=== PATIENT | female | born 1955 | race Caucasian/White ===

== ENCOUNTER 2016-09-07 21:35 | Inpatient (IN) | payer OTHER ==
[~2016-09-07] VITALS: Ht 147.3 cm; Wt 54.5 kg
[~2016-09-07 21:35] MED LIST: ASPI81CH CHEW; LANTUS2P SQ; LIPI10TA PO; METO25TA6 PO; NOVORP2 SQ; OXYGENTANK NAS.CANULA; PLAV75TA29 PO; PRED5PAK PO; ROFL1TAB2 PO; SYNT112T PO
[2016-09-07 21:49] VITALS: BP 96/63; PULSE 125; RESP 24; TEMP 98.8
[2016-09-07] MEDS ORDERED: METO25TA3 PO (22:12)
[2016-09-07] MEDS ORDERED: UMEC1INH INH (22:12)
[2016-09-07] MEDS ORDERED: ALBUAER3 INH (22:12)
[2016-09-07] MEDS ORDERED: methylPREDNISolone SOD SUCC 125 MG/2 ML VIAL IVP ONE (22:15)
--- NOTE | 2016-09-07 22:17 | PD ---
HPI Chief Complaint: Respiratory Symptoms Time Seen by Provider: 22:02 Travel History International Travel<30 days: No Contact w/Intl Traveler<30days: No Traveled to known affect area: No History of Present Illness HPI 61-year-old female complains of coughing congestion wheezing and shortness of breath. Patient states that symptoms started 2 days ago. Patient has history of COPD. Patient has been using nebulizer about 4 times a day at home. Patient states that she have persistent cough mostly dry cough. Patient states that she had chest wall pain with coughing. Patient has history diabetes, status post IA. Patient quit smoking 2 years ago. Patient has been taking prednisone at home. Patient took 20 mg prednisone by mouth and 10 mg prednisone this evening prior coming to the emergency room. Patient's on home O2 2 L nasal cannula. PFSH Past Medical History Hx Anticoagulant Therapy: Yes Anxiety: Yes Depression: Yes Cardiovascular Problems: Yes High Cholesterol: Yes Chest Pain: Yes Congestive Heart Failure: No COPD: Yes Coronary Artery Disease: Yes Diabetes: Yes Patient Takes Glucophage: No Endocrine: Yes Implanted Vascular Access Dvce: Yes Psychiatric: Yes Respiratory: Yes (copd) Myocardial Infarction: Yes (10/2015) Thyroid Disease: Yes Tetanus Vaccination: < 5 Years Influenza Vaccination: No Past Surgical History Abdominal Surgery: Yes (GALLBLADDER) Body Medical Devices: STENT Cardiac Surgery: Yes (STENT) Cholecystectomy: Yes Coronary Stent: Yes Gynecologic Surgery: Yes (HYSTERECTOMY) Hysterectomy: Yes Other Surgery: Yes Social History Alcohol Use: No Tobacco Use: Yes (occas) Substance Use: No Allergies-Medications (Allergen,Severity, Reaction): Coded Allergies: Morphine (Verified Allergy, Intermediate, Nausea/Vomiting, 09/07/16) Penicillin (Verified Allergy, Unknown, sob, 09/07/16) Tetracycline (Verified Allergy, Unknown, hives, 09/07/16) Reported Meds & Prescriptions Reported Meds & Active Scripts Active Prednisone (21) 5 mg tab Dose Pack (Prednisone) 5 Mg Dspk 5 Mg PO DIRECTED Oxygen tank (Oxygen) 1 Ea Tank 2 Liter JON.CANULA CONTINUOUS Oxygen Concentrator Portable Gaseous 2 L/min via Nasal Cannula Continuous For 99 months Reported Incruse Ellipta Inh (Umeclidinium [place] Inh) 0.0625 Mg/Act Inh 62.5 Mcg INH DAILY Proair Hfa 8.5 GM Inh (Albuterol Sulfate) 90 Mcg/Act Aer 2 Puff INH Q4-6H PRN 108 mcg/actuation Metoprolol Tartrate 25 Mg Tab 25 Mg PO BID Daliresp (Roflumilast) 500 Mcg Tab 500 Mcg PO DAILY Plavix (Clopidogrel Bisulfate) 75 Mg Tab 75 Mg PO DAILY Lipitor (Atorvastatin Calcium) 10 Mg Tab Unknown Dose PO HS Synthroid (Levothyroxine Sodium) 112 Mcg Tab 112 Mcg PO DAILY Novolin R Inj (Insulin Human Regular) 1,000 Unit/10 Ml Vial 12 Units SQ ACHS Max dose at bedtime:( )units; sugars less than 70,(0) units; sugars 150-199,(2)unit; sugars 200-249,(4)units; sugars 250-299,(7) units; sugars 300-349,(10)units; sugars greater than 349,(12)units Lantus Inj (Insulin Glargine) 1,000 Unit/10 Ml Vial 55 Units SQ HS Aspirin 81 Mg Chew 81 Mg CHEW DAILY Review of Systems General / Constitutional: No: Fever Eyes: No: Visual changes HENT: No: Headaches Cardiovascular: No: Chest Pain or Discomfort Respiratory: Positive: Cough, Shortness of Breath, Wheezing Gastrointestinal: No: Abdominal Pain Genitourinary: No: Dysuria Musculoskeletal: No: Pain Skin: No Rash Neurologic: No: Weakness Psychiatric: No: Depression Endocrine: No: Polydipsia Hematologic/Lymphatic: No: Easy Bruising Physical Exam Narrative GENERAL: Well-nourished, well-developed patient. SKIN: Warm and dry. HEAD: Normocephalic. EYES: No scleral icterus. No injection or drainage. NECK: Supple, trachea midline. No JVD or lymphadenopathy. CARDIOVASCULAR: Regular rate and rhythm without murmurs, gallops, or rubs. RESPIRATORY: Patient has moderate expiratory wheezes bilaterally with rhonchi at the bases. GASTROINTESTINAL: Abdomen soft, non-tender, nondistended. MUSCULOSKELETAL: No cyanosis, or edema. BACK: Nontender without obvious deformity. No CVA tenderness. Neurologic exam normal. Data Data Last Documented VS Vital Signs Date Time Temp Pulse Resp B/P Pulse Ox O2 Delivery O2 Flow Rate FiO2 09/07/16 22:50 115 20 124/82 97 Nasal Cannula 2 09/07/16 21:49 98.8 Orders Complete Blood Count With Diff (09/07/16 22:10) Comprehensive Metabolic Panel (09/07/16 22:10) B-Type Natriuretic Peptide (09/07/16 22:10) Act Partial Throm Time (Ptt) (09/07/16 22:10) Prothrombin Time / Inr (Pt) (09/07/16 22:10) Influenzae A/B Antigen (09/07/16 22:10) Blood Culture (09/07/16 22:10) Iv Access Insert/Monitor (09/07/16 22:10) Electrocardiogram (09/07/16 22:10) Ecg Monitoring (09/07/16 22:10) Oximetry (09/07/16 22:10) Oxygen Administration (09/07/16 22:10) Chest, Single Ap (09/07/16 22:10) Methylprednisolone So Succ Inj (Solumedr (09/07/16 22:15) Albuterol-Ipratropium Neb (Duoneb Neb) (09/07/16 22:15) Levofloxacin 750 Mg Premix Inj (Levaquin (09/07/16 23:15) Admit Order (Ed Use Only) (09/07/16 23:47) Labs Laboratory Tests Test 09/07/16 22:15 White Blood Count 10.4 TH/MM3 Red Blood Count 4.43 MIL/MM3 Hemoglobin 13.8 GM/DL Hematocrit 40.8 % Mean Corpuscular Volume 92.0 FL Mean Corpuscular Hemoglobin 31.1 PG Mean Corpuscular Hemoglobin 33.8 % Concent Red Cell Distribution Width 13.7 % Platelet Count 350 TH/MM3 Mean Platelet Volume 7.6 FL Neutrophils (%) (Auto) 70.0 % Lymphocytes (%) (Auto) 17.0 % Monocytes (%) (Auto) 12.0 % Eosinophils (%) (Auto) 0.4 % Basophils (%) (Auto) 0.6 % Neutrophils # (Auto) 7.2 TH/MM3 Lymphocytes # (Auto) 1.8 TH/MM3 Monocytes # (Auto) 1.3 TH/MM3 Eosinophils # (Auto) 0.0 TH/MM3 Basophils # (Auto) 0.1 TH/MM3 CBC Comment DIFF FINAL Differential Comment Prothrombin Time 9.9 SEC Prothromb Time International 0.9 RATIO Ratio Activated Partial 23.7 SEC Thromboplast Time Sodium Level 143 MEQ/L Potassium Level 3.3 MEQ/L Chloride Level 105 MEQ/L Carbon Dioxide Level 31.0 MEQ/L Anion Gap 7 MEQ/L Blood Urea Nitrogen 14 MG/DL Creatinine 0.75 MG/DL Estimat Glomerular Filtration 79 ML/MIN Rate Random Glucose 141 MG/DL Calcium Level 9.0 MG/DL Total Bilirubin 0.2 MG/DL Aspartate Amino Transf 18 U/L (AST/SGOT) Alanine Aminotransferase 26 U/L (ALT/SGPT) Alkaline Phosphatase 99 U/L B-Type Natriuretic Peptide 69 PG/ML Total Protein 6.6 GM/DL Albumin 3.2 GM/DL MDM Medical Decision Making Medical Screen Exam Complete: Yes Emergency Medical Condition: Yes Interpretation(s) Last Impressions Chest X-Ray 09/07/160 Signed Impressions: Service Date/Time: Wednesday, September 07, 2016 22:24 - CONCLUSION: No acute disease. Tulio Jones MD 23:45 PM. CBC within normal limit. Potassium 3.3. BNP 69. Influenza AB antigen negative. Differential Diagnosis Differential diagnosis including acute exacerbation COPD, bronchitis, pneumonia , PE, pneumothorax. Narrative Course 61-year-old female with coughing wheezing shortness of breath. History of COPD. Albuterol with Atrovent unit dose treatment 3. Solu-Medrol 60 mg IV. 23:46 PM. Reexamination, patient has moderate amount of wheezes bilaterally and has shortness of breath. Levaquin 750 g IV given. KCl 40 mEq by mouth given. Diagnosis Primary Impression: COPD with acute exacerbation Additional Impression: Hypokalemia Admitting Information Admitting Physician Requests: Admit Wil España MD Sep 07, 2016 22:17
[2016-09-07 22:20] VITALS: BP 118/64; PULSE 122; RESP 24; O2SAT 97
[2016-09-07] MEDS: RESP: ALBUTEROL 2.5 MG/IPRATROPIUM 0.5 MG NEB (SCH) INH ×2 (22:23→22:24)
--- NOTE | 2016-09-07 22:41 | RADHPO ---
EXAM DATE/TIME: 09/07/2016 22:24 [facility] COMPARISON: CHEST SINGLE AP, July 27, 2016, 18:41. INDICATIONS : Shortness of breath. MEDICAL HISTORY : Myocardial infarction. Diabetes mellitus type II. Chronic obstructive pulmonary disease. Cardiov ascular disease. SURGICAL HISTORY : None. ENCOUNTER: Initial ACUITY: 1 day PAIN SCORE: 0/10 LOCATION: Bilateral chest FINDINGS: A single view of the chest demonstrates the lungs to be symmetrically aerated without evidence of mas s, infiltrate or effusion. The cardiomediastinal contours are unremarkable. Osseous structures are intact. CONCLUSION: No acute disease. Tulio Jones MD on September 07, 2016 at 22:40 Board Certified Radiologist. This report was verified electronically.
[2016-09-07 22:50] VITALS: BP 124/82; PULSE 115; RESP 20; O2SAT 97
[2016-09-07] MEDS ORDERED: LEVOFLOXACIN 750 MG PREMIX INJ 150 ML IV ONE (23:15)
[2016-09-07 23:19] LABS: AUTOMATED NEUTROPHIL # 7.2 TH/MM3 (1.8-7.7); BASOPHIL # 0.1 TH/MM3 (0-0.2); BASOPHIL % 0.6 % (0.0-2.0); EOSINOPHIL % 0.4 % (0.0-4.0); HEMATOCRIT 40.8 % (35.0-46.0); HEMO FLAGS DIFF FINAL; LYMPHOCYTE # 1.8 TH/MM3 (1.0-4.8); MEAN CORPUSCULAR HEMOGLOBIN 31.1 PG (27.0-34.0); MEAN CORPUSCULAR HGB CONC 33.8 % (32.0-36.0); PLATELET COUNT 350 TH/MM3 (150-450); RED BLOOD COUNT 4.43 MIL/MM3 (4.00-5.30); RED CELL DISTRIBUTION WIDTH 13.7 % (11.6-17.2); WHITE BLOOD COUNT 10.4 TH/MM3 (4.0-11.0)
[2016-09-07 23:28] LABS: CHLORIDE 105 MEQ/L (98-107); POTASSIUM 3.3 MEQ/L (3.5-5.1); SODIUM (NA) 143 MEQ/L (136-145)
[2016-09-07 23:32] LABS: ANION GAP 7 MEQ/L (5-15); BLOOD UREA NITROGEN 14 MG/DL (7-18)
[2016-09-07 23:34] LABS: APTT (PATIENT) 23.7 SEC (24.3-30.1); INTERNATIONAL NORMALIZED RATIO 0.9 RATIO; PROTHROMBIN TIME - PATIENT 9.9 SEC (9.8-11.6)
[2016-09-07 23:35] LABS: ALT (GPT) 26 U/L (10-53); AST (GOT) 18 U/L (15-37); GLOMERULAR FILTRATION RATE 79 ML/MIN (>89)
[2016-09-07 23:36] LABS: TOTAL BILIRUBIN ADULT 0.2 MG/DL (0.2-1.0)
[2016-09-07 23:38] LABS: ALKALINE PHOSPHATASE 99 U/L (45-117)
[2016-09-08] VITALS (13 sets, daily range): BP systolic 102–115; BP diastolic 58–73; PULSE 88–126; RESP 20–24; TEMP 97–98.2; O2SAT 94–98
[2016-09-08] MEDS ORDERED: DEXTROSE 50% IN WATER 50 ML VIAL(D50) IV PUSH PRN
[2016-09-08] MEDS ORDERED: SODIUM CHLORIDE 0.9% FLUSH 5 ML FLUSH FLUSH PRN
[2016-09-08] MEDS ORDERED: NALOXONE HCL 0.4 MG/ML AMP IV PRN
[2016-09-08] MEDS ORDERED: GLUCAGON 1 MG/ML VIAL OTHER PRN
[2016-09-08] MEDS ORDERED: RESP: ALBUTEROL 2.5 MG/IPRATROPIUM 0.5 MG NEB (PRN) NEB
[2016-09-08] MEDS ORDERED: POTASSIUM CHLORIDE 20 MEQ CONTROLLED RELEASE TAB PO ONE
[2016-09-08] MEDS: SODIUM CHLOR 0.9% 1000 ML INJ 1,000 ML IV SCH ×3 (00:33→18:01)
[2016-09-08] MEDS: RESP: ALBUTEROL 2.5 MG/IPRATROPIUM 0.5 MG NEB (SCH) NEB ×4 (04:22→22:21)
[2016-09-08] MEDS: methylPREDNISolone SOD SUCC 40 MG/1 ML VIAL IV PUSH SCH ×4 (05:08→23:35)
[2016-09-08 06:17] LABS: BICARBONATE 25.8 MEQ/L (21.0-32.0); POTASSIUM 4.4 MEQ/L (3.5-5.1)
[2016-09-08] MEDS: INSULIN ASPART SUPPLEMENTAL SCALE SQ SCH ×4 (06:28→21:02)
[2016-09-08] MEDS ORDERED: INSULIN DETEMIR 100 UNITS/ML VIAL SQ SCH (09:00)
[2016-09-08] MEDS ORDERED: INFLUENZA VIRUS VACCINE (QUADRIVALENT) 0.5 ML SYR IM ONE (09:00)
[2016-09-08] MEDS: PANTOPRAZOLE SOD 40 MG DELAYED RELEASE TAB PO SCH (09:10)
[2016-09-08] MEDS: ENOXAPARIN SODIUM 40 MG/0.4 ML SYRINGE SQ SCH (09:10)
[2016-09-08] MEDS: SODIUM CHLORIDE 0.9% FLUSH 5 ML FLUSH FLUSH SCH ×2 (09:10→20:59)
--- NOTE | 2016-09-08 14:21 | HHI.HP ---
[facility] Service [place] [facility] Primary Care Physician No Primary Care Physician Admission Diagnosis acute exacerbation COPD Diagnoses: (1) COPD with acute exacerbation Travel History International Travel<30 Days: No Contact w/Intl Traveler <30 Da: No Traveled to Known Affected Are: No History of Present Illness This is a pleasant 61-year-old female with past medical history of COPD on 2 L of oxygen at home, coronary artery disease who presented to the ER last night complaining of a 2 day history of wheezing and shortness of breath. She started taking prednisone that she had at home and was using her bronchodilators however it was not helping and so she presented to the ER. Overnight she was treated with Solu-Medrol and DuoNeb's. Today she states she feels 50% better but is not back to normal. Patient states that she was having a dry cough yesterday but this has resolved today. She denies fever or chills. The patient states that she needs to go home today so that she can work tomorrow otherwise she will face losing her insurance. Review of Systems Constitutional: DENIES: Fever, Chills Ears, nose, mouth, throat: DENIES: Throat pain, Hoarseness Respiratory: COMPLAINS OF: Cough, Wheezing, Shortness of breath, DENIES: Sputum production Cardiovascular: DENIES: Chest pain, Palpitations Gastrointestinal: DENIES: Abdominal pain, Vomiting Genitourinary: DENIES: Urinary frequency, Dysuria Integumentary: DENIES: Pruritus, Rash Neurologic: DENIES: Abnormal gait, Headache Psychiatric: DENIES: Anxiety, Confusion Past Family Social History Past Medical History Hypertension Hyperlipidemia Coronary artery disease Chronic obstructive pulmonary disease Chronic respiratory failure O2 dependency Diabetes Hypothyroidism history of myocardial infarction Past Surgical History Cardiac catheterization with stenting Hysterectomy Cholecystectomy Reported Medications Allergies Coded Allergies Type Severity Reaction Last Updated Verified Morphine Allergy Intermediate Nausea/Vomiting 09/07/16 Yes Penicillin Allergy Unknown sob 09/07/16 Yes Tetracycline Allergy Unknown hives 09/07/16 Yes Active Scripts Medications Dose Route/Sig Days Date Category Dose Instructions Xanax (Alprazolam) 0.25 Mg Tab 0.25 Mg PO Q6H PRN 09/08/16 Reported Incruse Ellipta Inh (Umeclidinium [place] Inh) 0.0625 Mg/Act Inh 62.5 Mcg INH DAILY 09/07/16 Reported Proair Hfa 8.5 GM Inh (Albuterol Sulfate) 90 Mcg/Act Aer 2 Puff INH Q4-6H PRN 09/07/16 Reported 108 mcg/actuation Metoprolol Tartrate 25 Mg Tab 25 Mg PO BID 09/07/16 Reported Prednisone (21) 5 mg tab Dose Pack (Prednisone) 5 Mg Dspk 5 Mg PO DIRECTED 07/28/16 Rx Oxygen tank (Oxygen) 1 Ea Tank 2 Liter JON.CANULA CONTINUOUS 07/28/16 Rx Oxygen Concentrator Portable Gaseous 2 L/min via Nasal Cannula Continuous For 99 months Daliresp (Roflumilast) 500 Mcg Tab 500 Mcg PO DAILY 07/27/16 Reported Plavix (Clopidogrel Bisulfate) 75 Mg Tab 75 Mg PO DAILY 07/27/16 Reported Lipitor (Atorvastatin Calcium) 10 Mg Tab Unknown Dose PO HS 07/27/16 Reported Synthroid (Levothyroxine Sodium) 112 Mcg Tab 112 Mcg PO DAILY 07/27/16 Reported Novolin R Inj (Insulin Human Regular) 1,000 Unit/10 Ml Vial 12 Units SQ ACHS 07/27/16 Reported Max dose at bedtime:( )units; sugars less than 70, (0) units; sugars 150-199,(2)unit; sugars 200-249,(4)units; sugars 250-299,(7) units; sugars 300-349,(10)units; sugars greater than 349,(12)units Lantus Inj (Insulin Glargine) 1,000 Unit/10 Ml Vial 55 Units SQ HS 07/27/16 Reported Aspirin 81 Mg Chew 81 Mg CHEW DAILY 07/27/16 Reported Allergies: Coded Allergies: Morphine (Verified Allergy, Intermediate, Nausea/Vomiting, 09/07/16) Penicillin (Verified Allergy, Unknown, sob, 09/07/16) Tetracycline (Verified Allergy, Unknown, hives, 09/07/16) Family History Mother had diabetes and CHF. Social History Quit smoking 2-1/2 years ago. Physical Exam Vital Signs Vital Signs Date Time Temp Pulse Resp B/P Pulse Ox O2 Delivery O2 Flow Rate FiO2 09/08/16 12:00 97.0 88 22 106/58 98 09/08/16 09:29 98 Nasal Cannula 2.00 09/08/16 08:00 98.2 92 22 111/73 97 09/08/16 04:22 97 Nasal Cannula 2.00 09/08/16 02:00 108 09/08/16 01:15 98.0 115 20 102/66 98 09/08/16 00:40 117 22 105/60 97 2.5 09/08/16 00:00 126 24 103/59 97 Nasal Cannula 2.5 09/07/16 22:50 115 20 124/82 97 Nasal Cannula 2 09/07/16 22:20 122 24 118/64 97 Nasal Cannula 09/07/16 22:00 97 Nasal Cannula 2.5 09/07/16 22:00 Nasal Cannula 09/07/16 21:53 97 Nasal Cannula 2.5 09/07/16 21:49 98.8 125 24 96/63 Physical Exam GENERAL: Well-nourished, well-developed pleasant female patient. SKIN: Warm and dry. HEAD: Normocephalic. EYES: No scleral icterus. No injection or drainage. NECK: Supple, trachea midline. No JVD or lymphadenopathy. CARDIOVASCULAR: Regular rate and rhythm without murmurs, gallops, or rubs. RESPIRATORY: Patient is noted to have pursed lip breathing with an expiratory wheezing bilaterally and prolonged expiratory phase. She is able to speak in complete sentences. GASTROINTESTINAL: Abdomen soft, non-tender, nondistended. EXTREMITIES: No cyanosis, or edema. NEUROLOGICAL: Awake, alert, and oriented x 3. Non-focal. Laboratory Laboratory Tests Test 09/07/16 09/08/16 22:15 04:45 White Blood Count 10.4 Red Blood Count 4.43 Hemoglobin 13.8 Hematocrit 40.8 Mean Corpuscular Volume 92.0 Mean Corpuscular Hemoglobin 31.1 Mean Corpuscular Hemoglobin 33.8 Concent Red Cell Distribution Width 13.7 Platelet Count 350 Mean Platelet Volume 7.6 Neutrophils (%) (Auto) 70.0 Lymphocytes (%) (Auto) 17.0 Monocytes (%) (Auto) 12.0 Eosinophils (%) (Auto) 0.4 Basophils (%) (Auto) 0.6 Neutrophils # (Auto) 7.2 Lymphocytes # (Auto) 1.8 Monocytes # (Auto) 1.3 Eosinophils # (Auto) 0.0 Basophils # (Auto) 0.1 CBC Comment DIFF FINAL Differential Comment Prothrombin Time 9.9 Prothromb Time International 0.9 Ratio Activated Partial 23.7 Thromboplast Time Sodium Level 143 139 Potassium Level 3.3 4.4 Chloride Level 105 102 Carbon Dioxide Level 31.0 25.8 Anion Gap 7 11 Blood Urea Nitrogen 14 18 Creatinine 0.75 0.92 Estimat Glomerular Filtration 79 62 Rate Random Glucose 141 408 Calcium Level 9.0 8.9 Total Bilirubin 0.2 Aspartate Amino Transf 18 (AST/SGOT) Alanine Aminotransferase 26 (ALT/SGPT) Alkaline Phosphatase 99 B-Type Natriuretic Peptide 69 Total Protein 6.6 Albumin 3.2 Date/Time Procedure Status Source Growth 09/07/16 23:00 Influenza Types A,B Antigen ([facility]AT[facility]) - Final Complete Nasal Washing NEGATIVE FOR FLU A AND B ANTIGEN.... 09/07/16 22:20 Aerobic Blood Culture - Preliminary Resulted Blood Peripheral NO GROWTH IN 1 DAY 09/07/16 22:20 Anaerobic Blood Culture - Preliminary Resulted Blood Peripheral NO GROWTH IN 1 DAY Result Diagram: 09/07/165 09/08/165 Imaging Last Impressions Chest X-Ray 09/07/162209 Signed Impressions: Service Date/Time: Wednesday, September 07, 2016 22:24 - CONCLUSION: No acute disease. Tulio Jones MD Assessment and Plan Assessment and Plan -Acute COPD exacerbation. Chronic respiratory failure O2 dependency on 2 L of nasal cannula O2 at home. We'll continue with Solu-Medrol, increase to 60 mg IV every 6 hours. The patient states that she is feeling 50% improved however she is still breathing with pursed lips. She was already taking by mouth prednisone at home and failed that. The patient feels that she needs to go home today to resume her job or she will risk losing her insurance. I explained right think it is highly likely that she will be readmitted and I cannot in good conscience medically clear her for discharge at this time. I did promise to reevaluate first thing in the morning to see if she will be appropriate for discharge tomorrow. The patient was agreeable to this and agrees to stay overnight. We'll continue with bronchodilators. The patient was also encouraged that she needs to get established with a primary care physician as well as a local reconcilement clerk. --Hypertension Hyperlipidemia -Coronary artery disease, history of coronary artery stents. Continue medical management. -Diabetes type II, uncontrolled with hyperglycemia now due to steroids. Will add Levemir 15 units subcutaneous twice a day. Continue sliding scale insulin with Accu-Cheks. -Hypothyroidism -DVT prophylaxis with Lovenox. Mahogany Rodrigez MD Sep 08, 2016 14:21
[2016-09-08] MEDS ORDERED: ACETAMINOPHEN 325 MG TAB PO PRN (14:30)
[2016-09-08] MEDS ORDERED: ONDANSETRON HCL 4 MG/2 ML VIAL IVP PRN (14:30)
[2016-09-08] MEDS ORDERED: ALPR.25 PO (14:43)
[2016-09-08] MEDS: ALPRAZolam 0.25 MG TAB PO PRN ×2 (15:12→23:48)
[2016-09-08] MEDS: INSULIN DETEMIR 100 UNITS/ML VIAL SQ SCH (21:00)
[2016-09-08] MEDS: METOPROLOL TARTRATE 25 MG TAB PO SCH (21:00)
[2016-09-09] VITALS: BP 121/80; PULSE 98; RESP 18; TEMP 97.5; O2SAT 98
[2016-09-09] MEDS: RESP: ALBUTEROL 2.5 MG/IPRATROPIUM 0.5 MG NEB (SCH) NEB ×2 (03:21→09:56)
[2016-09-09 04:00] VITALS: BP 96/64; PULSE 87; RESP 20; TEMP 95.9; O2SAT 96
[2016-09-09] MEDS: methylPREDNISolone SOD SUCC 40 MG/1 ML VIAL IV PUSH SCH (06:04)
[2016-09-09] MEDS: SODIUM CHLOR 0.9% 1000 ML INJ 1,000 ML IV SCH (06:07)
[2016-09-09] MEDS: INSULIN ASPART SUPPLEMENTAL SCALE SQ SCH (06:13)
--- NOTE | 2016-09-09 06:58 | EKG ---
Date Performed: 09/07/2016 Time Performed: 22:22:30 PTAGE: 61 years EKG: Sinus tachycardia Lateral T wave changes are nonspecific Borderline ECG PREVIOUS TRACING : 07/28/2016 14.02 Compared to prior tracing no significant change DOCTOR: Dallas Rahman Interpretating Date/Time 09/09/2016 06:56:21
[2016-09-09 08:00] VITALS: BP 113/69; PULSE 79; RESP 18; TEMP 97.5; O2SAT 98
[2016-09-09] MEDS ORDERED: LEVOTHYROXINE SODIUM 112 MCG TAB PO SCH (09:00)
[2016-09-09] MEDS ORDERED: ASPIRIN 81 MG CHEW TAB CHEW SCH (09:00)
[2016-09-09] MEDS ORDERED: CLOPIDOGREL 75 MG TAB PO SCH (09:00)
[2016-09-09] MEDS ORDERED: ROFLUMILAST 500 MCG TAB PO SCH (09:00)
[2016-09-09] MEDS: ENOXAPARIN SODIUM 40 MG/0.4 ML SYRINGE SQ SCH (09:21)
[2016-09-09] MEDS: INSULIN DETEMIR 100 UNITS/ML VIAL SQ SCH (09:24)
[2016-09-09] MEDS: METOPROLOL TARTRATE 25 MG TAB PO SCH (09:26)
[2016-09-09] MEDS: PANTOPRAZOLE SOD 40 MG DELAYED RELEASE TAB PO SCH (09:26)
[2016-09-09] MEDS: SODIUM CHLORIDE 0.9% FLUSH 5 ML FLUSH FLUSH SCH (09:27)
[2016-09-09] MEDS ORDERED: PRED10 PO (09:42)
[2016-09-09] MEDS ORDERED: ALBUAER3 INH (09:42)
--- NOTE | 2016-09-09 09:52 | HHI.PR ---
Subjective Remarks The patient states she is feeling 80% improved compared to when she came to the hospital. She feels that she is breathing much easier and her lungs no longer feel "crackly." She is very eager to go home today and does not want to stay another day in the hospital as she needs to get back to work. Objective Vitals Vital Signs Date Time Temp Pulse Resp B/P Pulse Ox O2 Delivery O2 Flow Rate FiO2 09/09/16 04:00 95.9 87 20 96/64 96 09/09/16 00:00 97.5 98 18 121/80 98 09/08/16 22:21 94 Nasal Cannula 2.00 09/08/16 20:15 112 09/08/16 20:00 97.4 116 20 113/63 96 09/08/16 16:43 18 09/08/16 16:00 98.0 97 22 115/71 95 09/08/16 12:00 97.0 88 22 106/58 98 I/O 09/08/16 09/08/16 09/08/16 09/09/16 09/09/16 09/09/16 07:00 15:00 23:00 07:00 15:00 23:00 Intake Total 780 ml 1225 ml 520 ml Balance 780 ml 1225 ml 520 ml Intake Oral 480 ml 1225 ml 520 ml IV Total 300 ml # Voids 6 7 1 3 # Bowel Movements 0 1 0 Result Diagram: 09/07/16 2215 09/08/16 0445 Objective Remarks GENERAL: Well-nourished, well-developed patient. SKIN: Warm and dry. HEAD: Normocephalic. EYES: No scleral icterus. No injection or drainage. NECK: Supple, trachea midline. No JVD or lymphadenopathy. CARDIOVASCULAR: Regular rate and rhythm without murmurs, gallops, or rubs. RESPIRATORY: Improved airflow today, no further pursed lip breathing. No expiratory wheezing. GASTROINTESTINAL: Abdomen soft, non-tender, nondistended. EXTREMITIES: No cyanosis, or edema. NEUROLOGICAL: Awake, alert, and oriented x 3. Non-focal. A/P Problem List: (1) COPD with acute exacerbation ICD Code: J44.1 Status: Acute Assessment and Plan -Acute COPD exacerbation. Chronic respiratory failure O2 dependency on 2 L of nasal cannula O2 at home. Clinically improved today. The patient needs to go home today for financial reasons and declines to stay another day in the hospital. She is already taking prednisone 30 mg at home. I will give her a prescription for 40 mg by mouth twice a day for 1 week and taper that back down to her home dose. I encouraged her to call her insurance and get a military nurse in the area as she appears to have severe COPD. I also asked her nurse to get her a list of PCPs in the area so that she can get established with a primary care physician as she has not yet done that. The patient will also be prescribed a refill for her pro-air rescue inhaler. She has a nebulizer with DuoNeb's at home. She has oxygen at home. The patient is encouraged to return to the ER if her symptoms start to worsen. Plan for discharge home today. We'll continue with Solu-Medrol, increase to 60 mg IV every 6 hours. Hyperlipidemia -Coronary artery disease, history of coronary artery stents. Continue medical management. -Diabetes type II, uncontrolled with hyperglycemia now due to steroids. Resume home medications. -Hypothyroidism -DVT prophylaxis with Lovenox. Discharge Planning Home today. Mahogany Rodrigez MD Sep 09, 2016 09:52
[2016-09-09 09:57] VITALS: O2SAT 97
[2016-09-09] MEDS ORDERED: LEVA750T PO (12:37)
[2016-12-01] MEDS ORDERED: BYST10TA2 PO (16:57)
[2016-12-01] MEDS ORDERED: INSU1INJ5 SQ (17:17)
[2016-12-01] MEDS ORDERED: CHOL1CHW5 CHEW (17:17)
[2016-12-15] MEDS ORDERED: NOVORP2 SQ (14:47)
[2016-12-15] MEDS ORDERED: LEVO500T3 PO (15:01)
[2016-12-15] MEDS ORDERED: PRED20 PO (15:01)
[2016-12-15] MEDS ORDERED: BENZ1CAP34 PO (15:16)
[2017-01-19] MEDS ORDERED: PRED10 PO (11:41)
[2017-01-19] MEDS ORDERED: INSU1INJ5 SQ (11:52)
[2017-01-19] MEDS ORDERED: NOVORP2 SQ (11:52)
[2017-01-19] MEDS ORDERED: [UNRECOGNIZED DRUG - CODE] INH (11:52)
[2017-02-02] MEDS ORDERED: ROLLER WALKER1 MI1 (11:34)
[2017-02-02] MEDS ORDERED: GETGO ROLLING W1 MI1 (11:34)
[2017-02-02] MEDS ORDERED: WALKER/ADULT/FO1 MIS (11:34)
[2017-02-02] MEDS ORDERED: OXYGENDME NAS.CANULA (11:34)
[2017-02-02] MEDS ORDERED: OXYGEN NAS.CANULA (11:34)
== END 2016-09-09 12:28 | disposition home or self-care (01) | DRG 191 ==
LOC: PHED 21:35 → PHEDA 23:49 → PH3A 09-08 01:02 → OBSVTOIN 09-08 14:20 → UNDODISOB 09-09 12:28
PROVIDERS: ADMIT Family Medicine; ATTEND Family Medicine
DX: J44.1 Chronic obstructive pulmonary disease with (acute) exacerbation (principal); J96.10 Chronic respiratory failure, unspecified whether with hypoxia or hypercapnia; Z99.81 Dependence on supplemental oxygen; E11.65 Type 2 diabetes mellitus with hyperglycemia; E87.6 Hypokalemia; I25.10 Atherosclerotic heart disease of native coronary artery without angina pectoris; I25.2 Old myocardial infarction; F41.9 Anxiety disorder, unspecified; F32.9 Major depressive disorder, single episode, unspecified; I10 Essential (primary) hypertension; E78.5 Hyperlipidemia, unspecified; E03.9 Hypothyroidism, unspecified; T38.0X5A Adverse effect of glucocorticoids and synthetic analogues, initial encounter; Z23 Encounter for immunization; Z72.0 Tobacco use; Z79.4 Long term (current) use of insulin; Z88.0 Allergy status to penicillin; Z88.1 Allergy status to other antibiotic agents; Z88.5 Allergy status to narcotic agent; Z95.5 Presence of coronary angioplasty implant and graft
CPT/HCPCS: 71010; 80048; 80053; 82948; 83880; 85025; 85610; 85730; 87040; 87804; 90686; 93005; 94640; 94664; 96374; 96375; J1650; J1815; J1956; J2920; J2930; J7030; Q2038

== ENCOUNTER → 2016-10-19 | Outpatient (CLI) | payer OTHER ==
[~2016-10-19] MED LIST changes: +ALBUAER3 INH; +ALPR.25 PO; +BENZ1CAP34 PO; +BYST10TA2 PO; +CHOL1CHW5 CHEW; +FURO1TAB62 PO; +GETGO ROLLING W1 MI1; +INSU1INJ5 SQ; +ISOS10TA3 PO; +LEVA750T PO; +LEVO500T3 PO; +LIPI80TA PO; +METO25TA3 PO; -METO25TA6 PO; +OXYGEN NAS.CANULA; +OXYGENDME NAS.CANULA; +PRED10 PO; +PRED20 PO; -PRED5PAK PO; +ROLLER WALKER1 MI1; +SERT-132 PO; +UMEC1INH INH; +WALKER/ADULT/FO1 MIS; +[UNRECOGNIZED DRUG - CODE] INH; +[UNRECOGNIZED DRUG - OTHER] INH
--- NOTE | 2016-10-28 11:42 | RSPPFT ---
DATE OF PROCEDURE: 10/19/16 COMMENTS: Spirometry demonstrates an FEV1 of 0.3 at 23% of predicted, FVC of 0.9 at 41%, FEV1/FVC ratio is 40%. The FEF 25-75 is 7%. Post-bronchodilator study demonstrated mild improvements in the FEF 25-75. Lung volumes were not completed. Flow volume loops suggest severe obstruction. IMPRESSION: 1. Severe obstructive airways disease. 2. Significant response to use of bronchodilator indicating some reversibility.
== END ==
LOC: HRSP 08:55
DX: J44.9 Chronic obstructive pulmonary disease, unspecified (principal); E11.9 Type 2 diabetes mellitus without complications; R06.00 Dyspnea, unspecified
CPT/HCPCS: 94060

== ENCOUNTER 2016-12-21 16:24 | Observation (INO) | payer OTHER ==
[2016-12-21] VITALS (8 sets, daily range): BP systolic 106–119; BP diastolic 56–66; PULSE 70–81; RESP 20–22; TEMP 98.2; O2SAT 2–98
[~2016-12-21 16:24] MED LIST changes: -FURO1TAB62 PO; -GETGO ROLLING W1 MI1; -ISOS10TA3 PO; -LANTUS2P SQ; -LIPI80TA PO; -OXYGEN NAS.CANULA; -OXYGENDME NAS.CANULA; -ROLLER WALKER1 MI1; -SERT-132 PO; -WALKER/ADULT/FO1 MIS; -[UNRECOGNIZED DRUG - CODE] INH; -[UNRECOGNIZED DRUG - OTHER] INH
[2016-12-21] MEDS ORDERED: methylPREDNISolone SOD SUCC 125 MG/2 ML VIAL IVP ONE (17:00)
[2016-12-21] MEDS: RESP: ALBUTEROL 2.5 MG/IPRATROPIUM 0.5 MG NEB (SCH) INH ×3 (17:01→22:48)
[2016-12-21] MEDS ORDERED: [UNRECOGNIZED DRUG - OTHER] INH (17:01)
[2016-12-21] MEDS ORDERED: SERT-132 PO (17:01)
[2016-12-21] MEDS ORDERED: LIPI80TA PO (17:01)
[2016-12-21] MEDS ORDERED: FURO1TAB62 PO (17:01)
--- NOTE | 2016-12-21 17:01 | PD ---
HPI Chief Complaint: Respiratory Symptoms Time Seen by Provider: 16:43 Travel History International Travel<30 days: No Contact w/Intl Traveler<30days: No Traveled to known affect area: No History of Present Illness HPI 61-year-old female complains of coughing congestion wheezing, chest pain and shortness of breath. Patient has history of COPD and on home O2. Patient on 2- 1/2 L nasal cannula at home. Patient started having increasing coughing congestion wheezing about week ago. Patient states the cough is intermittent and nonproductive. Patient had fever last week but not this week. Patient was seen by personal physician and given prescription for prednisone 40 mg daily since last week. Patient also was started on Levaquin. Patient started having left-sided chest pain since yesterday. Patient states the pain is pressure pain started on the left chest with radiation to the left-sided neck. Patient states the chest pain is worse with exertion. Patient states that she has increasing shortness of breath with exertion also. Patient has history of diabetes, hyperlipidemia. Patient is a nonsmoker. Patient has history of CAD status post MO 2. Last MO was in October 2015. Patient states that she had stent placement in the past however the stent was found to be included in December 2015. Patient on aspirin 81 mg daily and Plavix. Patient's mobile pet groomer is Dr. Andrews. [facility] Past Medical History Hx Anticoagulant Therapy: Yes Asthma: No Blood Disorders: No Anxiety: Yes Depression: Yes Heart Rhythm Problems: No Cancer: No Cardiovascular Problems: Yes High Cholesterol: Yes Chemotherapy: No Chest Pain: Yes Congestive Heart Failure: No COPD: Yes Cerebrovascular Accident: No Coronary Artery Disease: Yes Diabetes: Yes Patient Takes Glucophage: Yes Endocrine: Yes Genitourinary: No Immune Disorder: No Implanted Vascular Access Dvce: Yes Musculoskeletal: No Neurologic: No Psychiatric: Yes Reproductive: No Respiratory: Yes (copd) Migraines: No Myocardial Infarction: Yes (10/2015) Radiation Therapy: No Seizures: No Sleep Apnea: No Thyroid Disease: Yes Tetanus Vaccination: > 5 Years Influenza Vaccination: Yes Past Surgical History Abdominal Surgery: Yes (GALLBLADDER) Body Medical Devices: STENT Cardiac Surgery: Yes (STENT) Cholecystectomy: Yes Coronary Stent: Yes Ear Surgery: No Endocrine Surgery: No Eye Surgery: No Gynecologic Surgery: Yes (HYSTERECTOMY) Hysterectomy: Yes Oral Surgery: Yes Other Surgery: Yes Social History Alcohol Use: No Tobacco Use: No Substance Use: No Allergies-Medications (Allergen,Severity, Reaction): Coded Allergies: Morphine (Verified Allergy, Intermediate, Nausea/Vomiting, 12/21/16) Penicillin (Verified Allergy, Unknown, sob, 12/21/16) Tetracycline (Verified Allergy, Unknown, hives, 12/21/16) Sulfa (Verified Adverse Reaction, Severe, vomiting, 12/21/16) Reported Meds & Prescriptions Reported Meds & Active Scripts Active Benzonatate 200 Mg Cap 200 Mg PO TID PRN Prednisone 20 Mg Tab 20 Mg PO BID Novolin R Inj (Insulin Human Regular) 1,000 Unit/10 Ml Vial 12 Units SQ TIDAC Max dose at bedtime:( )units; sugars less than 70,(0) units; sugars 150-199,(2)unit; sugars 200-249,(4)units; sugars 250-299,(7) units; sugars 300-349,(10)units; sugars greater than 349,(12)units Levemir Flextouch Pen Inj (Insulin Detemir) 300 unit/3 ML Pen 30 Units SQ Q12HR Vitamin D3 (Cholecalciferol) 2,000 Unit Chew 2,000 Units CHEW DAILY Bystolic (Nebivolol) 10 Mg Tab 10 Mg PO DAILY Levaquin (Levofloxacin) 750 Mg Tab 750 Mg PO DAILY Prednisone 10 Mg Tab 10 Mg PO DIRECTED 30 Days Take 40 mg PO BID x 7 days, then 30 mg PO BID x 5 days, then 30 mg PO daily thereafter. Dispense sufficient quantity for 30 day supply. Proair Hfa 8.5 GM Inh (Albuterol Sulfate) 90 Mcg/Act Aer 2 Puff INH Q4-6H PRN 108 mcg/actuation Oxygen tank (Oxygen) 1 Ea Tank 2 Liter JON.CANULA CONTINUOUS Oxygen Concentrator Portable Gaseous 2 L/min via Nasal Cannula Continuous For 99 months Reported [Dalera] 200 Mg INH BID Lasix (Furosemide) 20 Mg Tab 20 Mg PO DIRECTED PRN Lipitor (Atorvastatin Calcium) 80 Mg Tab 80 Mg PO HS Sertraline (Sertraline HCl) 50 Mg Tab 50 Mg PO DAILY Incruse Ellipta Inh (Umeclidinium [place] Inh) 0.0625 Mg/Act Inh 62.5 Mcg INH DAILY Daliresp (Roflumilast) 500 Mcg Tab 500 Mcg PO DAILY Plavix (Clopidogrel Bisulfate) 75 Mg Tab 75 Mg PO DAILY Synthroid (Levothyroxine Sodium) 112 Mcg Tab 112 Mcg PO DAILY Aspirin 81 Mg Chew 81 Mg CHEW DAILY Review of Systems General / Constitutional: Positive: Fever Eyes: No: Visual changes HENT: No: Headaches Cardiovascular: Positive: Chest Pain or Discomfort Respiratory: Positive: Cough, Shortness of Breath, Wheezing Gastrointestinal: No: Abdominal Pain Genitourinary: No: Dysuria Musculoskeletal: No: Pain Skin: No Rash Neurologic: No: Weakness Psychiatric: No: Depression Endocrine: No: Polydipsia Hematologic/Lymphatic: No: Easy Bruising Physical Exam Narrative GENERAL: Well-nourished, well-developed patient. SKIN: Focused skin assessment warm/dry. HEAD: Normocephalic. EYES: No scleral icterus. No injection or drainage. NECK: Supple, trachea midline. No JVD or lymphadenopathy. CARDIOVASCULAR: Regular rate and rhythm without murmurs, gallops, or rubs. RESPIRATORY: Breath sounds equal bilaterally. No accessory muscle use. Patient has moderate expiratory wheezes bilaterally. No rhonchi. GASTROINTESTINAL: Abdomen soft, non-tender, nondistended. MUSCULOSKELETAL: No cyanosis, or edema. BACK: Nontender without obvious deformity. No CVA tenderness. Neurologic exam: Patient is awake alert oriented 3. No obvious focal neurological deficit. Data Data Last Documented VS Vital Signs Date Time Temp Pulse Resp B/P Pulse Ox O2 Delivery O2 Flow Rate FiO2 12/21/16 17:12 98 Nasal Cannula 2 12/21/16 16:40 73 12/21/16 16:28 98.2 22 119/60 Orders Electrocardiogram (12/21/16 16:50) Complete Blood Count With Diff (12/21/16 16:50) Comprehensive Metabolic Panel (12/21/16 16:50) Creatine Kinase (Cpk) (12/21/16 16:50) Troponin I (12/21/16 16:50) B-Type Natriuretic Peptide (12/21/16 16:50) Prothrombin Time / Inr (Pt) (12/21/16 16:50) Act Partial Throm Time (Ptt) (12/21/16 16:50) Blood Culture (12/21/16 16:50) D-Dimer (12/21/16 16:50) Influenzae A/B Antigen (12/21/16 16:50) Chest, Single Ap (12/21/16 16:50) Iv Access Insert/Monitor (12/21/16 16:50) Ecg Monitoring (12/21/16 16:50) Oximetry (12/21/16 16:50) Ct Pulmonary Angiogram (12/21/16 16:50) Methylprednisolone So Succ Inj (Solumedr (12/21/16 17:00) Albuterol-Ipratropium Neb (Duoneb Neb) (12/21/16 17:00) Iohexol 350 Inj (Omnipaque 350 Inj) (12/21/16 17:58) Labs Laboratory Tests Test 12/21/16 17:10 White Blood Count 16.1 TH/MM3 Red Blood Count 4.51 MIL/MM3 Hemoglobin 14.0 GM/DL Hematocrit 41.9 % Mean Corpuscular Volume 92.9 FL Mean Corpuscular Hemoglobin 30.9 PG Mean Corpuscular Hemoglobin 33.3 % Concent Red Cell Distribution Width 13.8 % Platelet Count 432 TH/MM3 Mean Platelet Volume 7.3 FL Neutrophils (%) (Auto) 73.1 % Lymphocytes (%) (Auto) 16.4 % Monocytes (%) (Auto) 8.5 % Eosinophils (%) (Auto) 0.3 % Basophils (%) (Auto) 1.7 % Neutrophils # (Auto) 11.8 TH/MM3 Lymphocytes # (Auto) 2.6 TH/MM3 Monocytes # (Auto) 1.4 TH/MM3 Eosinophils # (Auto) 0.0 TH/MM3 Basophils # (Auto) 0.3 TH/MM3 CBC Comment DIFF FINAL Differential Comment Prothrombin Time 10.1 SEC Prothromb Time International 0.9 RATIO Ratio Activated Partial 22.7 SEC Thromboplast Time D-Dimer Quantitative (PE/DVT) 0.50 MG/L FEU Sodium Level 140 MEQ/L Potassium Level 3.5 MEQ/L Chloride Level 103 MEQ/L Carbon Dioxide Level 29.3 MEQ/L Anion Gap 8 MEQ/L Blood Urea Nitrogen 16 MG/DL Creatinine 0.62 MG/DL Estimat Glomerular Filtration 98 ML/MIN Rate Random Glucose 138 MG/DL Calcium Level 9.1 MG/DL Total Bilirubin 0.3 MG/DL Aspartate Amino Transf 20 U/L (AST/SGOT) Alanine Aminotransferase 36 U/L (ALT/SGPT) Alkaline Phosphatase 99 U/L Total Creatine Kinase 126 U/L Troponin I LESS THAN 0.02 NG/ML B-Type Natriuretic Peptide 132 PG/ML Total Protein 6.5 GM/DL Albumin 3.4 GM/DL MDM Medical Decision Making Medical Screen Exam Complete: Yes Emergency Medical Condition: Yes Interpretation(s) 1701 p.m. EKG shows sinus rhythm nonspecific ST-T wave change. 1750 p.m. Last Impressions Chest X-Ray 12/21/16 1650 Signed Impressions: Service Date/Time: Wednesday, December 21, 2016 17:22 - CONCLUSION: 1. No acute cardiopulmonary disease. Jeff Thornton MD 1750 p.m. CBC with WBC 16.1. 73 neutrophil. CMP within normal limit. Cardiac enzymes are normal. [address] pulmonary angiogram negative for PE. Differential Diagnosis Differential diagnosis including acute exacerbation COPD, bronchitis, pneumonia , angina, MO, PE, pneumothorax. Narrative Course 61-year-old female with coughing congestion wheezing shortness of breath and chest pain. History of COPD and CAD. Albuterol with Atrovent unit dose treatment 3. Solu-Medrol 60 mg IV. Diagnosis Primary Impression: COPD with acute exacerbation Additional Impression: Chest pain Qualified Code: R07.9 - Chest pain, unspecified type Admitting Information Admitting Physician Requests: Admit Wil España MD December 21, 2016 17:01
[2016-12-21 17:21] LABS: AUTOMATED NEUTROPHIL # 11.8 TH/MM3 (1.8-7.7); BASOPHIL # 0.3 TH/MM3 (0-0.2); BASOPHIL % 1.7 % (0.0-2.0); EOSINOPHIL % 0.3 % (0.0-4.0); HEMATOCRIT 41.9 % (35.0-46.0); LYMPH % 16.4 % (9.0-44.0); LYMPHOCYTE # 2.6 TH/MM3 (1.0-4.8); MEAN CELL VOLUME 92.9 FL (80.0-100.0); MEAN CORPUSCULAR HEMOGLOBIN 30.9 PG (27.0-34.0); MEAN CORPUSCULAR HGB CONC 33.3 % (32.0-36.0); MONO % 8.5 % (0.0-8.0); NEUT % 73.1 % (16.0-70.0); PLATELET COUNT 432 TH/MM3 (150-450); RED BLOOD COUNT 4.51 MIL/MM3 (4.00-5.30); RED CELL DISTRIBUTION WIDTH 13.8 % (11.6-17.2); WHITE BLOOD COUNT 16.1 TH/MM3 (4.0-11.0)
[2016-12-21 17:26] LABS: HEMO FLAGS DIFF FINAL
[2016-12-21 17:32] LABS: CHLORIDE 103 MEQ/L (98-107); POTASSIUM 3.5 MEQ/L (3.5-5.1); SODIUM (NA) 140 MEQ/L (136-145)
[2016-12-21 17:35] LABS: ANION GAP 8 MEQ/L (5-15); BICARBONATE 29.3 MEQ/L (21.0-32.0); BLOOD UREA NITROGEN 16 MG/DL (7-18)
[2016-12-21 17:38] LABS: ALT (GPT) 36 U/L (10-53); APTT (PATIENT) 22.7 SEC (24.3-30.1); AST (GOT) 20 U/L (15-37); GLOMERULAR FILTRATION RATE 98 ML/MIN (>89); INTERNATIONAL NORMALIZED RATIO 0.9 RATIO; PROTHROMBIN TIME - PATIENT 10.1 SEC (9.8-11.6)
--- NOTE | 2016-12-21 17:39 | RADHPO ---
EXAM DATE/TIME: 12/21/2016 17:22 [facility] COMPARISON: CHEST SINGLE AP, September 07, 2016, 22:24. INDICATIONS : Chest pain, difficulty breathing MEDICAL HISTORY : Chronic obstructive pulmonary disease. SURGICAL HISTORY : Stent placement ENCOUNTER: Initial ACUITY: 1 day PAIN SCORE: 6/10 LOCATION: Bilateral chest FINDINGS: A single view of the chest demonstrates the lungs to be symmetrically aerated without evidence of mas s, infiltrate or effusion. The cardiomediastinal contours are unremarkable. Osseous structures are intact. CONCLUSION: 1. No acute cardiopulmonary disease. Jeff Thornton MD on December 21, 2016 at 17:38 Board Certified Radiologist. This report was verified electronically.
[2016-12-21 17:40] LABS: TOTAL BILIRUBIN ADULT 0.3 MG/DL (0.2-1.0)
[2016-12-21 17:41] LABS: ALKALINE PHOSPHATASE 99 U/L (45-117); CREATINE KINASE 126 U/L (26-192)
[2016-12-21] MEDS ORDERED: IOHEXOL 350 MG/ML 10 ML VIAL (for RAD DIAG) IV ONE (17:58)
--- NOTE | 2016-12-21 18:20 | RADHPO ---
EXAM DATE/TIME: 12/21/2016 17:48 [facility] COMPARISON: CT PULMONARY ANGIOGRAM, July 27, 2016, 19:49. INDICATIONS : Shortness of berath. IV CONTRAST: 75 cc Omnipaque 350 (iohexol) IV RADIATION DOSE: 7.28 CTDIvol (mGy) MEDICAL HISTORY : Myocardial infarction. Chronic obstructive pulmonary disease. Diabetes mellitus type 2. SURGICAL HISTORY : Cardiac stents ENCOUNTER: Initial ACUITY: 1 week PAIN SCALE: 0/10 LOCATION: chest TECHNIQUE: Volumetric scanning of the chest was performed using a pulmonary embolism protocol MIP images were re constructed. Using automated exposure control and adjustment of the mA and/or kV according to patien t size, radiation dose was kept as low as reasonably achievable to obtain optimal diagnostic quality images. FINDINGS: Examination of the pulmonary vasculature demonstrates good filling of the main, lobar and segmental b ranches. There are no filling defects to suggest pulmonary embolism. Multiplanar reconstructions are also unremarkable. There is interstitial lung disease which appears chronic in nature. No pulmonary nodules are identifi ed. No pleural effusions are identified. Examination of the mediastinum demonstrates no abnormally enlarged lymph nodes by CT criteria. No axi llary or hilar abnormalities are identified. Coronary artery calcifications are not present. The visu alized upper abdomen demonstrates no abnormality. CONCLUSION: 1. No evidence of pulmonary embolism. Jeff Thornton MD on December 21, 2016 at 18:16 Board Certified Radiologist. This report was verified electronically.
[2016-12-21] MEDS ORDERED: SODIUM CHLORIDE 0.9% FLUSH 10 ML FLUSH IV FLUSH PRN (19:00)
[2016-12-21] MEDS ORDERED: RESP: ALBUTEROL 2.5 MG/3 ML NEB (PRN) INH (19:00)
[2016-12-21] MEDS ORDERED: GLUCAGON 1 MG/ML VIAL OTHER PRN (19:15)
[2016-12-21] MEDS ORDERED: DEXTROSE 50% IN WATER 50 ML VIAL(D50) IV PRN (19:15)
[2016-12-21] MEDS ORDERED: DULERA INH SCH (21:00)
[2016-12-21] MEDS ORDERED: ATORVASTATIN 40 MG TAB PO SCH (21:00)
[2016-12-21] MEDS: INSULIN DETEMIR 100 UNITS/ML VIAL SQ SCH (21:55)
[2016-12-21] MEDS: INSULIN ASPART SUPPLEMENTAL SCALE SQ SCH (21:56)
[2016-12-21] MEDS: HEPARIN SODIUM - SQ 10,000 UNITS/ML VIAL SQ SCH (21:57)
[2016-12-21] MEDS: SODIUM CHLORIDE 0.9% FLUSH 10 ML FLUSH IV FLUSH SCH (21:57)
[2016-12-21] MEDS: BENZONATATE 100 MG CAP PO PRN (22:17)
[2016-12-21] MEDS: methylPREDNISolone SOD SUCC 125 MG/2 ML VIAL IVP SCH (23:51)
[2016-12-22] VITALS: BP 93/47; PULSE 74; RESP 20; TEMP 97.7; O2SAT 96
[2016-12-22 00:03] LABS: CREATINE KINASE 114 U/L (26-192)
[2016-12-22 00:15] LABS: CKMB 1.4 NG/ML (0.5-3.6)
[2016-12-22] MEDS: RESP: ALBUTEROL 2.5 MG/IPRATROPIUM 0.5 MG NEB (SCH) INH ×3 (03:07→10:53)
[2016-12-22] MEDS: methylPREDNISolone SOD SUCC 125 MG/2 ML VIAL IVP SCH ×2 (05:09→11:39)
[2016-12-22] MEDS ORDERED: LEVOTHYROXINE SODIUM 112 MCG TAB PO SCH (06:00)
[2016-12-22] MEDS: INSULIN ASPART SUPPLEMENTAL SCALE SQ SCH ×2 (07:00→12:51)
[2016-12-22 07:40] LABS: CHLORIDE 100 MEQ/L (98-107); POTASSIUM 3.8 MEQ/L (3.5-5.1); SODIUM (NA) 138 MEQ/L (136-145)
[2016-12-22 07:44] LABS: AUTOMATED NEUTROPHIL # 12.2 TH/MM3 (1.8-7.7); BASOPHIL % 0.3 % (0.0-2.0); EOSINOPHIL # 0.1 TH/MM3 (0-0.4); EOSINOPHIL % 0.7 % (0.0-4.0); HEMATOCRIT 40.7 % (35.0-46.0); HEMO FLAGS DIFF FINAL; LYMPH % 4.2 % (9.0-44.0); LYMPHOCYTE # 0.5 TH/MM3 (1.0-4.8); MEAN CELL VOLUME 94.4 FL (80.0-100.0); MEAN CORPUSCULAR HEMOGLOBIN 31.1 PG (27.0-34.0); MEAN CORPUSCULAR HGB CONC 32.9 % (32.0-36.0); MONO % 1.5 % (0.0-8.0); NEUT % 93.3 % (16.0-70.0); PLATELET COUNT 404 TH/MM3 (150-450); RED BLOOD COUNT 4.31 MIL/MM3 (4.00-5.30); RED CELL DISTRIBUTION WIDTH 13.9 % (11.6-17.2)
[2016-12-22 07:46] VITALS: O2SAT 96
[2016-12-22 07:46] LABS: ANION GAP 10 MEQ/L (5-15); BICARBONATE 27.6 MEQ/L (21.0-32.0)
[2016-12-22 07:55] LABS: BLOOD UREA NITROGEN 18 MG/DL (7-18); CREATINE KINASE 104 U/L (26-192); GLOMERULAR FILTRATION RATE 98 ML/MIN (>89)
[2016-12-22 08:29] LABS: CKMB 1.9 NG/ML (0.5-3.6)
[2016-12-22 08:37] VITALS: BP 122/72; PULSE 77; RESP 18; TEMP 96.8; O2SAT 94
[2016-12-22] MEDS ORDERED: ASPIRIN 81 MG CHEW TAB CHEW SCH (09:00)
[2016-12-22] MEDS ORDERED: ROFLUMILAST 500 MCG TAB PO SCH (09:00)
[2016-12-22] MEDS ORDERED: SERTRALINE HCL 50 MG TAB PO SCH (09:00)
[2016-12-22] MEDS ORDERED: CHOLECALCIFEROL (VIT D3) 1000 UNIT TAB PO SCH (09:00)
[2016-12-22] MEDS: SODIUM CHLORIDE 0.9% FLUSH 10 ML FLUSH IV FLUSH SCH (09:00)
[2016-12-22] MEDS ORDERED: UMECLIDINIUM BROMIDE 62.5 MCG INH SCH (09:00)
[2016-12-22] MEDS ORDERED: CLOPIDOGREL 75 MG TAB PO SCH (09:00)
[2016-12-22] MEDS: HEPARIN SODIUM - SQ 10,000 UNITS/ML VIAL SQ SCH (09:16)
[2016-12-22] MEDS: INSULIN DETEMIR 100 UNITS/ML VIAL SQ SCH (09:25)
[2016-12-22] MEDS: BENZONATATE 100 MG CAP PO PRN (11:41)
[2016-12-22 12:19] VITALS: BP 137/63; PULSE 88; RESP 18; TEMP 96.3; O2SAT 95
[2016-12-22] MEDS ORDERED: ISOS10TA3 PO (12:30)
--- NOTE | 2016-12-22 13:37 | HHI.HP ---
[facility] Unknown Admission Diagnosis acute exacerbation of COPD. Chest pain. Diagnoses: (1) COPD with acute exacerbation Diagnosis: Principal (2) Chest pain Diagnosis: Principal Travel History International Travel<30 Days: No Contact w/Intl Traveler <30 Da: No Traveled to Known Affected Are: No History of Present Illness Mrs. Fernando is a 61-year-old female she came to the hospital because she was having chest pain and difficulty breathing. At baseline she has severe COPD with chronic respiratory failure and oxygen use. She has known coronary artery disease with reocclusion of the distal stent which cannot be restented. Medical management has been her only option for this lesion. She described a left-sided tight chest pain. This has improved but will occur to a lesser degree intermittently. Angina is part of her baseline status. She takes PRN nitroglycerin for this. Serial cardiac enzymes are within normal limits. She has a positive stress test from approximately 1 year ago and it was via this stress test that she had a heart catheter and discovery of a reoccluded stent. When seen this morning her breathing has returned to baseline. Her chest pain is improved. She feels at baseline and would like to return to home. Her symptoms are likely from her known coronary artery disease. No TN has occurred. Given medical management is her primary option for the symptoms she is stable for a return home with adjustments and treatments for her angina. Review of Systems Constitutional: COMPLAINS OF: Fatigue, DENIES: Fever, Chills Eyes: DENIES: Blurred vision, Diplopia Ears, nose, mouth, throat: DENIES: Hearing loss, Vertigo Respiratory: COMPLAINS OF: Shortness of breath, DENIES: Cough, Wheezing Cardiovascular: COMPLAINS OF: Chest pain, DENIES: Palpitations, Syncope Gastrointestinal: DENIES: Abdominal pain, Black stools, Bloody stools Musculoskeletal: DENIES: Joint pain, Muscle aches Integumentary: DENIES: Abnormal pigmentation Hematologic/lymphatic: DENIES: Bruising Immunologic/allergic: DENIES: Eczema Neurologic: DENIES: Abnormal gait, Headache Psychiatric: DENIES: Anxiety, Confusion, Mood changes Past Family Social History Past Medical History History of [place] COPD with chronic for a failure and oxygen use Diabetes mellitus type 2 Coronary artery disease Past Surgical History Coronary artery stenting Reported Medications Reported Meds & Active Scripts Active Benzonatate 200 Mg Cap 200 Mg PO TID PRN Prednisone 20 Mg Tab 20 Mg PO BID Novolin R Inj (Insulin Human Regular) 1,000 Unit/10 Ml Vial 12 Units SQ TIDAC Max dose at bedtime:( )units; sugars less than 70,(0) units; sugars 150-199,(2)unit; sugars 200-249,(4)units; sugars 250-299,(7) units; sugars 300-349,(10)units; sugars greater than 349,(12)units Levemir Flextouch Pen Inj (Insulin Detemir) 300 unit/3 ML Pen 30 Units SQ Q12HR Vitamin D3 (Cholecalciferol) 2,000 Unit Chew 2,000 Units CHEW DAILY Bystolic (Nebivolol) 10 Mg Tab 10 Mg PO DAILY Levaquin (Levofloxacin) 750 Mg Tab 750 Mg PO DAILY Prednisone 10 Mg Tab 10 Mg PO DIRECTED 30 Days Take 40 mg PO BID x 7 days, then 30 mg PO BID x 5 days, then 30 mg PO daily thereafter. Dispense sufficient quantity for 30 day supply. Proair Hfa 8.5 GM Inh (Albuterol Sulfate) 90 Mcg/Act Aer 2 Puff INH Q4-6H PRN 108 mcg/actuation Oxygen tank (Oxygen) 1 Ea Tank 2 Liter JON.CANULA CONTINUOUS Oxygen Concentrator Portable Gaseous 2 L/min via Nasal Cannula Continuous For 99 months Reported [Joseera] 200 Mg INH BID Lasix (Furosemide) 20 Mg Tab 20 Mg PO DIRECTED PRN Lipitor (Atorvastatin Calcium) 80 Mg Tab 80 Mg PO HS Sertraline (Sertraline HCl) 50 Mg Tab 50 Mg PO DAILY Incruse Ellipta Inh (Umeclidinium [place] Inh) 0.0625 Mg/Act Inh 62.5 Mcg INH DAILY Daliresp (Roflumilast) 500 Mcg Tab 500 Mcg PO DAILY Plavix (Clopidogrel Bisulfate) 75 Mg Tab 75 Mg PO DAILY Synthroid (Levothyroxine Sodium) 112 Mcg Tab 112 Mcg PO DAILY Aspirin 81 Mg Chew 81 Mg CHEW DAILY Allergies: Coded Allergies: Morphine (Verified Allergy, Intermediate, Nausea/Vomiting, 12/21/16) Penicillin (Verified Allergy, Unknown, sob, 12/21/16) Tetracycline (Verified Allergy, Unknown, hives, 12/21/16) Sulfa (Verified Adverse Reaction, Severe, vomiting, 12/21/16) Active Ordered Medications Administered Medications Medications (Trade) Dose Ordered Sig/Johnathan Route PRN Reason Start Time Stop Time Status Last Admin Dose Admin Aspirin (Aspirin Chew) 81 mg DAILY CHEW 12/22/16 09:00 12/22/16 09:16 Atorvastatin Calcium (Lipitor) 80 mg HS PO 12/21/16 21:00 12/21/16 22:17 Benzonatate (Tessalon) 200 mg TID PRN PO COUGH 12/21/16 19:00 12/22/16 11:41 Clopidogrel Bisulfate (Plavix) 75 mg DAILY PO 12/22/16 09:00 12/22/16 09:16 Levothyroxine Sodium (Synthroid) 112 mcg DAILY@0600 PO 12/22/16 06:00 12/22/16 05:09 Roflumilast (Daliresp) 500 mcg DAILY PO 12/22/16 09:00 12/22/16 11:38 Sertraline HCl (Zoloft) 50 mg DAILY PO 12/22/16 09:00 12/22/16 09:16 Cholecalciferol (Vitamin D3) 2,000 units DAILY PO 12/22/16 09:00 12/22/16 09:16 Sodium Chloride (NS Flush) 2 ml BID IV FLUSH 12/21/16 21:00 12/22/16 09:00 Methylprednisolone Sodium Succinate (SoluMEDROL INJ) 60 mg Q6H IVP 12/21/16 23:00 12/22/16 11:39 Heparin Sodium (Porcine) (Heparin Inj) 5,000 units Q12HR SQ 12/21/16 21:00 12/22/16 09:16 Insulin Detemir (Levemir Inj) 15 units Q12HR SQ 12/21/16 21:00 12/22/16 09:25 Family History TN and diabetes mellitus type 2 in both parents. Social History History of smoking No current smoking drinking or drug abuse. Physical Exam Vital Signs Vital Signs Date Time Temp Pulse Resp B/P Pulse Ox O2 Delivery O2 Flow Rate FiO2 12/22/16 12:19 96.3 88 18 137/63 95 12/22/16 08:37 96.8 77 18 122/72 94 12/22/16 07:46 96 Nasal Cannula 2.00 12/22/16 00:00 97.7 74 20 93/47 96 12/21/16 23:52 Nasal Cannula 2.00 12/21/16 22:40 82 22 110/56 96 Nasal Cannula 2 12/21/16 21:00 79 20 109/66 97 Nasal Cannula 2 12/21/16 19:28 97 Nasal Cannula 2.00 12/21/16 19:19 Nasal Cannula 2 12/21/16 19:19 70 22 113/63 2 Nasal Cannula 12/21/16 18:40 80 20 106/59 96 Nasal Cannula 2 12/21/16 17:12 98 Nasal Cannula 2 12/21/16 17:00 97 Nasal Cannula 2.00 12/21/16 16:40 73 97 Room Air 12/21/16 16:28 98.2 81 22 119/60 95 Physical Exam GENERAL: NAD, A&Ox3 SKIN: Warm and dry. HEAD: Normocephalic. EYES: No scleral icterus. No injection or drainage. NECK: Supple, trachea midline. No JVD or lymphadenopathy. CARDIOVASCULAR: Regular rate and rhythm without murmurs, gallops, or rubs. RESPIRATORY: Breath sounds equal bilaterally. No accessory muscle use. GASTROINTESTINAL: Abdomen soft, non-tender, nondistended. MUSCULOSKELETAL: No cyanosis, or edema. Laboratory Laboratory Tests Test 12/21/16 12/21/16 12/22/16 17:10 23:20 05:45 White Blood Count 16.1 13.0 Red Blood Count 4.51 4.31 Hemoglobin 14.0 13.4 Hematocrit 41.9 40.7 Mean Corpuscular Volume 92.9 94.4 Mean Corpuscular Hemoglobin 30.9 31.1 Mean Corpuscular Hemoglobin 33.3 32.9 Concent Red Cell Distribution Width 13.8 13.9 Platelet Count 432 404 Mean Platelet Volume 7.3 7.6 Neutrophils (%) (Auto) 73.1 93.3 Lymphocytes (%) (Auto) 16.4 4.2 Monocytes (%) (Auto) 8.5 1.5 Eosinophils (%) (Auto) 0.3 0.7 Basophils (%) (Auto) 1.7 0.3 Neutrophils # (Auto) 11.8 12.2 Lymphocytes # (Auto) 2.6 0.5 Monocytes # (Auto) 1.4 0.2 Eosinophils # (Auto) 0.0 0.1 Basophils # (Auto) 0.3 0.0 CBC Comment DIFF FINAL DIFF FINAL Differential Comment Prothrombin Time 10.1 Prothromb Time International 0.9 Ratio Activated Partial 22.7 Thromboplast Time D-Dimer Quantitative (PE/DVT) 0.50 Sodium Level 140 138 Potassium Level 3.5 3.8 Chloride Level 103 100 Carbon Dioxide Level 29.3 27.6 Anion Gap 8 10 Blood Urea Nitrogen 16 18 Creatinine 0.62 0.62 Estimat Glomerular Filtration 98 98 Rate Random Glucose 138 287 Calcium Level 9.1 8.7 Total Bilirubin 0.3 Aspartate Amino Transf 20 (AST/SGOT) Alanine Aminotransferase 36 (ALT/SGPT) Alkaline Phosphatase 99 Total Creatine Kinase 126 114 104 Troponin I LESS THAN 0.02 LESS THAN 0.02 LESS THAN 0.02 B-Type Natriuretic Peptide 132 Total Protein 6.5 Albumin 3.4 Creatine Kinase MB 1.4 1.9 Date/Time Procedure Status Source Growth 12/21/16 17:10 Influenza Types A,B Antigen (SATNAM) - Final Complete Nasal Washing NEGATIVE FOR FLU A AND B ANTIGEN.... 12/21/16 17:10 Aerobic Blood Culture - Preliminary Resulted Blood Peripheral NO GROWTH IN 1 DAY 12/21/16 17:10 Anaerobic Blood Culture - Preliminary Resulted Blood Peripheral NO GROWTH IN 1 DAY Result Diagram: 12/22/16 0545 12/22/16 0545 Assessment and Plan Problem List: (1) Chest pain ICD Code: R07.9 Status: Acute (2) COPD with acute exacerbation ICD Code: J44.1 Status: Acute (3) Coronary artery disease ICD Code: I25.10 Status: Acute Assessment and Plan Chest pain Angina Coronary artery disease Old [place] Symptomatic angina with option for medical management alone Resume prior home treatments When necessary nitroglycerin Isosorbide mononitrate 10 mg twice a day Follow-up with cardiology in 1 week Return for worsening symptoms. No evidence of TN, discharged home today. Diabetes mellitus type 2 Resume home treatments Diabetic diet COPD Chronic respiratory failure Oxygen dependence Patient at baseline. Return to home and resume home treatments. Continue oxygen use No COPD exacerbation, may return to home. DISCHARGE DISPOSITION: Home in stable condition. ACTIVITY: Limit activity if angina occurs DIET: Heart Healthy Diet MEDICATIONS: Resume home medications. FOLLOW-UP: PCP and Cardiology in one week Problem Qualifiers (1) Chest pain: Qualified Code: R07.9 - Chest pain, unspecified type Helder Walls MD December 22, 2016 1:37 pm
--- NOTE | 2016-12-22 13:42 | EKG ---
Date Performed: 12/22/2016 Time Performed: 05:02:46 PTAGE: 61 years EKG: Sinus rhythm Anterior T wave changes are nonspecific Compared to prior tracing no significant change Borderline E CG PREVIOUS TRACING : 12/21/2016 22.57 DOCTOR: Wil Cazares Interpretating Date/Time 12/22/2016 13:39:17
--- NOTE | 2016-12-22 13:42 | EKG ---
Date Performed: 12/21/2016 Time Performed: 22:57:44 PTAGE: 61 years EKG: Sinus arrhythmia Anterior T wave changes are nonspecific Compared to prior tracing no signi ficant change Borderline ECG PREVIOUS TRACING : 12/21/2016 16.30 DOCTOR: Wil Cazares Interpretating Date/Time 12/22/2016 13:39:26
--- NOTE | 2016-12-22 14:04 | EKG ---
Date Performed: 12/21/2016 Time Performed: 16:30:22 PTAGE: 61 years EKG: Sinus rhythm . Anterior T wave changes are nonspecific Compared to the previous tracing rate has slowed, R waves a re now noted more prominently V3-V6 Borderline ECG PREVIOUS TRACING : 09/07/2016 22.22 DOCTOR: Wil Cazares Interpretating Date/Time 12/22/2016 14:03:18
[2017-01-19] MEDS ORDERED: PRED10 PO (11:41)
[2017-01-19] MEDS ORDERED: INSU1INJ5 SQ (11:52)
[2017-01-19] MEDS ORDERED: [UNRECOGNIZED DRUG - CODE] INH (11:52)
[2017-01-19] MEDS ORDERED: NOVORP2 SQ (11:52)
[2017-02-02] MEDS ORDERED: WALKER/ADULT/FO1 MIS (11:34)
[2017-02-02] MEDS ORDERED: OXYGENDME NAS.CANULA (11:34)
[2017-02-02] MEDS ORDERED: OXYGEN NAS.CANULA (11:34)
[2017-02-02] MEDS ORDERED: ROLLER WALKER1 MI1 (11:34)
[2017-02-02] MEDS ORDERED: GETGO ROLLING W1 MI1 (11:34)
== END 2016-12-22 15:22 | disposition home or self-care (01) ==
LOC: PHED 16:24 → INTOOBSV 18:56 → PHEDA 18:56 → PH3A 22:32
PROVIDERS: ADMIT Hospitalist; ATTEND Hospitalist
DX: J44.1 Chronic obstructive pulmonary disease with (acute) exacerbation (principal); J96.10 Chronic respiratory failure, unspecified whether with hypoxia or hypercapnia; I25.119 Atherosclerotic heart disease of native coronary artery with unspecified angina pectoris; I25.2 Old myocardial infarction; E11.9 Type 2 diabetes mellitus without complications; F41.9 Anxiety disorder, unspecified; F32.9 Major depressive disorder, single episode, unspecified; E07.9 Disorder of thyroid, unspecified; E78.00 Pure hypercholesterolemia, unspecified; Z95.5 Presence of coronary angioplasty implant and graft; Z99.81 Dependence on supplemental oxygen; Z79.4 Long term (current) use of insulin; Z79.82 Long term (current) use of aspirin; Z79.02 Long term (current) use of antithrombotics/antiplatelets; Z79.52 Long term (current) use of systemic steroids; Z88.1 Allergy status to other antibiotic agents; Z88.5 Allergy status to narcotic agent; Z88.0 Allergy status to penicillin; Z88.2 Allergy status to sulfonamides; Z87.891 Personal history of nicotine dependence
CPT/HCPCS: 71010; 71275; 80048; 80053; 82550; 82552; 82948; 83880; 84484; 85025; 85379; 85610; 85730; 87040; 87804; 93005; 94150; 94640; 94664; 96374; 99285; J1644; J1815; J2930; Q9967; G0378

== ENCOUNTER → 2017-02-28 | Outpatient (CLI) | payer OTHER ==
[~2017-02-28] MED LIST changes: -ALPR.25 PO; +FURO1TAB62 PO; +GETGO ROLLING W1 MI1; +HYDR1SOL20 PO; +ISOS10TA3 PO; -LEVO500T3 PO; -LIPI10TA PO; -METO25TA3 PO; +OXYGEN NAS.CANULA; +OXYGENDME NAS.CANULA; +PNEU0.5I2 IM; -PRED20 PO; +ROLLER WALKER1 MI1; +SERT-132 PO; +WALKER/ADULT/FO1 MIS; +ZOSTINJ SQ; +[UNRECOGNIZED DRUG - OTHER] INH; +[UNRECOGNIZED DRUG - SUPPLY]
[2017-02-28 10:15] LABS: BLOOD GAS BASE EXCESS -0.6 mmol/L (-2-2); BLOOD GAS CARBOXYHEMOGLOBIN 8.7 % (0-4); BLOOD GAS HCO3 23 mmol/L (22-26); BLOOD GAS METHEMOGLOBIN 1.2 % (0-2); BLOOD GAS O2 HGB SATURATION 86 % (90-100); BLOOD GAS OXYGEN CONTENT 16.3 Vol % (12.0-20.0); BLOOD GAS PCO2 36 mmHg (38-42); BLOOD GAS PO2 74 mmHg (61-120); BLOOD GAS TOTAL HGB 13.4 G/DL (12.0-16.0); TEMP CORR TO 98.6
[2017-02-28 10:16] LABS: CRITICAL VALUE YES; DRAW SITE LT RADIAL; FIO2 21 %; NUMBER OF ARTERIAL PUNCTURES 1; OXYGEN DEVICE ROOM AIR; STAT NO; ULNAR PULSE PRESENT
== END ==
LOC: HRSP 09:25
PROVIDERS: ATTEND Internal Medicine Sleep Medicine
DX: R79.81 Abnormal blood-gas level (principal)
CPT/HCPCS: 36600; 82805

== ENCOUNTER → 2017-04-13 | Outpatient (CLI) | payer OTHER ==
[~2017-04-13] MED LIST changes: +BD P32MI SQ; +CHOL100025 CHEW; +FLUT1INH INH; +LEVO750T3 PO; +METO5SOL2 PO; +MUCI30TA2 PO; +PRED20 PO; +ZOFR4TAB3 SL
--- NOTE | 2017-04-13 12:42 | RADRPT ---
EXAM DATE/TIME: 04/13/2017 11:02 [facility] COMPARISON: No previous studies available for comparison. INDICATIONS : Short of breath. MEDICAL HISTORY : Myocardial infarction. Hypercholesterolemia. Chronic obstructive pulmonary disease. Emphysema. Diabet ic. Thyroid disease SURGICAL HISTORY : Cholecystectomy. Hysterectomy. ENCOUNTER: Initial ACUITY: 1 week PAIN SCORE: 5/10 LOCATION: chest FINDINGS: PA and lateral views of the chest demonstrate the lungs to be symmetrically aerated without evidence of mass, infiltrate or effusion. The cardiomediastinal contours are unremarkable. Osseous structure s are intact. Degenerative changes and scoliosis of the thoracolumbar spine are noted. CONCLUSION: No acute disease. Degenerative changes and scoliosis of the thoracolumbar spine. Rafa Zelaya MD on April 13, 2017 at 12:39 Board Certified Radiologist. This report was verified electronically.
== END ==
LOC: HRAD 10:25
PROVIDERS: ATTEND Internal Medicine Sleep Medicine
DX: R05 Cough (principal)
CPT/HCPCS: 71020

== ENCOUNTER → 2017-04-13 | Outpatient (CLI) | payer OTHER ==
--- NOTE | 2017-04-13 11:39 | RADRPT ---
EXAM DATE/TIME: 04/13/2017 11:05 [facility] COMPARISON: No previous studies available for comparison. INDICATIONS : Chronic right foot pain. MEDICAL HISTORY : Myocardial infarction. Hypercholesterolemia. Chronic obstructive pulmonary disease. Emphysema. Di abetic. Thyroid disease SURGICAL HISTORY : Cholecystectomy. Hysterectomy. ENCOUNTER: Initial ACUITY: 3 weeks PAIN SCORE: 7/10 LOCATION: Right foot FINDINGS: No definite fractures, or dislocations are identified. No definite lytic or sclerotic lesion is seen . The joint spaces are well maintained. CONCLUSION: Unremarkable study. Obie Rowland MD on April 13, 2017 at 11:36 Board Certified Radiologist. This report was verified electronically.
--- NOTE | 2017-04-13 13:27 | RADRPT ---
EXAM DATE/TIME: 04/13/2017 10:58 [facility] COMPARISON: No previous studies available for comparison. INDICATIONS : Chronic left hand pain. MEDICAL HISTORY : Myocardial infarction. Hypercholesterolemia. Chronic obstructive pulmonary disease. Emphysema. Diabet ic. Thyroid disease SURGICAL HISTORY : Cholecystectomy. Hysterectomy. ENCOUNTER: Initial ACUITY: 3 weeks PAIN SCORE: 7/10 LOCATION: Left hand FINDINGS: No definite fractures, or dislocations are identified. No definite lytic or sclerotic lesion is seen . The joint spaces are well maintained. CONCLUSION: Unremarkable study. Obie Rowland MD on April 13, 2017 at 13:25 Board Certified Radiologist. This report was verified electronically.
--- NOTE | 2017-04-13 13:27 | RADRPT ---
EXAM DATE/TIME: 04/13/2017 10:57 [facility] COMPARISON: No previous studies available for comparison. INDICATIONS : Chronic right hand pain. MEDICAL HISTORY : Myocardial infarction. Hypercholesterolemia. Chronic obstructive pulmonarydisease. Emphysema. Diabeti c. Thyroid disease SURGICAL HISTORY : Cholecystectomy. Hysterectomy. ENCOUNTER: Initial ACUITY: 3 weeks PAIN SCORE: 7/10 LOCATION: Right hand FINDINGS: No definite fractures, or dislocations are identified. No definite lytic or sclerotic lesion is seen . The joint spaces are well maintained. CONCLUSION: Unremarkable study. Obie Rowland MD on April 13, 2017 at 13:25 Board Certified Radiologist. This report was verified electronically.
--- NOTE | 2017-04-13 13:28 | RADRPT ---
EXAM DATE/TIME: 04/13/2017 11:12 [facility] COMPARISON: No previous studies available for comparison. INDICATIONS : Chronic right hip pain. MEDICAL HISTORY : Myocardial infarction. Hypercholesterolemia. Chronic obstructive pulmonary disease. Emphysema. Diabet ic. Thyroid disease SURGICAL HISTORY : Cholecystectomy. Hysterectomy. ENCOUNTER: Initial ACUITY: 3 weeks PAIN SCORE: 7/10 LOCATION: Right hip FINDINGS: No definite fractures, or dislocations are identified. No definite lytic or sclerotic lesion is seen . The joint space is well maintained. CONCLUSION: Unremarkable study. Obie Rowland MD on April 13, 2017 at 13:26 Board Certified Radiologist. This report was verified electronically.
--- NOTE | 2017-04-13 13:28 | RADRPT ---
EXAM DATE/TIME: 04/13/2017 11:05 [facility] COMPARISON: No previous studies available for comparison. INDICATIONS : Chronic left foot pain. MEDICAL HISTORY : Myocardial infarction. Hypercholesterolemia. Chronic obstructive pulmonary disease. Emphysema. Diabet ic. Thyroid disease SURGICAL HISTORY : Cholecystectomy. Hysterectomy. ENCOUNTER: Initial ACUITY: 3 weeks PAIN SCORE: 7/10 LOCATION: Left foot FINDINGS: No definite fractures, or dislocations are identified. No definite lytic or sclerotic lesion is seen . The joint spaces are well maintained. CONCLUSION: Unremarkable study. Obie Rowland MD on April 13, 2017 at 13:26 Board Certified Radiologist. This report was verified electronically.
--- NOTE | 2017-04-13 13:29 | RADRPT ---
EXAM DATE/TIME: 04/13/2017 11:13 [facility] COMPARISON: No previous studies available for comparison. INDICATIONS : Left hip & pelvis pain. MEDICAL HISTORY : Myocardial infarction. Hypercholesterolemia. Chronic obstructive pulmonary disease. Emphysema. Diabet ic. Thyroid disease SURGICAL HISTORY : Cholecystectomy. Hysterectomy. ENCOUNTER: Initial ACUITY: 3 weeks PAIN SCORE: 7/10 LOCATION: Left hip FINDINGS: No definite fractures, or dislocations are identified. No definite lytic or sclerotic lesion is seen . The joint spaces are well maintained. CONCLUSION: Unremarkable study. Obie Rowland MD on April 13, 2017 at 13:27 Board Certified Radiologist. This report was verified electronically.
== END ==
LOC: HRAD 10:22
PROVIDERS: ATTEND Internal Medicine Rheumatology
DX: M19.90 Unspecified osteoarthritis, unspecified site (principal)
CPT/HCPCS: 73130; 73502; 73630

== ENCOUNTER 2017-05-09 20:20 | Emergency (ER) | payer OTHER ==
[~2017-05-09] VITALS: Ht 147.3 cm; Wt 52.9 kg
[~2017-05-09 20:20] MED LIST changes: -BD P32MI SQ; -CHOL100025 CHEW; -FLUT1INH INH; -METO5SOL2 PO; -MUCI30TA2 PO; -ZOFR4TAB3 SL
[2017-05-09 20:30] VITALS: BP 149/67; PULSE 74; RESP 20; TEMP 98.2; O2SAT 97
[2017-05-09] MEDS ORDERED: SODIUM CHLORIDE 0.9% FLUSH 10 ML FLUSH IVF PRN (21:00)
[2017-05-09] MEDS ORDERED: FLUT1INH INH (21:03)
[2017-05-09] MEDS ORDERED: SERT-132 PO (21:03)
[2017-05-09] MEDS ORDERED: CHOL100025 CHEW (21:03)
[2017-05-09] MEDS ORDERED: PRED20 PO (21:03)
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
[2017-05-09 21:25] LABS: AUTOMATED NEUTROPHIL # 10.6 TH/MM3 (1.8-7.7); BASOPHIL # 0.3 TH/MM3 (0-0.2); BASOPHIL % 2.3 % (0.0-2.0); EOSINOPHIL # 0.1 TH/MM3 (0-0.4); EOSINOPHIL % 0.4 % (0.0-4.0); HEMATOCRIT 41.1 % (35.0-46.0); HEMO FLAGS DIFF FINAL; LYMPH % 15.5 % (9.0-44.0); LYMPHOCYTE # 2.3 TH/MM3 (1.0-4.8); MEAN CELL VOLUME 91.6 FL (80.0-100.0); MEAN CORPUSCULAR HEMOGLOBIN 31.7 PG (27.0-34.0); MEAN CORPUSCULAR HGB CONC 34.6 % (32.0-36.0); MONO % 9.5 % (0.0-8.0); NEUT % 72.3 % (16.0-70.0); PLATELET COUNT 392 TH/MM3 (150-450); RED BLOOD COUNT 4.49 MIL/MM3 (4.00-5.30); RED CELL DISTRIBUTION WIDTH 13.1 % (11.6-17.2); WHITE BLOOD COUNT 14.7 TH/MM3 (4.0-11.0)
[2017-05-09 21:32] LABS: CHLORIDE 98 MEQ/L (98-107); POTASSIUM 3.5 MEQ/L (3.5-5.1); SODIUM (NA) 134 MEQ/L (136-145)
[2017-05-09 21:35] LABS: ANION GAP 7 MEQ/L (5-15); BICARBONATE 29.3 MEQ/L (21.0-32.0); BLOOD UREA NITROGEN 14 MG/DL (7-18); MAGNESIUM 2.1 MG/DL (1.5-2.5)
[2017-05-09 21:36] LABS: APTT (PATIENT) 23.1 SEC (24.3-30.1); INTERNATIONAL NORMALIZED RATIO 0.9 RATIO; PROTHROMBIN TIME - PATIENT 9.5 SEC (9.8-11.6)
[2017-05-09 21:39] LABS: GLOMERULAR FILTRATION RATE 85 ML/MIN (>89)
[2017-05-09 21:46] LABS: CREATINE KINASE 51 U/L (26-192)
[2017-05-09 21:58] VITALS: O2SAT 100
[2017-05-09] MEDS ORDERED: RESP: ALBUTEROL 2.5 MG/IPRATROPIUM 0.5 MG NEB (SCH) NEB ONE (22:00)
[2017-05-09] MEDS ORDERED: MUCI30TA2 PO (22:38)
[2017-05-09] MEDS ORDERED: ZOFR4TAB3 SL (22:38)
[2017-05-09 22:40] VITALS: BP 114/53; PULSE 81; RESP 36; O2SAT 98
--- NOTE | 2017-05-09 23:16 | RADRPT ---
EXAM DATE/TIME: 05/09/2017 21:42 [facility] COMPARISON: CT PULMONARY ANGIOGRAM, December 21, 2016, 17:48. CHEST PA & LAT, April 13, 2017, 11:02. INDICATIONS : Short of breath and difficulty breathing for several days. MEDICAL HISTORY : Myocardial infarction. Hypercholesterolemia. Chronic obstructive pulmonary disease. Emphysema. Diabet ic. Thyroid disease SURGICAL HISTORY : Cholecystectomy. Hysterectomy. ENCOUNTER: Initial ACUITY: 4 - 6 days PAIN SCORE: 3/10 LOCATION: Bilateral chest FINDINGS: The heart size is normal. The lungs are free of focal consolidation. There is a small focal density i n the right lower chest region. This was not present on the prior exam. This could be related to a ni pple shadow. No effusion is seen. CONCLUSION: No acute disease. Ten De MD on May 09, 2017 at 23:13 Board Certified Radiologist. This report was verified electronically.
--- NOTE | 2017-05-10 10:14 | EKG ---
Date Performed: 05/09/2017 Time Performed: 21:16:16 PTAGE: 61 years EKG: Sinus rhythm MODERATE T-WAVE ABNORMALITY, CONSIDER ANTERIOR ISCHEMIA ABNORMAL ECG PREVIOUS TRACING : 12/22/2016 05.02 DOCTOR: Tyler Agee Interpretating Date/Time 05/10/2017 10:13:08
[2017-05-26] MEDS ORDERED: METO5SOL2 PO (11:27)
[2017-05-26] MEDS ORDERED: BD P32MI SQ (11:27)
[2017-05-26] MEDS ORDERED: INSU1INJ5 SQ (11:27)
[2017-05-26] MEDS ORDERED: GETGO ROLLING W1 MI1 (11:36)
== END 2017-05-09 22:57 | disposition home or self-care (01) ==
LOC: PHED 20:20
DX: J44.1 Chronic obstructive pulmonary disease with (acute) exacerbation (principal); E78.00 Pure hypercholesterolemia, unspecified; I25.10 Atherosclerotic heart disease of native coronary artery without angina pectoris; I25.2 Old myocardial infarction; Z95.5 Presence of coronary angioplasty implant and graft; E07.9 Disorder of thyroid, unspecified; E11.9 Type 2 diabetes mellitus without complications
CPT/HCPCS: 71020; 80048; 82550; 83735; 83880; 84484; 85025; 85610; 85730; 93005; 94664

== ENCOUNTER 2017-08-10 14:57 | Inpatient (IN) | payer MEDICARE ==
[~2017-08-10] VITALS: Ht 147.3 cm; Wt 62.0 kg
[2017-08-10] VITALS (8 sets, daily range): BP systolic 104–119; BP diastolic 53–73; PULSE 63–84; RESP 16–20; TEMP 96.7–98.2; O2SAT 92–99
[~2017-08-10 14:57] MED LIST changes: +ASPI-516 CHEW; -ASPI81CH CHEW; +BD P32MI SQ; -BENZ1CAP34 PO; +BENZ1CAP51 PO; +CHOL100025 CHEW; -CHOL1CHW5 CHEW; +FLUT1INH INH; +HUMIBIDDM PO; -HYDR1SOL20 PO; -ISOS10TA3 PO; -LEVA750T PO; +METO5SOL2 PO; +MONT10TA4 PO; +NOVOINJ3 SQ; -PRED10 PO; -ROLLER WALKER1 MI1; +ROSU1TAB8 PO; +ZOFR4TAB3 SL; -[UNRECOGNIZED DRUG - OTHER] INH
--- NOTE | 2017-08-10 15:41 | PD ---
HPI Chief Complaint: GI Complaint Time Seen by Provider: 15:33 Travel History International Travel<30 days: No Contact w/Intl Traveler<30days: No Traveled to known affect area: No History of Present Illness HPI This 62-year-old female says she's been sick since June. She says that she' s been having stomach trouble. She was admitted at [facility] and had some testing done there. She was diagnosed with Velasquez's esophagus and small hiatal hernia. This was in May. Since then she has not been able to eat a meal. She says that she's been losing a lot of weight. She is not able to use anything. She says she does not even able to take any medications. She has a history of COPD and is on continuous nasal oxygen. She is being evaluated for lung transplant. She has a history of myocardial infarction. She says she's been having chest pressure though she says it doesn't really feel like her heart attack in its been fairly persistent. She says her breathing is not been too bad. She has been on prednisone in the past but has not been on it for 2 weeks. He has history of cholecystectomy PFSH Past Medical History Hx Anticoagulant Therapy: Yes (Plavix, Aspirin) Arthritis: Yes (OSTEO) Asthma: No Autoimmune Disease: No Blood Disorders: No Anxiety: Yes Depression: Yes Heart Rhythm Problems: No Cancer: No Cardiac Catheterization: Yes (MULTIPLE: LAST ONE DECEMBER 2015) Cardiovascular Problems: Yes High Cholesterol: Yes Chemotherapy: No Chest Pain: Yes Congestive Heart Failure: No COPD: Yes Cerebrovascular Accident: No Coronary Artery Disease: Yes Diabetes: Yes Endocrine: Yes GERD: Yes Glaucoma: Yes Genitourinary: No Headaches: Yes Hiatal Hernia: No Immune Disorder: No Implanted Vascular Access Dvce: Yes Insomnia: Yes Kidney Stones: No Musculoskeletal: Yes Neurologic: No Psychiatric: Yes Reproductive: No (HYSTERECTOMY) Respiratory: Yes Migraines: No Myocardial Infarction: Yes (10/2015) Pneumonia: Yes Radiation Therapy: No Renal Failure: No Seizures: No Sleep Apnea: No Thyroid Disease: Yes Ulcer: No Menopausal: Yes : 4 Para: 3 Miscarriage: 1 Tubal Ligation: Yes Past Surgical History Abdominal Surgery: Yes (GALLBLADDER) AICD: No Arteriovenous Shunt: No Body Medical Devices: STENT Cardiac Surgery: Yes (STENT) Cholecystectomy: Yes Coronary Stent: Yes (X1) Ear Surgery: No Endocrine Surgery: No Eye Surgery: Yes (LASER FOR GLAUCOMA) Genitourinary Surgery: No Gynecologic Surgery: Yes (HYSTERECTOMY) Hysterectomy: Yes Insulin Pump: No Joint Replacement: No Oral Surgery: Yes (DENTURES) Pacemaker: No Thoracic Surgery: No Other Surgery: Yes ("LUMPS REMOVED FROM MY NECK AND RIBCAGE, A LIPOMA") Social History Alcohol Use: Yes ("VERY VERY RARELY") Tobacco Use: No (QUIT 2014) Substance Use: No Allergies-Medications (Allergen,Severity, Reaction): Coded Allergies: morphine (Unverified Allergy, Intermediate, Nausea/Vomiting, 08/10/17) doxycycline (Unverified Allergy, Unknown, hives, 08/10/17) minocycline (Unverified Allergy, Unknown, hives, 08/10/17) penicillin G (Unverified Allergy, Unknown, sob, 08/10/17) tigecycline (Unverified Allergy, Unknown, hives, 08/10/17) Sulfa (Sulfonamide Antibiotics) (Unverified Adverse Reaction, Severe, vomiting, 08/10/17) Reported Meds & Prescriptions Reported Meds & Active Scripts Active Zofran Odt (Ondansetron Odt) 4 Mg Tab 4 Mg SL Q6HR PRN Levemir Flextouch Pen Inj (Insulin Detemir) 300 unit/3 ML Pen 18 Units SQ Q12HR Prednisone 20 Mg Tab 40 Mg PO DAILY 10 Days Take 40 mg (2 tablets) daily for 5 days Levofloxacin 750 Mg Tablet 750 Mg PO DAILY Breo Ellipta Inh (Fluticasone/Vilanterol) 100-25 Mcg/Act Inh 1 Puff INH DAILY Use daily at the same time. Montelukast (Montelukast Sodium) 10 Mg Tab 10 Mg PO HS Rosuvastatin (Rosuvastatin Calcium) 20 Mg Tab 20 Mg PO DAILY Novolog Flexpen Inj (Insulin Aspart) 300 Unit/3 Ml Pen 12 Units SQ TIDAC Walker Rolling/GetGo (Device) 1 Mis Mis Ea .XX DIRECTED Use when walking. Bd Pen Needle/Jaqueline/Ultra 32G X 4 mm (Insulin Pen Needle) 32 Gauge X 5/32" Mis Units SQ [id number] SLIDE SCALE Metoclopramide HCl 5 Mg/5 Ml Solution 10 Mg PO QID PRN 30 Days Mucinex DM (Dextromethorphan-Guaifenesin) 30-600 Mg Tab 1 Tab PO BID PRN Proair Hfa 8.5 GM Inh (Albuterol Sulfate) 90 Mcg/Act Aer 2 Puff INH Q4-6H PRN 108 mcg/actuation Incruse Ellipta Inh (Umeclidinium [place] Inh) 0.0625 Mg/Act Inh 62.5 Mcg INH DAILY [Mobility Scooter] Unit .XX CONTINUOUS PRN Pneumovax 23 Inj (Pneumococcal Vac Polyvalent Inj) 25 Mcg/0.5 Ml Inj 0.5 Ml IM .ONCE Zostavax Inj (Zoster Vaccine Live) 0.65 Ml Inj 0.65 Ml SQ .ONCE Novolin R Inj (Insulin Human Regular) 1,000 Unit/10 Ml Vial 10 Units SQ TIDAC Max dose at bedtime:( )units; sugars less than 70,(0) units; sugars 150-199,(2)unit; sugars 200-249,(4)units; sugars 250-299,(7) units; sugars 300-349,(10)units; sugars greater than 349,(12)units Daliresp (Roflumilast) 500 Mcg Tab 500 Mcg PO DAILY Synthroid (Levothyroxine Sodium) 112 Mcg Tab 112 Mcg PO DAILY Walker/Adult/Folding (Device) 1 Mis Mis 1 Ea .ROUTE DIRECTED Walker Rolling/GetGo (Device) 1 Mis Mis 1 Ea .ROUTE DIRECTED Oxygen (O2) (Miscellaneous Medication) Inha 2 Liter JON.CANULA CONTINUOUS Oxygen Concentrator Portable Gaseous 2 L/min via Nasal Canula Continuous For 99 months Oxygen (O2) Device 2 Liter JON.CANULA CONTINUOUS Oxygen Concentrator Portable Gaseous 2 L/min via Nasal Canula Continuous For 99 months Benzonatate 200 Mg Cap 200 Mg PO TID PRN Bystolic (Nebivolol) 10 Mg Tab 10 Mg PO DAILY Oxygen tank (Oxygen) 1 Ea Tank 2 Liter JON.CANULA CONTINUOUS Oxygen Concentrator Portable Gaseous 2 L/min via Nasal Cannula Continuous For 99 months Reported Sertraline (Sertraline HCl) 50 Mg Tab 50 Mg PO HS Prednisone 20 Mg Tab 20 Mg PO DAILY Vitamin D3 (Cholecalciferol) 1,000 Unit Chew 1,000 Units CHEW HS Lasix (Furosemide) 20 Mg Tab 20 Mg PO DIRECTED PRN Plavix (Clopidogrel Bisulfate) 75 Mg Tab 75 Mg PO DAILY Aspirin 81 Mg Chew 81 Mg CHEW DAILY Review of Systems General / Constitutional: Positive: Weight Loss, No: Fever, Chills Eyes: No: Diploplia, Blurred Vision HENT: No: Headaches, Vertigo Cardiovascular: Positive: Chest Pain or Discomfort, No: Palpitations Respiratory: No: Cough, Shortness of Breath Gastrointestinal: Positive: Nausea, Vomiting, Abdominal Pain, Loss of Appetite , No: Hematemesis, Hematochezia Genitourinary: No: Frequency, Dysuria Neurologic: Positive: Weakness, Dizziness, No: Syncope Endocrine: No: Heat Intolerance, Cold Intolerance Hematologic/Lymphatic: No: Easy Bruising Physical Exam Narrative GENERAL: Thin chronically ill appearing female SKIN: Focused skin assessment warm/dry. Head or bruising HEAD: Atraumatic. Normocephalic. EYES: Pupils equal and round. No scleral icterus. No injection or drainage. ENT: No nasal bleeding or discharge. Mucous membranes pink and moist. NECK: Trachea midline. No JVD. CARDIOVASCULAR: Regular rate and rhythm. No murmur appreciated. RESPIRATORY: No accessory muscle use. Diminished breath sounds with scattered rales. Breath sounds equal bilaterally. GASTROINTESTINAL: Abdomen soft, there is some epigastric and right upper quadrant tenderness nondistended. Hepatic and splenic margins not palpable. MUSCULOSKELETAL: No obvious deformities. No clubbing. No cyanosis. No edema. NEUROLOGICAL: Awake and alert. No obvious cranial nerve deficits. Motor grossly within normal limits. Normal speech. PSYCHIATRIC: Appropriate mood and affect; insight and judgment normal. Data Data Last Documented VS Vital Signs Date Time Temp Pulse Resp B/P (MAP) Pulse Ox O2 Delivery O2 Flow Rate FiO2 08/10/17 15:05 97.4 84 20 104/53 (70) 94 MDM Medical Decision Making Medical Screen Exam Complete: Yes Emergency Medical Condition: Yes Medical Record Reviewed: Yes Differential Diagnosis Differential includes intractable vomiting, dehydration, myocardial infarction Narrative Course Extensive workup including EKG, troponin, chest x-ray CT abdomen and pelvis have been ordered Christian Rock MD Aug 10, 2017 15:40
[2017-08-10 16:10] LABS: BASOPHIL % 0.5 % (0.0-2.0); EOSINOPHIL % 0.4 % (0.0-4.0); HEMATOCRIT 40.9 % (35.0-46.0); HEMOGLOBIN 13.6 GM/DL (11.6-15.3); LYMPH % 20.7 % (9.0-44.0); LYMPHOCYTE # 2.1 TH/MM3 (1.0-4.8); MEAN CELL VOLUME 90.9 FL (80.0-100.0); MEAN CORPUSCULAR HEMOGLOBIN 30.2 PG (27.0-34.0); MEAN CORPUSCULAR HGB CONC 33.3 % (32.0-36.0); MEAN PLATELET VOLUME 7.5 FL (7.0-11.0); MONO % 8.9 % (0.0-8.0); MONOCYTE # 0.9 TH/MM3 (0-0.9); NEUT % 69.5 % (16.0-70.0); PLATELET COUNT 406 TH/MM3 (150-450); RED CELL DISTRIBUTION WIDTH 12.8 % (11.6-17.2)
[2017-08-10 16:22] LABS: BILIRUBIN, URINE NEG (NEG); BLOOD, URINE NEG (NEG); GLUCOSE,URINE NEG (NEG); KETONE, URINE 15 mg/dL (NEG); NITRITE,URINE NEG (NEG); URINE LEUKOCYTE ESTERASE NEG (NEG)
[2017-08-10 16:26] LABS: CHLORIDE 101 MEQ/L (98-107); SODIUM (NA) 138 MEQ/L (136-145)
[2017-08-10 16:29] LABS: CALCIUM 9.3 MG/DL (8.5-10.1)
[2017-08-10 16:30] LABS: ALBUMIN 3.5 GM/DL (3.4-5.0); BICARBONATE 29.4 MEQ/L (21.0-32.0); BLOOD UREA NITROGEN 13 MG/DL (7-18); GLUCOSE,RANDOM 168 MG/DL (74-106); LIPASE 124 U/L (73-393); MAGNESIUM 2.1 MG/DL (1.5-2.5)
[2017-08-10 16:32] LABS: ALT (GPT) 24 U/L (10-53); AST (GOT) 24 U/L (15-37)
[2017-08-10 16:33] LABS: CREATININE 0.65 MG/DL (0.50-1.00); GLOMERULAR FILTRATION RATE 92 ML/MIN (>89)
[2017-08-10 16:34] LABS: TOTAL BILIRUBIN ADULT 0.4 MG/DL (0.2-1.0); TOTAL PROTEIN 7.4 GM/DL (6.4-8.2)
[2017-08-10 16:35] LABS: ALKALINE PHOSPHATASE 107 U/L (45-117)
[2017-08-10 16:38] LABS: TROPONIN I LESS THAN 0.02 NG/ML (0.02-0.05)
[2017-08-10 16:41] LABS: URINE COLOR YELLOW (YELLW/STRAW)
[2017-08-10 16:42] LABS: SQUAMOUS EPITHELIAL CELL URINE 0-5 /hpf (0-5)
--- NOTE | 2017-08-10 16:44 | RADRPT ---
EXAM DATE/TIME: 08/10/2017 16:18 [facility] COMPARISON: CHEST PA & LAT, May 09, 2017, 21:42. INDICATIONS : Chest pain since this afternoon. MEDICAL HISTORY : Myocardial infarction. Hypercholesterolemia. Chronic obstructive pulmonary disease. Emphysema. Diabet ic. Thyroid disease SURGICAL HISTORY : Cholecystectomy. Hysterectomy ENCOUNTER: Initial ACUITY: 1 day PAIN SCORE: 5/10 LOCATION: Bilateral chest FINDINGS: The lungs are clear without infiltrate, nodule, or mass. There is no appreciable pleural effusion fo r technique. Heart and mediastinum are unremarkable. CONCLUSION: No acute cardiopulmonary disease. Obie Rowland MD on August 10, 2017 at 16:41 Board Certified Radiologist. This report was verified electronically.
--- NOTE | 2017-08-10 16:50 | PD ---
Data Data Last Documented VS Vital Signs Date Time Temp Pulse Resp B/P (MAP) Pulse Ox O2 Delivery O2 Flow Rate FiO2 08/10/17 17:40 64 20 116/56 (76) 97 Nasal Cannula 3.00 08/10/17 15:05 97.4 Orders Orders Electrocardiogram (08/10/17 15:33) Complete Blood Count With Diff (08/10/17 15:33) Comprehensive Metabolic Panel (08/10/17 15:33) Troponin I (08/10/17 15:33) B-Type Natriuretic Peptide (08/10/17 15:33) Lipase (08/10/17 15:33) Urinalysis - C+S If Indicated (08/10/17 15:33) Magnesium (Mg) (08/10/17 15:33) Chest, Single Ap (08/10/17 15:33) Ct Abd/Pel W Iv Contrast(Rout) (08/10/17 15:33) Iohexol 350 Inj (Omnipaque 350 Inj) (08/10/17 17:05) Consult General Surgery (08/10/17 ) (Hub Use Only)Inp Phy Cons/Ref (08/10/17 ) Ketorolac Inj (Toradol Inj) (08/10/17 18:15) Sodium Chlor 0.9% 1000 Ml Inj (Ns 1000 M (08/10/17 18:15) Admit Order (Ed Use Only) (08/10/17 ) Labs Laboratory Tests Test 08/10/17 16:00 White Blood Count 10.0 TH/MM3 Red Blood Count 4.50 MIL/MM3 Hemoglobin 13.6 GM/DL Hematocrit 40.9 % Mean Corpuscular Volume 90.9 FL Mean Corpuscular Hemoglobin 30.2 PG Mean Corpuscular Hemoglobin Concent 33.3 % Red Cell Distribution Width 12.8 % Platelet Count 406 TH/MM3 Mean Platelet Volume 7.5 FL Neutrophils (%) (Auto) 69.5 % Lymphocytes (%) (Auto) 20.7 % Monocytes (%) (Auto) 8.9 % Eosinophils (%) (Auto) 0.4 % Basophils (%) (Auto) 0.5 % Neutrophils # (Auto) 7.0 TH/MM3 Lymphocytes # (Auto) 2.1 TH/MM3 Monocytes # (Auto) 0.9 TH/MM3 Eosinophils # (Auto) 0.0 TH/MM3 Basophils # (Auto) 0.0 TH/MM3 CBC Comment DIFF FINAL Differential Comment Urine Color YELLOW Urine Turbidity CLEAR Urine pH 7.0 Urine Specific [place] 1.021 Urine Protein NEG mg/dL Urine Glucose (UA) NEG mg/dL Urine Ketones 15 mg/dL Urine Occult Blood NEG Urine Nitrite NEG Urine Bilirubin NEG Urine Leukocyte Esterase NEG Urine Squamous Epithelial Cells 0-5 /hpf Microscopic Urinalysis Comment CULT NOT INDICATED Blood Urea Nitrogen 13 MG/DL Creatinine 0.65 MG/DL Random Glucose 168 MG/DL Total Protein 7.4 GM/DL Albumin 3.5 GM/DL Calcium Level 9.3 MG/DL Magnesium Level 2.1 MG/DL Alkaline Phosphatase 107 U/L Aspartate Amino Transf (AST/SGOT) 24 U/L Alanine Aminotransferase (ALT/SGPT) 24 U/L Total Bilirubin 0.4 MG/DL Sodium Level 138 MEQ/L Potassium Level 4.0 MEQ/L Chloride Level 101 MEQ/L Carbon Dioxide Level 29.4 MEQ/L Anion Gap 8 MEQ/L Estimat Glomerular Filtration Rate 92 ML/MIN Troponin I LESS THAN 0.02 NG/ML B-Type Natriuretic Peptide 55 PG/ML Lipase 124 U/L [facility] Supervised Visit with ESA: No Interpretation(s) EKG shows normal sinus rhythm, normal axis normal R-wave progression. Intervals within normal limits. Nonspecific T-wave flattening in lead 3 and aVF. No concerning elevations or depressions. This borderline EKG Narrative Course patient care assumed from Dr. Tariq at 1600 this is a 62-year-old female who presents with intermittent nausea and vomiting over the past few months, she states since having a colonoscopy in May 2017 her symptoms are gradually gotten worse. She states that about a day and a half ago she is come to the point where she cannot tolerate by mouth fluids nor solids. She does have a history of COPD and CHF. A CAT scan of her abdomen was ordered shows Last 24 hours Impressions Chest X-Ray 08/10/17 1533 Signed Impressions: Service Date/Time: August 16:18 - CONCLUSION: No acute cardiopulmonary disease. Obie Rowland MD Abdomen/Pelvis CT 08/10/17 1533 Signed Impressions: Service Date/Time: August 16:53 - CONCLUSION: There appears to be a twist in the mesentery left upper quadrant with dilatation of loops of jejunum at the site and the possibility of internal hernia or mesenteric twist causing local obstruction should be entertained. Obie Rowland MD Discussed the results with the patient who is benign abdomen on my exam. Her stomach is not significantly distended and therefore I do not think that an NG tube is warranted at this time. She does have a history of hysterectomy as well as cholecystectomy. She also has a history of Velasquez's esophagus. She appears comfortable, some pain medicine was ordered on her request. The patient was then discussed with Dr. Mitchell regarding possible surgical intervention, while surgery is not completely indicated at this time he would like the patient to be closer to him before they can handle an open procedure should be needed in the near future. For that reason the patient will be transferred from [facility]. The patient was discussed with the residents who have the patient follows with and they're agreeable to admit the patient. Will judiciously rehydrate the patient given her history of CHF. She appears comfortable and is agreeable to the course of action. Diagnosis Primary Impression: Partial bowel obstruction Additional Impressions: Internal hernia Nausea & vomiting Rafa Leon MD Aug 10, 2017 16:50
[2017-08-10] MEDS ORDERED: IOHEXOL 350 MG/ML 10 ML VIAL (for RAD DIAG) IVCONTRAST ONE (17:05)
--- NOTE | 2017-08-10 17:16 | RADRPT ---
EXAM DATE/TIME: 08/10/2017 16:53 [place] COMPARISON: No previous studies available for comparison. INDICATIONS : Epigastric pain x 2 months. Vomiting. IV CONTRAST: 85 cc Omnipaque 350 (iohexol) IV ORAL CONTRAST: No oral contrast ingested. RADIATION DOSE: 5.32 CTDIvol (mGy) MEDICAL HISTORY : Chronic obstructive pulmonary disease. Gastroesophageal reflux disease. Hernia, hiatal.Diabetes. Hyp ertension. Myocardial infarction. Velasquez's esophagus. SURGICAL HISTORY : Cholecystectomy. Tubal ligation. ENCOUNTER: Initial ACUITY: 2 months PAIN SCALE: 6/10 LOCATION: Epigastric TECHNIQUE: Volumetric scanning of the abdomen and pelvis was performed. Using automated exposure control and ad justment of the mA and/or kV according to patient size, radiation dose was kept as low as reasonably achievable to obtain optimal diagnostic quality images. DICOM format image data is available electro nically for review and comparison. FINDINGS: CT Abdomen: There are loops of jejunum dilated in left upper quadrant maximum diameter of 3 cm and th e rest of the small bowel appears normal and not dilated and there appears to be a twist in the mesen alexandre of the left upper quadrant past the ligament of Treitz. The liver, spleen, pancreas, kidneys, ad renals are unremarkable. There is no evidence for any appreciable pathological adenopathy, free fluid . Chronic vascular calcifications are present involving the aorta, iliac arteries without any signifi cant stenosis or aneurysmal dilatations for technique. There is evidence for prior cholecystectomy. CT pelvis: There is no evidence for mass, abscess formation, or any significant adenopathy within the pelvis. CONCLUSION: There appears to be a twist in the mesentery left upper quadrant with dilatation of l oops of jejunum at the site and the possibility of internal hernia or mesenteric twist causing local obstruction should be entertained. Obie Rowland MD on August 10, 2017 at 17:08 Board Certified Radiologist. This report was verified electronically.
[2017-08-10] MEDS ORDERED: KETOROLAC TROMETHAMINE 30 MG/ML (IVP) VIAL IV PUSH ONE (18:15)
[2017-08-10] MEDS: SODIUM CHLOR 0.9% 1000 ML INJ 1,000 ML IV SCH (18:18)
[2017-08-10] MEDS ORDERED: BISACODYL 10 MG SUPP RECTAL PRN (19:45)
[2017-08-10] MEDS ORDERED: SODIUM CHLORIDE 0.9% FLUSH 10 ML FLUSH IV FLUSH PRN ×2 (19:45→22:45)
[2017-08-10] MEDS ORDERED: LACTULOSE SYRUP 20 GM/30 ML CUP PO PRN (19:45)
[2017-08-10] MEDS ORDERED: ONDANSETRON HCL 4 MG/2 ML VIAL IVP PRN (19:45)
[2017-08-10] MEDS ORDERED: NALOXONE HCL 0.4 MG/ML AMP IV PUSH PRN ×2 (19:45→22:45)
[2017-08-10] MEDS ORDERED: SODIUM CHLORIDE 0.9% FLUSH 10 ML FLUSH IV FLUSH SCH (21:00)
[2017-08-10] MEDS: DOCUSATE SODIUM 50 MG/SENNA 8.6 MG TAB PO SCH (21:00)
[2017-08-10] MEDS ORDERED: SENNOSIDES 8.6 MG TAB PO PRN (21:00)
[2017-08-10] MEDS ORDERED: MAGNESIUM HYDROXIDE SUSP 30 ML CUP PO PRN (21:00)
--- NOTE | 2017-08-10 22:00 | HHI.HP ---
[facility] Service Family Medicine Primary Care Physician Emilio Davila MD Admission Diagnosis Partial SBO vs Internal Hernia. Diagnoses: International Travel<30 Days: No Contact w/Intl Traveler<30days: No Known Affected Area: No History of Present Illness Vomiting since May 2017. Had an endoscopy preformed and she was diagnosed with Velasquez's esophagus. Yesterday at 3 PM she had persistent vomiting. She reports that it is a mucus substance that she is throwing up. Occasionally she had red blood streaks in them (however not within the past 24 hours). Today, she reports approximately 7- 8 episodes of emesis / without blood. She has been throwing up 4-5 times every day since May. She also has been having weight loss (132 --> 115 lbs). She reports abdominal pain that is localized to her epigastric region and radiates into her RUQ. The pain is described as a sharp pain, especially when she touches the area. The pain is constant and does not fluctuate. Currently the severity is a 3-4 out of 10. Pain medications (Toradol) improve her pain. Not eating makes her pain better. Last BM was this morning. Normal formed stools. She also reports persistent bloating throughout the day. ROS: Chest pain - central of chest, "cave in pressure" - non radiating. Off and on over the past week. This chest pain is different from when she had her [place]. This morning 08/10/2016, she could not stand 2/2 to weakness, so she went into our same-day clinic for an evaluation. That visit is documented as below: "Patient is a 62 year old female with a past medical history significant for COPD and DM type II who presents today for nausea. She states that she was in the hospital in May for respiratory issues. She has been having worsening nausea over the past few months since then with frequent emesis. Two days ago, she had a small amount of emesis with streaks of bright red blood. She has been intermittently having a fever as well over the past 3 months. Her most recent fever was 101 last night. She tries to take Tylenol for the fever but is unable to keep anything down. She has felt so nauseous that she has not eaten in 4 days. She is unable to keep any liquid down. She has been trying to drink Pedialyte but is unable to keep significant amounts down. She has also tried drinking ensure without success. She is feeling very tired, weak, achy, her "bones hurt," and she endorses malaise. She has not had any diarrhea or constipation. She feels the urge to urinate frequently (she states this is her baseline due to her diabetes) but she does not produce much volume. She denies any dysuria. She has lost about 6 pounds since she was last here in June. Three months ago before her symptoms started, she was 132 pounds and now she is 116 pounds. Her chest feels "heavy" for the past week. She also notes worsening shortness of breath. Her chest pain worsens with exertion. She has been unable to keep her medications down for over a week." -Dr. Lacy (Tru Sharpe MD, R3) Review of Systems Constitutional: DENIES: Fever, Chills Eyes: COMPLAINS OF: Blurred vision, Vision loss Respiratory: DENIES: Cough, Sputum production, Shortness of breath Cardiovascular: COMPLAINS OF: Chest pain Gastrointestinal: COMPLAINS OF: Abdominal pain, Nausea, Vomiting, DENIES: Black stools, Bloody stools, Constipation, Diarrhea Musculoskeletal: COMPLAINS OF: Joint pain, Muscle aches, Stiffness Psychiatric: COMPLAINS OF: Anxiety (Tru Sharpe MD, R3) Past Family Social History Past Medical History COPD [place] T2DM Gastroparesis Depression Hypothyroidism PSHx: Cholecystectomy - 15 years ago Hysterectomy at 32 Ectopic Meds: Reviewed Ax: Pcn, tetracycline, doxycycline, sulfa, morphine Family: Mother - Mom passed at the age 63 y/o of complications of DM Father - MVA at young age Siblings - one sister with DM, and heart disease. 62 y/o sister with cardiac disease (CAD) Half brother - Lyme disease Social History: Former smoker from age [age] y/o 1 ppd EtOH - very little, half of glass of wine 2-3 times per year Lives by herself Not functioning by herself, she has a neighbor who helps Does not drive. Gets meals on wheels. Able to bathe herself. (Tru Sharpe MD, R3) Allergies: Coded Allergies: morphine (Unverified Allergy, Intermediate, Nausea/Vomiting, 08/10/17) doxycycline (Unverified Allergy, Unknown, hives, 08/10/17) minocycline (Unverified Allergy, Unknown, hives, 08/10/17) penicillin G (Unverified Allergy, Unknown, sob, 08/10/17) tigecycline (Unverified Allergy, Unknown, hives, 08/10/17) Sulfa (Sulfonamide Antibiotics) (Unverified Adverse Reaction, Severe, vomiting, 08/10/17) Physical Exam Vital Signs Vital Signs Date Time Temp Pulse Resp B/P (MAP) Pulse Ox O2 Delivery O2 Flow Rate FiO2 08/10/17 21:33 96.7 67 18 108/60 (76) 92 08/10/17 21:05 08/10/17 21:05 98.2 68 18 118/67 (84) 97 Nasal Cannula 3.00 08/10/17 19:41 64 16 119/65 (83) 98 Room Air 08/10/17 17:40 64 20 116/56 (76) 97 Nasal Cannula 3.00 08/10/17 15:05 97.4 84 20 104/53 (70) 94 Physical Exam GENERAL: Non toxic appearing, speaking in full sentences. SKIN: No rashes, ecchymoses or lesions. Cool and dry. Hyperpigmented skin on arms, multiple small abrasions. HEAD: Atraumatic. Normocephalic. No temporal or scalp tenderness. EYES: Pupils equal round and reactive. Extraocular motions intact. No scleral icterus. No injection or drainage. ENT: Nose without bleeding, purulent drainage or septal hematoma. Throat without erythema, tonsillar hypertrophy or exudate. Uvula midline. Airway patent. Dentures in place. NECK: Trachea midline. No JVD or lymphadenopathy. Supple, nontender, no meningeal signs. CARDIOVASCULAR: Regular rate and rhythm without murmurs, gallops, or rubs. Faint heart sounds. RESPIRATORY: Poor aeration throughout. Rhonchi throughout. Expiratory wheezing throughout. Increased AP diameter. Breathing comfortably on 2 L NC. GASTROINTESTINAL: Abdomen soft, slightly distended. No rebound or guarding. BS hyperactive in upper quadrants and high-pitched. Tenderness to deep palpation over the epigastrium and RUQ. Non tender in lower quadrants. MUSCULOSKELETAL: Extremities without clubbing, cyanosis, or edema. No joint tenderness, effusion, or edema noted. No calf tenderness. Negative Homans sign bilaterally. NEUROLOGICAL: Awake and alert. Cranial nerves II through XII intact. Motor and sensory grossly within normal limits. Five out of 5 muscle strength in all muscle groups. Normal speech. Laboratory Laboratory Tests Test 08/10/17 16:00 White Blood Count 10.0 Red Blood Count 4.50 Hemoglobin 13.6 Hematocrit 40.9 Mean Corpuscular Volume 90.9 Mean Corpuscular Hemoglobin 30.2 Mean Corpuscular Hemoglobin Concent 33.3 Red Cell Distribution Width 12.8 Platelet Count 406 Mean Platelet Volume 7.5 Neutrophils (%) (Auto) 69.5 Lymphocytes (%) (Auto) 20.7 Monocytes (%) (Auto) 8.9 Eosinophils (%) (Auto) 0.4 Basophils (%) (Auto) 0.5 Neutrophils # (Auto) 7.0 Lymphocytes # (Auto) 2.1 Monocytes # (Auto) 0.9 Eosinophils # (Auto) 0.0 Basophils # (Auto) 0.0 CBC Comment DIFF FINAL Differential Comment Urine Color YELLOW Urine Turbidity CLEAR Urine pH 7.0 Urine Specific [place] 1.021 Urine Protein NEG Urine Glucose (UA) NEG Urine Ketones 15 Urine Occult Blood NEG Urine Nitrite NEG Urine Bilirubin NEG Urine Leukocyte Esterase NEG Urine Squamous Epithelial Cells 0-5 Microscopic Urinalysis Comment CULT NOT INDICATED Blood Urea Nitrogen 13 Creatinine 0.65 Random Glucose 168 Total Protein 7.4 Albumin 3.5 Calcium Level 9.3 Magnesium Level 2.1 Alkaline Phosphatase 107 Aspartate Amino Transf (AST/SGOT) 24 Alanine Aminotransferase (ALT/SGPT) 24 Total Bilirubin 0.4 Sodium Level 138 Potassium Level 4.0 Chloride Level 101 Carbon Dioxide Level 29.4 Anion Gap 8 Estimat Glomerular Filtration Rate 92 Troponin I LESS THAN 0.02 B-Type Natriuretic Peptide 55 Lipase 124 (Tru Sharpe MD, R3) Result Diagram: 08/10/17 1600 08/10/17 1600 Imaging Last 72 hours Impressions Chest X-Ray 08/10/17 1533 Signed Impressions: Service Date/Time: August 16:18 - CONCLUSION: No acute cardiopulmonary disease. Obie Rowland MD Abdomen/Pelvis CT 08/10/17 1533 Signed Impressions: Service Date/Time: August 16:53 - CONCLUSION: There appears to be a twist in the mesentery left upper quadrant with dilatation of loops of jejunum at the site and the possibility of internal hernia or mesenteric twist causing local obstruction should be entertained. Obie Rowland MD ([place],Tru NGUYEN, R3) Caprini VTE Risk Assessment Caprini VTE Risk Assessment: No/Low Risk (score <= 1) Caprini Risk Assessment Model Point Value = 1 Point Value = 2 Point Value = 3 Point Value = 5 Age 41-60 Minor surgery BMI > 25 kg/m2 Swollen legs Varicose veins or History of unexplained or recurrent spontaneous Oral contraceptives or hormone replacement Sepsis (< 1 month) Serious lung disease, including pneumonia (< 1 month) Abnormal pulmonary function Acute myocardial infarction Congestive heart failure (< 1 month) History of inflammatory bowel disease Medical patient at bed rest Age 61-74 Arthroscopic surgery Major open surgery (> 45 min) Laparoscopic surgery (> 45 min) Malignancy Confined to bed (> 72 hours) Immobilizing plaster cast Central venous access Age >= 75 History of VTE Family history of VTE Factor V Leiden Prothrombin [id number] Lupus anticoagulant Anticardiolipin antibodies Elevated serum homocysteine Heparin-induced thrombocytopenia Other congenital or acquired thrombophilia Stroke (< 1 month) Elective arthroplasty Hip, pelvis, or leg fracture Acute spinal cord injury (< 1 month) Prophylaxis Regimen Total Risk Factor Score Risk Level Prophylaxis Regimen 0-1 Low Early ambulation 2 Moderate Order ONE of the following: *Sequential Compression Device (SCD) *Heparin 5000 units SQ BID 3-4 Higher Order ONE of the following medications: *Heparin 5000 units SQ TID *Enoxaparin/Lovenox 40 mg SQ daily (WT < 150 kg, CrCl > 30 mL/min) *Enoxaparin/Lovenox 30 mg SQ daily (WT < 150 kg, CrCl > 10-29 mL/min) *Enoxaparin/Lovenox 30 mg SQ BID (WT < 150 kg, CrCl > 30 mL/min) AND/OR *Sequential Compression Device (SCD) 5 or more Highest Order ONE of the following medications: *Heparin 5000 units SQ TID (Preferred with Epidurals) *Enoxaparin/Lovenox 40 mg SQ daily (WT < 150 kg, CrCl > 30 mL/min) *Enoxaparin/Lovenox 30 mg SQ daily (WT < 150 kg, CrCl > 10-29 mL/min) *Enoxaparin/Lovenox 30 mg SQ BID (WT < 150 kg, CrCl > 30 mL/min) AND *Sequential Compression Device (SCD) (Tru Sharpe MD, R3) Assessment and Plan Assessment and Plan 62 y/o female presenting with persistent Nausea and vomiting for > 2 months. Worse over the past 3-4 days with increasing abdominal pain. Found to have a "twist in the mesentery left upper quadrant with dilatation of loops of jejunum and the possibility of internal hernia or mesenteric twist causing a local obstruction." She will be admitted for partial SBO with a general surgery consult. (Tru Sharpe MD, R3) Problem List: (1) Nausea & vomiting ICD Codes: R11.2 - Nausea with vomiting, unspecified Plan: Likely SBO from adhesions, internal hernia, or mesenteric volvulus. Labs and vital signs reassuring. Lipase WNL. PLAN: NPO Zofran PRN nausea and vomiting Pain control with Toradol 30 mg q 6 as needed Consult general surgery for possible exp laparoscopy. Appreciate their help in management. Fluid NS 84 ml/hr. Daily CBC and CMP. (2) Depression ICD Codes: F32.9 - Major depressive disorder, single episode, unspecified Plan: Continue home meds. (3) Hypothyroid ICD Codes: E03.9 - Hypothyroidism, unspecified Plan: Continue home meds. (4) Coronary artery disease ICD Codes: I25.10 - Atherosclerotic heart disease of [place] coronary artery without angina pectoris Status: Acute Plan: Continue with ASA and plavix. Continue Bystolic. (5) Chronic obstructive pulmonary disease with acute exacerbation ICD Codes: J44.1 - Chronic obstructive pulmonary disease with (acute) exacerbation Status: Acute Plan: At baseline. No new symptoms. Continue Breo inhaler, Singulair, oxygen as needed )2 > 90%, DuoNeb q 6 hours scheduled, Albuterol q 2 hours as needed for SOB. (6) Hypertension ICD Codes: I10 - Essential (primary) hypertension Status: Acute Plan: Cont home meds. (7) Chest pain ICD Codes: R07.9 - Chest pain, unspecified Status: Acute Plan: EKG on admission showing no signs of acute infarction or ischemia. Repeat troponin and EKG x 1 given substernal chest pain. (8) Nutrition, metabolism, and development symptoms ICD Codes: R63.8 - Other symptoms and signs concerning food and fluid intake Plan: FLuids: NS 84 ml/hr DVT: SCDs hold incase of surgery Diet: NPO GI ppx: IV pantoprazole 40 mg daily Will discuss with medical team in the AM. (Tru Sharpe MD, R3) Physician Certification 2 Midnight Certification Type: Admission for Inpatient Services Order for Inpatient Services The services are ordered in accordance with Medicare regulations or non- Medicare payer requirements, as applicable. In the case of services not specified as inpatient-only, they are appropriately provided as inpatient services in accordance with the 2-midnight benchmark. Estimated LOS (days): 2 2 days is the estimated time the patient will need to remain in the hospital, assuming treatment plan goals are met and no additional complications. Post-Hospital Plan: Home (Tru Sharpe MD, R3) Problem Qualifiers (1) Nausea & vomiting: Qualified Codes: R11.14 - Bilious vomiting (2) Depression: Qualified Codes: F32.9 - Major depressive disorder, single episode, unspecified (3) Hypothyroid: Qualified Codes: E03.9 - Hypothyroidism, unspecified (4) Coronary artery disease: Qualified Codes: I25.10 - Atherosclerotic heart disease of [place] coronary artery without angina pectoris (5) Hypertension: Qualified Codes: I10 - Essential (primary) hypertension (6) Chest pain: Qualified Codes: R07.9 - Chest pain, unspecified Tru Sharpe MD, R3 Aug 10, 2017 22:00 Miranda Bell MD Aug 11, 2017 17:50
[2017-08-10] MEDS ORDERED: GLUCAGON 1 MG/ML VIAL OTHER PRN (22:45)
[2017-08-10] MEDS ORDERED: RESP: ALBUTEROL 2.5 MG/3 ML NEB (PRN) INH (22:45)
[2017-08-10] MEDS: SODIUM CHLORIDE 0.9% FLUSH 10 ML FLUSH IV FLUSH SCH (22:45)
[2017-08-10] MEDS ORDERED: DEXTROSE 50% IN WATER 50 ML VIAL(D50) IV PUSH PRN (22:45)
[2017-08-10] MEDS ORDERED: KETOROLAC TROMETHAMINE 60 MG/2 ML (IM) VIAL IM PRN (22:45)
[2017-08-11] VITALS (11 sets, daily range): BP systolic 103–141; BP diastolic 58–74; PULSE 61–77; RESP 18; TEMP 96.6–97.7; O2SAT 95–98
[2017-08-11] MEDS ORDERED: CHLORHEXIDINE GLUCONATE 2 % 1 PACK (2 CLOTHS) TOPICAL PRN (05:00)
[2017-08-11] MEDS ORDERED: LACTATED RINGER'S 1000 ML IV PRN (05:00)
[2017-08-11] MEDS ORDERED: POVIDONE IODINE 5% (ANTISEPSIS KIT) 4 APPLICATIONS EACH NARE PRN (05:00)
[2017-08-11] MEDS ORDERED: SODIUM CHLORID 0.9% 500 ML IV PRN (05:00)
[2017-08-11] MEDS: RESP: ALBUTEROL 2.5 MG/IPRATROPIUM 0.5 MG NEB (SCH) INH ×4 (05:26→20:57)
[2017-08-11] MEDS: LEVOTHYROXINE SODIUM 112 MCG TAB PO SCH (05:57)
[2017-08-11] MEDS: SODIUM CHLOR 0.9% 1000 ML INJ 1,000 ML IV SCH ×2 (05:58→18:36)
[2017-08-11] MEDS: INSULIN ASPART SUPPLEMENTAL SCALE SQ SCH ×4 (08:00→21:00)
[2017-08-11 08:12] LABS: LIPASE 132 U/L (73-393)
[2017-08-11 08:14] LABS: TROPONIN I LESS THAN 0.02 NG/ML (0.02-0.05)
[2017-08-11] MEDS: FLUTICASONE 100 MCG/VILANTEROL 25 MCG INHALER INH SCH (09:00)
[2017-08-11] MEDS: CLOPIDOGREL 75 MG TAB PO SCH (09:00)
[2017-08-11] MEDS: DOCUSATE SODIUM 50 MG/SENNA 8.6 MG TAB PO SCH ×2 (09:00→21:00)
[2017-08-11] MEDS ORDERED: UMECLIDINIUM BROMIDE 62.5 MCG INH SCH (09:00)
[2017-08-11] MEDS: NEBIVOLOL 10 MG TAB PO SCH (09:00)
[2017-08-11] MEDS: ASPIRIN 81 MG CHEW TAB CHEW SCH (09:00)
[2017-08-11] MEDS: ATORVASTATIN 40 MG TAB PO SCH (09:00)
[2017-08-11] MEDS: SODIUM CHLORIDE 0.9% FLUSH 10 ML FLUSH IV FLUSH SCH ×2 (09:00→21:00)
--- NOTE | 2017-08-11 10:16 | HHI.PR ---
cc: Primo Mitchell MD Subjective Subjective Notes mild abdominal pain, difficulty with po intake, having bms Objective Vitals/I&O Vital Signs Date Time Temp Pulse Resp B/P (MAP) Pulse Ox O2 Delivery O2 Flow Rate FiO2 08/11/17 07:37 96.9 62 18 108/65 (79) 97 08/11/17 05:28 Nasal Cannula 2.00 Labs Laboratory Tests Test 08/10/17 16:00 08/11/17 05:59 White Blood Count 10.0 Red Blood Count 4.50 Hemoglobin 13.6 Hematocrit 40.9 Mean Corpuscular Volume 90.9 Mean Corpuscular Hemoglobin 30.2 Mean Corpuscular Hemoglobin Concent 33.3 Red Cell Distribution Width 12.8 Platelet Count 406 Mean Platelet Volume 7.5 Neutrophils (%) (Auto) 69.5 Lymphocytes (%) (Auto) 20.7 Monocytes (%) (Auto) 8.9 Eosinophils (%) (Auto) 0.4 Basophils (%) (Auto) 0.5 Neutrophils # (Auto) 7.0 Lymphocytes # (Auto) 2.1 Monocytes # (Auto) 0.9 Eosinophils # (Auto) 0.0 Basophils # (Auto) 0.0 CBC Comment DIFF FINAL Differential Comment Urine Color YELLOW Urine Turbidity CLEAR Urine pH 7.0 Urine Specific [place] 1.021 Urine Protein NEG Urine Glucose (UA) NEG Urine Ketones 15 Urine Occult Blood NEG Urine Nitrite NEG Urine Bilirubin NEG Urine Leukocyte Esterase NEG Urine Squamous Epithelial Cells 0-5 Microscopic Urinalysis Comment CULT NOT INDICATED Blood Urea Nitrogen 13 Creatinine 0.65 Random Glucose 168 Total Protein 7.4 Albumin 3.5 Calcium Level 9.3 Magnesium Level 2.1 Alkaline Phosphatase 107 Aspartate Amino Transf (AST/SGOT) 24 Alanine Aminotransferase (ALT/SGPT) 24 Total Bilirubin 0.4 Sodium Level 138 Potassium Level 4.0 Chloride Level 101 Carbon Dioxide Level 29.4 Anion Gap 8 Estimat Glomerular Filtration Rate 92 Troponin I LESS THAN 0.02 LESS THAN 0.02 B-Type Natriuretic Peptide 55 Lipase 124 132 Abdomen: Other (soft mild ttp, left side, epigastric area) A/P Assessment and Plan R/O internal hernia possible sbo PLAN low suspicion for intestinal ischemia at this time continue non op mgnt recommend consult GI pt known to gi service to evaluation epigastric pain and vomiting ok for liquids from surgery stand point Primo Mitchell MD Aug 11, 2017 10:16
[2017-08-11 10:39] LABS: ALBUMIN 3.2 GM/DL (3.4-5.0); AST (GOT) 20 U/L (15-37); BICARBONATE 24.5 MEQ/L (21.0-32.0); BLOOD UREA NITROGEN 13 MG/DL (7-18); CALCIUM 9.2 MG/DL (8.5-10.1); CHLORIDE 106 MEQ/L (98-107); CREATININE 0.61 MG/DL (0.50-1.00); GLOMERULAR FILTRATION RATE 99 ML/MIN (>89); GLUCOSE,RANDOM 127 MG/DL (74-106); SODIUM (NA) 140 MEQ/L (136-145)
[2017-08-11 10:40] LABS: ALT (GPT) 19 U/L (10-53)
[2017-08-11 10:43] LABS: ALKALINE PHOSPHATASE 89 U/L (45-117); TOTAL BILIRUBIN ADULT 0.3 MG/DL (0.2-1.0); TOTAL PROTEIN 6.2 GM/DL (6.4-8.2)
[2017-08-11] MEDS: PANTOPRAZOLE SODIUM 40 MG VIAL IV PUSH SCH (11:58)
[2017-08-11 12:34] LABS: AUTOMATED NEUTROPHIL # 3.6 TH/MM3 (1.8-7.7); BASOPHIL % 0.5 % (0.0-2.0); EOSINOPHIL % 0.5 % (0.0-4.0); HEMATOCRIT 37.2 % (35.0-46.0); HEMOGLOBIN 12.5 GM/DL (11.6-15.3); LYMPH % 28.6 % (9.0-44.0); LYMPHOCYTE # 1.8 TH/MM3 (1.0-4.8); MEAN CELL VOLUME 92.9 FL (80.0-100.0); MEAN CORPUSCULAR HEMOGLOBIN 31.1 PG (27.0-34.0); MEAN CORPUSCULAR HGB CONC 33.5 % (32.0-36.0); MEAN PLATELET VOLUME 7.7 FL (7.0-11.0); MONO % 12.2 % (0.0-8.0); MONOCYTE # 0.8 TH/MM3 (0-0.9); NEUT % 58.2 % (16.0-70.0); PLATELET COUNT 334 TH/MM3 (150-450); RED CELL DISTRIBUTION WIDTH 13.3 % (11.6-17.2); WHITE BLOOD COUNT 6.2 TH/MM3 (4.0-11.0)
--- NOTE | 2017-08-11 15:53 | HHI.HP ---
[facility] Service Family Medicine Primary Care Physician Emilio Davila MD Admission Diagnosis Partial SBO vs Internal Hernia. Diagnoses: (1) Nausea & vomiting Diagnosis: Principal (2) Depression Diagnosis: Principal (3) Hypothyroid Diagnosis: Principal (4) Coronary artery disease Diagnosis: Principal (5) Chronic obstructive pulmonary disease with acute exacerbation Diagnosis: Principal (6) Hypertension Diagnosis: Principal (7) Chest pain Diagnosis: Principal (8) Nutrition, metabolism, and development symptoms Diagnosis: Principal International Travel<30 Days: No Contact w/Intl Traveler<30days: No Known Affected Area: No History of Present Illness Ms Fernando has had vomiting since May 2017. Had an endoscopy preformed and she was diagnosed with Velasquez's esophagus. She has been able to keep liquids down better than solids but no meat or vegetables in quite some time. Yesterday at 3 PM she had persistent vomiting. She reports that it is a mucus substance that she is throwing up. Occasionally she had red blood streaks in them (however not within the past 24 hours). She reports approximately 7-8 episodes of emesis / without blood. She has been throwing up 4-5 times every day since May. She also has been having weight loss (132 --> 115 lbs). She reports abdominal pain that is localized to her epigastric region and radiates into her RUQ. The pain is described as a sharp pain, especially when she touches the area. The pain is constant and does not fluctuate. Currently the severity is a 3-4 out of 10. Pain medications (Toradol) improve her pain. Not eating makes her pain better. Last BM was this morning. Normal formed stools. She also reports persistent bloating throughout the day. ROS: Chest pain - central of chest, "cave in pressure" - non radiating. Off and on over the past week. This chest pain is different from when she had her LA. This morning 08/10/2016, she could not stand 2/2 to weakness, so she went into our same-day clinic for an evaluation. That visit is documented as below: "Patient is a 62 year old female with a past medical history significant for COPD and DM type II who presents today for nausea. She states that she was in the hospital in May for respiratory issues. She has been having worsening nausea over the past few months since then with frequent emesis. Two days ago, she had a small amount of emesis with streaks of bright red blood. She has been intermittently having a fever as well over the past 3 months. Her most recent fever was 101 last night. She tries to take Tylenol for the fever but is unable to keep anything down. She has felt so nauseous that she has not eaten in 4 days. She is unable to keep any liquid down. She has been trying to drink Pedialyte but is unable to keep significant amounts down. She has also tried drinking ensure without success. She is feeling very tired, weak, achy, her "bones hurt," and she endorses malaise. She has not had any diarrhea or constipation. She feels the urge to urinate frequently (she states this is her baseline due to her diabetes) but she does not produce much volume. She denies any dysuria. She has lost about 6 pounds since she was last here in June. Three months ago before her symptoms started, she was 132 pounds and now she is 116 pounds. Her chest feels "heavy" for the past week. She also notes worsening shortness of breath. Her chest pain worsens with exertion. She has been unable to keep her medications down for over a week." -Dr. Lacy Review of Systems Other Constitutional: DENIES: Fever, Chills Eyes: COMPLAINS OF: Blurred vision, Vision loss Respiratory: DENIES: Cough, Sputum production, Shortness of breath Cardiovascular: COMPLAINS OF: Chest pain Gastrointestinal: COMPLAINS OF: Abdominal pain, Nausea, Vomiting, DENIES: Black stools, Bloody stools, Constipation, Diarrhea Musculoskeletal: COMPLAINS OF: Joint pain, Muscle aches, Stiffness Psychiatric: COMPLAINS OF: Anxiety Past Family Social History Past Medical History COPD LA T2DM Gastroparesis Depression Hypothyroidism PSHx: Cholecystectomy - 15 years ago Hysterectomy at 32 Ectopic Meds: Reviewed Ax: Pcn, tetracycline, doxycycline, sulfa, morphine Family: Mother - Mom passed at the age 63 y/o of complications of DM Father - MVA at young age Siblings - one sister with DM, and heart disease. 62 y/o sister with cardiac disease (CAD) Half brother - Lyme disease Social History: Former smoker from age [age] y/o 1 ppd EtOH - very little, half of glass of wine 2-3 times per year Lives by herself Not functioning by herself, she has a neighbor who helps Does not drive. Gets meals on wheels. Able to bathe herself. Allergies: Coded Allergies: morphine (Unverified Allergy, Intermediate, Nausea/Vomiting, 08/10/17) doxycycline (Unverified Allergy, Unknown, hives, 08/10/17) minocycline (Unverified Allergy, Unknown, hives, 08/10/17) penicillin G (Unverified Allergy, Unknown, sob, 08/10/17) tigecycline (Unverified Allergy, Unknown, hives, 08/10/17) Sulfa (Sulfonamide Antibiotics) (Unverified Adverse Reaction, Severe, vomiting, 08/10/17) Physical Exam Vital Signs Vital Signs Date Time Temp Pulse Resp B/P (MAP) Pulse Ox O2 Delivery O2 Flow Rate FiO2 08/11/17 11:42 96.6 69 18 108/58 (75) 97 08/11/17 10:48 18 08/11/17 09:34 97 Nasal Cannula 2.00 08/11/17 07:37 96.9 62 18 108/65 (79) 97 08/11/17 05:28 98 Nasal Cannula 2.00 08/11/17 04:15 97.5 62 18 128/60 (82) 95 08/11/17 03:43 61 08/10/17 23:49 65 08/10/17 23:26 97.0 79 18 119/73 (88) 99 08/10/17 22:34 Nasal Cannula 3.00 08/10/17 21:49 63 08/10/17 21:33 96.7 67 18 108/60 (76) 92 08/10/17 21:05 08/10/17 21:05 98.2 68 18 118/67 (84) 97 Nasal Cannula 3.00 08/10/17 19:41 64 16 119/65 (83) 98 Room Air 08/10/17 17:40 64 20 116/56 (76) 97 Nasal Cannula 3.00 Physical Exam GENERAL: Non toxic appearing, speaking in full sentences. SKIN: No rashes, ecchymoses or lesions. Cool and dry. Hyperpigmented skin on arms, multiple small abrasions. HEAD: Atraumatic. Normocephalic. No temporal or scalp tenderness. EYES: Pupils equal round and reactive. Extraocular motions intact. No scleral icterus. No injection or drainage. ENT: Nose without bleeding, purulent drainage or septal hematoma. Throat without erythema, tonsillar hypertrophy or exudate. Uvula midline. Airway patent. Dentures in place. NECK: Trachea midline. No JVD or lymphadenopathy. Supple, nontender, no meningeal signs. CARDIOVASCULAR: Regular rate and rhythm without murmurs, gallops, or rubs. Faint heart sounds. RESPIRATORY: Poor aeration throughout. Rhonchi throughout. Expiratory wheezing throughout. Increased AP diameter. Breathing comfortably on 2 L NC. GASTROINTESTINAL: Abdomen soft, slightly distended. No rebound or guarding. BS hyperactive in upper quadrants and high-pitched. Tenderness to deep palpation over the epigastrium and RUQ. Non tender in lower quadrants. MUSCULOSKELETAL: Extremities without clubbing, cyanosis, or edema. No joint tenderness, effusion, or edema noted. No calf tenderness. Negative Homans sign bilaterally. NEUROLOGICAL: Awake and alert. Cranial nerves II through XII intact. Motor and sensory grossly within normal limits. Five out of 5 muscle strength in all muscle groups. Normal speech. Laboratory Laboratory Tests Test 08/10/17 16:00 08/11/17 05:59 08/11/17 11:38 White Blood Count 10.0 6.2 Red Blood Count 4.50 4.00 Hemoglobin 13.6 12.5 Hematocrit 40.9 37.2 Mean Corpuscular Volume 90.9 92.9 Mean Corpuscular Hemoglobin 30.2 31.1 Mean Corpuscular Hemoglobin Concent 33.3 33.5 Red Cell Distribution Width 12.8 13.3 Platelet Count 406 334 Mean Platelet Volume 7.5 7.7 Neutrophils (%) (Auto) 69.5 58.2 Lymphocytes (%) (Auto) 20.7 28.6 Monocytes (%) (Auto) 8.9 12.2 Eosinophils (%) (Auto) 0.4 0.5 Basophils (%) (Auto) 0.5 0.5 Neutrophils # (Auto) 7.0 3.6 Lymphocytes # (Auto) 2.1 1.8 Monocytes # (Auto) 0.9 0.8 Eosinophils # (Auto) 0.0 0.0 Basophils # (Auto) 0.0 0.0 CBC Comment DIFF FINAL DIFF FINAL Differential Comment Urine Color YELLOW Urine Turbidity CLEAR Urine pH 7.0 Urine Specific [place] 1.021 Urine Protein NEG Urine Glucose (UA) NEG Urine Ketones 15 Urine Occult Blood NEG Urine Nitrite NEG Urine Bilirubin NEG Urine Leukocyte Esterase NEG Urine Squamous Epithelial Cells 0-5 Microscopic Urinalysis Comment CULT NOT INDICATED Blood Urea Nitrogen 13 13 Creatinine 0.65 0.61 Random Glucose 168 127 Total Protein 7.4 6.2 Albumin 3.5 3.2 Calcium Level 9.3 9.2 Magnesium Level 2.1 Alkaline Phosphatase 107 89 Aspartate Amino Transf (AST/SGOT) 24 20 Alanine Aminotransferase (ALT/SGPT) 24 19 Total Bilirubin 0.4 0.3 Sodium Level 138 140 Potassium Level 4.0 3.7 Chloride Level 101 106 Carbon Dioxide Level 29.4 24.5 Anion Gap 8 10 Estimat Glomerular Filtration Rate 92 99 Troponin I LESS THAN 0.02 LESS THAN 0.02 B-Type Natriuretic Peptide 55 Lipase 124 132 Result Diagram: 08/11/17 1138 08/11/17 0559 Imaging Last 72 hours Impressions Chest X-Ray 08/10/17 1533 Signed Impressions: Service Date/Time: August 16:18 - CONCLUSION: No acute cardiopulmonary disease. Obie Rowland MD Abdomen/Pelvis CT 08/10/17 1533 Signed Impressions: Service Date/Time: August 16:53 - CONCLUSION: There appears to be a twist in the mesentery left upper quadrant with dilatation of loops of jejunum at the site and the possibility of internal hernia or mesenteric twist causing local obstruction should be entertained. MD Catalina Greenei VTE Risk Assessment Caprini VTE Risk Assessment: No/Low Risk (score <= 1) Caprini Risk Assessment Model Point Value = 1 Point Value = 2 Point Value = 3 Point Value = 5 Age 41-60 Minor surgery BMI > 25 kg/m2 Swollen legs Varicose veins or History of unexplained or recurrent spontaneous Oral contraceptives or hormone replacement Sepsis (< 1 month) Serious lung disease, including pneumonia (< 1 month) Abnormal pulmonary function Acute myocardial infarction Congestive heart failure (< 1 month) History of inflammatory bowel disease Medical patient at bed rest Age 61-74 Arthroscopic surgery Major open surgery (> 45 min) Laparoscopic surgery (> 45 min) Malignancy Confined to bed (> 72 hours) Immobilizing plaster cast Central venous access Age >= 75 History of VTE Family history of VTE Factor V Leiden Prothrombin [id number] Lupus anticoagulant Anticardiolipin antibodies Elevated serum homocysteine Heparin-induced thrombocytopenia Other congenital or acquired thrombophilia Stroke (< 1 month) Elective arthroplasty Hip, pelvis, or leg fracture Acute spinal cord injury (< 1 month) Prophylaxis Regimen Total Risk Factor Score Risk Level Prophylaxis Regimen 0-1 Low Early ambulation 2 Moderate Order ONE of the following: *Sequential Compression Device (SCD) *Heparin 5000 units SQ BID 3-4 Higher Order ONE of the following medications: *Heparin 5000 units SQ TID *Enoxaparin/Lovenox 40 mg SQ daily (WT < 150 kg, CrCl > 30 mL/min) *Enoxaparin/Lovenox 30 mg SQ daily (WT < 150 kg, CrCl > 10-29 mL/min) *Enoxaparin/Lovenox 30 mg SQ BID (WT < 150 kg, CrCl > 30 mL/min) AND/OR *Sequential Compression Device (SCD) 5 or more Highest Order ONE of the following medications: *Heparin 5000 units SQ TID (Preferred with Epidurals) *Enoxaparin/Lovenox 40 mg SQ daily (WT < 150 kg, CrCl > 30 mL/min) *Enoxaparin/Lovenox 30 mg SQ daily (WT < 150 kg, CrCl > 10-29 mL/min) *Enoxaparin/Lovenox 30 mg SQ BID (WT < 150 kg, CrCl > 30 mL/min) AND *Sequential Compression Device (SCD) Assessment and Plan Assessment and Plan 62 y/o female presenting with persistent Nausea and vomiting for > 2 months. Worse over the past 3-4 days with increasing abdominal pain. Found to have a "twist in the mesentery left upper quadrant with dilatation of loops of jejunum and the possibility of internal hernia or mesenteric twist causing a local obstruction." She was admitted for partial SBO with a general surgery consult. Problem List: (1) Nausea & vomiting ICD Codes: R11.2 - Nausea with vomiting, unspecified Plan: SBO from adhesions, internal hernia, or mesenteric volvulus. Labs and vital signs reassuring. Lipase WNL. her history is she has gastroparesis. will get gastric emptying study as she has had vomiting since May. this will be done Monday PLAN: NPO Zofran PRN nausea and vomiting Pain control with Toradol 30 mg q 6 as needed Consulted general surgery for possible exp laparoscopy. Appreciate their help in management. No surgery needed Fluid NS 84 ml/hr. Daily CBC and CMP. (2) Depression ICD Codes: F32.9 - Major depressive disorder, single episode, unspecified Plan: Continue home meds. (3) Hypothyroid ICD Codes: E03.9 - Hypothyroidism, unspecified Plan: Continue home meds. (4) Coronary artery disease ICD Codes: I25.10 - Atherosclerotic heart disease of [place] coronary artery without angina pectoris Status: Acute Plan: Continue with ASA and plavix. Continue Bystolic. (5) Chronic obstructive pulmonary disease with acute exacerbation ICD Codes: J44.1 - Chronic obstructive pulmonary disease with (acute) exacerbation Status: Acute Plan: At baseline. No new symptoms. Continue Breo inhaler, Singulair, oxygen as needed )2 > 90%, DuoNeb q 6 hours scheduled, Albuterol q 2 hours as needed for SOB. (6) Hypertension ICD Codes: I10 - Essential (primary) hypertension Status: Acute Plan: Cont home meds. (7) Chest pain ICD Codes: R07.9 - Chest pain, unspecified Status: Acute Plan: EKG on admission showing no signs of acute infarction or ischemia. Repeat troponin and EKG x 1 given substernal chest pain. (8) Nutrition, metabolism, and development symptoms ICD Codes: R63.8 - Other symptoms and signs concerning food and fluid intake Plan: FLuids: NS 84 ml/hr DVT: SCDs hold incase of surgery Diet: NPO GI ppx: IV pantoprazole 40 mg daily Will discuss with medical team in the AM. Problem Qualifiers (1) Nausea & vomiting: Qualified Codes: R11.14 - Bilious vomiting (2) Depression: Qualified Codes: F32.9 - Major depressive disorder, single episode, unspecified (3) Hypothyroid: Qualified Codes: E03.9 - Hypothyroidism, unspecified (4) Coronary artery disease: Qualified Codes: I25.10 - Atherosclerotic heart disease of [place] coronary artery without angina pectoris (5) Hypertension: Qualified Codes: I10 - Essential (primary) hypertension (6) Chest pain: Qualified Codes: R07.9 - Chest pain, unspecified Miranda Bell MD Aug 11, 2017 15:53
[2017-08-11] MEDS: ERYTHROMYCIN IV SCH ×2 (18:26→22:25)
[2017-08-11] MEDS: SODIUM CHLORIDE 0.9% IV SCH ×2 (18:26→22:25)
[2017-08-11] MEDS: MONTELUKAST SODIUM 10 MG TAB PO SCH (21:21)
[2017-08-11] MEDS: SERTRALINE HCL 50 MG TAB PO SCH (21:21)
--- NOTE | 2017-08-11 22:53 | MB ---
cc: CHERYL OCHOA MD DATE OF CONSULTATION: 08/10/17 REASON FOR CONSULTATION Abdominal pain, rule out internal hernia. HISTORY OF PRESENT ILLNESS The patient is a 62-year-old female who presents with acute onset of abdominal pain. The patient states the pain worsened within the last 24 hours and located primarily in the epigastric region. She states she has had significant ongoing pain since May,. She did have endoscopy performed with findings of Velasquez's esophagus. She was placed on a PPI for this with minimal improvement. She also has decreased p.o. intake and difficulty eating large meals. She has also had persistent vomiting, no blood and is having bowel movements. Given the significance of symptoms, she came to the emergency department for further evaluation including CT scan showing concern for a possible internal hernia. Surgery was consulted. The patient does have a normal WBC and is afebrile and otherwise vital signs stable. Further history, she has a significant history of COPD and diabetes. PAST MEDICAL HISTORY 1. COPD. 2. [place]. 3. Diabetes. 4. Gastroparesis. 5. Depression. 6. Hypothyroidism. PAST SURGICAL HISTORY 1. Cholecystectomy. 2. Hysterectomy. 3. Ectopic . MEDICATIONS See EMR. ALLERGIES SULFA, DOXYCYCLINE, MINOCYCLINE, MORPHINE, PENICILLIN G, TIGECYCLINE. FAMILY HISTORY Mother diabetes. Father stroke. SOCIAL HISTORY Former history of smoking. Occasional ETOH. REVIEW OF SYSTEMS GENERAL: Denies fevers or chills. HEENT: Denies eye pain or ear pain. NECK: Denies swelling or pain. LUNGS: Denies cough or wheeze, COPD. HEART: Denies palpitations or chest pain. ABDOMEN: Complains of nausea, vomiting, abdominal pain. GENITOURINARY: Denies dysuria or hematuria. ENDOCRINE: Denies polyuria or polydipsia, hypothyroid. PHYSICAL EXAMINATION GENERAL: The patient in no acute distress. VITAL SIGNS: Temperature 96.6, pulse 69, respiration 18, blood pressure 108/58, saturation 97%. HEENT: Pupils equal, round and reactive. NECK: Supple. Trachea midline. LUNGS: Clear to auscultation. HEART: S1, S2, regular. ABDOMEN: Mild tenderness to palpation in epigastric area. No rebound. No guarding. Soft abdomen. No peritoneal signs. EXTREMITIES: Warm and well-perfused. INTEGUMENT: No masses or lesions. PSYCHIATRIC: Appropriate insight. Appropriate judgment. LABORATORY AND DIAGNOSTIC DATA WBC 10, hemoglobin 13.6, hematocrit 40.9, platelets 406. Sodium 138, potassium 4, BUN 13, creatinine 0.6, AST 24, ALT 24, lipase 124. CT reviewed by myself and with Radiology. Concern for possible mesenteric twisting or internal hernia, however very low suspicion of this. Bowel does not appears significantly dilated proximal. ASSESSMENT The patient is a 62-year-old female who presents with epigastric pain, decreased p.o. intake, nausea, vomiting, rule out internal hernia. PLAN After full clinical, radiologic and laboratory work-up of the patient with above-named issues. The patient has a CT scan questionable with internal hernia versus mesenteric twisting and volvulus. At this point, very low suspicion for such as there is no mesenteric edema, no significant bowel wall thickening. There does look like a mild twisting however this could be altered position of bowel. I do not see significance of strangulation or any clinical signs to indicate that the patient would have impending necrotic bowel. At this point, recommend continued observation, nonoperative management, abdominal exams for this, continue to check laboratory valules. Further, in regards to the epigastric pain, the patient does have a history of endoscopy and is followed by GI. I recommend re-consultation for them for further evaluation of possible Velasquez's and the epigastric pain. We will continue to follow. Thank you for the consultation. MD BETZAIDA Thompson/AALIYAH /8:58 PM /9:40 PM
--- NOTE | 2017-08-11 22:59 | EKG ---
Date Performed: 08/10/2017 Time Performed: 15:56:43 PTAGE: 62 years EKG: Sinus rhythm NONSPECIFIC T-WAVE ABNORMALITY BORDERLINE ECG PREVIOUS TRACING : 05/09/2017 21.16 Compared to prior tracing no significant change DOCTOR: Dallas Rahman Interpretating Date/Time 08/11/2017 22:57:54
[2017-08-12] VITALS (10 sets, daily range): BP systolic 100–143; BP diastolic 47–74; PULSE 54–77; RESP 17–19; TEMP 96.2–97.9; O2SAT 95–99
[2017-08-12] MEDS: RESP: ALBUTEROL 2.5 MG/IPRATROPIUM 0.5 MG NEB (SCH) INH ×4 (03:24→20:57)
[2017-08-12] MEDS: LEVOTHYROXINE SODIUM 112 MCG TAB PO SCH (05:18)
[2017-08-12] MEDS: SODIUM CHLOR 0.9% 1000 ML INJ 1,000 ML IV SCH ×2 (06:00→17:01)
[2017-08-12 07:28] LABS: HEMATOCRIT 34.6 % (35.0-46.0); HEMOGLOBIN 11.7 GM/DL (11.6-15.3); MEAN CELL VOLUME 92.2 FL (80.0-100.0); MEAN CORPUSCULAR HEMOGLOBIN 31.2 PG (27.0-34.0); MEAN CORPUSCULAR HGB CONC 33.8 % (32.0-36.0); MEAN PLATELET VOLUME 7.6 FL (7.0-11.0); PLATELET COUNT 341 TH/MM3 (150-450); RED BLOOD COUNT 3.75 MIL/MM3 (4.00-5.30); RED CELL DISTRIBUTION WIDTH 13.3 % (11.6-17.2); WHITE BLOOD COUNT 7.8 TH/MM3 (4.0-11.0)
[2017-08-12 07:57] LABS: BICARBONATE 24.7 MEQ/L (21.0-32.0); CALCIUM 8.3 MG/DL (8.5-10.1); CREATININE 0.48 MG/DL (0.50-1.00)
[2017-08-12] MEDS: INSULIN ASPART SUPPLEMENTAL SCALE SQ SCH ×4 (08:00→21:00)
[2017-08-12] MEDS ORDERED: POTASSIUM CHLORIDE 25 MEQ EFFERVESCENT TAB PO ONE (08:15)
[2017-08-12] MEDS: CLOPIDOGREL 75 MG TAB PO SCH (09:00)
[2017-08-12] MEDS: SODIUM CHLORIDE 0.9% FLUSH 10 ML FLUSH IV FLUSH SCH ×2 (09:00→21:00)
[2017-08-12] MEDS: FLUTICASONE 100 MCG/VILANTEROL 25 MCG INHALER INH SCH (09:00)
[2017-08-12] MEDS: SODIUM CHLORIDE 0.9% IV SCH ×4 (09:00→21:03)
[2017-08-12] MEDS: ATORVASTATIN 40 MG TAB PO SCH ×2 (09:00→16:29)
[2017-08-12] MEDS: PANTOPRAZOLE SODIUM 40 MG VIAL IV PUSH SCH (09:00)
[2017-08-12] MEDS: ERYTHROMYCIN IV SCH ×4 (09:00→21:03)
[2017-08-12] MEDS: DOCUSATE SODIUM 50 MG/SENNA 8.6 MG TAB PO SCH ×2 (09:00→21:00)
--- NOTE | 2017-08-12 13:27 | HHI.FPPN ---
Subjective Remarks Mrs. Fernando was afebrile with stable vital signs overnight. Patient expressed some frustration regarding lack of administration of platelet inhibitors this morning or yesterday. Patient also expresses some frustration regarding lack of diet. No reported shortness of breath. No new symptoms reported. (Casimiro Wright MD, R3) Objective Vitals Vital Signs Date Time Temp Pulse Resp B/P (MAP) Pulse Ox O2 Delivery O2 Flow Rate FiO2 08/12/17 11:51 97 Nasal Cannula 3.00 08/12/17 11:51 96.4 65 17 125/74 (91) 97 08/12/17 09:50 Nasal Cannula 3.00 08/12/17 09:10 96 Nasal Cannula 2.00 08/12/17 08:00 96.4 60 18 100/50 (67) 95 08/12/17 04:00 96.8 77 19 132/65 (87) 97 08/12/17 03:24 95 Nasal Cannula 2.00 08/12/17 00:10 97.9 77 18 119/69 (86) 98 08/12/17 00:01 Nasal Cannula 3.00 08/11/17 23:57 67 08/11/17 19:50 97.7 72 18 141/74 (96) 97 08/11/17 19:46 77 08/11/17 16:00 96.8 61 18 103/60 (74) 97 08/11/17 15:56 95 Nasal Cannula 2.00 I/O 08/11/17 08/11/17 08/11/17 08/12/17 08/12/17 08/12/17 07:00 15:00 23:00 07:00 15:00 23:00 Intake Total 1000 ml 100 ml 0 ml Balance 1000 ml 100 ml 0 ml Intake Oral 0 ml 0 ml 0 ml IV Total 1000 ml 100 ml # Voids 1 1 0 2 # Bowel Movements 0 0 0 0 (Casimiro Wright MD, R3) Result Diagram: 08/12/17 0605 08/12/17 0605 Imaging Last Impressions Chest X-Ray 08/10/17 1533 Signed Impressions: Service Date/Time: August 16:18 - CONCLUSION: No acute cardiopulmonary disease. Obie Rowland MD Abdomen/Pelvis CT 08/10/17 1533 Signed Impressions: Service Date/Time: August 16:53 - CONCLUSION: There appears to be a twist in the mesentery left upper quadrant with dilatation of loops of jejunum at the site and the possibility of internal hernia or mesenteric twist causing local obstruction should be entertained. Obie Rowland MD Objective Remarks GENERAL: No acute distress SKIN: No rashes or appreciated lesions EYES: Extraocular motions grossly intact. CARDIOVASCULAR: Regular rate and rhythm without murmurs; normal perfusion RESPIRATORY: CTAB; normal rate. GASTROINTESTINAL: Abdomen soft; no significant pain to light palpation. MUSCULOSKELETAL: Extremities without edema NEUROLOGICAL: Awake and alert. Cranial nerves grossly intact. Motor and sensory function grossly within normal limits. Normal speech. (Casimiro Wright MD, R3) A/P Assessment and Plan Mrs. Fernando is a 62 y/o female with: (Casimiro Wright MD, R3) Attending Attestation Patient seen and examined. Case reviewed and discussed with the resident team. Agree with plan of care as discussed with me and documented in the resident note. she was unexpectedly able to go to her gastric emptying study today. her pills were held for that reason but she should get them as soon as she gets back to the room (Miranda Bell MD) Problem List: (1) Nausea & vomiting ICD Codes: R11.2 - Nausea with vomiting, unspecified Plan: -GS consulted -Low suspicion for mesenteric twisting/volvulus as no mesenteric edema. No significant bowel thickening. Mild twisting. -Observe with continued labs and abdominal exams -GI consultation recommended for Velasquez's/epigastric pain -GI consulted -Erythromycin QID started -Gastric emptying study pending -Zofran PRN for nausea/vomiting -Pantoprazole 40mg IV daily -Toradol 30mg q6hrs PRN -NS at 84 ml/hr Impression: Nausea/vomiting >2 mo; recent increasing abdominal pain. CT abdomen/ pelvis with "twist in the mesentery left upper quadrant with dilatation of loops of jejunum and the possibility of internal hernia or mesenteric twist causing a local obstruction." Lipase wnl Vitals/labs reassuring (2) Depression ICD Codes: F32.9 - Major depressive disorder, single episode, unspecified Plan: Continue home meds. (3) Hypothyroid ICD Codes: E03.9 - Hypothyroidism, unspecified Plan: Continue home meds. (4) Coronary artery disease ICD Codes: I25.10 - Atherosclerotic heart disease of [place] coronary artery without angina pectoris Status: Acute Plan: Continue with ASA and plavix. Continue Bystolic. (5) Chronic obstructive pulmonary disease with acute exacerbation ICD Codes: J44.1 - Chronic obstructive pulmonary disease with (acute) exacerbation Status: Acute Plan: At baseline. No new symptoms. Continue Breo inhaler, Singulair, oxygen as needed )2 > 90%, DuoNeb q 6 hours scheduled, Albuterol q 2 hours as needed for SOB. (6) Hypertension ICD Codes: I10 - Essential (primary) hypertension Status: Acute Plan: Cont home meds. (7) Chest pain ICD Codes: R07.9 - Chest pain, unspecified Status: Acute Plan: Impression: Chest pain on admission; EKG's and troponins reassuring. No complaints at this time. Suspect secondary to vomiting (8) Nutrition, metabolism, and development symptoms ICD Codes: R63.8 - Other symptoms and signs concerning food and fluid intake Plan: FLuids: NS 84 ml/hr DVT: SCDs hold incase of surgery Diet: NPO GI ppx: IV pantoprazole 40 mg daily (Casimiro Wright MD, R3) Problem Qualifiers (1) Nausea & vomiting: Qualified Codes: R11.14 - Bilious vomiting (2) Depression: Qualified Codes: F32.9 - Major depressive disorder, single episode, unspecified (3) Hypothyroid: Qualified Codes: E03.9 - Hypothyroidism, unspecified (4) Coronary artery disease: Qualified Codes: I25.10 - Atherosclerotic heart disease of [place] coronary artery without angina pectoris (5) Hypertension: Qualified Codes: I10 - Essential (primary) hypertension (6) Chest pain: Qualified Codes: R07.9 - Chest pain, unspecified Casimiro Wright MD, R3 Aug 12, 2017 13:27 Miranda Bell MD Aug 13, 2017 13:28
[2017-08-12] MEDS ORDERED: METOCLOPRAMIDE HCL 10 MG/2 ML VIAL ONE (13:48)
--- NOTE | 2017-08-12 16:13 | HHI.PR ---
cc: Sylvia Edlridge MD Subjective Subjective Notes DAILY PROGRESS NOTE FOR SURGICAL ATTENDING, DR. SYLVIA ELDRIDGE I had a bowel movement I would like to drink fluids Objective Vitals/I&O Vital Signs Date Time Temp Pulse Resp B/P (MAP) Pulse Ox O2 Delivery O2 Flow Rate FiO2 08/12/17 15:06 98 Nasal Cannula 2.00 08/12/17 11:51 96.4 65 17 125/74 (91) Labs Laboratory Tests Test 08/12/17 06:05 White Blood Count 7.8 Red Blood Count 3.75 Hemoglobin 11.7 Hematocrit 34.6 Mean Corpuscular Volume 92.2 Mean Corpuscular Hemoglobin 31.2 Mean Corpuscular Hemoglobin Concent 33.8 Red Cell Distribution Width 13.3 Platelet Count 341 Mean Platelet Volume 7.6 Blood Urea Nitrogen 10 Creatinine 0.48 Random Glucose 116 Calcium Level 8.3 Sodium Level 142 Potassium Level 3.3 Chloride Level 109 Carbon Dioxide Level 24.7 Anion Gap 8 Estimat Glomerular Filtration Rate 131 Radiology Gastric emptying pending Last Impressions Chest X-Ray 08/10/171532 Signed Impressions: Service Date/Time: August 16:18 - CONCLUSION: No acute cardiopulmonary disease. Obie Rowland MD Abdomen/Pelvis CT 08/10/171532 Signed Impressions: Service Date/Time: August 16:53 - CONCLUSION: There appears to be a twist in the mesentery left upper quadrant with dilatation of loops of jejunum at the site and the possibility of internal hernia or mesenteric twist causing local obstruction should be entertained. Obie Rowland MD Cardiovascular: Regular Lungs: Clear Abdomen: Non-distended, Non-tender Extremities: Perfused A/P Assessment and Plan 62-year-old female may have an ileus may have gastroparesis Await gastric emptying Advance diet as tolerated Follow-up on gastric emptying Follow-up on GI consultation Attending Statement NOTE FOR SURGICAL ATTENDING, DR. SYLVIA ELDRIDGE I attest that I had a [id number] encounter with the patient on the same day, and personally performed and documented my assessment and findings in the medical record. The following services were provided during this hospital visit: Chart data review, vital sign assessments/reviewing monitor data Review of consultations notes if present. Medication orders/review and/or management Ordering and/or reviewing lab tests Ordering and/or interpreting/reviewing x-rays and/or diagnostic studies Care of the patient and discussion of the patient with the care team Documentation time To help prompt me to consider important information that might be impacting today's encounter and assessment, information from prior notes written by myself or my colleagues may have been "brought forward/copy and pasted" into today's note. Sylvia Eldridge MD Aug 12, 2017 16:13
[2017-08-12] MEDS: ASPIRIN 81 MG CHEW TAB CHEW SCH (16:29)
[2017-08-12] MEDS: NEBIVOLOL 10 MG TAB PO SCH (16:29)
--- NOTE | 2017-08-12 16:35 | RADRPT ---
EXAM DATE/TIME: 08/12/2017 11:59 [facility] COMPARISON: No previous studies available for comparison. INDICATIONS : Adominal pain, vomiting. DOSE: 1.0 mCi Tc99m Sulfur Colloid Labeled Whole egg PO MEDICATONS: 1.) 5 mg Reglan IV at 90 minutes IMAGIN hrs MEDICAL HISTORY : Chronic obstructive pulmonary disease. Myocardial infarction. Gastroesophageal reflux disease. SURGICAL HISTORY : Cholecystectomy. Tubal ligation. Hysterectomy. ENCOUNTER: Initial ACUITY: 3 months PAIN SCALE: 4/10 LOCATION: Bilateral chest and abdomen. TECHNIQUE: Following the oral ingestion of radiotracer-labeled meal, dynamic sequential images in the JUSTIN projec tion were acquired with simultaneous computer acquisition. The data set was decay-corrected. FINDINGS: LAG PHASE: There is a zero minutes before onset of gastric emptying. EMPTYING: Gastric emptying kinetics are linear. The decay-corrected, back-extrapolated half-time of emptying i s 60 minutes. (Normal for this lab is 45- 90 minutes.) INTERVENTION: None CONCLUSION: 1. Normal gastric emptying Jeff Thornton MD on August 12, 2017 at 16:32 Board Certified Radiologist. This report was verified electronically.
--- NOTE | 2017-08-12 16:37 | MB ---
cc: VENESSA MIGUEL M.D. DATE OF CONSULTATION: 08/11/2017. REASON FOR CONSULTATION: Nausea and vomiting. DATE OF : 1955. HISTORY OF PRESENT ILLNESS: This is a 62-year-old female who presents with intractable nausea and vomiting over the last several months. She has been having emesis at least four or five times a day. She has had some epigastric discomfort. The patient has had upper endoscopy in the past. 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 She has not responded to Zofran therapy. The vomiting occurs with and without food. She has lost 15 pounds because of this. The symptoms began all in June of last year and before that she did not have any subsequent symptoms. We discussed the distinct possibility of motility disorder of the upper GI tract, i.e., gastroparesis or even small bowel dysmotility. CT scan abdomen and pelvis on admission revealed the possibility of a twisted mesentery in the left upper quadrant past the ligament of Treitz. There was some dilatation of the jejunal loops in this area. She does have underlying diabetes which could be a risk factor for gastroparesis. She has underlying COPD as well. I was asked to evaluate her further. PAST MEDICAL HISTORY: 1. COPD. 2. Myocardial infarction. 3. Possible gastroparesis. 4. Depression. 5. Hypothyroidism. 6. Cholecystectomy. 7. Hysterectomy. FAMILY HISTORY: Noncontributory. SOCIAL HISTORY: She denies smoking or heavy alcohol use. Former smoker. ALLERGIES: 1. PENICILLIN. 2. TETRACYCLINE. 3. OXACILLIN. 4. SULFA. 5. MORPHINE. MEDICATIONS: Her medications are documented in the chart. REVIEW OF SYSTEMS: The twelve-point review of systems is as stated in the history of present illness. She denies any gastrointestinal bleeding. She does have a history of constipation occasionally but otherwise stools have been fairly regular. Appetite has been diminished. She has had weight loss as mentioned above. LABORATORY DATA: Hemoglobin was normal. White count 10,000, platelet count normal. Electrolytes were stable. Creatinine was normal. Magnesium normal. Liver enzymes were normal. Lipase was 124. PHYSICAL EXAMINATION: GENERAL: Well-developed female alert, no acute distress. VITAL SIGNS: Stable. HEAD, EYES, EARS, NOSE, THROAT: Exam is negative. CHEST: Chest is clear. ABDOMEN: The abdomen is soft, nontender. No distension. Bowel sounds are present throughout all quadrants. No masses. EXTREMITIES: Without clubbing, cyanosis or edema. NEUROLOGIC: Neurologically she appears to be intact. IMPRESSION: A 62-year-old female who presents with persistent intractable nausea and vomiting for the last several months. I suspect the etiology may be related to poor motility, i.e., gastroparesis or small bowel dysmotility. I cannot rule out anatomical obstruction as suggested by the recent CT. I can rule out mesenteric disease or vascular disease of the GI tract causing intestinal angina and postprandial obstruction. PLAN: 1. At this time, I would start her on either Urecholine or IV erythromycin for motility purposes. 2. Consider gastric emptying study were even MR or CTA to evaluate the upper GI vasculature and rule out any stenosis of the celiac mesenteric artery. I have discussed this in detail with the patient. A second-look upper endoscopy could be useful as well if imaging studies are negative. Will be glad to follow the patient with you. If need be if nutrition continues to fail, hyperalimentation via PICC line may also be needed in the future. Will make further recommendations as workup progresses. Thank you for this consult. MD KAI Blum/SUDHAKAR /1:48 PM /4:12 PM
[2017-08-12] MEDS: SERTRALINE HCL 50 MG TAB PO SCH (21:03)
[2017-08-12] MEDS: MONTELUKAST SODIUM 10 MG TAB PO SCH (21:03)
[2017-08-13] VITALS (10 sets, daily range): BP systolic 113–136; BP diastolic 53–74; PULSE 51–70; RESP 18–20; TEMP 95.4–97.7; O2SAT 92–97
[2017-08-13] MEDS: RESP: ALBUTEROL 2.5 MG/IPRATROPIUM 0.5 MG NEB (SCH) INH ×5 (05:06→20:04)
[2017-08-13] MEDS: LEVOTHYROXINE SODIUM 112 MCG TAB PO SCH (05:16)
[2017-08-13] MEDS: SODIUM CHLOR 0.9% 1000 ML INJ 1,000 ML IV SCH (05:16)
[2017-08-13] MEDS: INSULIN ASPART SUPPLEMENTAL SCALE SQ SCH ×4 (08:00→21:00)
[2017-08-13] MEDS: ERYTHROMYCIN IV SCH ×4 (08:37→22:16)
[2017-08-13] MEDS: SODIUM CHLORIDE 0.9% IV SCH ×4 (08:37→22:16)
[2017-08-13] MEDS: CLOPIDOGREL 75 MG TAB PO SCH (08:37)
[2017-08-13] MEDS: ASPIRIN 81 MG CHEW TAB CHEW SCH (08:38)
[2017-08-13] MEDS: NEBIVOLOL 10 MG TAB PO SCH (08:38)
[2017-08-13] MEDS: PANTOPRAZOLE SODIUM 40 MG VIAL IV PUSH SCH (08:38)
[2017-08-13] MEDS: ATORVASTATIN 40 MG TAB PO SCH (08:38)
[2017-08-13] MEDS: DOCUSATE SODIUM 50 MG/SENNA 8.6 MG TAB PO SCH ×2 (08:46→22:16)
[2017-08-13] MEDS: SODIUM CHLORIDE 0.9% FLUSH 10 ML FLUSH IV FLUSH SCH ×2 (08:46→22:16)
[2017-08-13 08:57] LABS: HEMATOCRIT 34.6 % (35.0-46.0); HEMOGLOBIN 11.9 GM/DL (11.6-15.3); MEAN CELL VOLUME 91.9 FL (80.0-100.0); MEAN CORPUSCULAR HEMOGLOBIN 31.6 PG (27.0-34.0); MEAN CORPUSCULAR HGB CONC 34.4 % (32.0-36.0); MEAN PLATELET VOLUME 7.8 FL (7.0-11.0); PLATELET COUNT 354 TH/MM3 (150-450); RED BLOOD COUNT 3.76 MIL/MM3 (4.00-5.30); RED CELL DISTRIBUTION WIDTH 13.4 % (11.6-17.2); WHITE BLOOD COUNT 8.4 TH/MM3 (4.0-11.0)
[2017-08-13 09:20] LABS: BICARBONATE 25.3 MEQ/L (21.0-32.0); CALCIUM 8.6 MG/DL (8.5-10.1); CREATININE 0.51 MG/DL (0.50-1.00)
--- NOTE | 2017-08-13 10:17 | HHI.GIFU ---
Subjective Remarks nausea markedly improved w erythromycin therapy.....GES reported normal?? Could be 2 to erythro therapy..tolerating clears po Objective Vitals I&O Vital Signs Date Time Temp Pulse Resp B/P (MAP) Pulse Ox O2 Delivery O2 Flow Rate FiO2 08/13/17 09:29 95 Nasal Cannula 2.00 08/13/17 08:00 97.7 70 18 117/69 (85) 95 08/13/17 06:55 Nasal Cannula 3.00 08/13/17 05:08 96 Nasal Cannula 2.00 08/13/17 03:52 97.3 63 20 136/60 (85) 94 08/13/17 00:00 97.0 57 18 113/53 (73) 96 08/13/17 00:00 51 08/12/17 21:08 Nasal Cannula 3.00 08/12/17 21:03 96.7 55 18 143/73 (96) 99 08/12/17 20:01 54 08/12/17 16:58 Nasal Cannula 3.00 08/12/17 16:30 96.2 75 18 111/47 (68) 96 08/12/17 15:06 98 Nasal Cannula 2.00 08/12/17 11:51 97 Nasal Cannula 3.00 08/12/17 11:51 96.4 65 17 125/74 (91) 97 I/O 08/12/17 08/12/17 08/12/17 08/13/17 08/13/17 08/13/17 07:00 15:00 23:00 07:00 15:00 23:00 Intake Total 0 ml 480 ml 1551 ml Balance 0 ml 480 ml 1551 ml Intake Oral 0 ml 480 ml 480 ml IV Total 1071 ml # Voids 2 1 3 2 # Bowel Movements 0 1 1 0 Laboratory Laboratory Tests Test 08/13/17 08:02 White Blood Count 8.4 Red Blood Count 3.76 Hemoglobin 11.9 Hematocrit 34.6 Mean Corpuscular Volume 91.9 Mean Corpuscular Hemoglobin 31.6 Mean Corpuscular Hemoglobin Concent 34.4 Red Cell Distribution Width 13.4 Platelet Count 354 Mean Platelet Volume 7.8 Blood Urea Nitrogen 5 Creatinine 0.51 Random Glucose 112 Calcium Level 8.6 Sodium Level 141 Potassium Level 3.5 Chloride Level 108 Carbon Dioxide Level 25.3 Anion Gap 8 Estimat Glomerular Filtration Rate 122 Imaging Last 24 hours Impressions Gastric Emptying Nuclear Medicine 08/12/17 1055 Signed Impressions: Service Date/Time: Saturday, August 12, 2017 11:59 - CONCLUSION: 1. Normal gastric emptying Jeff Thornton MD Physical Exam CHEST: Chest is clear to auscultation and percussion. CARDIAC: Regular rate and rhythm with no murmur gallop or rubs. ABDOMEN: Soft, nondistended, nontender; no hepatosplenomegaly; bowel sounds are present in all four quadrants. EXTREMITIES: No clubbing, cyanosis, or edema. SKIN: Normal; no rash; no jaundice. Assessment and Plan Assessment: (1) Nausea ICD Codes: R11.0 - Nausea Plan Continue erythro therapy I suspect either gastroparesis or small bowel dysmotility advance diet as tolerated..if sxs recur consider Baldemar Marquez MD Aug 13, 2017 10:16
--- NOTE | 2017-08-13 10:45 | HHI.FPPN ---
Subjective Remarks Ms Fernando feels much better today. She did well on her gastric emptying study. She had received erythromycin the night before her test. (Originally the test was not going to be performed until Monday). Anyway, she was able to eat a scrambled egg for the first time in more than a month and not vomit! GI plans on advancing diet today to full liquids and making sure the erythromycin works well. She feels great and is very happy this is working and has no other complaints. She does however report her breathing is a little worse. For some reason she had not been getting her breo. She has a long history of being steroid dependent with po prednisone and denies that she needs po prednisone now but will definitely resume her breo at a higher dose since she is having some problems Objective Vitals Vital Signs Date Time Temp Pulse Resp B/P (MAP) Pulse Ox O2 Delivery O2 Flow Rate FiO2 08/13/17 10:20 62 08/13/17 09:29 95 Nasal Cannula 2.00 08/13/17 08:00 97.7 70 18 117/69 (85) 95 08/13/17 06:55 Nasal Cannula 3.00 08/13/17 05:08 96 Nasal Cannula 2.00 08/13/17 03:52 97.3 63 20 136/60 (85) 94 08/13/17 00:00 97.0 57 18 113/53 (73) 96 08/13/17 00:00 51 08/12/17 21:08 Nasal Cannula 3.00 08/12/17 21:03 96.7 55 18 143/73 (96) 99 08/12/17 20:01 54 08/12/17 16:58 Nasal Cannula 3.00 08/12/17 16:30 96.2 75 18 111/47 (68) 96 08/12/17 15:06 98 Nasal Cannula 2.00 08/12/17 11:51 97 Nasal Cannula 3.00 08/12/17 11:51 96.4 65 17 125/74 (91) 97 I/O 08/12/17 08/12/17 08/12/17 08/13/17 08/13/17 08/13/17 07:00 15:00 23:00 07:00 15:00 23:00 Intake Total 0 ml 480 ml 1551 ml Balance 0 ml 480 ml 1551 ml Intake Oral 0 ml 480 ml 480 ml IV Total 1071 ml # Voids 2 1 3 2 # Bowel Movements 0 1 1 0 Result Diagram: 08/13/1780108/13/17 08 Objective Remarks GENERAL: No acute distress SKIN: No rashes or appreciated lesions EYES: Extraocular motions grossly intact. CARDIOVASCULAR: Regular rate and rhythm without murmurs; normal perfusion RESPIRATORY: CTAB; normal rate. GASTROINTESTINAL: Abdomen soft; no significant pain to light palpation. MUSCULOSKELETAL: Extremities without edema NEUROLOGICAL: Awake and alert. Cranial nerves grossly intact. Motor and sensory function grossly within normal limits. Normal speech. A/P Assessment and Plan Mrs. Fernando is a 62 y/o female with: Problem List: (1) Nausea & vomiting ICD Codes: R11.2 - Nausea with vomiting, unspecified Plan: -GS consulted -Low suspicion for mesenteric twisting/volvulus as no mesenteric edema. No significant bowel thickening. Mild twisting. -Observe with continued labs and abdominal exams -GI consultation recommended for Velasquez's/epigastric pain -GI consulted -Erythromycin QID started -Gastric emptying study done and was normal but GI believes the erythromycin effected the test -Zofran PRN for nausea/vomiting -Pantoprazole 40mg IV daily -Toradol 30mg q6hrs PRN -NS at 84 ml/hr, can heplock once takes good po Impression: Nausea/vomiting >2 mo; recent increasing abdominal pain. CT abdomen/ pelvis with "twist in the mesentery left upper quadrant with dilatation of loops of jejunum and the possibility of internal hernia or mesenteric twist causing a local obstruction." Lipase wnl Vitals/labs reassuring (2) Depression ICD Codes: F32.9 - Major depressive disorder, single episode, unspecified Plan: Continue home meds. (3) Hypothyroid ICD Codes: E03.9 - Hypothyroidism, unspecified Plan: Continue home meds. (4) Coronary artery disease ICD Codes: I25.10 - Atherosclerotic heart disease of [place] coronary artery without angina pectoris Status: Acute Plan: Continue with ASA and plavix. Continue Bystolic. (5) Chronic obstructive pulmonary disease with acute exacerbation ICD Codes: J44.1 - Chronic obstructive pulmonary disease with (acute) exacerbation Status: Acute Plan: a little worse than baseline. No new symptoms. Continue Breo inhaler will increase steroid dose, Singulair, oxygen as needed ) 2 > 90%, DuoNeb q 4 hours scheduled while awake, Albuterol q 2 hours as needed for SOB. (6) Hypertension ICD Codes: I10 - Essential (primary) hypertension Status: Acute Plan: Cont home meds. (7) Chest pain ICD Codes: R07.9 - Chest pain, unspecified Status: Acute Plan: Impression: Chest pain on admission; EKG's and troponins reassuring. No complaints at this time. Suspect secondary to vomiting and she also states she can get some chest pain if she has respiratory distress (8) Nutrition, metabolism, and development symptoms ICD Codes: R63.8 - Other symptoms and signs concerning food and fluid intake Plan: FLuids: NS 84 ml/hr DVT: SCDs, held heparin in case of surgery Diet: full liquids GI ppx: IV pantoprazole 40 mg daily Problem Qualifiers (1) Nausea & vomiting: Qualified Codes: R11.14 - Bilious vomiting (2) Depression: Qualified Codes: F32.9 - Major depressive disorder, single episode, unspecified (3) Hypothyroid: Qualified Codes: E03.9 - Hypothyroidism, unspecified (4) Coronary artery disease: Qualified Codes: I25.10 - Atherosclerotic heart disease of [place] coronary artery without angina pectoris (5) Hypertension: Qualified Codes: I10 - Essential (primary) hypertension (6) Chest pain: Qualified Codes: R07.9 - Chest pain, unspecified Miranda Bell MD Aug 13, 2017 10:45
--- NOTE | 2017-08-13 12:43 | HHI.PR ---
cc: Primo Mitchell MD Subjective Subjective Notes doing much better, no nausea pain better Objective Vitals/I&O Vital Signs Date Time Temp Pulse Resp B/P (MAP) Pulse Ox O2 Delivery O2 Flow Rate FiO2 08/13/17 11:45 Nasal Cannula 3.00 08/13/17 11:36 96.5 67 18 114/60 (78) 95 Labs Laboratory Tests Test 08/13/17 08:02 White Blood Count 8.4 Red Blood Count 3.76 Hemoglobin 11.9 Hematocrit 34.6 Mean Corpuscular Volume 91.9 Mean Corpuscular Hemoglobin 31.6 Mean Corpuscular Hemoglobin Concent 34.4 Red Cell Distribution Width 13.4 Platelet Count 354 Mean Platelet Volume 7.8 Blood Urea Nitrogen 5 Creatinine 0.51 Random Glucose 112 Calcium Level 8.6 Sodium Level 141 Potassium Level 3.5 Chloride Level 108 Carbon Dioxide Level 25.3 Anion Gap 8 Estimat Glomerular Filtration Rate 122 Radiology Gastric emptying pending Last Impressions Chest X-Ray 08/10/17 1533 Signed Impressions: Service Date/Time: August 16:18 - CONCLUSION: No acute cardiopulmonary disease. Obie Rowland MD Abdomen/Pelvis CT 08/10/171532 Signed Impressions: Service Date/Time: August 16:53 - CONCLUSION: There appears to be a twist in the mesentery left upper quadrant with dilatation of loops of jejunum at the site and the possibility of internal hernia or mesenteric twist causing local obstruction should be entertained. Obie Rowland MD Abdomen: Other (mild epigastric tenderness) A/P Assessment and Plan R/O internal hernia possible sbo, motility issues?, gastric empty study normal PLAN low suspicion for intestinal ischemia at this time continue non op mgnt better with erythromycin advance diet tomorrow gi recs Priom Mitchell MD Aug 13, 2017 12:43
[2017-08-13] MEDS: FLUTICASONE 200 MCG/VILANTEROL 25 MCG INHALER INH SCH (16:55)
[2017-08-13] MEDS: SERTRALINE HCL 50 MG TAB PO SCH (22:15)
[2017-08-13] MEDS: MONTELUKAST SODIUM 10 MG TAB PO SCH (22:16)
[2017-08-14] VITALS: BP 139/65; PULSE 73; RESP 20; TEMP 97.2; O2SAT 96
[2017-08-14 04:47] LABS: HEMATOCRIT 34.2 % (35.0-46.0); HEMOGLOBIN 11.4 GM/DL (11.6-15.3); MEAN CELL VOLUME 92.6 FL (80.0-100.0); MEAN CORPUSCULAR HEMOGLOBIN 30.9 PG (27.0-34.0); MEAN CORPUSCULAR HGB CONC 33.4 % (32.0-36.0); MEAN PLATELET VOLUME 7.7 FL (7.0-11.0); PLATELET COUNT 344 TH/MM3 (150-450); RED CELL DISTRIBUTION WIDTH 13.4 % (11.6-17.2); WHITE BLOOD COUNT 7.8 TH/MM3 (4.0-11.0)
[2017-08-14 04:57] VITALS: BP 133/60; PULSE 70; RESP 18; TEMP 97.9; O2SAT 97
[2017-08-14 05:12] LABS: BICARBONATE 26.6 MEQ/L (21.0-32.0); CALCIUM 8.6 MG/DL (8.5-10.1); CREATININE 0.55 MG/DL (0.50-1.00)
[2017-08-14] MEDS: FLUTICASONE 200 MCG/VILANTEROL 25 MCG INHALER INH SCH (05:46)
[2017-08-14] MEDS: LEVOTHYROXINE SODIUM 112 MCG TAB PO SCH (05:46)
[2017-08-14] MEDS: RESP: ALBUTEROL 2.5 MG/IPRATROPIUM 0.5 MG NEB (SCH) INH ×2 (07:41→12:00)
[2017-08-14 07:43] VITALS: O2SAT 95
[2017-08-14 08:00] VITALS: BP 141/74; PULSE 71; RESP 19; TEMP 98.1; O2SAT 94
[2017-08-14] MEDS: INSULIN ASPART SUPPLEMENTAL SCALE SQ SCH (08:00)
--- NOTE | 2017-08-14 08:24 | MB ---
cc: VENESSA MIGUEL DATE OF CONSULTATION: 08/11/2017. REASON FOR CONSULTATION: Nausea, vomiting with intractable symptoms. HISTORY OF PRESENT ILLNESS: This is a pleasant 62-year-old female who has been evaluated by our practice in the past. She has been followed by Dr. Mack and Dr. Christy. She had an upper endoscopy in May for nausea and vomiting, which is when her symptoms began. She was diagnosed with Velasquez's esophagus. This was performed at [facility]. She was readmitted with recurrent episodes of emesis without blood. She had actually has had four or five bouts of emesis each day since May and has had about a 15-pound weight loss because of this inability to take in p.o. She does get bloated at times and this can occur with or without meals. She has epigastric pain sometimes radiating to the right side. She has been seen by the surgical service on this admission and she was felt to be not a surgical candidate for now. CT scan was obtained. This revealed a possible twist in mesentery in the left upper quadrant with dilated loops of jejunum at the site. It was entertained that the patient could have local obstruction because of this at this region. The patient denies any alcohol use or NSAID use. I was asked to evaluate her further at this time. PAST MEDICAL HISTORY: Her past history includes: 1. COPD. 2. Previous myocardial infarction. 3. The patient has a history of gastroparesis. 4. Depression. 5. Hypothyroidism. 6. Previous cholecystectomy. 7. Hysterectomy. ALLERGIES: 1. PENICILLIN. 2. TETRACYCLINE. 3. DOXYCYCLINE. 4. SULFA. 5. MORPHINE. FAMILY HISTORY: Negative from a GI standpoint. OUTPATIENT MEDICATIONS: Were reviewed. She was takin. A proton pump inhibitor. 2. Zofran. She states the Zofran has become ineffective for her symptoms. REVIEW OF SYSTEMS: The twelve-point review of systems is as stated in the history of present illness. PHYSICAL EXAMINATION: GENERAL: A well-developed female alert and oriented times three and in no acute distress. VITAL SIGNS: Stable. She is afebrile. HEAD, EYES, EARS, NOSE, THROAT: Appears to be benign. NECK: The neck is supple. CARDIAC: S1-S2 regular rhythm. CHEST: Clear. ABDOMEN: Relatively soft. No distention. Bowel sounds are present. No masses or organomegaly. There was no rebound tenderness. EXTREMITIES: Without clubbing, cyanosis or edema. LABORATORY DATA: White count was 10.0 on admission, hemoglobin 13.6. Liver enzymes are normal. Albumin 3.5. Electrolytes and creatinine were stable on admission. Troponin was less than 0.02. Lipase was 124. IMPRESSION: A 62-year-old female with chronic nausea, vomiting, epigastric pain. The etiology may be related to several factors including poor upper GI motility i.e., gastroparesis and/or small bowel dysmotility. The patient has had subsequent weight loss because of inability to take in p.o. Other possibilities could be anatomical obstruction as suggested by a CT scan, other possibilities would include intestinal angina ischemia due to vascular mesenteric vessel disease. PLAN: 1. The patient may be a candidate for a trial of Urecholine to see if it helps with upper GI motility. 2. We could consider a repeat endoscopy for a second look. 3. A CT angiogram may also shed some light into vasculature of the upper GI tract as a potential cause of her significant nausea and vomiting and inability to take in p.o. 4. Will review her previous records and make further recommendations. 5. Continue supportive therapy, IV hydration, Zofran for now. 6. As previously stated, will add Urecholine to see if it helps with motility. 7. I discussed with the patient a gastric emptying study but she does not seem to be enthused to undergo that study and also she may have difficulties with p.o. consumption. We will be following the patient with you. Thank you for this consult. MD KAI Blum/SUDHAKAR /3:14 PM /8:07 AM
[2017-08-14] MEDS ORDERED: NEBIVOLOL 5 MG TAB PO SCH (09:00)
[2017-08-14] MEDS: DOCUSATE SODIUM 50 MG/SENNA 8.6 MG TAB PO SCH (09:00)
[2017-08-14] MEDS: ATORVASTATIN 40 MG TAB PO SCH (09:12)
[2017-08-14] MEDS: PANTOPRAZOLE SODIUM 40 MG VIAL IV PUSH SCH (09:12)
[2017-08-14] MEDS: CLOPIDOGREL 75 MG TAB PO SCH (09:12)
[2017-08-14] MEDS: ERYTHROMYCIN IV SCH (09:13)
[2017-08-14] MEDS: ASPIRIN 81 MG CHEW TAB CHEW SCH (09:13)
[2017-08-14] MEDS: SODIUM CHLORIDE 0.9% IV SCH (09:13)
[2017-08-14] MEDS: SODIUM CHLORIDE 0.9% FLUSH 10 ML FLUSH IV FLUSH SCH (09:14)
--- NOTE | 2017-08-14 09:23 | HHI.FPPN ---
Subjective Remarks Ms Fernando is doing well this morning. She denies nausea/vomiting, abdominal pain, chest pain, or shortness of breath. She finally got her Breo inhaler and is doing very well with it. She is excited about going home. (Rosa Lopez MD R2) Objective Vitals Vital Signs Date Time Temp Pulse Resp B/P (MAP) Pulse Ox O2 Delivery O2 Flow Rate FiO2 08/14/17 08:00 98.1 71 19 141/74 (96) 94 08/14/17 07:43 95 Nasal Cannula 2.00 08/14/17 04:57 97.9 70 18 133/60 (84) 97 08/14/17 00:00 97.2 73 20 139/65 (89) 96 08/13/17 20:06 96 Nasal Cannula 2.00 08/13/17 20:00 97.5 63 18 126/60 (82) 97 08/13/17 17:12 Nasal Cannula 3.00 08/13/17 16:56 95.4 67 18 113/74 (87) 92 08/13/17 11:45 Nasal Cannula 3.00 08/13/17 11:36 96.5 67 18 114/60 (78) 95 08/13/17 10:20 62 08/13/17 09:29 95 Nasal Cannula 2.00 I/O 08/13/17 08/13/17 08/13/17 08/14/17 08/14/17 08/14/17 07:00 15:00 23:00 07:00 15:00 23:00 Intake Total 1551 ml 1160 ml 1679 ml 240 ml Balance 1551 ml 1160 ml 1679 ml 240 ml Intake Oral 480 ml 960 ml 480 ml 240 ml IV Total 1071 ml 200 ml 1199 ml # Voids 2 2 4 2 # Bowel Movements 0 0 1 0 (Rosa Lopez MD R2) Result Diagram: 08/14/1733708/14/17337 Objective Remarks GENERAL: No acute distress SKIN: No rashes or appreciated lesions EYES: Extraocular motions grossly intact. CARDIOVASCULAR: Regular rate and rhythm without murmurs; normal perfusion RESPIRATORY: CTAB but lung sounds are distant; GASTROINTESTINAL: Abdomen soft; mild diffuse tenderness to light palpation. MUSCULOSKELETAL: Extremities without edema NEUROLOGICAL: Awake and alert. Cranial nerves grossly intact. Motor and sensory function grossly within normal limits. Normal speech. (Rosa Lopez MD R2) A/P Assessment and Plan Mrs. Fernando is a 62 y/o female with: Discharge Planning Plan to discharge home today Seen and examined with Dr. Bell, Dr. Fox, and Alvaro Jimenez, MS4 (Rosa Lopez MD R2) Attending Attestation Patient seen and examined. Case reviewed and discussed with the resident team. Agree with plan of care as discussed with me and documented in the resident note. she is doing very well and able to eat normally for the first time in months (Miranda Bell MD) Problem List: (1) Nausea & vomiting ICD Codes: R11.2 - Nausea with vomiting, unspecified Plan: -GI consulted -Erythromycin QID started for gastroparesis -Gastric emptying study was negative but patient was on -Zofran PRN for nausea/vomiting -Pantoprazole 40mg IV daily -Toradol 30mg q6hrs PRN (2) Depression ICD Codes: F32.9 - Major depressive disorder, single episode, unspecified Plan: Continue home meds. (3) Hypothyroid ICD Codes: E03.9 - Hypothyroidism, unspecified Plan: Continue home meds. (4) Coronary artery disease ICD Codes: I25.10 - Atherosclerotic heart disease of [place] coronary artery without angina pectoris Status: Acute Plan: Continue with ASA and plavix. Continue Bystolic. (5) Chronic obstructive pulmonary disease with acute exacerbation ICD Codes: J44.1 - Chronic obstructive pulmonary disease with (acute) exacerbation Status: Acute Plan: Continue Breo inhaler will increase steroid dose, Singulair, oxygen as needed )2 > 90%, DuoNeb q 4 hours scheduled while awake, Albuterol q 2 hours as needed for SOB. (6) Hypertension ICD Codes: I10 - Essential (primary) hypertension Status: Acute Plan: Cont home meds. (7) Nutrition, metabolism, and development symptoms ICD Codes: R63.8 - Other symptoms and signs concerning food and fluid intake Plan: FLuids: oral fluids DVT: SCDs Diet: regular adult diet GI ppx: IV pantoprazole 40 mg daily (Rosa Lopez MD R2) Problem Qualifiers (1) Nausea & vomiting: Qualified Codes: R11.14 - Bilious vomiting (2) Depression: Qualified Codes: F32.9 - Major depressive disorder, single episode, unspecified (3) Hypothyroid: Qualified Codes: E03.9 - Hypothyroidism, unspecified (4) Coronary artery disease: Qualified Codes: I25.10 - Atherosclerotic heart disease of [place] coronary artery without angina pectoris (5) Hypertension: Qualified Codes: I10 - Essential (primary) hypertension Rosa Lopez MD Aug 14, 2017 09:23 Miranda Bell MD Aug 15, 2017 12:23
--- NOTE | 2017-08-14 09:24 | HHI.DS ---
Rosa Lopez MD R2 08/14/17 0924: Discharge Summary Admission Date Aug 10, 2017 at 18:33 Discharge Date: Aug 14, 2017 Admitting Diagnosis Partial SBO vs Internal Hernia. (1) Nausea & vomiting Diagnosis: Principal ICD Codes: R11.2 - Nausea with vomiting, unspecified (2) Depression Diagnosis: Secondary ICD Codes: F32.9 - Major depressive disorder, single episode, unspecified (3) Hypothyroid Diagnosis: Secondary ICD Codes: E03.9 - Hypothyroidism, unspecified (4) Coronary artery disease Diagnosis: Secondary Plan: Continue with ASA and plavix. Continue Bystolic. ICD Codes: I25.10 - Atherosclerotic heart disease of [place] coronary artery without angina pectoris Status: Acute (5) Chronic obstructive pulmonary disease with acute exacerbation Diagnosis: Secondary ICD Codes: J44.1 - Chronic obstructive pulmonary disease with (acute) exacerbation Status: Acute (6) Hypertension Diagnosis: Secondary ICD Codes: I10 - Essential (primary) hypertension Status: Acute (7) Chest pain Diagnosis: Secondary ICD Codes: R07.9 - Chest pain, unspecified Status: Acute Brief History Ms Fernando has had vomiting since May 2017. Had an endoscopy preformed and she was diagnosed with Velasquez's esophagus. She has been able to keep liquids down better than solids but no meat or vegetables in quite some time. Yesterday at 3 PM she had persistent vomiting. She reports that it is a mucus substance that she is throwing up. Occasionally she had red blood streaks in them (however not within the past 24 hours). She reports approximately 7-8 episodes of emesis / without blood. She has been throwing up 4-5 times every day since May. She also has been having weight loss (132 --> 115 lbs). She reports abdominal pain that is localized to her epigastric region and radiates into her RUQ. The pain is described as a sharp pain, especially when she touches the area. The pain is constant and does not fluctuate. Currently the severity is a 3-4 out of 10. Pain medications (Toradol) improve her pain. Not eating makes her pain better. Last BM was this morning. Normal formed stools. She also reports persistent bloating throughout the day. ROS: Chest pain - central of chest, "cave in pressure" - non radiating. Off and on over the past week. This chest pain is different from when she had her DE. This morning 08/10/2016, she could not stand 2/2 to weakness, so she went into our same-day clinic for an evaluation. That visit is documented as below: "Patient is a 62 year old female with a past medical history significant for COPD and DM type II who presents today for nausea. She states that she was in the hospital in May for respiratory issues. She has been having worsening nausea over the past few months since then with frequent emesis. Two days ago, she had a small amount of emesis with streaks of bright red blood. She has been intermittently having a fever as well over the past 3 months. Her most recent fever was 101 last night. She tries to take Tylenol for the fever but is unable to keep anything down. She has felt so nauseous that she has not eaten in 4 days. She is unable to keep any liquid down. She has been trying to drink Pedialyte but is unable to keep significant amounts down. She has also tried drinking ensure without success. She is feeling very tired, weak, achy, her "bones hurt," and she endorses malaise. She has not had any diarrhea or constipation. She feels the urge to urinate frequently (she states this is her baseline due to her diabetes) but she does not produce much volume. She denies any dysuria. She has lost about 6 pounds since she was last here in June. Three months ago before her symptoms started, she was 132 pounds and now she is 116 pounds. Her chest feels "heavy" for the past week. She also notes worsening shortness of breath. Her chest pain worsens with exertion. She has been unable to keep her medications down for over a week." -Dr. Lacy CBC/BMP: 08/14/17 0338 08/14/17 0338 Significant Findings Laboratory Tests Test 08/11/17 11:38 08/12/17 06:05 08/13/17 08:02 08/14/17 03:38 Monocytes (%) (Auto) 12.2 % (0.0-8.0) Red Blood Count 3.75 MIL/MM3 (4.00-5.30) 3.76 MIL/MM3 (4.00-5.30) 3.70 MIL/MM3 (4.00-5.30) Hematocrit 34.6 % (35.0-46.0) 34.6 % (35.0-46.0) 34.2 % (35.0-46.0) Creatinine 0.48 MG/DL (0.50-1.00) Random Glucose 116 MG/DL (74-106) 112 MG/DL (74-106) 115 MG/DL (74-106) Calcium Level 8.3 MG/DL (8.5-10.1) Potassium Level 3.3 MEQ/L (3.5-5.1) Chloride Level 109 MEQ/L (98-107) 108 MEQ/L (98-107) 108 MEQ/L (98-107) Blood Urea Nitrogen 5 MG/DL (7-18) 6 MG/DL (7-18) Hemoglobin 11.4 GM/DL (11.6-15.3) PE at Discharge GENERAL: No acute distress SKIN: No rashes or appreciated lesions EYES: Extraocular motions grossly intact. CARDIOVASCULAR: Regular rate and rhythm without murmurs; normal perfusion RESPIRATORY: CTAB; normal rate. GASTROINTESTINAL: Abdomen soft; no significant pain to light palpation. MUSCULOSKELETAL: Extremities without edema NEUROLOGICAL: Awake and alert. Cranial nerves grossly intact. Motor and sensory function grossly within normal limits. Normal speech. Discharge Instructions Follow up Referrals: Gastroenterology - 2 Weeks New Medications: Erythromycin Ethylsuccinate Liq (Erythromycin Ethylsuccinate Liq) 200 Mg/Ml Susp 200 MG PO ACHS PRN for VOMITING for 30 Days, #120 ML 0 Refills Walker/Adult/Folding (Walker/Adult/Folding) 1 Mis Mis EA .ROUTE DIRECTED, #1 0 Refills Walker with seat Continued Medications: Albuterol 8.5 GM Inh (Proair Hfa 8.5 GM Inh) 90 Mcg/Act Aer 2 PUFF INH Q4-6H PRN for SHORTNESS OF BREATH, #3 INHALER 11 Refills 108 mcg/actuation Aspirin (Aspirin) 81 Mg Chew 81 MG CHEW DAILY, TAB 0 Refills Benzonatate (Benzonatate) 200 Mg Cap 200 MG PO TID PRN for COUGH, #60 CAP 0 Refills Cholecalciferol (Vitamin D3) 1,000 Unit Chew 1000 UNITS CHEW HS for Nutritional Supplement, #1 BOTTLE 0 Refills Clopidogrel (Plavix) 75 Mg Tab 75 MG PO DAILY for Blood Clot Prevention, #30 TAB 0 Refills Dextromethorphan-Guaifenesin (Mucinex DM) 30-600 Mg Tab 1 TAB PO BID PRN for CHEST CONGESTION AND/OR COUGH, #30 TAB 0 Refills Fluticasone-Vilanterol Inh (Breo Ellipta Inh) 100-25 Mcg/Act Inh 1 PUFF INH DAILY, #3 INHALER 4 Refills Use daily at the same time. Furosemide (Lasix) 20 Mg Tab 20 MG PO DIRECTED PRN for SWELLING, #60 TAB 0 Refills Insulin Aspart Inj (Novolog Flexpen Inj) 300 Unit/3 Ml Pen 12 UNITS SQ TIDAC for Blood Sugar Management, #12 PEN 11 Refills Insulin Detemir Inj (Levemir Flextouch Pen Inj) 300 unit/3 ML Pen 18 UNITS SQ Q12HR for Blood Sugar Management, #15 PEN 4 Refills Levothyroxine (Synthroid) 112 Mcg Tab 112 MCG PO DAILY for Thyroid, #90 TAB 2 Refills Montelukast (Montelukast) 10 Mg Tab 10 MG PO HS, #90 TAB 4 Refills Nebivolol (Bystolic) 10 Mg Tab 10 MG PO DAILY for Blood Pressure Management, #30 TAB 0 Refills Ondansetron Odt (Zofran Odt) 4 Mg Tab 4 MG SL Q6HR PRN for Nausea/Vomiting, #30 TAB 11 Refills Oxygen (O2) (Oxygen (O2)) Device 2 LITER JON.CANULA CONTINUOUS for Prevent Hypoxemia, #2 CYLINDER Oxygen Concentrator Portable Gaseous 2 L/min via Nasal Canula Continuous For 99 months Oxygen (O2) (Oxygen (O2)) Inha 2 LITER JON.CANULA CONTINUOUS for Prevent Hypoxemia, #1 CYLINDER Oxygen Concentrator Portable Gaseous 2 L/min via Nasal Canula Continuous For 99 months Oxygen tank (Oxygen tank) 1 Ea Tank 2 LITER JON.CANULA CONTINUOUS for HYPOXEMIA PREVENTION, #2 CYLINDER Oxygen Concentrator Portable Gaseous 2 L/min via Nasal Cannula Continuous For 99 months Roflumilast (Daliresp) 500 Mcg Tab 500 MCG PO DAILY for COPD, #90 TAB 1 Refill Rosuvastatin (Rosuvastatin) 20 Mg Tab 20 MG PO DAILY for Cholesterol Management, #90 TAB 4 Refills Sertraline (Sertraline) 50 Mg Tab 50 MG PO HS for Anxiety, #30 TAB 0 Refills Umeclidinium [place] Inh (Incruse Ellipta Inh) 0.0625 Mg/Act Inh 62.5 MCG INH DAILY for Treat COPD, #3 INHALER 11 Refills Discontinued Medications: Levofloxacin (Levofloxacin) 750 Mg Tablet 750 MG PO DAILY for Infection, #7 TAB 0 Refills Jarad Fox MD R1 08/14/17 0942: Discharge Summary Consultants Gastroenterology CBC/BMP: 08/14/17 0338 08/14/17 0338 Imaging Last Impressions Gastric Emptying Nuclear Medicine 08/12/17 1055 Signed Impressions: Service Date/Time: Saturday, August 12, 2017 11:59 - CONCLUSION: 1. Normal gastric emptying Jeff Thornton MD Chest X-Ray 08/10/17 1533 Signed Impressions: Service Date/Time: August 16:18 - CONCLUSION: No acute cardiopulmonary disease. Obie Rowland MD Abdomen/Pelvis CT 08/10/17 1533 Signed Impressions: Service Date/Time: August 16:53 - CONCLUSION: There appears to be a twist in the mesentery left upper quadrant with dilatation of loops of jejunum at the site and the possibility of internal hernia or mesenteric twist causing local obstruction should be entertained. Obie Rowland MD Pt Condition on Discharge: Fair Discharge Disposition: Discharge Home Discharge Instructions DIET: Follow Instructions for: Full Liquid Diet Activities you can perform: Weight Bearing as Junaid Follow up Referrals: Gastroenterology - 2 Weeks New Medications: Erythromycin Ethylsuccinate Liq (Erythromycin Ethylsuccinate Liq) 200 Mg/Ml Susp 200 MG PO ACHS PRN for VOMITING for 30 Days, #120 ML 0 Refills Walker/Adult/Folding (Walker/Adult/Folding) 1 Mis Mis EA .ROUTE DIRECTED, #1 0 Refills Walker with seat Continued Medications: Albuterol 8.5 GM Inh (Proair Hfa 8.5 GM Inh) 90 Mcg/Act Aer 2 PUFF INH Q4-6H PRN for SHORTNESS OF BREATH, #3 INHALER 11 Refills 108 mcg/actuation Aspirin (Aspirin) 81 Mg Chew 81 MG CHEW DAILY, TAB 0 Refills Benzonatate (Benzonatate) 200 Mg Cap 200 MG PO TID PRN for COUGH, #60 CAP 0 Refills Cholecalciferol (Vitamin D3) 1,000 Unit Chew 1000 UNITS CHEW HS for Nutritional Supplement, #1 BOTTLE 0 Refills Clopidogrel (Plavix) 75 Mg Tab 75 MG PO DAILY for Blood Clot Prevention, #30 TAB 0 Refills Dextromethorphan-Guaifenesin (Mucinex DM) 30-600 Mg Tab 1 TAB PO BID PRN for CHEST CONGESTION AND/OR COUGH, #30 TAB 0 Refills Fluticasone-Vilanterol Inh (Breo Ellipta Inh) 100-25 Mcg/Act Inh 1 PUFF INH DAILY, #3 INHALER 4 Refills Use daily at the same time. Furosemide (Lasix) 20 Mg Tab 20 MG PO DIRECTED PRN for SWELLING, #60 TAB 0 Refills Insulin Aspart Inj (Novolog Flexpen Inj) 300 Unit/3 Ml Pen 12 UNITS SQ TIDAC for Blood Sugar Management, #12 PEN 11 Refills Insulin Detemir Inj (Levemir Flextouch Pen Inj) 300 unit/3 ML Pen 18 UNITS SQ Q12HR for Blood Sugar Management, #15 PEN 4 Refills Levothyroxine (Synthroid) 112 Mcg Tab 112 MCG PO DAILY for Thyroid, #90 TAB 2 Refills Montelukast (Montelukast) 10 Mg Tab 10 MG PO HS, #90 TAB 4 Refills Nebivolol (Bystolic) 10 Mg Tab 10 MG PO DAILY for Blood Pressure Management, #30 TAB 0 Refills Ondansetron Odt (Zofran Odt) 4 Mg Tab 4 MG SL Q6HR PRN for Nausea/Vomiting, #30 TAB 11 Refills Oxygen (O2) (Oxygen (O2)) Device 2 LITER JON.CANULA CONTINUOUS for Prevent Hypoxemia, #2 CYLINDER Oxygen Concentrator Portable Gaseous 2 L/min via Nasal Canula Continuous For 99 months Oxygen (O2) (Oxygen (O2)) Inha 2 LITER JON.CANULA CONTINUOUS for Prevent Hypoxemia, #1 CYLINDER Oxygen Concentrator Portable Gaseous 2 L/min via Nasal Canula Continuous For 99 months Oxygen tank (Oxygen tank) 1 Ea Tank 2 LITER JON.CANULA CONTINUOUS for HYPOXEMIA PREVENTION, #2 CYLINDER Oxygen Concentrator Portable Gaseous 2 L/min via Nasal Cannula Continuous For 99 months Roflumilast (Daliresp) 500 Mcg Tab 500 MCG PO DAILY for COPD, #90 TAB 1 Refill Rosuvastatin (Rosuvastatin) 20 Mg Tab 20 MG PO DAILY for Cholesterol Management, #90 TAB 4 Refills Sertraline (Sertraline) 50 Mg Tab 50 MG PO HS for Anxiety, #30 TAB 0 Refills Umeclidinium [place] Inh (Incruse Ellipta Inh) 0.0625 Mg/Act Inh 62.5 MCG INH DAILY for Treat COPD, #3 INHALER 11 Refills Discontinued Medications: Levofloxacin (Levofloxacin) 750 Mg Tablet 750 MG PO DAILY for Infection, #7 TAB 0 Refills Rosa Lopez MD R2 Aug 14, 2017 09:24 Jarad Fox MD R1 Aug 14, 2017 09:42
[2017-08-14] MEDS ORDERED: ERYT1SUS5 PO (09:34)
[2017-08-14] MEDS ORDERED: WALKER/ADULT/FO1 MIS (09:37)
--- NOTE | 2017-08-14 11:14 | HHI.PR ---
cc: Primo Mitchell MD Subjective Subjective Notes Trying to reschedule PCP appointment that she has scheduled for today Tolerating full liquids although she does not like the food on that menu Denies n/v +BM Objective Vitals/I&O Vital Signs Date Time Temp Pulse Resp B/P (MAP) Pulse Ox O2 Delivery O2 Flow Rate FiO2 08/14/17 08:00 98.1 71 19 141/74 (96) 94 08/14/17 07:43 Nasal Cannula 2.00 Labs Laboratory Tests Test 08/14/17 03:38 White Blood Count 7.8 Red Blood Count 3.70 Hemoglobin 11.4 Hematocrit 34.2 Mean Corpuscular Volume 92.6 Mean Corpuscular Hemoglobin 30.9 Mean Corpuscular Hemoglobin Concent 33.4 Red Cell Distribution Width 13.4 Platelet Count 344 Mean Platelet Volume 7.7 Blood Urea Nitrogen 6 Creatinine 0.55 Random Glucose 115 Calcium Level 8.6 Sodium Level 143 Potassium Level 3.7 Chloride Level 108 Carbon Dioxide Level 26.6 Anion Gap 8 Estimat Glomerular Filtration Rate 112 Radiology Gastric emptying pending Last Impressions Chest X-Ray 08/10/17 1533 Signed Impressions: Service Date/Time: August 16:18 - CONCLUSION: No acute cardiopulmonary disease. Obie Rowland MD Abdomen/Pelvis CT 08/10/17 1533 Signed Impressions: Service Date/Time: August 16:53 - CONCLUSION: There appears to be a twist in the mesentery left upper quadrant with dilatation of loops of jejunum at the site and the possibility of internal hernia or mesenteric twist causing local obstruction should be entertained. Obie Rowland MD Cardiovascular: Regular Lungs: Clear Abdomen: Non-distended, Non-tender Extremities: No edema A/P Assessment and Plan 62 year old female R/O internal hernia possible SBO, motility issues?, gastric empty study normal -Advance diet as tolerated -+BM -GI following as well -Continue non operative treatment Attending Statement patient see at bedside doing better continue abdominal exams and advance diet Attestation The exam, history, and the medical decision-making described in the above note were completed with the assistance of the mid-level provider. I reviewed and agree with the findings presented. I attest that I had a [id number] encounter with the patient on the same day, and personally performed and documented my assessment and findings in the medical record. Saranya Sultana Aug 14, 2017 11:14 Primo Mitchell MD Aug 17, 2017 11:45
[2017-08-14 12:00] VITALS: BP 126/64; PULSE 57; RESP 19; TEMP 97.2; O2SAT 97
--- NOTE | 2017-08-14 12:11 | HHI.FF ---
Face to Face Verification Diagnosis: (1) Nausea & vomiting (2) Diabetic gastroparesis associated with type 2 diabetes mellitus Home Health Nursing Order: Medical education Signs/symptoms of disease process Medication education-adverse effect Nursing assessment with vital signs I have seen patient Sarita Fernando on 08/14/17. My clinical findings support the need for the requested home health care services because: We would like a nurse to evaluate and treat pt and ensure pt can adequately care for herself in the home environment. Ltd mobility - disease progression Deconditioned w/ increased weakness Limited ability to care for self Need for psychosocial assistance I certify that my clinical findings support that this patient is homebound because: Unsafe to leave home unassisted Need for psychosocial assistance Jarad Fox MD R1 Aug 14, 2017 12:11
== END 2017-08-14 13:27 | disposition home or self-care (01) | DRG 392 ==
LOC: PHED 14:57 → PHEDA 18:33 → N06A 21:25
PROVIDERS: ADMIT Family Medicine; ATTEND Family Medicine
DX: R11.2 Nausea with vomiting, unspecified (principal); Z99.81 Dependence on supplemental oxygen; K31.84 Gastroparesis; J44.1 Chronic obstructive pulmonary disease with (acute) exacerbation; I11.0 Hypertensive heart disease with heart failure; I50.9 Heart failure, unspecified; E11.43 Type 2 diabetes mellitus with diabetic autonomic (poly)neuropathy; I25.10 Atherosclerotic heart disease of native coronary artery without angina pectoris; K44.9 Diaphragmatic hernia without obstruction or gangrene; K21.9 Gastro-esophageal reflux disease without esophagitis; I25.2 Old myocardial infarction; E03.9 Hypothyroidism, unspecified; K22.70 Barrett's esophagus without dysplasia; G47.00 Insomnia, unspecified; M19.90 Unspecified osteoarthritis, unspecified site; H40.9 Unspecified glaucoma; R63.4 Abnormal weight loss; F32.9 Major depressive disorder, single episode, unspecified; F41.9 Anxiety disorder, unspecified; Z79.4 Long term (current) use of insulin; Z82.3 Family history of stroke; Z82.49 Family history of ischemic heart disease and other diseases of the circulatory system; Z83.3 Family history of diabetes mellitus; Z87.891 Personal history of nicotine dependence; Z88.0 Allergy status to penicillin; Z88.1 Allergy status to other antibiotic agents; Z88.2 Allergy status to sulfonamides
CPT/HCPCS: 71045; 74177; 78264; 80048; 80053; 81001; 82948; 83690; 83735; 83880; 84484; 85025; 85027; 93005; 94150; 94640; 94664; 96374; A9541; C9113; J1815; J1885; J2765; J7030; J7120; Q9967

== ENCOUNTER 2017-08-26 16:18 | Emergency (ER) | payer MEDICARE ==
[~2017-08-26] VITALS: Ht 147.3 cm; Wt 55.0 kg
[~2017-08-26 16:18] MED LIST changes: -BD P32MI SQ; +ERYT1SUS5 PO; -GETGO ROLLING W1 MI1; -LEVO750T3 PO; -METO5SOL2 PO; -NOVORP2 SQ; -PNEU0.5I2 IM; -PRED20 PO; -ZOSTINJ SQ; -[UNRECOGNIZED DRUG - SUPPLY]
[2017-08-26 16:19] VITALS: BP 89/66; PULSE 99; RESP 20; TEMP 99.6; O2SAT 97
[2017-08-26] MEDS ORDERED: SODIUM CHLOR 0.9% 1000 ML INJ 1,000 ML IV SCH (16:44)
[2017-08-26] MEDS ORDERED: ONDANSETRON HCL 4 MG/2 ML VIAL IVP ONE (16:45)
[2017-08-26] MEDS ORDERED: SODIUM CHLORIDE 0.9% FLUSH 10 ML FLUSH IV FLUSH PRN (16:45)
[2017-08-26] MEDS ORDERED: HYDROmorphone HCL PF 1 MG/ML VIAL IV PUSH ONE (16:45)
--- NOTE | 2017-08-26 16:51 | PD ---
HPI Chief Complaint: Abdominal Pain Time Seen by Provider: 16:36 Travel History International Travel<30 days: No Contact w/Intl Traveler<30days: No Traveled to known affect area: No History of Present Illness HPI The patient is a 62-year-old female who presents emergency department for nausea, vomiting, and epigastric abdominal pain. The patient was recently hospitalized August 10 August 14 for similar symptoms. The patient had a CT of the abdomen and pelvis performed at that time which revealed possible small bowel obstruction versus internal hernia. The patient states she was seen and evaluated by a surgeon, was advised to not need surgery. The patient was also seen by gastroenterology and underwent a gastric emptying study, she was told she has gastroparesis despite a normal study. The patient states she was told she has gastroparesis because she started the erythromycin 2 days prior to the study being performed. The patient does have a history of diabetes, has been on insulin for years. The patient's last bowel movement was yesterday. She does complain of epigastric abdominal pain which is sharp and burning, nonradiating, denies any significant abdominal distention. She does have a previous history of cholecystectomy and hysterectomy. She denies any dysuria, chest pain, or shortness of breath. The patient's primary physician is at the [address] [place] [address], [address]. Davila. [facility] Past Medical History Hx Anticoagulant Therapy: Yes (plavix, 81mg asa) Arthritis: Yes (OSTEO) Asthma: No Autoimmune Disease: No Blood Disorders: No Anxiety: Yes Depression: Yes Heart Rhythm Problems: No Cancer: No Cardiac Catheterization: Yes (MULTIPLE: LAST ONE DECEMBER 2015) Cardiovascular Problems: Yes High Cholesterol: Yes Chemotherapy: No Chest Pain: Yes Congestive Heart Failure: No COPD: Yes Cerebrovascular Accident: No Coronary Artery Disease: Yes Diabetes: Yes Endocrine: Yes GERD: Yes Glaucoma: Yes Genitourinary: No Headaches: Yes Hiatal Hernia: No Immune Disorder: No Implanted Vascular Access Dvce: Yes Insomnia: Yes Kidney Stones: No Musculoskeletal: Yes Neurologic: No Psychiatric: Yes Reproductive: No (HYSTERECTOMY) Respiratory: Yes Migraines: No Myocardial Infarction: Yes (10/2015) Pneumonia: Yes Radiation Therapy: No Renal Failure: No Seizures: No Sleep Apnea: No Thyroid Disease: Yes Ulcer: No Menopausal: Yes : 4 Para: 3 Miscarriage: 1 Tubal Ligation: Yes Past Surgical History Abdominal Surgery: Yes (GALLBLADDER) AICD: No Arteriovenous Shunt: No Body Medical Devices: STENT Cardiac Surgery: Yes (STENT) Cholecystectomy: Yes Coronary Stent: Yes (X1) Ear Surgery: No Endocrine Surgery: No Eye Surgery: Yes (LASER FOR GLAUCOMA) Genitourinary Surgery: No Gynecologic Surgery: Yes (HYSTERECTOMY) Hysterectomy: Yes Insulin Pump: No Joint Replacement: No Oral Surgery: Yes (DENTURES) Pacemaker: No Thoracic Surgery: No Other Surgery: Yes ("LUMPS REMOVED FROM MY NECK AND RIBCAGE, A LIPOMA") Social History Alcohol Use: Yes ("VERY VERY RARELY") Tobacco Use: No (QUIT 2014) Substance Use: No Allergies-Medications (Allergen,Severity, Reaction): Coded Allergies: morphine (Unverified Allergy, Intermediate, Nausea/Vomiting, 08/26/17) doxycycline (Unverified Allergy, Unknown, hives, 08/26/17) minocycline (Unverified Allergy, Unknown, hives, 08/26/17) penicillin G (Unverified Allergy, Unknown, sob, 08/26/17) tigecycline (Unverified Allergy, Unknown, hives, 08/26/17) Sulfa (Sulfonamide Antibiotics) (Unverified Adverse Reaction, Severe, vomiting, 08/26/17) Reported Meds & Prescriptions Reported Meds & Active Scripts Active Walker/Adult/Folding (Device) 1 Mis Mis Ea .ROUTE DIRECTED Walker with seat Erythromycin Ethylsuccinate Liq (Erythromycin Ethylsuccinate) 200 Mg/Ml Susp 200 Mg PO ACHS PRN 30 Days Zofran Odt (Ondansetron Odt) 4 Mg Tab 4 Mg SL Q6HR PRN Levemir Flextouch Pen Inj (Insulin Detemir) 300 unit/3 ML Pen 18 Units SQ Q12HR Breo Ellipta Inh (Fluticasone/Vilanterol) 100-25 Mcg/Act Inh 1 Puff INH DAILY Use daily at the same time. Montelukast (Montelukast Sodium) 10 Mg Tab 10 Mg PO HS Rosuvastatin (Rosuvastatin Calcium) 20 Mg Tab 20 Mg PO DAILY Novolog Flexpen Inj (Insulin Aspart) 300 Unit/3 Ml Pen 12 Units SQ TIDAC Mucinex DM (Dextromethorphan-Guaifenesin) 30-600 Mg Tab 1 Tab PO BID PRN Proair Hfa 8.5 GM Inh (Albuterol Sulfate) 90 Mcg/Act Aer 2 Puff INH Q4-6H PRN 108 mcg/actuation Incruse Ellipta Inh (Umeclidinium [place] Inh) 0.0625 Mg/Act Inh 62.5 Mcg INH DAILY Daliresp (Roflumilast) 500 Mcg Tab 500 Mcg PO DAILY Synthroid (Levothyroxine Sodium) 112 Mcg Tab 112 Mcg PO DAILY Oxygen (O2) (Miscellaneous Medication) Inha 2 Liter JON.CANULA CONTINUOUS Oxygen Concentrator Portable Gaseous 2 L/min via Nasal Canula Continuous For 99 months Oxygen (O2) Device 2 Liter JON.CANULA CONTINUOUS Oxygen Concentrator Portable Gaseous 2 L/min via Nasal Canula Continuous For 99 months Benzonatate 200 Mg Cap 200 Mg PO TID PRN Bystolic (Nebivolol) 10 Mg Tab 10 Mg PO DAILY Oxygen tank (Oxygen) 1 Ea Tank 2 Liter JON.CANULA CONTINUOUS Oxygen Concentrator Portable Gaseous 2 L/min via Nasal Cannula Continuous For 99 months Reported Sertraline (Sertraline HCl) 50 Mg Tab 50 Mg PO HS Vitamin D3 (Cholecalciferol) 1,000 Unit Chew 1,000 Units CHEW HS Lasix (Furosemide) 20 Mg Tab 20 Mg PO DIRECTED PRN Plavix (Clopidogrel Bisulfate) 75 Mg Tab 75 Mg PO DAILY Aspirin 81 Mg Chew 81 Mg CHEW DAILY Review of Systems Except as stated in HPI: all other systems reviewed are Neg General / Constitutional: No: Fever Cardiovascular: No: Chest Pain or Discomfort Respiratory: No: Shortness of Breath Gastrointestinal: Positive: Nausea, Vomiting, Abdominal Pain, No: Diarrhea, Constipation Genitourinary: No: Dysuria Physical Exam Narrative GENERAL: Awake, alert, pleasant 62-year-old female who appears her stated age and is in no acute respiratory distress. SKIN: Focused skin assessment warm/dry. HEAD: Atraumatic. Normocephalic. EYES: No injection or drainage. ENT: No nasal bleeding or discharge. Slightly dry mucous membranes. NECK: Trachea midline. No JVD. CARDIOVASCULAR: Regular rate and rhythm. No murmur appreciated. RESPIRATORY: No accessory muscle use. Clear to auscultation. Breath sounds equal bilaterally. GASTROINTESTINAL: Abdomen soft, tenderness epigastric. No guarding or rigidity. Well-healed surgical scars. Back: No CVA tenderness. MUSCULOSKELETAL: No obvious deformities. No clubbing. No cyanosis. No edema. NEUROLOGICAL: Awake and alert. No obvious cranial nerve deficits. Motor grossly within normal limits. Normal speech. PSYCHIATRIC: Appropriate mood and affect; insight and judgment normal. Data Data Last Documented VS Vital Signs Date Time Temp Pulse Resp B/P (MAP) Pulse Ox O2 Delivery O2 Flow Rate FiO2 08/26/17 17:05 68 19 136/64 (88) 99 Nasal Cannula 2.50 08/26/17 16:19 99.6 Orders Orders Complete Blood Count With Diff (08/26/17 16:44) Comprehensive Metabolic Panel (08/26/17 16:44) Lipase (08/26/17 16:44) Lactic Acid (08/26/17 16:44) Urinalysis - C+S If Indicated (08/26/17 16:44) Abdomen, Flat & Upright (08/26/17 ) Iv Access Insert/Monitor (08/26/17 16:44) Ecg Monitoring (08/26/17 16:44) Oximetry (08/26/17 16:44) Ondansetron Inj (Zofran Inj) (08/26/17 16:45) Sodium Chlor 0.9% 1000 Ml Inj (Ns 1000 M (08/26/17 16:44) Sodium Chloride 0.9% Flush (Ns Flush) (08/26/17 16:45) Electrocardiogram (08/26/17 16:44) Troponin I (08/26/17 16:44) Creatine Kinase (Cpk) (08/26/17 16:44) Hydromorphone Pf Inj (Dilaudid Pf Inj) (08/26/17 16:45) Metoclopramide (Reglan) (08/26/17 18:45) Labs Laboratory Tests Test 08/26/17 17:00 White Blood Count 13.2 TH/MM3 Red Blood Count 4.28 MIL/MM3 Hemoglobin 13.7 GM/DL Hematocrit 38.9 % Mean Corpuscular Volume 91.0 FL Mean Corpuscular Hemoglobin 31.9 PG Mean Corpuscular Hemoglobin Concent 35.1 % Red Cell Distribution Width 13.4 % Platelet Count 404 TH/MM3 Mean Platelet Volume 7.8 FL Neutrophils (%) (Auto) 73.7 % Lymphocytes (%) (Auto) 15.8 % Monocytes (%) (Auto) 9.6 % Eosinophils (%) (Auto) 0.3 % Basophils (%) (Auto) 0.6 % Neutrophils # (Auto) 9.7 TH/MM3 Lymphocytes # (Auto) 2.1 TH/MM3 Monocytes # (Auto) 1.3 TH/MM3 Eosinophils # (Auto) 0.0 TH/MM3 Basophils # (Auto) 0.1 TH/MM3 CBC Comment DIFF FINAL Differential Comment Urine Color YELLOW Urine Turbidity HAZY Urine pH 6.0 Urine Specific [place] 1.030 Urine Protein 30 mg/dL Urine Glucose (UA) NEG mg/dL Urine Ketones TRACE mg/dL Urine Occult Blood NEG Urine Nitrite NEG Urine Bilirubin NEG Urine Urobilinogen 4.0 MG/DL Urine Leukocyte Esterase NEG Urine RBC 2 /hpf Urine WBC 1 /hpf Urine Squamous Epithelial Cells 5 /hpf Urine Calcium Oxalate Crystals OCC /hpf Urine Bacteria RARE /hpf Urine Mucus MANY /lpf Microscopic Urinalysis Comment CULT NOT INDICATED Blood Urea Nitrogen 17 MG/DL Creatinine 0.59 MG/DL Random Glucose 152 MG/DL Total Protein 7.4 GM/DL Albumin 3.7 GM/DL Calcium Level 9.9 MG/DL Alkaline Phosphatase 118 U/L Aspartate Amino Transf (AST/SGOT) 20 U/L Alanine Aminotransferase (ALT/SGPT) 24 U/L Total Bilirubin 0.4 MG/DL Sodium Level 137 MEQ/L Potassium Level 4.0 MEQ/L Chloride Level 99 MEQ/L Carbon Dioxide Level 28.4 MEQ/L Anion Gap 10 MEQ/L Estimat Glomerular Filtration Rate 103 ML/MIN Lactic Acid Level 1.0 mmol/L Total Creatine Kinase 43 U/L Troponin I LESS THAN 0.02 NG/ML Lipase 112 U/L [facility] Medical Decision Making Medical Screen Exam Complete: Yes Emergency Medical Condition: Yes Medical Record Reviewed: Yes Interpretation(s) EKG reveals sinus rhythm with a rate of 77. Inverted T waves noted in lead V2, V3, V4. Laboratory Tests Test 08/26/17 17:00 White Blood Count 13.2 TH/MM3 Red Blood Count 4.28 MIL/MM3 Hemoglobin 13.7 GM/DL Hematocrit 38.9 % Mean Corpuscular Volume 91.0 FL Mean Corpuscular Hemoglobin 31.9 PG Mean Corpuscular Hemoglobin Concent 35.1 % Red Cell Distribution Width 13.4 % Platelet Count 404 TH/MM3 Mean Platelet Volume 7.8 FL Neutrophils (%) (Auto) 73.7 % Lymphocytes (%) (Auto) 15.8 % Monocytes (%) (Auto) 9.6 % Eosinophils (%) (Auto) 0.3 % Basophils (%) (Auto) 0.6 % Neutrophils # (Auto) 9.7 TH/MM3 Lymphocytes # (Auto) 2.1 TH/MM3 Monocytes # (Auto) 1.3 TH/MM3 Eosinophils # (Auto) 0.0 TH/MM3 Basophils # (Auto) 0.1 TH/MM3 CBC Comment DIFF FINAL Differential Comment Urine Color YELLOW Urine Turbidity HAZY Urine pH 6.0 Urine Specific [place] 1.030 Urine Protein 30 mg/dL Urine Glucose (UA) NEG mg/dL Urine Ketones TRACE mg/dL Urine Occult Blood NEG Urine Nitrite NEG Urine Bilirubin NEG Urine Urobilinogen 4.0 MG/DL Urine Leukocyte Esterase NEG Urine RBC 2 /hpf Urine WBC 1 /hpf Urine Squamous Epithelial Cells 5 /hpf Urine Calcium Oxalate Crystals OCC /hpf Urine Bacteria RARE /hpf Urine Mucus MANY /lpf Microscopic Urinalysis Comment CULT NOT INDICATED Blood Urea Nitrogen 17 MG/DL Creatinine 0.59 MG/DL Random Glucose 152 MG/DL Total Protein 7.4 GM/DL Albumin 3.7 GM/DL Calcium Level 9.9 MG/DL Alkaline Phosphatase 118 U/L Aspartate Amino Transf (AST/SGOT) 20 U/L Alanine Aminotransferase (ALT/SGPT) 24 U/L Total Bilirubin 0.4 MG/DL Sodium Level 137 MEQ/L Potassium Level 4.0 MEQ/L Chloride Level 99 MEQ/L Carbon Dioxide Level 28.4 MEQ/L Anion Gap 10 MEQ/L Estimat Glomerular Filtration Rate 103 ML/MIN Lactic Acid Level 1.0 mmol/L Total Creatine Kinase 43 U/L Troponin I LESS THAN 0.02 NG/ML Lipase 112 U/L Last Impressions Abdomen X-Ray 08/26/17 0000 Signed Impressions: Service Date/Time: Saturday, August 26, 2017 17:06 - CONCLUSION: 1. Cholecystectomy. 2. Constipation. Tulio Jones MD Differential Diagnosis Differential diagnosis includes gastroenteritis, gastritis, peptic ulcer disease , gastroparesis, small bowel obstruction, internal hernia, pancreatitis, dehydration, electrolyte abnormality. Narrative Course IV was established, labs are drawn and sent, and the patient was placed on cardiac telemetry monitoring and continuous pulse oximetry monitoring. The patient was administered Dilaudid, Zofran, and IV fluids. Flat and upright x- ray was performed to evaluate for air-fluid levels. X-ray reveals cholecystectomy and constipation, no air-fluid levels. White count is mildly elevated at 13.2, electrolytes are unremarkable. UA reveals trace ketones. The patient was reevaluated at 6 PM, her nausea and pain had significantly improved. The patient was given a by mouth challenge at that time. The patient tolerated a popsicle without difficulty. The patient will be placed on Reglan, is advised to take Reglan and then try meals 30 minutes to 60 minutes later. If this fails and intractable nausea/vomiting returns, she is advised to return to the emergency department. Otherwise, she is advised to follow-up with her tooling mechanic and primary physician. Return as needed. Diagnosis Primary Impression: Nausea & vomiting Qualified Codes: R11.2 - Nausea with vomiting, unspecified Patient Instructions: General Instructions Additional Instructions: Medications as directed. Clear liquid diet and advance as tolerated. Follow- up with her tooling mechanic. Return if symptoms worsen or progress. Med/Other Pt SpecificInfo: Prescription(s) given Scripts Metoclopramide (Reglan) 10 Mg Tab 10 MG PO TIDAC, #60 TAB 0 Refills Prov: Jimbo Kwong MD 08/26/17 Disposition: DISCHARGE HOME Condition: Stable Jimbo Kwong MD Aug 26, 2017 16:51
[2017-08-26 17:05] VITALS: BP 136/64; PULSE 68; RESP 19; O2SAT 99
[2017-08-26 17:17] LABS: AUTOMATED NEUTROPHIL # 9.7 TH/MM3 (1.8-7.7); BASOPHIL # 0.1 TH/MM3 (0-0.2); BASOPHIL % 0.6 % (0.0-2.0); EOSINOPHIL % 0.3 % (0.0-4.0); HEMATOCRIT 38.9 % (35.0-46.0); HEMOGLOBIN 13.7 GM/DL (11.6-15.3); LYMPH % 15.8 % (9.0-44.0); LYMPHOCYTE # 2.1 TH/MM3 (1.0-4.8); MEAN CORPUSCULAR HEMOGLOBIN 31.9 PG (27.0-34.0); MEAN CORPUSCULAR HGB CONC 35.1 % (32.0-36.0); MEAN PLATELET VOLUME 7.8 FL (7.0-11.0); MONO % 9.6 % (0.0-8.0); MONOCYTE # 1.3 TH/MM3 (0-0.9); NEUT % 73.7 % (16.0-70.0); PLATELET COUNT 404 TH/MM3 (150-450); RED BLOOD COUNT 4.28 MIL/MM3 (4.00-5.30); RED CELL DISTRIBUTION WIDTH 13.4 % (11.6-17.2); WHITE BLOOD COUNT 13.2 TH/MM3 (4.0-11.0)
[2017-08-26 17:19] LABS: BACTERIA, URINE RARE /hpf; BILIRUBIN, URINE NEG (NEG); BLOOD, URINE NEG (NEG); CALCIUM OXALATE CRYSTALS,URINE OCC /hpf; GLUCOSE,URINE NEG (NEG); KETONE, URINE TRACE mg/dL (NEG); MUCUS URINE MANY /lpf (OCC); NITRITE,URINE NEG (NEG); SQUAMOUS EPITHELIAL CELL URINE 5 /hpf (0-5); URINE COLOR YELLOW (YELLW/STRAW); URINE LEUKOCYTE ESTERASE NEG (NEG)
--- NOTE | 2017-08-26 17:27 | RADRPT ---
EXAM DATE/TIME: 08/26/2017 17:06 [facility] COMPARISON: CT ABDOMEN & PELVIS W CONTRAST, August 10, 2017, 16:53. INDICATIONS : Nausea, vomitting, and abdominal pain for three months. MEDICAL HISTORY : Chronic obstructive pulmonary disease. Myocardial infarction. Gastroesophageal reflux disease. SURGICAL HISTORY : Cholecystectomy. Tubal ligation. Hysterectomy. Cardiac stent. ENCOUNTER: Initial ACUITY: 3 months PAIN SCORE: 6/10 LOCATION: Bilateral abdomen. FINDINGS: Supine and upright views of the abdomen were performed. The abdominal bowel gas pattern is normal. C opious stool in the distal colon and rectum. No air fluid levels are seen. No abnormal masses, calc ifications, or organomegaly is seen. The visualized lower lungs are clear. No evidence of free intr aperitoneal gas. Cholecystectomy clips. The osseous structures are unremarkable. CONCLUSION: 1. Cholecystectomy. 2. Constipation. Tulio Jones MD on August 26, 2017 at 17:23 Board Certified Radiologist. This report was verified electronically.
[2017-08-26 17:30] LABS: ALBUMIN 3.7 GM/DL (3.4-5.0); AST (GOT) 20 U/L (15-37); BICARBONATE 28.4 MEQ/L (21.0-32.0); BLOOD UREA NITROGEN 17 MG/DL (7-18); CALCIUM 9.9 MG/DL (8.5-10.1); CHLORIDE 99 MEQ/L (98-107); CREATININE 0.59 MG/DL (0.50-1.00); GLOMERULAR FILTRATION RATE 103 ML/MIN (>89); GLUCOSE,RANDOM 152 MG/DL (74-106); LIPASE 112 U/L (73-393); SODIUM (NA) 137 MEQ/L (136-145)
[2017-08-26 17:31] LABS: ALT (GPT) 24 U/L (10-53)
[2017-08-26 17:35] LABS: ALKALINE PHOSPHATASE 118 U/L (45-117); TOTAL BILIRUBIN ADULT 0.4 MG/DL (0.2-1.0); TOTAL PROTEIN 7.4 GM/DL (6.4-8.2); TROPONIN I LESS THAN 0.02 NG/ML (0.02-0.05)
[2017-08-26] MEDS ORDERED: REGL10TA5 PO (18:36)
[2017-08-26] MEDS ORDERED: METOCLOPRAMIDE HCL 10 MG TAB PO ONE (18:45)
[2017-08-26 18:55] VITALS: BP 131/62
--- NOTE | 2017-08-27 13:01 | EKG ---
Date Performed: 08/26/2017 Time Performed: 17:33:32 PTAGE: 62 years EKG: Sinus rhythm MODERATE T-WAVE ABNORMALITY, CONSIDER ANTERIOR ISCHEMIA ABNORMAL ECG Compared to PREVIOUS TRACING , precordial T-wave changes are more prominent, consider ischemia. PREVI OUS TRACIN08/10/2017 15.56 DOCTOR: Kelvin Dyson Interpretating Date/Time 08/27/2017 13:01:17
== END 2017-08-26 19:04 | disposition home or self-care (01) ==
LOC: NEPC 16:18
DX: R11.2 Nausea with vomiting, unspecified (principal); K31.84 Gastroparesis; R94.31 Abnormal electrocardiogram [ECG] [EKG]; K59.00 Constipation, unspecified; E11.9 Type 2 diabetes mellitus without complications; I25.10 Atherosclerotic heart disease of native coronary artery without angina pectoris; J44.9 Chronic obstructive pulmonary disease, unspecified; K21.9 Gastro-esophageal reflux disease without esophagitis; I25.2 Old myocardial infarction
CPT/HCPCS: 74019; 80053; 81001; 82550; 83605; 83690; 84484; 85025; 93005; 96361; 96374; 96375; 99285; J1170; J2405; J7030

== ENCOUNTER 2017-11-20 16:37 | Observation (INO) | payer MEDICARE ==
[~2017-11-20] VITALS: Ht 147.3 cm; Wt 47.5 kg
[2017-11-20] VITALS (10 sets, daily range): BP systolic 131–177; BP diastolic 70–90; PULSE 67–79; RESP 16–20; TEMP 97.8; O2SAT 97–100
[~2017-11-20 16:37] MED LIST changes: +REGL10TA5 PO
[2017-11-20] MEDS ORDERED: methylPREDNISolone SOD SUCC 125 MG/2 ML VIAL IV PUSH ONE (17:00)
--- NOTE | 2017-11-20 17:04 | PD ---
HPI Chief Complaint: Chest Pain Time Seen by Provider: 16:46 Travel History International Travel<30 days: No Contact w/Intl Traveler<30days: No Traveled to known affect area: No History of Present Illness HPI 62yo F with PMH of CAD s/p stent, DM, COPD on 3L home O2, gastroparesis here with c/o chest pain for 2 days. Pain is sharp pressure and midsternal and nonradiating. Associated with sob. Pt has gastroparesis and said she has chronic nausea and vomiting and epigastric pain that is unchange. Said she used to have a pre sales architect but he retired and she has not gotten a new one. Former smoker. PFSH Past Medical History Hx Anticoagulant Therapy: Yes (plavix, 81mg asa) Arthritis: Yes (OSTEO) Asthma: No Autoimmune Disease: No Blood Disorders: No Anxiety: Yes Depression: Yes Heart Rhythm Problems: No Cancer: No Cardiac Catheterization: Yes (MULTIPLE: LAST ONE DECEMBER 2015) Cardiovascular Problems: Yes ([place]) High Cholesterol: Yes Chemotherapy: No Chest Pain: Yes Congestive Heart Failure: No COPD: Yes Cerebrovascular Accident: No Coronary Artery Disease: Yes Diabetes: Yes Endocrine: Yes GERD: Yes Glaucoma: Yes Genitourinary: No Headaches: Yes Hiatal Hernia: No Immune Disorder: No Implanted Vascular Access Dvce: Yes Insomnia: Yes Kidney Stones: No Musculoskeletal: Yes Neurologic: No Psychiatric: Yes Reproductive: Yes (HYSTERECTOMY) Respiratory: Yes Migraines: No Myocardial Infarction: Yes (10/2015) Pneumonia: Yes Radiation Therapy: No Renal Failure: No Seizures: No Sleep Apnea: No Thyroid Disease: Yes Ulcer: No ?: Not Menopausal: Yes : 4 Para: 3 Miscarriage: 1 Tubal Ligation: Yes Past Surgical History Abdominal Surgery: Yes (GALLBLADDER) AICD: No Arteriovenous Shunt: No Body Medical Devices: STENT Cardiac Surgery: Yes (STENT) Cholecystectomy: Yes Coronary Stent: Yes (X1) Ear Surgery: No Endocrine Surgery: No Eye Surgery: Yes (LASER FOR GLAUCOMA) Genitourinary Surgery: No Gynecologic Surgery: Yes (HYSTERECTOMY) Hysterectomy: Yes Insulin Pump: No Joint Replacement: No Oral Surgery: Yes (DENTURES) Pacemaker: No Thoracic Surgery: No Other Surgery: Yes ("LUMPS REMOVED FROM MY NECK AND RIBCAGE, A LIPOMA") Social History Alcohol Use: Yes ("VERY VERY RARELY") Tobacco Use: No (QUIT 2014) Substance Use: No Allergies-Medications (Allergen,Severity, Reaction): Coded Allergies: morphine (Verified Allergy, Intermediate, Nausea/Vomiting, 11/20/17) doxycycline (Verified Allergy, Unknown, hives, 11/20/17) minocycline (Verified Allergy, Unknown, hives, 11/20/17) penicillin G (Verified Allergy, Unknown, sob, 11/20/17) tigecycline (Verified Allergy, Unknown, hives, 11/20/17) Sulfa (Sulfonamide Antibiotics) (Verified Adverse Reaction, Severe, vomiting, 11/20/17) Reported Meds & Prescriptions Reported Meds & Active Scripts Active Reglan (Metoclopramide HCl) 10 Mg Tab 10 Mg PO TIDAC Walker/Adult/Folding (Device) 1 Mis Mis Ea .ROUTE DIRECTED Walker with seat Erythromycin Ethylsuccinate Liq (Erythromycin Ethylsuccinate) 200 Mg/Ml Susp 200 Mg PO ACHS PRN 30 Days Zofran Odt (Ondansetron Odt) 4 Mg Tab 4 Mg SL Q6HR PRN Levemir Flextouch Pen Inj (Insulin Detemir) 300 unit/3 ML Pen 18 Units SQ Q12HR Breo Ellipta Inh (Fluticasone/Vilanterol) 100-25 Mcg/Act Inh 1 Puff INH DAILY Use daily at the same time. Montelukast (Montelukast Sodium) 10 Mg Tab 10 Mg PO HS Rosuvastatin (Rosuvastatin Calcium) 20 Mg Tab 20 Mg PO DAILY Novolog Flexpen Inj (Insulin Aspart) 300 Unit/3 Ml Pen 12 Units SQ TIDAC Mucinex DM (Dextromethorphan-Guaifenesin) 30-600 Mg Tab 1 Tab PO BID PRN Proair Hfa 8.5 GM Inh (Albuterol Sulfate) 90 Mcg/Act Aer 2 Puff INH Q4-6H PRN 108 mcg/actuation Incruse Ellipta Inh (Umeclidinium [place] Inh) 0.0625 Mg/Act Inh 62.5 Mcg INH DAILY Daliresp (Roflumilast) 500 Mcg Tab 500 Mcg PO DAILY Synthroid (Levothyroxine Sodium) 112 Mcg Tab 112 Mcg PO DAILY Oxygen (O2) (Miscellaneous Medication) Inha 2 Liter JON.CANULA CONTINUOUS Oxygen Concentrator Portable Gaseous 2 L/min via Nasal Canula Continuous For 99 months Oxygen (O2) Device 2 Liter JON.CANULA CONTINUOUS Oxygen Concentrator Portable Gaseous 2 L/min via Nasal Canula Continuous For 99 months Benzonatate 200 Mg Cap 200 Mg PO TID PRN Bystolic (Nebivolol) 10 Mg Tab 10 Mg PO DAILY Oxygen tank (Oxygen) 1 Ea Tank 2 Liter JON.CANULA CONTINUOUS Oxygen Concentrator Portable Gaseous 2 L/min via Nasal Cannula Continuous For 99 months Reported Sertraline (Sertraline HCl) 50 Mg Tab 50 Mg PO HS Vitamin D3 (Cholecalciferol) 1,000 Unit Chew 1,000 Units CHEW HS Lasix (Furosemide) 20 Mg Tab 20 Mg PO DIRECTED PRN Plavix (Clopidogrel Bisulfate) 75 Mg Tab 75 Mg PO DAILY Aspirin 81 Mg Chew 81 Mg CHEW DAILY Review of Systems Except as stated in HPI: all other systems reviewed are Neg Physical Exam Narrative GENERAL: 62yo F in mild distress. SKIN: Focused skin assessment warm/dry. HEAD: Atraumatic. Normocephalic. EYES: Pupils equal and round. No scleral icterus. No injection or drainage. ENT: No nasal bleeding or discharge. Mucous membranes pink and moist. NECK: Trachea midline. No JVD. CARDIOVASCULAR: Regular rate and rhythm. No murmur appreciated. RESPIRATORY: + accessory muscle use. Poor air entry. End expiratory wheezing right lower lung. GASTROINTESTINAL: Abdomen soft, mild epigastric ttp. No rebound tenderness or guarding. MUSCULOSKELETAL: No obvious deformities. No clubbing. No cyanosis. No edema. NEUROLOGICAL: Awake and alert. No obvious cranial nerve deficits. Motor grossly within normal limits. Normal speech. PSYCHIATRIC: Appropriate mood and affect; insight and judgment normal. Data Data Last Documented VS Vital Signs Date Time Temp Pulse Resp B/P (MAP) Pulse Ox O2 Delivery O2 Flow Rate FiO2 11/20/17 19:13 18 11/20/17 19:11 74 136/72 (93) 97 Nasal Cannula 3.00 11/20/17 16:40 97.8 Orders Orders Complete Blood Count With Diff (11/20/17 16:58) Basic Metabolic Panel (Bmp) (11/20/17 16:58) Act Partial Throm Time (Ptt) (11/20/17 16:58) Prothrombin Time / Inr (Pt) (11/20/17 16:58) Magnesium (Mg) (11/20/17 16:58) Troponin I (11/20/17 16:58) Influenzae A/B Antigen (11/20/17 16:58) Chest, Single Ap (11/20/17 16:58) Methylprednisolone So Succ Inj (Solumedr (11/20/17 17:00) Albuterol-Ipratropium Neb (Duoneb Neb) (11/20/17 17:00) Lipase (11/20/17 17:05) Ondansetron Inj (Zofran Inj) (11/20/17 17:15) Aspirin (Aspirin) (11/20/17 18:45) Nitroglycerin Sl (Nitrostat Sl) (11/20/17 18:45) Place In Observation (11/20/17 19:12) Activity Bed Rest With Brp (11/20/17:12) Vital Signs (Adult) Q4H (11/20/17:12) Cardiac Rhythm .As Directed (11/20/17:) Notify Dr: Other .PRN (11/20/17:12) Notify DrDrea Parameters (11/20/17:12) Resp Oxygen Nasal Cannula (11/20/17 ) Ckmb (Isoenzyme) Profile (11/20/17 20:00) Ckmb (Isoenzyme) Profile (11/20/17 23:00) Troponin I (11/20/17 20:00) Troponin I (11/20/17 23:00) Electrocardiogram (11/20/17 20:00) Electrocardiogram (11/20/17 23:00) ^ Obtain (11/20/17:12) Sodium Chlor 0.9% 1000 Ml Inj (Ns 1000 M (11/20/17 19:12) Sodium Chloride 0.9% Flush (Ns Flush) (11/20/17 19:15) Sodium Chloride 0.9% Flush (Ns Flush) (11/20/17 21:00) Acetaminophen (Tylenol) (11/20/17 19:15) Ondansetron Inj (Zofran Inj) (11/20/17 19:15) Tucking Machine Operator / Telemetry [place].Q8H (11/20/17:12) Heparin Inj (Heparin Inj) (11/20/17 20:00) Albuterol-Ipratropium Neb (Duoneb Neb) (11/20/17 19:15) Admit Order (Ed Use Only) (11/20/17 19:18) Labs Laboratory Tests Test 11/20/17 17:05 White Blood Count 11.1 TH/MM3 Red Blood Count 4.73 MIL/MM3 Hemoglobin 13.9 GM/DL Hematocrit 42.7 % Mean Corpuscular Volume 90.4 FL Mean Corpuscular Hemoglobin 29.4 PG Mean Corpuscular Hemoglobin Concent 32.5 % Red Cell Distribution Width 13.1 % Platelet Count 425 TH/MM3 Mean Platelet Volume 7.8 FL Neutrophils (%) (Auto) 67.4 % Lymphocytes (%) (Auto) 20.9 % Monocytes (%) (Auto) 10.6 % Eosinophils (%) (Auto) 0.7 % Basophils (%) (Auto) 0.4 % Neutrophils # (Auto) 7.5 TH/MM3 Lymphocytes # (Auto) 2.3 TH/MM3 Monocytes # (Auto) 1.2 TH/MM3 Eosinophils # (Auto) 0.1 TH/MM3 Basophils # (Auto) 0.0 TH/MM3 CBC Comment DIFF FINAL Differential Comment Prothrombin Time 9.9 SEC Prothromb Time International Ratio 1.0 RATIO Activated Partial Thromboplast Time 24.3 SEC Blood Urea Nitrogen 15 MG/DL Creatinine 0.64 MG/DL Random Glucose 172 MG/DL Calcium Level 9.5 MG/DL Magnesium Level 2.3 MG/DL Sodium Level 134 MEQ/L Potassium Level 3.9 MEQ/L Chloride Level 100 MEQ/L Carbon Dioxide Level 26.9 MEQ/L Anion Gap 7 MEQ/L Estimat Glomerular Filtration Rate 94 ML/MIN Troponin I LESS THAN 0.02 NG/ML Lipase 159 U/L [facility] Medical Decision Making Medical Screen Exam Complete: Yes Emergency Medical Condition: Yes Interpretation(s) EKG: NSR 76bpm. Normal axis. Biphasic T wave V2, V4. Mild ST depression II, III, aVF similar to prior EKG. Differential Diagnosis ACS vs. COPD exacerbation vs. Pneumonia vs. influenza Narrative Course 62yo F with DM, CAD here with c/o chest pain and sob. Labs reviewed, no leukocytosis. H/H normal. Lipase normal. Troponin negative. Influenza negative. CXR showed no acute disease. Pt had mild expiratory wheezing so given methylprednisolone and duonebs x3. Pt reevaluated at bedside and said sob has improved but still with midsternal chest pain. Pt given aspirin and sublingual nitro for chest pain. She said her pre sales architect Dr. Gipson has retired and she does not have a pre sales architect anymore. Said she had a cardiac cath recently to see if she qualify for lung transplant but she does not. Will admit for serial EKG and cardiac enzymes. Diagnosis Primary Impression: Chest pain Qualified Codes: R07.9 - Chest pain, unspecified Additional Impression: Chronic obstructive pulmonary disease with acute exacerbation Admitting Information Admitting Physician Requests: Josi Rivera DO Nov 20, 2017 17:04
[2017-11-20] MEDS: RESP: ALBUTEROL 2.5 MG/IPRATROPIUM 0.5 MG NEB (SCH) INH ×4 (17:10→17:30)
[2017-11-20] MEDS ORDERED: ONDANSETRON HCL 4 MG/2 ML VIAL IV PUSH ONE (17:15)
[2017-11-20 17:18] LABS: AUTOMATED NEUTROPHIL # 7.5 TH/MM3 (1.8-7.7); BASOPHIL % 0.4 % (0.0-2.0); EOSINOPHIL # 0.1 TH/MM3 (0-0.4); EOSINOPHIL % 0.7 % (0.0-4.0); HEMATOCRIT 42.7 % (35.0-46.0); HEMOGLOBIN 13.9 GM/DL (11.6-15.3); LYMPH % 20.9 % (9.0-44.0); LYMPHOCYTE # 2.3 TH/MM3 (1.0-4.8); MEAN CELL VOLUME 90.4 FL (80.0-100.0); MEAN CORPUSCULAR HEMOGLOBIN 29.4 PG (27.0-34.0); MEAN CORPUSCULAR HGB CONC 32.5 % (32.0-36.0); MEAN PLATELET VOLUME 7.8 FL (7.0-11.0); MONO % 10.6 % (0.0-8.0); MONOCYTE # 1.2 TH/MM3 (0-0.9); NEUT % 67.4 % (16.0-70.0); PLATELET COUNT 425 TH/MM3 (150-450); RED BLOOD COUNT 4.73 MIL/MM3 (4.00-5.30); RED CELL DISTRIBUTION WIDTH 13.1 % (11.6-17.2); WHITE BLOOD COUNT 11.1 TH/MM3 (4.0-11.0)
--- NOTE | 2017-11-20 17:19 | RADRPT ---
EXAM DATE/TIME: 11/20/2017 17:01 [place] COMPARISON: CHEST SINGLE AP, August 10, 2017, 16:18. INDICATIONS : Shortness of breath. MEDICAL HISTORY : Emphysema. Chronic obstructive pulmonary disease. Myocardial infarction. Coronary artery disease. SURGICAL HISTORY : Coronary artery stent. ENCOUNTER: Initial ACUITY: 2 days PAIN SCORE: 0/10 LOCATION: Bilateral chest FINDINGS: A single view of the chest demonstrates the lungs to be symmetrically aerated without evidence of mas s, infiltrate or effusion. The cardiomediastinal contours are unremarkable. Osseous structures are intact. CONCLUSION: No acute disease. Aly Ryan MD FACR on November 20, 2017 at 17:17 Board Certified Radiologist. This report was verified electronically.
[2017-11-20 17:26] LABS: CHLORIDE 100 MEQ/L (98-107); SODIUM (NA) 134 MEQ/L (136-145)
[2017-11-20 17:29] LABS: BICARBONATE 26.9 MEQ/L (21.0-32.0); CALCIUM 9.5 MG/DL (8.5-10.1); GLUCOSE,RANDOM 172 MG/DL (74-106); MAGNESIUM 2.3 MG/DL (1.5-2.5)
[2017-11-20 17:30] LABS: BLOOD UREA NITROGEN 15 MG/DL (7-18)
[2017-11-20 17:33] LABS: CREATININE 0.64 MG/DL (0.50-1.00); GLOMERULAR FILTRATION RATE 94 ML/MIN (>89)
[2017-11-20 17:38] LABS: TROPONIN I LESS THAN 0.02 NG/ML (0.02-0.05)
[2017-11-20 17:58] LABS: PROTHROMBIN TIME - PATIENT 9.9 SEC (9.8-11.6)
[2017-11-20] MEDS ORDERED: ASPIRIN 325 MG TAB PO ONE (18:45)
[2017-11-20] MEDS: NITROGLYCERIN 0.4 MG SL 25 TABS/BTL SL PRN ×3 (18:59→19:15)
[2017-11-20] MEDS: SODIUM CHLOR 0.9% 1000 ML INJ 1,000 ML IV SCH (19:12)
[2017-11-20] MEDS ORDERED: ONDANSETRON HCL 4 MG/2 ML VIAL IV PUSH PRN (19:15)
[2017-11-20] MEDS ORDERED: ACETAMINOPHEN 500 MG CPLT PO PRN (19:15)
[2017-11-20] MEDS ORDERED: SODIUM CHLORIDE 0.9% FLUSH 10 ML FLUSH IV FLUSH PRN (19:15)
[2017-11-20 20:27] LABS: TROPONIN I LESS THAN 0.02 NG/ML (0.02-0.05)
[2017-11-20] MEDS: HEPARIN SODIUM - SQ 10,000 UNITS/ML VIAL SQ SCH (21:19)
[2017-11-20] MEDS: SODIUM CHLORIDE 0.9% FLUSH 10 ML FLUSH IV FLUSH SCH (21:20)
[2017-11-20 23:29] LABS: TROPONIN I LESS THAN 0.02 NG/ML (0.02-0.05)
[2017-11-21] VITALS (9 sets, daily range): BP systolic 92–175; BP diastolic 53–78; PULSE 67–88; RESP 14–22; TEMP 96–97.2; O2SAT 98–100
[2017-11-21] MEDS: RESP: ALBUTEROL 2.5 MG/IPRATROPIUM 0.5 MG NEB (PRN) NEB ×2 (07:50→14:11)
--- NOTE | 2017-11-21 09:30 | HHI.HP ---
[facility] Emilio Davila MD Admission Diagnosis Chest pain, COPD exacerbation Diagnoses: Chief Complaint: Shortness of breath Chest pain Travel History International Travel<30 Days: No Contact w/Intl Traveler <30 Da: No Traveled to Known Affected Are: No History of Present Illness This is a pleasant 62-year-old female patient with a known medical history of CAD with CT and cardiac stent placement, diabetes, COPD, gastroparesis and need for 3 L nasal cannula home O2 who presented to the ED with complaints of chest pain and dyspnea for the last 4 days. Patient states that she was at rest last weekend she developed palpitations, checked her blood pressure which was reportedly normal but her heart rate is in the 140s. Patient states she took nitroglycerin 2 and aspirin and eventually her heart rate came down to under 100. Over the past few days patient states she began to feel better but then last evening developed a midsternal chest pain that was sharp in nature, worsened with movement, alleviated by nitroglycerin, rated 8 out of 10 on pain scale with associated nausea, vomiting and shortness of breath. Patient states she does have a history of CT and is this felt similar to her previous CT in the past. She does states she had subjective fevers of 102 last week in with chills. She does have a history of gastroparesis Velasquez's esophagitis with frequent nausea and vomiting and inability to tolerate p.o. intake. Patient follows with manager office services , was seen last week with no changes in medicines. PCP was placed on prednisone taper from PCP for arthritis last week. Patient did follow with a backup sawyer Dr. Andrews, from [facility] but has not seen anyone since August since he is retired. It should be noted patient was in [place] in September was referred for lung transplant evaluation, at that time patient underwent a cardiac catheterization which was reportedly negative and it was found that previous stent was occluded with no further intervention. She did not qualify for lung transplant. Review of Systems Constitutional: COMPLAINS OF: Fatigue, Fever, Chills, DENIES: Diaphoretic episodes Eyes: DENIES: Blurred vision, Diplopia Respiratory: COMPLAINS OF: Shortness of breath, DENIES: Cough, Sputum production Cardiovascular: COMPLAINS OF: Chest pain, Palpitations Gastrointestinal: COMPLAINS OF: Nausea, Vomiting, DENIES: Abdominal pain, Black stools, Bloody stools, Constipation, Diarrhea Musculoskeletal: DENIES: Joint pain Hematologic/lymphatic: DENIES: Bruising Psychiatric: COMPLAINS OF: Anxiety Except as stated in HPI: all other systems reviewed are Neg Past Family Social History Past Medical History CAD with history of CT and cardiac stent placement Hyperlipidemia COPD with need for home O2 3 L nasal cannula Diabetes Past Surgical History Cholecystectomy Cardiac stent placement Glaucoma surgery Hypertension Lipoma removed from left neck Hysterectomy Cardiac cath Reported Medications Active Reglan (Metoclopramide HCl) 10 Mg Tab 10 Mg PO TIDAC Walker/Adult/Folding (Device) 1 Mis Mis Ea .ROUTE DIRECTED Walker with seat Erythromycin Ethylsuccinate Liq (Erythromycin Ethylsuccinate) 200 Mg/Ml Susp 200 Mg PO ACHS PRN 30 Days Zofran Odt (Ondansetron Odt) 4 Mg Tab 4 Mg SL Q6HR PRN Levemir Flextouch Pen Inj (Insulin Detemir) 300 unit/3 ML Pen 18 Units SQ Q12HR Breo Ellipta Inh (Fluticasone/Vilanterol) 100-25 Mcg/Act Inh 1 Puff INH DAILY Use daily at the same time. Montelukast (Montelukast Sodium) 10 Mg Tab 10 Mg PO HS Rosuvastatin (Rosuvastatin Calcium) 20 Mg Tab 20 Mg PO DAILY Novolog Flexpen Inj (Insulin Aspart) 300 Unit/3 Ml Pen 12 Units SQ TIDAC Mucinex DM (Dextromethorphan-Guaifenesin) 30-600 Mg Tab 1 Tab PO BID PRN Proair Hfa 8.5 GM Inh (Albuterol Sulfate) 90 Mcg/Act Aer 2 Puff INH Q4-6H PRN 108 mcg/actuation Incruse Ellipta Inh (Umeclidinium [place] Inh) 0.0625 Mg/Act Inh 62.5 Mcg INH DAILY Daliresp (Roflumilast) 500 Mcg Tab 500 Mcg PO DAILY Synthroid (Levothyroxine Sodium) 112 Mcg Tab 112 Mcg PO DAILY Oxygen (O2) (Miscellaneous Medication) Inha 2 Liter JON.CANULA CONTINUOUS Oxygen Concentrator Portable Gaseous 2 L/min via Nasal Canula Continuous For 99 months Oxygen (O2) Device 2 Liter JON.CANULA CONTINUOUS Oxygen Concentrator Portable Gaseous 2 L/min via Nasal Canula Continuous For 99 months Benzonatate 200 Mg Cap 200 Mg PO TID PRN Bystolic (Nebivolol) 10 Mg Tab 10 Mg PO DAILY Oxygen tank (Oxygen) 1 Ea Tank 2 Liter JON.CANULA CONTINUOUS Oxygen Concentrator Portable Gaseous 2 L/min via Nasal Cannula Continuous For 99 months Reported Sertraline (Sertraline HCl) 50 Mg Tab 50 Mg PO HS Vitamin D3 (Cholecalciferol) 1,000 Unit Chew 1,000 Units CHEW HS Lasix (Furosemide) 20 Mg Tab 20 Mg PO DIRECTED PRN Plavix (Clopidogrel Bisulfate) 75 Mg Tab 75 Mg PO DAILY Aspirin 81 Mg Chew 81 Mg CHEW DAILY Allergies: Coded Allergies: morphine (Verified Allergy, Intermediate, Nausea/Vomiting, 11/20/17) doxycycline (Verified Allergy, Unknown, hives, 11/20/17) minocycline (Verified Allergy, Unknown, hives, 11/20/17) penicillin G (Verified Allergy, Unknown, sob, 11/20/17) tigecycline (Verified Allergy, Unknown, hives, 11/20/17) Sulfa (Sulfonamide Antibiotics) (Verified Adverse Reaction, Severe, vomiting, 11/20/17) Active Ordered Medications Current Medications Medications (Trade) Dose Ordered Sig/Johnathan Route Start Time Stop Time Status Last Admin (Nitrostat Sl) 0.4 mg Q5M PRN SL 11/20/17 18:45 11/20/17 19:08 Sodium Chloride 1,000 ml @ 70 mls/hr [id number] IV 11/20/17 19:12 11/20/17 19:12 (NS Flush) 2 ml UNSCH PRN IV FLUSH 11/20/17 19:15 (NS Flush) 2 ml BID IV FLUSH 11/20/17 21:00 11/20/17 21:20 (Tylenol) 500 mg Q4H PRN PO 11/20/17 19:15 (Zofran Inj) 4 mg Q6H PRN IV PUSH 11/20/17 19:15 (Heparin Inj) 5,000 units Q12H SQ 11/20/17 20:00 11/20/17 21:19 (Duoneb Neb) 1 ampule Q4HR NEB PRN NEB 11/20/17 19:15 11/21/17 07:50 Family History Maternal medical history significant for diabetes. Sister had an CT with stents in her 60s. Uncle had an CT in his 60s. Social History Patient states she has been trying to quit smoking, states a pack of cigarettes last her a month. Admits to occasional alcohol use. Denies illicit drug use. Physical Exam Vital Signs Vital Signs Date Time Temp Pulse Resp B/P (MAP) Pulse Ox O2 Delivery O2 Flow Rate FiO2 11/21/17 08:00 97.2 79 22 92/62 (72) 98 11/21/17 08:00 97.2 79 22 92/62 (72) 98 11/21/17 07:52 98 Nasal Cannula 3.00 11/21/17 04:00 96.8 82 20 137/73 (94) 98 11/21/17 00:00 96.0 75 20 175/78 (110) 98 11/20/17 23:00 77 11/20/17 21:00 76 16 177/90 (119) 98 Nasal Cannula 3.00 11/20/17 20:50 99 Nasal Cannula 2.00 11/20/17 20:11 68 16 162/82 (108) 98 11/20/17 19:41 70 16 142/70 (94) 97 Room Air 11/20/17 19:13 18 11/20/17 19:11 74 16 136/72 (93) 97 Nasal Cannula 3.00 11/20/17 19:06 75 18 131/71 (91) 98 Nasal Cannula 3.00 11/20/17 19:01 71 18 99 Nasal Cannula 3.00 11/20/17 19:01 67 18 172/82 (112) 99 Nasal Cannula 3.00 11/20/17 18:18 79 20 159/79 (105) 100 Nasal Cannula 3.00 11/20/17 17:02 Nasal Cannula 3.00 11/20/17 16:40 97.8 79 20 173/76 (108) 99 Physical Exam GENERAL: Well-developed, well-nourished patient in NAD. On supplemental O2. SKIN: Warm and dry. No rash. HEAD: Normocephalic. Atraumatic. EYES: Pupils equal and round. No scleral icterus. No injection or drainage. ENT: No nasal bleeding or discharge. Mucous membranes pink and moist. NECK: Supple. Trachea midline. CARDIOVASCULAR: Regular rate and rhythm. S1, S2 noted. No murmur appreciated. RESPIRATORY: No accessory muscle use. Diminished breath sounds throughout lung hamm. GASTROINTESTINAL: Abdomen soft, non-tender, nondistended. Normoactive bowel sounds x4. MUSCULOSKELETAL: No obvious deformities. Extremities without cyanosis, or edema. NEUROLOGICAL: Awake and alert. No obvious cranial nerve deficits. Motor grossly within normal limits. 5/5 muscle strength in bilateral upper and lower extremities. Normal speech. PSYCHIATRIC: Appropriate mood and affect; insight and judgment normal. Laboratory Laboratory Tests Test 11/20/17 17:05 11/20/17 20:00 11/20/17 22:38 White Blood Count 11.1 Red Blood Count 4.73 Hemoglobin 13.9 Hematocrit 42.7 Mean Corpuscular Volume 90.4 Mean Corpuscular Hemoglobin 29.4 Mean Corpuscular Hemoglobin Concent 32.5 Red Cell Distribution Width 13.1 Platelet Count 425 Mean Platelet Volume 7.8 Neutrophils (%) (Auto) 67.4 Lymphocytes (%) (Auto) 20.9 Monocytes (%) (Auto) 10.6 Eosinophils (%) (Auto) 0.7 Basophils (%) (Auto) 0.4 Neutrophils # (Auto) 7.5 Lymphocytes # (Auto) 2.3 Monocytes # (Auto) 1.2 Eosinophils # (Auto) 0.1 Basophils # (Auto) 0.0 CBC Comment DIFF FINAL Differential Comment Prothrombin Time 9.9 Prothromb Time International Ratio 1.0 Activated Partial Thromboplast Time 24.3 Blood Urea Nitrogen 15 Creatinine 0.64 Random Glucose 172 Calcium Level 9.5 Magnesium Level 2.3 Sodium Level 134 Potassium Level 3.9 Chloride Level 100 Carbon Dioxide Level 26.9 Anion Gap 7 Estimat Glomerular Filtration Rate 94 Troponin I LESS THAN 0.02 LESS THAN 0.02 LESS THAN 0.02 Lipase 159 Total Creatine Kinase 35 34 Date/Time Source Procedure Growth Status 11/20/17 17:05 Nasal Aspirate Influenza Types A,B Antigen (SATNAM) - Final NEGATIVE FOR FLU A AND B ANTIGEN.... Complete Result Diagram: 11/20/17 1709 11/20/17 1705 Imaging Last Impressions Chest X-Ray 11/20/17 9858 Signed Impressions: Service Date/Time: Sander, November 20, 2017 17:01 - CONCLUSION: No acute disease. Aly Ryan MD FACR Septic Shock Reassessment Septic shock perfusion: reassessment completed Caprini VTE Risk Assessment Caprini VTE Risk Assessment: Mod/High Risk (score >= 2) Caprini Risk Assessment Model Point Value = 1 Point Value = 2 Point Value = 3 Point Value = 5 Age 41-60 Minor surgery BMI > 25 kg/m2 Swollen legs Varicose veins or History of unexplained or recurrent spontaneous Oral contraceptives or hormone replacement Sepsis (< 1 month) Serious lung disease, including pneumonia (< 1 month) Abnormal pulmonary function Acute myocardial infarction Congestive heart failure (< 1 month) History of inflammatory bowel disease Medical patient at bed rest Age 61-74 Arthroscopic surgery Major open surgery (> 45 min) Laparoscopic surgery (> 45 min) Malignancy Confined to bed (> 72 hours) Immobilizing plaster cast Central venous access Age >= 75 History of VTE Family history of VTE Factor V Leiden Prothrombin [id number] Lupus anticoagulant Anticardiolipin antibodies Elevated serum homocysteine Heparin-induced thrombocytopenia Other congenital or acquired thrombophilia Stroke (< 1 month) Elective arthroplasty Hip, pelvis, or leg fracture Acute spinal cord injury (< 1 month) Prophylaxis Regimen Total Risk Factor Score Risk Level Prophylaxis Regimen 0-1 Low Early ambulation 2 Moderate Order ONE of the following: *Sequential Compression Device (SCD) *Heparin 5000 units SQ BID 3-4 Higher Order ONE of the following medications: *Heparin 5000 units SQ TID *Enoxaparin/Lovenox 40 mg SQ daily (WT < 150 kg, CrCl > 30 mL/min) *Enoxaparin/Lovenox 30 mg SQ daily (WT < 150 kg, CrCl > 10-29 mL/min) *Enoxaparin/Lovenox 30 mg SQ BID (WT < 150 kg, CrCl > 30 mL/min) AND/OR *Sequential Compression Device (SCD) 5 or more Highest Order ONE of the following medications: *Heparin 5000 units SQ TID (Preferred with Epidurals) *Enoxaparin/Lovenox 40 mg SQ daily (WT < 150 kg, CrCl > 30 mL/min) *Enoxaparin/Lovenox 30 mg SQ daily (WT < 150 kg, CrCl > 10-29 mL/min) *Enoxaparin/Lovenox 30 mg SQ BID (WT < 150 kg, CrCl > 30 mL/min) AND *Sequential Compression Device (SCD) Assessment and Plan Problem List: (1) COPD with acute exacerbation ICD Code: J44.1 - Chronic obstructive pulmonary disease with (acute) exacerbation Status: Acute Plan: Duo nebs as needed for wheezing. Was given 125 mg IV methylprednisone in ED. Patient placed on IV steroids. Added azithromycin. Continue home Daliresp. Continue home Singulair, Brio, pro-air. Supplemental O2 as needed, patient uses 3 L nasal cannula at home. DVT prophylaxis: SCDs. Heparin. (2) Chest pain ICD Code: R07.9 - Chest pain, unspecified Status: Acute Plan: Chest pain likely secondary to COPD exacerbation with coughing and recent nausea and vomiting. Serial EKGs and serial troponins have been done, troponin trend flat. Patient was given aspirin in ED. Placed on daily aspirin. Continue home Plavix. Continue home beta-darren. Continue home Lipitor. Continue cardiac telemetry, monitor for any arrhythmias. At this time chest pain is now resolved. We will continue to monitor. Nitroglycerin sublingual available as needed for chest pain. Problem Qualifiers (1) Chest pain: Qualified Codes: R07.9 - Chest pain, unspecified Zina Barnes Nov 21, 2017 09:30
[2017-11-21] MEDS: HEPARIN SODIUM - SQ 10,000 UNITS/ML VIAL SQ SCH ×2 (09:39→20:38)
[2017-11-21] MEDS: SODIUM CHLORIDE 0.9% FLUSH 10 ML FLUSH IV FLUSH SCH ×2 (09:40→20:41)
[2017-11-21] MEDS: SODIUM CHLOR 0.9% 1000 ML INJ 1,000 ML IV SCH (09:41)
[2017-11-21] MEDS ORDERED: AZITHROMYCIN INJ 500 MG in SODIUM CHLOR 0.9% 250 ML INJ 250 ML IV SCH (11:00)
[2017-11-21] MEDS ORDERED: ALBUTEROL SULFATE 90 MCG/ACT HFA 8 GM INHALER INH PRN (11:00)
[2017-11-21] MEDS: LEVOTHYROXINE SODIUM 112 MCG TAB PO SCH (11:39)
[2017-11-21] MEDS: methylPREDNISolone SOD SUCC 40 MG/1 ML VIAL IV PUSH SCH ×2 (11:40→18:43)
[2017-11-21] MEDS ORDERED: DEXTROSE 50% IN WATER 50 ML VIAL(D50) IV PUSH PRN (11:45)
[2017-11-21] MEDS ORDERED: GLUCAGON 1 MG/ML VIAL OTHER PRN (11:45)
[2017-11-21] MEDS: INSULIN ASPART SUPPLEMENTAL SCALE SQ SCH ×3 (12:00→20:44)
--- NOTE | 2017-11-21 15:41 | EKG ---
Date Performed: 11/20/2017 Time Performed: 16:41:35 PTAGE: 62 years EKG: Sinus rhythm NONSPECIFIC T-WAVE ABNORMALITY BORDERLINE ECG PREVIOUS TRACING : 08/26/2017 17.33 Since the previous tracing, no significant change noted DOCTOR: Vel Goyal Interpretating Date/Time 11/21/2017 15:39:02
--- NOTE | 2017-11-21 15:41 | EKG ---
Date Performed: 11/20/2017 Time Performed: 20:02:48 PTAGE: 62 years EKG: Sinus rhythm MODERATE T-WAVE ABNORMALITY, CONSIDER ANTERIOR ISCHEMIA ABNORMAL ECG PREVIOUS TRACING : 11/20/2017 16.41 Since the previous tracing, no significant change noted DOCTOR: Vel Goyal Interpretating Date/Time 11/21/2017 15:39:12
--- NOTE | 2017-11-21 15:42 | EKG ---
Date Performed: 11/20/2017 Time Performed: 22:27:16 PTAGE: 62 years EKG: Sinus rhythm LEFT ANTERIOR FASCICULAR BLOCK MODERATE T-WAVE ABNORMALITY, CONSIDER Anterior ISCHEMIA ABNORMAL ECG PREVIOUS TRACING : 11/20/2017 20.02 DOCTOR: Vel Goyal Interpretating Date/Time 11/21/2017 15:39:21
[2017-11-21] MEDS ORDERED: MONTELUKAST SODIUM 10 MG TAB PO SCH (21:00)
[2017-11-21] MEDS ORDERED: SERTRALINE HCL 50 MG TAB PO SCH (21:00)
[2017-11-21] MEDS ORDERED: CHOLECALCIFEROL (VIT D3) 1000 UNIT TAB PO SCH (21:00)
[2017-11-21] MEDS ORDERED: diphenhydrAMINE HCL 50 MG/ML VIAL IV PUSH ONE (22:15)
[2017-11-21] MEDS ORDERED: LORazepam 2 MG/ML VIAL IV PUSH ONE (22:15)
[2017-11-21] MEDS ORDERED: PROCHLORPERAZINE INJ 10 MG/2 ML VIAL IV PUSH ONE (22:15)
[2017-11-22] VITALS: BP 113/52; PULSE 53; RESP 20; TEMP 97.1; O2SAT 99
[2017-11-22] MEDS: methylPREDNISolone SOD SUCC 40 MG/1 ML VIAL IV PUSH SCH ×2 (00:25→05:54)
[2017-11-22] MEDS: SODIUM CHLOR 0.9% 1000 ML INJ 1,000 ML IV SCH (00:29)
[2017-11-22 04:00] VITALS: BP 138/65; PULSE 56; RESP 20; TEMP 97.2; O2SAT 99
[2017-11-22] MEDS: LEVOTHYROXINE SODIUM 112 MCG TAB PO SCH (05:54)
[2017-11-22 07:50] VITALS: BP 142/75; PULSE 76; RESP 20; TEMP 97.7; O2SAT 99
[2017-11-22] MEDS: HEPARIN SODIUM - SQ 10,000 UNITS/ML VIAL SQ SCH (08:00)
[2017-11-22] MEDS: INSULIN ASPART SUPPLEMENTAL SCALE SQ SCH (08:19)
[2017-11-22] MEDS: SODIUM CHLORIDE 0.9% FLUSH 10 ML FLUSH IV FLUSH SCH (08:20)
[2017-11-22] MEDS ORDERED: CLOPIDOGREL 75 MG TAB PO SCH (09:00)
[2017-11-22] MEDS ORDERED: ATORVASTATIN 40 MG TAB PO SCH (09:00)
[2017-11-22] MEDS ORDERED: NEBIVOLOL 10 MG TAB PO SCH (09:00)
[2017-11-22] MEDS ORDERED: UMECLIDINIUM BROMIDE 62.5 MCG INH SCH (09:00)
[2017-11-22] MEDS ORDERED: ROFLUMILAST 500 MCG TAB PO SCH (09:00)
[2017-11-22] MEDS ORDERED: ASPIRIN 81 MG CHEW TAB CHEW SCH (09:00)
[2017-11-22] MEDS ORDERED: FLUTICASONE 100 MCG/VILANTEROL 25 MCG INHALER INH SCH (09:00)
[2017-11-22 11:00] VITALS: BP 135/69; PULSE 68; RESP 20; TEMP 96.3; O2SAT 95
--- NOTE | 2017-11-22 11:35 | HHI.PR ---
Subjective Remarks Follow-up COPD exacerbation and chest pain. Patient seen and examined, lying in bed comfortably no apparent distress. On 3 L nasal cannula this is patient' s baseline at home. Denies any further dyspnea. Chest pain has resolved coughing has resolved. Wheezing improved. Patient is eager to get home. Vital signs are stable. Afebrile. Patient encouraged to follow-up with cardiology, pulmonology and PCP upon discharge. ACS ruled out. Underwent cardiac catheterization one half months ago. Further recommendations per cardiology outpatient. Objective Vitals Vital Signs Date Time Temp Pulse Resp B/P (MAP) Pulse Ox O2 Delivery O2 Flow Rate FiO2 11/22/17 07:50 97.7 76 20 142/75 (97) 99 11/22/17 04:00 97.2 56 20 138/65 (89) 99 11/22/17 00:00 97.1 53 20 113/52 (72) 99 11/21/17 23:00 67 11/21/17 20:00 97.1 79 20 135/61 (85) 98 11/21/17 19:30 98 Nasal Cannula 3.00 11/21/17 16:00 97.0 88 16 115/53 (73) 98 11/21/17 12:18 96.6 70 14 107/65 (79) 100 I/O 11/21/17 11/21/17 11/21/17 11/22/17 11/22/17 11/22/17 07:00 15:00 23:00 07:00 15:00 23:00 Intake Total 420 ml 1060 ml 1900 ml Balance 420 ml 1060 ml 1900 ml Intake Oral 420 ml 60 ml 900 ml IV Total 1000 ml 1000 ml # Voids 5 4 6 # Bowel Movements 0 1 0 Result Diagram: 11/20/17 1705 11/20/17 1705 Imaging Last Impressions Chest X-Ray 11/20/17 1658 Signed Impressions: Service Date/Time: Monday, November 20, 2017 17:01 - CONCLUSION: No acute disease. Aly Ryan MD FACR Objective Remarks GENERAL: Well-developed, well-nourished patient in NAD. On supplemental O2 SKIN: Warm and dry. No rash. HEAD: Normocephalic. Atraumatic. EYES: Pupils equal and round. No scleral icterus. No injection or drainage. ENT: No nasal bleeding or discharge. Mucous membranes pink and moist. NECK: Supple. Trachea midline. CARDIOVASCULAR: Regular rate and rhythm. S1, S2 noted. No murmur appreciated. RESPIRATORY: No accessory muscle use. Clear to auscultation. Breath sounds equal bilaterally. No wheezing. GASTROINTESTINAL: Abdomen soft, non-tender, nondistended. Normoactive bowel sounds x4. MUSCULOSKELETAL: No obvious deformities. Extremities without clubbing, cyanosis , or edema. NEUROLOGICAL: Awake and alert. No obvious cranial nerve deficits. Motor grossly within normal limits. 5/5 muscle strength in bilateral upper and lower extremities. Normal speech. PSYCHIATRIC: Appropriate mood and affect; insight and judgment normal. A/P Problem List: (1) COPD with acute exacerbation ICD Code: J44.1 - Chronic obstructive pulmonary disease with (acute) exacerbation Status: Acute Plan: Duo nebs as needed for wheezing. Will continue on discharge. Patient has equipment at home. Was given 125 mg IV methylprednisone in ED. we will discharge on steroid taper. Continue antibiotic on discharge. Continue home Daliresp. Continue home Singulair, Brio, pro-air. Supplemental O2 as needed, patient uses 3 L nasal cannula at home. DVT prophylaxis: SCDs. Heparin. (2) Chest pain ICD Code: R07.9 - Chest pain, unspecified Status: Acute Plan: Chest pain likely secondary to COPD exacerbation with coughing and recent nausea and vomiting. Serial EKGs and serial troponins have been done, troponin trend flat. Patient was given aspirin in ED. Placed on daily aspirin. Continue home Plavix. Continue home beta-darren. Continue home Lipitor. Continue cardiac telemetry, monitor for any arrhythmias. At this time chest pain is now resolved. No arrhythmias overnight. Nitroglycerin sublingual available as needed for chest pain. No chest pain overnight. Recommendations follow-up with cardiology outpatient within 1 week. Patient encouraged to return to ED if patient's symptoms worsen or persist. Patient is stable at this time and agreeable to plan. Zina Barnes Nov 22, 2017 11:35
[2017-11-22] MEDS ORDERED: PROM2SUP RECTAL (12:02)
[2017-11-22] MEDS ORDERED: MEDR4PAK PO (12:02)
[2017-11-22] MEDS ORDERED: AZIT500T2 PO (12:02)
--- NOTE | 2017-11-22 12:02 | HHI.DCPOC ---
Discharge Care Plan Diagnosis: (1) COPD with acute exacerbation Goals to Promote Your Health * To prevent worsening of your condition and complications * To maintain your health at the optimal level Directions to Meet Your Goals Take your medications as prescribed Follow your dietary instruction Follow activity as directed Keep your appointments as scheduled Take your immunizations and boosters as scheduled If your symptoms worsen call your PCP, if no PCP go to Urgent Care Center or Emergency Room Smoking is Dangerous to Your Health. Avoid second hand smoke Call the 24-hour hour crisis hotline for domestic abuse at Zina Barnes Nov 22, 2017 12:02
== END 2017-11-22 13:26 | disposition home health service (06) ==
LOC: PHED 16:37 → PHEDA 19:19 → PH3A 21:33
PROVIDERS: ADMIT Hospitalist; ATTEND Hospitalist
DX: J44.1 Chronic obstructive pulmonary disease with (acute) exacerbation (principal); R07.9 Chest pain, unspecified; I25.10 Atherosclerotic heart disease of native coronary artery without angina pectoris; I25.2 Old myocardial infarction; E11.43 Type 2 diabetes mellitus with diabetic autonomic (poly)neuropathy; I10 Essential (primary) hypertension; E78.00 Pure hypercholesterolemia, unspecified; E07.9 Disorder of thyroid, unspecified; I44.4 Left anterior fascicular block; R94.31 Abnormal electrocardiogram [ECG] [EKG]; K21.9 Gastro-esophageal reflux disease without esophagitis; F32.9 Major depressive disorder, single episode, unspecified; F41.9 Anxiety disorder, unspecified; H40.9 Unspecified glaucoma; M19.90 Unspecified osteoarthritis, unspecified site; F17.210 Nicotine dependence, cigarettes, uncomplicated; Z99.81 Dependence on supplemental oxygen; Z95.5 Presence of coronary angioplasty implant and graft; Z79.899 Other long term (current) drug therapy; Z79.82 Long term (current) use of aspirin
CPT/HCPCS: 71045; 80048; 82550; 82948; 83690; 83735; 84484; 85025; 85610; 85730; 87804; 93005; 94640; 94664; 96361; 96365; 96372; 96375; 96376; 99285; G0378; J0456; J0780; J1200; J1644; J1815; J2060; J2405; J2920; J2930; J7030; J7050

== ENCOUNTER 2017-12-01 19:30 | Emergency (ER) | payer MEDICARE ==
[~2017-12-01 19:30] MED LIST changes: +AZIT500T2 PO; +MEDR4PAK PO; +PROM2SUP RECTAL; -ZOFR4TAB3 SL
[2017-12-01 20:04] VITALS: BP 123/70; PULSE 81; RESP 26; TEMP 98.3; O2SAT 98
[2017-12-01 20:14] VITALS: BP 111/62; PULSE 84; RESP 20; O2SAT 98
--- NOTE | 2017-12-01 20:25 | PD ---
HPI Chief Complaint: Chest Pain Time Seen by Provider: 20:14 Travel History International Travel<30 days: No Contact w/Intl Traveler<30days: No Traveled to known affect area: No History of Present Illness HPI Patient is a 62-year-old female with a history of COPD chronically on 3 L at home nasal cannula she has history of gastroparesis and she said for the last 4 days she has been having inability to tolerate anything fluids she is vomiting repeatedly she took Zofran at home without any relief of her symptoms she comes to the ER with continuing having substernal pain she thinks is related to her vomiting and the Zofran is not stopping her from vomiting she also feels her COPD is getting exacerbated by the vomiting as well. She has her portable O2 tank with her, Abdo pain epigastric localized and worsening not responding to home meds and associated with aggravating her COPD PFSH Past Medical History Hx Anticoagulant Therapy: Yes (plavix, 81mg asa) Arthritis: Yes (OA) Asthma: No Autoimmune Disease: No Blood Disorders: No Anxiety: Yes Depression: Yes Heart Rhythm Problems: No Cancer: No Cardiac Catheterization: Yes (MULTIPLE: LAST ONE DECEMBER 2015) Cardiovascular Problems: Yes ([place]) High Cholesterol: Yes Chemotherapy: No Chest Pain: Yes Congestive Heart Failure: No COPD: Yes Cerebrovascular Accident: No Coronary Artery Disease: Yes Diabetes: Yes Patient Takes Glucophage: No Diminished Hearing: No Endocrine: Yes GERD: Yes Glaucoma: Yes Genitourinary: No Headaches: Yes Hiatal Hernia: No Immune Disorder: No Implanted Vascular Access Dvce: Yes Insomnia: Yes Kidney Stones: No Musculoskeletal: Yes Neurologic: No Psychiatric: Yes Reproductive: Yes (HYSTERECTOMY) Respiratory: Yes Migraines: No Myocardial Infarction: Yes (10/2015) Pneumonia: Yes Radiation Therapy: No Renal Failure: No Seizures: No Sleep Apnea: No Thyroid Disease: Yes Ulcer: No Tetanus Vaccination: Unknown Menopausal: Yes : 4 Para: 3 Miscarriage: 1 Tubal Ligation: Yes Past Surgical History Abdominal Surgery: Yes (GALLBLADDER) AICD: No Arteriovenous Shunt: No Body Medical Devices: STENT Cardiac Surgery: Yes (STENT) Cholecystectomy: Yes Coronary Stent: Yes (X1, STATES IS PARTIALLY "BLOCKED") Ear Surgery: No Endocrine Surgery: No Eye Surgery: Yes (LASER FOR GLAUCOMA) Genitourinary Surgery: No Gynecologic Surgery: Yes (HYSTERECTOMY) Hysterectomy: Yes Insulin Pump: No Joint Replacement: No Oral Surgery: Yes (DENTURES) Pacemaker: No Thoracic Surgery: No Other Surgery: Yes ("LUMPS REMOVED FROM MY NECK AND RIBCAGE, A LIPOMA") Social History Alcohol Use: Yes ("VERY VERY RARELY") Tobacco Use: No (QUIT 2014) Substance Use: No Allergies-Medications (Allergen,Severity, Reaction): Coded Allergies: morphine (Verified Allergy, Intermediate, Nausea/Vomiting, 12/01/17) doxycycline (Verified Allergy, Unknown, hives, 12/01/17) minocycline (Verified Allergy, Unknown, hives, 12/01/17) penicillin G (Verified Allergy, Unknown, sob, 12/01/17) tigecycline (Verified Allergy, Unknown, hives, 12/01/17) Sulfa (Sulfonamide Antibiotics) (Verified Adverse Reaction, Severe, vomiting, 12/01/17) Reported Meds & Prescriptions Reported Meds & Active Scripts Active Bentyl (Dicyclomine HCl) 10 Mg Cap 10 Mg PO QID Phenergan Supp (Promethazine HCl) 25 Mg Supp 25 Mg RECTAL Q6H PRN Phenergan Supp (Promethazine HCl) 12.5 Mg Supp 12.5 Mg RECTAL Q6H PRN 10 Days Medrol Dosepak (Methylprednisolone) 4 Mg Dspk 4 Mg PO DIRECTED Per Pharmacist direction Azithromycin 500 Mg Tab 500 Mg PO DAILY 4 Days Reglan (Metoclopramide HCl) 10 Mg Tab 10 Mg PO TIDAC Walker/Adult/Folding (Device) 1 Mis Mis Ea .ROUTE DIRECTED Walker with seat Erythromycin Ethylsuccinate Liq (Erythromycin Ethylsuccinate) 200 Mg/Ml Susp 200 Mg PO ACHS PRN 30 Days Levemir Flextouch Pen Inj (Insulin Detemir) 300 unit/3 ML Pen 18 Units SQ Q12HR Breo Ellipta Inh (Fluticasone/Vilanterol) 100-25 Mcg/Act Inh 1 Puff INH DAILY Use daily at the same time. Montelukast (Montelukast Sodium) 10 Mg Tab 10 Mg PO HS Rosuvastatin (Rosuvastatin Calcium) 20 Mg Tab 20 Mg PO DAILY Novolog Flexpen Inj (Insulin Aspart) 300 Unit/3 Ml Pen 12 Units SQ TIDAC Mucinex DM (Dextromethorphan-Guaifenesin) 30-600 Mg Tab 1 Tab PO BID PRN Proair Hfa 8.5 GM Inh (Albuterol Sulfate) 90 Mcg/Act Aer 2 Puff INH Q4-6H PRN 108 mcg/actuation Incruse Ellipta Inh (Umeclidinium [place] Inh) 0.0625 Mg/Act Inh 62.5 Mcg INH DAILY Daliresp (Roflumilast) 500 Mcg Tab 500 Mcg PO DAILY Synthroid (Levothyroxine Sodium) 112 Mcg Tab 112 Mcg PO DAILY Oxygen (O2) (Miscellaneous Medication) Inha 2 Liter JON.CANULA CONTINUOUS Oxygen Concentrator Portable Gaseous 2 L/min via Nasal Canula Continuous For 99 months Oxygen (O2) Device 2 Liter JON.CANULA CONTINUOUS Oxygen Concentrator Portable Gaseous 2 L/min via Nasal Canula Continuous For 99 months Benzonatate 200 Mg Cap 200 Mg PO TID PRN Bystolic (Nebivolol) 10 Mg Tab 10 Mg PO DAILY Oxygen tank (Oxygen) 1 Ea Tank 2 Liter JON.CANULA CONTINUOUS Oxygen Concentrator Portable Gaseous 2 L/min via Nasal Cannula Continuous For 99 months Reported Sertraline (Sertraline HCl) 50 Mg Tab 50 Mg PO HS Vitamin D3 (Cholecalciferol) 1,000 Unit Chew 1,000 Units CHEW HS Lasix (Furosemide) 20 Mg Tab 20 Mg PO DIRECTED PRN Plavix (Clopidogrel Bisulfate) 75 Mg Tab 75 Mg PO DAILY Aspirin 81 Mg Chew 81 Mg CHEW DAILY Review of Systems Respiratory: Positive: Shortness of Breath Gastrointestinal: Positive: Nausea, Vomiting, Abdominal Pain Physical Exam Narrative GENERAL: SKIN: Warm and dry. HEAD: Atraumatic. Normocephalic. EYES: Pupils equal and round. No scleral icterus. No injection or drainage. ENT: No nasal bleeding or discharge. Mucous membranes pink and moist. NECK: Trachea midline. No JVD. CARDIOVASCULAR: Regular rate and rhythm. RESPIRATORY: No accessory muscle use. Clear to auscultation. Breath sounds equal bilaterally. GASTROINTESTINAL: Abdomen epigastric pain nondistended no lower abdominal pain MUSCULOSKELETAL: Extremities without clubbing, cyanosis, or edema. No obvious deformities. NEUROLOGICAL: Awake and alert. No obvious cranial nerve deficits. Motor grossly within normal limits. Five out of 5 muscle strength in the arms and legs. Normal speech. PSYCHIATRIC: Appropriate mood and affect; insight and judgment normal. Data Data Last Documented VS Orders Orders Complete Blood Count With Diff (12/01/17 20:20) Comprehensive Metabolic Panel (12/01/17 20:20) Troponin I (12/01/17 20:20) B-Type Natriuretic Peptide (12/01/17 20:20) Lipase (12/01/17 20:20) Chest, Pa & Lat (12/01/17 20:20) Ondansetron Inj (Zofran Inj) (12/01/17 20:30) Famotidine Inj (Pepcid Inj) (12/01/17 20:30) Ed Discharge Order (12/02/17 02:32) Labs Laboratory Tests Test 12/01/17 20:25 White Blood Count 14.6 TH/MM3 Red Blood Count 4.31 MIL/MM3 Hemoglobin 13.3 GM/DL Hematocrit 39.6 % Mean Corpuscular Volume 91.8 FL Mean Corpuscular Hemoglobin 30.9 PG Mean Corpuscular Hemoglobin Concent 33.6 % Red Cell Distribution Width 13.9 % Platelet Count 429 TH/MM3 Mean Platelet Volume 7.2 FL Neutrophils (%) (Auto) 68.2 % Lymphocytes (%) (Auto) 22.0 % Monocytes (%) (Auto) 8.5 % Eosinophils (%) (Auto) 1.0 % Basophils (%) (Auto) 0.3 % Neutrophils # (Auto) 9.9 TH/MM3 Lymphocytes # (Auto) 3.2 TH/MM3 Monocytes # (Auto) 1.2 TH/MM3 Eosinophils # (Auto) 0.1 TH/MM3 Basophils # (Auto) 0.0 TH/MM3 CBC Comment DIFF FINAL Differential Comment Blood Urea Nitrogen 11 MG/DL Creatinine 0.65 MG/DL Random Glucose 142 MG/DL Total Protein 6.9 GM/DL Albumin 3.6 GM/DL Calcium Level 9.0 MG/DL Alkaline Phosphatase 127 U/L Aspartate Amino Transf (AST/SGOT) 15 U/L Alanine Aminotransferase (ALT/SGPT) 20 U/L Total Bilirubin 0.3 MG/DL Sodium Level 139 MEQ/L Potassium Level 4.0 MEQ/L Chloride Level 102 MEQ/L Carbon Dioxide Level 28.7 MEQ/L Anion Gap 8 MEQ/L Estimat Glomerular Filtration Rate 92 ML/MIN Troponin I LESS THAN 0.02 NG/ML B-Type Natriuretic Peptide 41 PG/ML Lipase 120 U/L MDM Medical Decision Making Medical Screen Exam Complete: Yes Emergency Medical Condition: Yes Differential Diagnosis gastroparesis vs ileus vs obstruction Narrative Course Patient tolerated p.o. after she received IV normal saline as Zofran and Pepcid IV with good results she tolerates liquid she tolerates crackers she feels safe to go home I am giving her prescription for Bentyl p.o. to add to her Zofran p.o. as well as a suppository for antiemetic if she is unable to tolerate the p.o. Diagnosis Primary Impression: Gastritis Scripts Dicyclomine (Bentyl) 10 Mg Cap 10 MG PO QID for Bowel Management, #10 CAP 1 Refill Prov: Ranjit Ashley MD 12/02/17 Promethazine Supp (Phenergan Supp) 25 Mg Supp 25 MG RECTAL Q6H Y for NAUSEA OR VOMITING, #10 SUPP 0 Refills Prov: Ranjit Ashley MD 12/02/17 Disposition: 01 DISCHARGE HOME Condition: Good Ranjit Ashley MD Dec 01, 2017 20:25
[2017-12-01] MEDS ORDERED: FAMOTIDINE 20 MG/2 ML VIAL IV PUSH SCH (20:30)
[2017-12-01] MEDS ORDERED: ONDANSETRON HCL 4 MG/2 ML VIAL IV PUSH ONE (20:30)
[2017-12-01 20:58] LABS: AUTOMATED NEUTROPHIL # 9.9 TH/MM3 (1.8-7.7); BASOPHIL % 0.3 % (0.0-2.0); EOSINOPHIL # 0.1 TH/MM3 (0-0.4); HEMATOCRIT 39.6 % (35.0-46.0); HEMOGLOBIN 13.3 GM/DL (11.6-15.3); LYMPHOCYTE # 3.2 TH/MM3 (1.0-4.8); MEAN CELL VOLUME 91.8 FL (80.0-100.0); MEAN CORPUSCULAR HEMOGLOBIN 30.9 PG (27.0-34.0); MEAN CORPUSCULAR HGB CONC 33.6 % (32.0-36.0); MEAN PLATELET VOLUME 7.2 FL (7.0-11.0); MONO % 8.5 % (0.0-8.0); MONOCYTE # 1.2 TH/MM3 (0-0.9); NEUT % 68.2 % (16.0-70.0); PLATELET COUNT 429 TH/MM3 (150-450); RED BLOOD COUNT 4.31 MIL/MM3 (4.00-5.30); RED CELL DISTRIBUTION WIDTH 13.9 % (11.6-17.2); WHITE BLOOD COUNT 14.6 TH/MM3 (4.0-11.0)
[2017-12-01 21:15] LABS: ALBUMIN 3.6 GM/DL (3.4-5.0); AST (GOT) 15 U/L (15-37); BICARBONATE 28.7 MEQ/L (21.0-32.0); BLOOD UREA NITROGEN 11 MG/DL (7-18); CHLORIDE 102 MEQ/L (98-107); CREATININE 0.65 MG/DL (0.50-1.00); GLOMERULAR FILTRATION RATE 92 ML/MIN (>89); GLUCOSE,RANDOM 142 MG/DL (74-106); SODIUM (NA) 139 MEQ/L (136-145)
[2017-12-01 21:16] LABS: ALT (GPT) 20 U/L (10-53)
[2017-12-01 21:20] LABS: ALKALINE PHOSPHATASE 127 U/L (45-117); TOTAL BILIRUBIN ADULT 0.3 MG/DL (0.2-1.0); TOTAL PROTEIN 6.9 GM/DL (6.4-8.2); TROPONIN I LESS THAN 0.02 NG/ML (0.02-0.05)
--- NOTE | 2017-12-01 22:14 | RADRPT ---
EXAM DATE/TIME: 12/01/2017 21:56 [facility] COMPARISON: No previous studies available for comparison. INDICATIONS : Shortness of breath MEDICAL HISTORY : Emphysema. Chronic obstructive pulmonary disease. Myocardial infarction. Coronary artery disease. SURGICAL HISTORY : Coronary artery stent. ENCOUNTER: Initial ACUITY: 1 day PAIN SCORE: 5/10 LOCATION: Bilateral chest FINDINGS: PA and lateral views of the chest demonstrate the lungs to be symmetrically aerated without evidence of mass, infiltrate or effusion. The cardiomediastinal contours are unremarkable. Osseous structure s are intact. CONCLUSION: No evidence of acute cardiopulmonary disease. Ten David MD on December 01, 2017 at 22:12 Board Certified Radiologist. This report was verified electronically.
[2017-12-01 22:16] VITALS: BP 135/65; PULSE 71; RESP 20; O2SAT 100
[2017-12-02 00:40] VITALS: BP 119/59; PULSE 77; RESP 21; TEMP 98.2; O2SAT 98
[2017-12-02] MEDS ORDERED: DICY10 PO (02:36)
[2017-12-02] MEDS ORDERED: PROM1SUP7 RECTAL (02:36)
== END 2017-12-02 03:05 | disposition home or self-care (01) ==
LOC: NEPE 19:30
DX: K29.70 Gastritis, unspecified, without bleeding (principal); E07.9 Disorder of thyroid, unspecified; E78.00 Pure hypercholesterolemia, unspecified; I25.10 Atherosclerotic heart disease of native coronary artery without angina pectoris; I25.2 Old myocardial infarction; J44.9 Chronic obstructive pulmonary disease, unspecified; R06.02 Shortness of breath; Z79.4 Long term (current) use of insulin; Z87.891 Personal history of nicotine dependence
CPT/HCPCS: 71046; 80053; 83690; 83880; 84484; 85025; 96374; 96375; 99284; J2405

== ENCOUNTER 2017-12-09 14:01 | Inpatient (IN) | payer MEDICARE ==
[~2017-12-09] VITALS: Ht 147.3 cm; Wt 46.8 kg
[2017-12-09] VITALS (8 sets, daily range): BP systolic 135–201; BP diastolic 69–100; PULSE 82–112; RESP 8–22; TEMP 97.4–98.4; O2SAT 99–100
[~2017-12-09 14:01] MED LIST changes: +DICY10 PO; +PROM1SUP7 RECTAL
--- NOTE | 2017-12-09 14:36 | PD ---
HPI Chief Complaint: Respiratory Symptoms Time Seen by Provider: 14:35 Travel History International Travel<30 days: No Contact w/Intl Traveler<30days: No Traveled to known affect area: No History of Present Illness HPI 62-year-old female came to the emergency room with history of intractable abdominal pain and vomiting that has been now going on for 3 weeks. Patient was in the emergency room more than a week ago at the main hospital for the same reason. She had blood test done and was discharged home on medications. Patient is here with her friend and says the medication is not working. She has not been able to keep anything down and not eating and drinking much. Patient has history of gastroparesis. She is a diabetic. She looks uncomfortable. She was tachycardic in triage. Pain is constant without any aggravating or relieving symptoms. However the patient is afraid to eat or drink anything since it makes the vomiting worse. PFSH Past Medical History Narrative Medical List of her past medical, surgical, social and family history reviewed from the nursing note Hx Anticoagulant Therapy: Yes Arthritis: Yes (OA) Asthma: No Autoimmune Disease: No Blood Disorders: No Anxiety: Yes Depression: Yes Heart Rhythm Problems: No Cancer: No Cardiac Catheterization: Yes (MULTIPLE: LAST ONE DECEMBER 2015) Cardiovascular Problems: Yes ([place] X2) High Cholesterol: Yes Chemotherapy: No Chest Pain: Yes Congestive Heart Failure: No COPD: Yes Cerebrovascular Accident: No Coronary Artery Disease: Yes Diabetes: Yes Diminished Hearing: No Endocrine: Yes GERD: Yes Glaucoma: Yes Genitourinary: No Headaches: Yes Hiatal Hernia: No Immune Disorder: No Implanted Vascular Access Dvce: Yes Insomnia: Yes Kidney Stones: No Musculoskeletal: Yes Neurologic: No Psychiatric: Yes Reproductive: Yes (HYSTERECTOMY) Respiratory: Yes (COPD) Migraines: No Myocardial Infarction: Yes (10/2015) Pneumonia: Yes Radiation Therapy: No Renal Failure: No Seizures: No Sleep Apnea: No Thyroid Disease: Yes Ulcer: No ?: Not Menopausal: Yes : 4 Para: 3 Miscarriage: 1 Tubal Ligation: Yes Past Surgical History Abdominal Surgery: Yes (GALLBLADDER) AICD: No Arteriovenous Shunt: No Body Medical Devices: STENT Cardiac Surgery: Yes (STENT) Cholecystectomy: Yes Coronary Stent: Yes (X1, STATES IS PARTIALLY "BLOCKED") Ear Surgery: No Endocrine Surgery: No Eye Surgery: Yes (LASER FOR GLAUCOMA) Genitourinary Surgery: No Gynecologic Surgery: Yes (HYSTERECTOMY) Hysterectomy: Yes Insulin Pump: No Joint Replacement: No Oral Surgery: Yes (DENTURES) Pacemaker: No Thoracic Surgery: No Other Surgery: Yes ("LUMPS REMOVED FROM MY NECK AND RIBCAGE, A LIPOMA") Social History Alcohol Use: Yes ("VERY VERY RARELY") Tobacco Use: No (QUIT 2014) Substance Use: No Allergies-Medications (Allergen,Severity, Reaction): Coded Allergies: morphine (Verified Allergy, Intermediate, Nausea/Vomiting, 12/01/17) doxycycline (Verified Allergy, Unknown, hives, 12/01/17) minocycline (Verified Allergy, Unknown, hives, 12/01/17) penicillin G (Verified Allergy, Unknown, sob, 12/01/17) tigecycline (Verified Allergy, Unknown, hives, 12/01/17) Sulfa (Sulfonamide Antibiotics) (Verified Adverse Reaction, Severe, vomiting, 12/01/17) Comments List of her allergies reviewed from the nursing note. Reported Meds & Prescriptions Reported Meds & Active Scripts Active Bentyl (Dicyclomine HCl) 10 Mg Cap 10 Mg PO QID Phenergan Supp (Promethazine HCl) 12.5 Mg Supp 12.5 Mg RECTAL Q6H PRN 10 Days Walker/Adult/Folding (Device) 1 Mis Mis Ea .ROUTE DIRECTED Walker with seat Erythromycin Ethylsuccinate Liq (Erythromycin Ethylsuccinate) 200 Mg/Ml Susp 200 Mg PO ACHS PRN 30 Days Levemir Flextouch Pen Inj (Insulin Detemir) 300 unit/3 ML Pen 18 Units SQ Q12HR Breo Ellipta Inh (Fluticasone/Vilanterol) 100-25 Mcg/Act Inh 1 Puff INH DAILY Use daily at the same time. Montelukast (Montelukast Sodium) 10 Mg Tab 10 Mg PO HS Rosuvastatin (Rosuvastatin Calcium) 20 Mg Tab 20 Mg PO DAILY Novolog Flexpen Inj (Insulin Aspart) 300 Unit/3 Ml Pen 12 Units SQ TIDAC Proair Hfa 8.5 GM Inh (Albuterol Sulfate) 90 Mcg/Act Aer 2 Puff INH Q4-6H PRN 108 mcg/actuation Incruse Ellipta Inh (Umeclidinium [place] Inh) 0.0625 Mg/Act Inh 62.5 Mcg INH DAILY Daliresp (Roflumilast) 500 Mcg Tab 500 Mcg PO DAILY Synthroid (Levothyroxine Sodium) 112 Mcg Tab 112 Mcg PO DAILY Oxygen (O2) (Miscellaneous Medication) Inha 2 Liter JON.CANULA CONTINUOUS Oxygen Concentrator Portable Gaseous 2 L/min via Nasal Canula Continuous For 99 months Oxygen (O2) Device 2 Liter JNO.CANULA CONTINUOUS Oxygen Concentrator Portable Gaseous 2 L/min via Nasal Canula Continuous For 99 months Benzonatate 200 Mg Cap 200 Mg PO TID PRN Bystolic (Nebivolol) 10 Mg Tab 10 Mg PO DAILY Oxygen tank (Oxygen) 1 Ea Tank 2 Liter JON.CANULA CONTINUOUS Oxygen Concentrator Portable Gaseous 2 L/min via Nasal Cannula Continuous For 99 months Reported Sertraline (Sertraline HCl) 50 Mg Tab 50 Mg PO HS Vitamin D3 (Cholecalciferol) 1,000 Unit Chew 1,000 Units CHEW HS Lasix (Furosemide) 20 Mg Tab 20 Mg PO DIRECTED PRN Plavix (Clopidogrel Bisulfate) 75 Mg Tab 75 Mg PO DAILY Aspirin 81 Mg Chew 81 Mg CHEW DAILY Narrative Medication List of her home medications reviewed from the nursing note Review of Systems Except as stated in HPI: all other systems reviewed are Neg Gastrointestinal: Positive: Nausea, Vomiting, Abdominal Pain Physical Exam Narrative GENERAL: Awake, alert, anxious, moderate to significant SKIN: Focused skin assessment warm/dry. HEAD: Atraumatic. Normocephalic. EYES: Pupils equal and round. No scleral icterus. No injection or drainage. ENT: No nasal bleeding or discharge. Mucous membranes pink and moist. NECK: Trachea midline. No JVD. CARDIOVASCULAR: Regular rate and rhythm. No murmur appreciated. RESPIRATORY: No accessory muscle use. Clear to auscultation. Breath sounds equal bilaterally. GASTROINTESTINAL: Abdomen soft, non-tender, nondistended. Hepatic and splenic margins not palpable. MUSCULOSKELETAL: No obvious deformities. No clubbing. No cyanosis. No edema. NEUROLOGICAL: Awake and alert. No obvious cranial nerve deficits. Motor grossly within normal limits. Normal speech. PSYCHIATRIC: Appropriate mood and affect; insight and judgment normal. Data Data Last Documented VS Vital Signs Date Time Temp Pulse Resp B/P (MAP) Pulse Ox O2 Delivery O2 Flow Rate FiO2 12/09/17 16:02 95 18 167/71 (103) 100 Nasal Cannula 3.00 12/09/17 14:56 98.4 Orders Orders Ondansetron Inj (Zofran Inj) (12/09/17 15:09) Complete Blood Count With Diff (12/09/17 15:21) Comprehensive Metabolic Panel (12/09/17 15:21) Lipase (12/09/17 15:21) Urinalysis - C+S If Indicated (12/09/17 15:21) Abdomen, Flat & Upright (12/09/17 ) Iv Access Insert/Monitor (12/09/17 15:21) Ecg Monitoring (12/09/17 15:21) Oximetry (12/09/17 15:21) Ondansetron Inj (Zofran Inj) (12/09/17 15:30) Sodium Chlor 0.9% 1000 Ml Inj (Ns 1000 M (12/09/17 15:21) Sodium Chloride 0.9% Flush (Ns Flush) (12/09/17 15:30) Electrocardiogram (12/09/17 15:21) Magnesium (Mg) (12/09/17 15:21) Insert Ng Tube (12/09/17 15:21) Admit Order (Ed Use Only) (12/09/17 16:27) Labs Laboratory Tests Test 12/09/17 15:15 White Blood Count 12.4 TH/MM3 Red Blood Count 4.60 MIL/MM3 Hemoglobin 13.9 GM/DL Hematocrit 42.3 % Mean Corpuscular Volume 92.1 FL Mean Corpuscular Hemoglobin 30.3 PG Mean Corpuscular Hemoglobin Concent 32.9 % Red Cell Distribution Width 13.8 % Platelet Count 411 TH/MM3 Mean Platelet Volume 7.9 FL Neutrophils (%) (Auto) 71.9 % Lymphocytes (%) (Auto) 20.2 % Monocytes (%) (Auto) 6.9 % Eosinophils (%) (Auto) 0.4 % Basophils (%) (Auto) 0.6 % Neutrophils # (Auto) 8.9 TH/MM3 Lymphocytes # (Auto) 2.5 TH/MM3 Monocytes # (Auto) 0.9 TH/MM3 Eosinophils # (Auto) 0.0 TH/MM3 Basophils # (Auto) 0.1 TH/MM3 CBC Comment DIFF FINAL Differential Comment Blood Urea Nitrogen 12 MG/DL Creatinine 0.52 MG/DL Random Glucose 178 MG/DL Total Protein 7.1 GM/DL Albumin 3.6 GM/DL Calcium Level 9.1 MG/DL Magnesium Level 2.2 MG/DL Alkaline Phosphatase 134 U/L Aspartate Amino Transf (AST/SGOT) 15 U/L Alanine Aminotransferase (ALT/SGPT) 23 U/L Total Bilirubin 0.5 MG/DL Sodium Level 137 MEQ/L Potassium Level 3.4 MEQ/L Chloride Level 102 MEQ/L Carbon Dioxide Level 26.4 MEQ/L Anion Gap 9 MEQ/L Estimat Glomerular Filtration Rate 119 ML/MIN Lipase 107 U/L [facility] Medical Decision Making Medical Screen Exam Complete: Yes Emergency Medical Condition: Yes Medical Record Reviewed: Yes Interpretation(s) Twelve-lead EKG was reviewed by me. Normal sinus rhythm, normal axis, nonspecific ST-T wave changes. Heart rate of 92 bpm. Differential Diagnosis Intractable vomiting, intractable pain, dehydration, electrolyte abnormality, gastroparesis Narrative Course 4:30 PM blood test results are back and within acceptable limit except for mild hypokalemia. I explained to the patient that if the medications have not been helping then the next step would be to insert a nasogastric tube which patient said she has had long time ago and was okay with it for now. The x-ray confirms a good position for the NG tube. Patient is getting IV fluid bolus and Zofran for nausea and vomiting. I decided to admit her. Case was discussed with the hospitalist and he has accepted the patient. Procedures EKG Prior to Arrival: No Diagnosis Primary Impression: Intractable abdominal pain Additional Impressions: Intractable vomiting Qualified Codes: R11.2 - Nausea with vomiting, unspecified Gastric paresis Failure of outpatient treatment Admitting Information Admitting Physician Requests: Admit Lcaey Negrete MD December 09, 2017 14:35
[2017-12-09] MEDS ORDERED: ONDANSETRON HCL 4 MG/2 ML VIAL ONE (15:09)
[2017-12-09] MEDS ORDERED: SODIUM CHLOR 0.9% 1000 ML INJ 1,000 ML IV SCH (15:21)
[2017-12-09] MEDS ORDERED: SODIUM CHLORIDE 0.9% FLUSH 10 ML FLUSH IV FLUSH PRN ×2 (15:30→17:45)
[2017-12-09] MEDS ORDERED: ONDANSETRON HCL 4 MG/2 ML VIAL IVP ONE (15:30)
[2017-12-09 15:51] LABS: AUTOMATED NEUTROPHIL # 8.9 TH/MM3 (1.8-7.7); BASOPHIL # 0.1 TH/MM3 (0-0.2); BASOPHIL % 0.6 % (0.0-2.0); EOSINOPHIL % 0.4 % (0.0-4.0); HEMATOCRIT 42.3 % (35.0-46.0); HEMOGLOBIN 13.9 GM/DL (11.6-15.3); LYMPH % 20.2 % (9.0-44.0); LYMPHOCYTE # 2.5 TH/MM3 (1.0-4.8); MEAN CELL VOLUME 92.1 FL (80.0-100.0); MEAN CORPUSCULAR HEMOGLOBIN 30.3 PG (27.0-34.0); MEAN CORPUSCULAR HGB CONC 32.9 % (32.0-36.0); MEAN PLATELET VOLUME 7.9 FL (7.0-11.0); MONO % 6.9 % (0.0-8.0); MONOCYTE # 0.9 TH/MM3 (0-0.9); NEUT % 71.9 % (16.0-70.0); PLATELET COUNT 411 TH/MM3 (150-450); RED CELL DISTRIBUTION WIDTH 13.8 % (11.6-17.2); WHITE BLOOD COUNT 12.4 TH/MM3 (4.0-11.0)
[2017-12-09 15:58] LABS: CHLORIDE 102 MEQ/L (98-107); SODIUM (NA) 137 MEQ/L (136-145)
[2017-12-09 16:02] LABS: CALCIUM 9.1 MG/DL (8.5-10.1)
[2017-12-09 16:03] LABS: ALBUMIN 3.6 GM/DL (3.4-5.0); BICARBONATE 26.4 MEQ/L (21.0-32.0); BLOOD UREA NITROGEN 12 MG/DL (7-18); GLUCOSE,RANDOM 178 MG/DL (74-106); MAGNESIUM 2.2 MG/DL (1.5-2.5)
[2017-12-09 16:05] LABS: ALT (GPT) 23 U/L (10-53); AST (GOT) 15 U/L (15-37); CREATININE 0.52 MG/DL (0.50-1.00); GLOMERULAR FILTRATION RATE 119 ML/MIN (>89)
[2017-12-09 16:07] LABS: TOTAL BILIRUBIN ADULT 0.5 MG/DL (0.2-1.0); TOTAL PROTEIN 7.1 GM/DL (6.4-8.2)
[2017-12-09 16:08] LABS: ALKALINE PHOSPHATASE 134 U/L (45-117)
--- NOTE | 2017-12-09 16:35 | RADRPT ---
EXAM DATE/TIME: 12/09/2017 15:41 [facility] COMPARISON: CT ABDOMEN & PELVIS W CONTRAST, August 10, 2017, 16:53. ABDOMEN FLAT & UPRIGHT, August 26, 2017, 1 7:06. INDICATIONS : Pain. MEDICAL HISTORY : Emphysema. Chronic obstructive pulmonary disease. Myocardial infarction. Coronary artery disease. SURGICAL HISTORY : Cholecystectomy. Hysterectomy. Coronary artery stent. ENCOUNTER: Initial ACUITY: 3 weeks PAIN SCORE: 8/10 LOCATION: abdomen FINDINGS: Supine and upright views of the abdomen. Surgical clips in the right upper quadrant. Scattered gas in nondilated colon and small bowel. Nasogastric tube in the stomach. 1.1 cm ovoid calcification in the right lower quadrant overlying the sacral ala. Similar-appearing calcification is seen on the prior study of August 2017. Prior CT shows venous calcification in this region. Osseous structures within normal limits. No free air. CONCLUSION: Nonspecific bowel gas pattern. Stevie Hayward MD on December 09, 2017 at 16:31 Board Certified Radiologist. This report was verified electronically.
[2017-12-09 17:18] LABS: BILIRUBIN, URINE NEG (NEG); BLOOD, URINE NEG (NEG); GLUCOSE,URINE NEG (NEG); KETONE, URINE NEG (NEG); NITRITE,URINE NEG (NEG); URINE COLOR YELLOW (YELLW/STRAW); URINE LEUKOCYTE ESTERASE NEG (NEG)
[2017-12-09] MEDS ORDERED: POTASSIUM CHLOR 20 MEQ PREMIX 100 ML IV ONE (17:30)
[2017-12-09 17:42] LABS: WBC, URINE 0-2 /hpf (0-5)
[2017-12-09] MEDS ORDERED: ACETAMINOPHEN 325 MG TAB PO PRN ×2 (17:45)
[2017-12-09] MEDS ORDERED: NALOXONE HCL 0.4 MG/ML AMP IV PUSH PRN (17:45)
[2017-12-09] MEDS ORDERED: PROCHLORPERAZINE 25 MG SUPP RECTAL PRN (17:45)
[2017-12-09] MEDS ORDERED: RESP: ALBUTEROL 2.5 MG/3 ML NEB (PRN) NEB (18:00)
[2017-12-09] MEDS: DICYCLOMINE HCL 10 MG CAP PO SCH ×2 (18:00→21:00)
[2017-12-09] MEDS ORDERED: ENALAPRILAT 2.5 MG/2 ML VIAL IV PUSH PRN (18:00)
--- NOTE | 2017-12-09 18:00 | HHI.HP ---
[facility] Service [place] [facility] Primary Care Physician Emilio Davila MD Admission Diagnosis Intractable vomiting, intractable abdominal pain, gastroparesis Diagnoses: Chief Complaint: N/V, abdominal pain Travel History International Travel<30 Days: No Contact w/Intl Traveler <30 Da: No Traveled to Known Affected Are: No History of Present Illness The patient is a 62-year-old female with a past medical history of gastroparesis who is presenting to the hospital with severe abdominal pain and nausea and vomiting. She says this started in May. Since then she has been vomiting all of the time. She says sometimes up to 8 or 10 times a day. She does not have much of an appetite secondary to that. She says she has lost 40 pounds since May. She has been on Zofran and Reglan, and states the Reglan was discontinued. She states she was diagnosed with gastroparesis. She says she has right-sided abdominal pain that she rates at a 9 or 10 out of 10 in severity. She says that she does not take much for pain medication at home and ends up curling into a ball. 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 She says she is on 3 L of oxygen at home. Discussed with nursing. Review of Systems Except as stated in HPI: all other systems reviewed are Neg Past Family Social History Past Medical History CAD with cardiac stent placement Hyperlipidemia COPD with home oxygen Diabetes Hypertension Past Surgical History Cholecystectomy Glaucoma surgery Lipoma removed from left neck Hysterectomy Allergies: Coded Allergies: morphine (Verified Allergy, Intermediate, Nausea/Vomiting, 12/01/17) doxycycline (Verified Allergy, Unknown, hives, 12/01/17) minocycline (Verified Allergy, Unknown, hives, 12/01/17) penicillin G (Verified Allergy, Unknown, sob, 12/01/17) tigecycline (Verified Allergy, Unknown, hives, 12/01/17) Sulfa (Sulfonamide Antibiotics) (Verified Adverse Reaction, Severe, vomiting, 12/01/17) Family History Diabetes CAD Osteoarthritis Social History The patient quit smoking 2-1/2 years ago and has rare alcohol intake. Physical Exam Vital Signs Vital Signs Date Time Temp Pulse Resp B/P (MAP) Pulse Ox O2 Delivery O2 Flow Rate FiO2 12/09/17 17:24 83 18 159/77 (104) 99 Nasal Cannula 3.00 12/09/17 16:02 95 18 167/71 (103) 100 Nasal Cannula 3.00 12/09/17 15:41 18 100 Nasal Cannula 3.00 12/09/17 14:58 100 Nasal Cannula 3.00 12/09/17 14:56 98.4 99 18 153/82 (105) 100 Nasal Cannula 3.00 12/09/17 14:13 98.3 112 22 201/100 (133) 99 Physical Exam GENERAL: Resting. SKIN: Focused skin assessment warm/dry. HEAD: Atraumatic. Normocephalic. EYES: Pupils equal and round. No scleral icterus. No injection or drainage. ENT: No nasal bleeding or discharge. Mucous membranes pink and moist. NG tube in place. NECK: Trachea midline. No JVD. CARDIOVASCULAR: Regular rate and rhythm. No murmur appreciated. RESPIRATORY: Mild wheezing. GASTROINTESTINAL: Abdomen soft, non-tender, nondistended. Hepatic and splenic margins not palpable. MUSCULOSKELETAL: No obvious deformities. No clubbing. No cyanosis. No edema. NEUROLOGICAL: Awake and alert. No obvious cranial nerve deficits. Motor grossly within normal limits. Normal speech. PSYCHIATRIC: Slightly flattened affect. Laboratory Laboratory Tests Test 12/09/17 15:15 12/09/17 17:00 White Blood Count 12.4 Red Blood Count 4.60 Hemoglobin 13.9 Hematocrit 42.3 Mean Corpuscular Volume 92.1 Mean Corpuscular Hemoglobin 30.3 Mean Corpuscular Hemoglobin Concent 32.9 Red Cell Distribution Width 13.8 Platelet Count 411 Mean Platelet Volume 7.9 Neutrophils (%) (Auto) 71.9 Lymphocytes (%) (Auto) 20.2 Monocytes (%) (Auto) 6.9 Eosinophils (%) (Auto) 0.4 Basophils (%) (Auto) 0.6 Neutrophils # (Auto) 8.9 Lymphocytes # (Auto) 2.5 Monocytes # (Auto) 0.9 Eosinophils # (Auto) 0.0 Basophils # (Auto) 0.1 CBC Comment DIFF FINAL Differential Comment Blood Urea Nitrogen 12 Creatinine 0.52 Random Glucose 178 Total Protein 7.1 Albumin 3.6 Calcium Level 9.1 Magnesium Level 2.2 Alkaline Phosphatase 134 Aspartate Amino Transf (AST/SGOT) 15 Alanine Aminotransferase (ALT/SGPT) 23 Total Bilirubin 0.5 Sodium Level 137 Potassium Level 3.4 Chloride Level 102 Carbon Dioxide Level 26.4 Anion Gap 9 Estimat Glomerular Filtration Rate 119 Lipase 107 Urine Collection Type VOIDED Urine Color YELLOW Urine Turbidity CLEAR Urine pH 6.0 Urine Specific [place] 1.010 Urine Protein NEG Urine Glucose (UA) NEG Urine Ketones NEG Urine Occult Blood NEG Urine Nitrite NEG Urine Bilirubin NEG Urine Urobilinogen 0.2 Urine Leukocyte Esterase NEG Urine WBC 0-2 Urine Squamous Epithelial Cells 2-5 Microscopic Urinalysis Comment CULT NOT INDICATED Result Diagram: 12/09/17 1515 12/09/17 1515 Imaging Last Impressions Abdomen X-Ray 12/09/17 0000 Signed Impressions: Service Date/Time: Monday, December 09, 2017 15:41 - CONCLUSION: Nonspecific bowel gas pattern. MD Deb Mohan VTE Risk Assessment Caprini VTE Risk Assessment: Mod/High Risk (score >= 2) Caprini Risk Assessment Model Point Value = 1 Point Value = 2 Point Value = 3 Point Value = 5 Age 41-60 Minor surgery BMI > 25 kg/m2 Swollen legs Varicose veins or History of unexplained or recurrent spontaneous Oral contraceptives or hormone replacement Sepsis (< 1 month) Serious lung disease, including pneumonia (< 1 month) Abnormal pulmonary function Acute myocardial infarction Congestive heart failure (< 1 month) History of inflammatory bowel disease Medical patient at bed rest Age 61-74 Arthroscopic surgery Major open surgery (> 45 min) Laparoscopic surgery (> 45 min) Malignancy Confined to bed (> 72 hours) Immobilizing plaster cast Central venous access Age >= 75 History of VTE Family history of VTE Factor V Leiden Prothrombin [id number] Lupus anticoagulant Anticardiolipin antibodies Elevated serum homocysteine Heparin-induced thrombocytopenia Other congenital or acquired thrombophilia Stroke (< 1 month) Elective arthroplasty Hip, pelvis, or leg fracture Acute spinal cord injury (< 1 month) Prophylaxis Regimen Total Risk Factor Score Risk Level Prophylaxis Regimen 0-1 Low Early ambulation 2 Moderate Order ONE of the following: *Sequential Compression Device (SCD) *Heparin 5000 units SQ BID 3-4 Higher Order ONE of the following medications: *Heparin 5000 units SQ TID *Enoxaparin/Lovenox 40 mg SQ daily (WT < 150 kg, CrCl > 30 mL/min) *Enoxaparin/Lovenox 30 mg SQ daily (WT < 150 kg, CrCl > 10-29 mL/min) *Enoxaparin/Lovenox 30 mg SQ BID (WT < 150 kg, CrCl > 30 mL/min) AND/OR *Sequential Compression Device (SCD) 5 or more Highest Order ONE of the following medications: *Heparin 5000 units SQ TID (Preferred with Epidurals) *Enoxaparin/Lovenox 40 mg SQ daily (WT < 150 kg, CrCl > 30 mL/min) *Enoxaparin/Lovenox 30 mg SQ daily (WT < 150 kg, CrCl > 10-29 mL/min) *Enoxaparin/Lovenox 30 mg SQ BID (WT < 150 kg, CrCl > 30 mL/min) AND *Sequential Compression Device (SCD) Assessment and Plan Assessment and Plan Gastroparesis Acute on chronic problem. - continue NGT. - IVFs. - GI consult requested. - keep NPO for now. Hypokalemia S/t above. - replete and monitor. Diabetes Glucose has been elevated. - insulin sliding scale. CAD No complaints of chest pain at this time. - continue cardiac regimen. Leukocytosis May be a stress reaction. - follow CBC. HTN Exacerbated by clinical condition. - continue home regimen. - Vasotec as needed. PPx: SCDs Code Status Full Discussed Condition With PtDr Halpern, nurse Physician Certification 2 Midnight Certification Type: Admission for Inpatient Services Order for Inpatient Services The services are ordered in accordance with Medicare regulations or non- Medicare payer requirements, as applicable. In the case of services not specified as inpatient-only, they are appropriately provided as inpatient services in accordance with the 2-midnight benchmark. Estimated LOS (days): 2 days is the estimated time the patient will need to remain in the hospital, assuming treatment plan goals are met and no additional complications. Post-Hospital Plan: Not yet determined Emilio Watts DO December 09, 2017 17:59
[2017-12-09] MEDS ORDERED: GLUCAGON 1 MG/ML VIAL OTHER PRN (18:30)
[2017-12-09] MEDS ORDERED: DEXTROSE 50% IN WATER 50 ML VIAL(D50) IV PUSH PRN (18:30)
[2017-12-09] MEDS: SODIUM CHLOR 0.9% 1000 ML INJ 1,000 ML IV SCH (18:34)
--- NOTE | 2017-12-09 20:14 | MB ---
cc: Forrest Mack MD, Ketul R MD DATE: 12/09/2017 REASON FOR CONSULTATION: Nausea, vomiting and gastroparesis. HISTORY OF PRESENT ILLNESS: This is a 62-year-old female who has seen Dr. Christy in the office as an outpatient sometime last year. She was apparently diagnosed with gastroparesis and has been on various medications. Unfortunately, she tells me that since the beginning of this year she changed her insurance and we were apparently no longer par and therefore she has not been able to followup with us. In the meantime, she has been having issues with episodic nausea and vomiting. Lately over the last several weeks, her symptoms have been worsening, having persistent nausea, vomiting, sometimes 8-10 times per day, reduced appetite and she believes she has lost about 30-40 pounds since 05/2017. In the past, she has been on Zofran as well as Reglan. Due to long-term complications of Reglan, this was discontinued. She denies any recent infectious etiology, but she does have significant chronic obstructive pulmonary disease and on 3 liters of home oxygen. This is her second visit to the emergency room for similar symptoms and, therefore, she was admitted for further workup and evaluation. In the meantime, GI was consulted. PAST MEDICAL HISTORY: Coronary artery disease with cardiac stent placement, hyperlipidemia, COPD with 3 liters of home oxygen, diabetes mellitus, hypertension. PAST SURGICAL HISTORY: Cholecystectomy, glaucoma surgery, lipoma removal from the back, hysterectomy. ALLERGIES: MULTIPLE TO MEDICATIONS INCLUDE MORPHINE, DOXYCYCLINE, MINOCYCLINE, PENICILLIN, . TETRACYCLINE, SULFA. FAMILY HISTORY: Diabetes. No GI malignancy. SOCIAL HISTORY: Smoking - significant tobacco use history. Quit smoking 2-1/2 years ago. Denies any regular alcohol use. MEDICATIONS: 1. Albuterol. 2. Aspirin. 3. Benzonatate 4. Vitamin D. 5. Clopidogrel. 5. Dicyclomine. 6. Fluticasone. 7. Lasix. 8. Insulin. 9. Levothyroxine. 10. Montelukast 11. Home oxygen, 12. Promethazine 13. Daliresp 14. Sertraline. REVIEW OF SYSTEMS: A 12 point review of systems was obtained by me, should to be negative or noncontributory except for the above-mentioned in HPI. PHYSICAL EXAMINATION: VITAL SIGNS: Temperature afebrile, heart rate 82, respiration 18, blood pressure 135/69, O2 saturation 100% on 3 liters. GENERAL: Alert, oriented, in mild acute distress, severe coughing spells. HEENT: Has an NG tube. Pupils equal, round, reactive to light. Oral mucosa is moist, chronically ill-appearing. NECK: Supple. No carotid bruits. CARDIOVASCULAR: Regular rate, rhythm. RESPIRATORY: Bilateral wheezing and rales with anterior breath sounds. ABDOMEN: Soft, nontender, nondistended, bowel sounds present in all 4 quadrants. No rebound appreciated. GENITOURINARY: No CV angle tenderness appreciated. MUSCULOSKELETAL: Equal strength upper and lower extremities. PSYCHIATRIC: Appropriate mood and affect. NEUROLOGIC: Alert, oriented. No focal deficits. LABORATORY DATA: WBC 12.4, hemoglobin 13.9, platelet count 411. Sodium 137, potassium 3.4, chloride 104, bicarbonate 26, BUN 12, creatinine 0.52, AST 15, ALT 23, alkaline phosphatase 134, total protein 7.1, lipase 107. ASSESSMENT: 1. Intractable nausea and vomiting may be secondary to uncontrolled gastroparesis. 2. Severe chronic obstructive pulmonary disease with home oxygen. 3. Cough which has worsened, possibility of underlying pneumonia or bronchitis versus possibility of aspiration given her multiple bouts of emesis. RECOMMENDATION: 1. Okay to continue nasogastric tube to low intermittent suctioning. Recommend antiemetics, Zofran 4 mg IV q 6 hrs around the clock until her nausea symptoms are better controlled. 2. Can clamp and discontinue the nasogastric tube once the patient is feeling better. 3. Chest x-ray to evaluate any acute abnormalities in the lung. 4 No urgent plans for endoscopic workup at this time. The patient will ideally need to be optimized medically. Once she is able to tolerate oral intake and switch to p.o. medication, I anticipate discharge. Thank you for allowing [facility] to participate in the care of this patient. Please do not hesitate to contact me for any further questions. MD TJ Diallo/ , 07:30 PM , 08:13 PM
[2017-12-09] MEDS: INSULIN ASPART SUPPLEMENTAL SCALE SQ SCH (21:00)
[2017-12-09] MEDS: DOCUSATE SODIUM 50 MG/SENNA 8.6 MG TAB PO SCH (21:00)
[2017-12-09] MEDS: HYDROmorphone HCL PF 2 MG/ML VIAL IV PUSH PRN (21:13)
[2017-12-09] MEDS: SERTRALINE HCL 50 MG TAB PO SCH (21:13)
[2017-12-09] MEDS: ONDANSETRON HCL 4 MG/2 ML VIAL IVP PRN (21:13)
[2017-12-09] MEDS: SODIUM CHLORIDE 0.9% FLUSH 10 ML FLUSH IV FLUSH SCH (21:14)
[2017-12-10] VITALS (10 sets, daily range): BP systolic 99–180; BP diastolic 56–95; PULSE 90–113; RESP 16–20; TEMP 97–100.4; O2SAT 93–99
[2017-12-10] MEDS: HYDROmorphone HCL PF 2 MG/ML VIAL IV PUSH PRN ×4 (02:07→20:04)
[2017-12-10] MEDS ORDERED: LORazepam 2 MG/ML VIAL IV PUSH ONE (02:30)
[2017-12-10] MEDS ORDERED: ACETAMINOPHEN 500 MG CPLT PO PRN (02:30)
[2017-12-10] MEDS ORDERED: NITROGLYCERIN 0.4 MG SL 25 TABS/BTL SL PRN (02:30)
[2017-12-10 03:14] LABS: TROPONIN I LESS THAN 0.02 NG/ML (0.02-0.05)
[2017-12-10] MEDS: SODIUM CHLOR 0.9% 1000 ML INJ 1,000 ML IV SCH ×3 (03:45→23:01)
[2017-12-10] MEDS: LEVOTHYROXINE SODIUM 112 MCG TAB PO SCH ×2 (06:00→06:08)
[2017-12-10] MEDS: ONDANSETRON HCL 4 MG/2 ML VIAL IVP PRN (06:13)
[2017-12-10] MEDS: PROCHLORPERAZINE INJ 10 MG/2 ML VIAL IV PUSH PRN (07:49)
[2017-12-10] MEDS: INSULIN ASPART SUPPLEMENTAL SCALE SQ SCH ×4 (07:58→20:08)
[2017-12-10] MEDS: SODIUM CHLORIDE 0.9% FLUSH 10 ML FLUSH IV FLUSH SCH ×2 (07:58→20:05)
[2017-12-10] MEDS: DOCUSATE SODIUM 50 MG/SENNA 8.6 MG TAB PO SCH ×2 (08:07→20:05)
[2017-12-10] MEDS: NEBIVOLOL 10 MG TAB PO SCH (08:07)
[2017-12-10] MEDS: ROFLUMILAST 500 MCG TAB PO SCH (08:07)
[2017-12-10] MEDS: DICYCLOMINE HCL 10 MG CAP PO SCH ×4 (08:07→20:05)
[2017-12-10] MEDS: ASPIRIN 81 MG CHEW TAB CHEW SCH (08:08)
[2017-12-10] MEDS: CLOPIDOGREL 75 MG TAB PO SCH (08:08)
[2017-12-10 08:21] LABS: AUTOMATED NEUTROPHIL # 12.9 TH/MM3 (1.8-7.7); BASOPHIL % 0.3 % (0.0-2.0); EOSINOPHIL # 0.1 TH/MM3 (0-0.4); EOSINOPHIL % 0.4 % (0.0-4.0); HEMATOCRIT 37.8 % (35.0-46.0); HEMOGLOBIN 12.4 GM/DL (11.6-15.3); LYMPH % 11.2 % (9.0-44.0); LYMPHOCYTE # 1.8 TH/MM3 (1.0-4.8); MEAN CELL VOLUME 91.1 FL (80.0-100.0); MEAN CORPUSCULAR HGB CONC 32.9 % (32.0-36.0); MEAN PLATELET VOLUME 7.4 FL (7.0-11.0); MONO % 6.5 % (0.0-8.0); NEUT % 81.6 % (16.0-70.0); PLATELET COUNT 344 TH/MM3 (150-450); RED BLOOD COUNT 4.15 MIL/MM3 (4.00-5.30); RED CELL DISTRIBUTION WIDTH 13.4 % (11.6-17.2); WHITE BLOOD COUNT 15.8 TH/MM3 (4.0-11.0)
[2017-12-10 08:35] LABS: CHLORIDE 106 MEQ/L (98-107); SODIUM (NA) 141 MEQ/L (136-145)
[2017-12-10 08:38] LABS: CALCIUM 8.4 MG/DL (8.5-10.1)
[2017-12-10 08:47] LABS: TROPONIN I LESS THAN 0.02 NG/ML (0.02-0.05)
[2017-12-10] MEDS ORDERED: FLUTICASONE 100 MCG/VILANTEROL 25 MCG INHALER INH SCH (09:00)
[2017-12-10] MEDS ORDERED: UMECLIDINIUM BROMIDE 62.5 MCG INH SCH (09:00)
[2017-12-10 09:01] LABS: ALKALINE PHOSPHATASE 113 U/L (45-117); ALT (GPT) 20 U/L (10-53); AST (GOT) 13 U/L (15-37); BICARBONATE 31.6 MEQ/L (21.0-32.0); BLOOD UREA NITROGEN 10 MG/DL (7-18); CREATININE 0.44 MG/DL (0.50-1.00); GLOMERULAR FILTRATION RATE 145 ML/MIN (>89); GLUCOSE,RANDOM 156 MG/DL (74-106); TOTAL BILIRUBIN ADULT 0.6 MG/DL (0.2-1.0); TOTAL PROTEIN 6.3 GM/DL (6.4-8.2)
[2017-12-10] MEDS ORDERED: ACETAMINOPHEN 1000 MG/100 ML 100 ML IV PRN (10:15)
[2017-12-10] MEDS ORDERED: PROMETHAZINE HCL 25 MG SUPP RECTAL ONE (11:15)
--- NOTE | 2017-12-10 11:39 | HHI.PR ---
Subjective Remarks The patient appeared lethargic. Her nurse was at the bedside and states she recently got her IV Dilaudid. The patient still had the NG tube and there was a lot of output. Nursing reports continued pain. The patient appeared confused but knew she was in the hospital. She did endorse worsening shortness of breath. Objective Vitals Vital Signs Date Time Temp Pulse Resp B/P (MAP) Pulse Ox O2 Delivery O2 Flow Rate FiO2 12/10/17 08:14 93 Nasal Cannula 3.00 12/10/17 08:00 100.4 113 17 122/60 (80) 93 12/10/17 07:01 112 12/10/17 04:00 97.2 106 20 110/66 (81) 95 12/10/17 00:00 97.0 90 20 157/71 (99) 99 12/09/17 20:15 99 Nasal Cannula 3.00 12/09/17 20:00 97.4 82 20 138/72 (94) 99 12/09/17 19:02 12/09/17 18:36 82 18 135/69 (91) 100 Nasal Cannula 3.00 12/09/17 17:24 83 18 159/77 (104) 99 Nasal Cannula 3.00 12/09/17 16:02 95 18 167/71 (103) 100 Nasal Cannula 3.00 12/09/17 15:41 18 100 Nasal Cannula 3.00 12/09/17 14:58 100 Nasal Cannula 3.00 12/09/17 14:56 98.4 99 18 153/82 (105) 100 Nasal Cannula 3.00 12/09/17 14:13 98.3 112 22 201/100 (133) 99 I/O 12/09/17 12/09/17 12/09/17 12/10/17 12/10/17 12/10/17 07:00 15:00 23:00 07:00 15:00 23:00 Intake Total 1100 ml 1138 ml Output Total 300 ml Balance 1100 ml 838 ml Intake Oral 0 ml IV Total 1100 ml 1138 ml Output Gastric Drainage Total 300 ml # Voids 2 Result Diagram: 12/10/17 0745 12/10/17 0745 Imaging Last Impressions Abdomen X-Ray 12/09/17 0000 Signed Impressions: Service Date/Time: Saturday, December 09, 2017 15:41 - CONCLUSION: Nonspecific bowel gas pattern. Stevie Hayward MD Objective Remarks GENERAL: Resting. SKIN: Focused skin assessment warm/dry. HEAD: Atraumatic. Normocephalic. EYES: Pupils equal and round. No scleral icterus. No injection or drainage. ENT: No nasal bleeding or discharge. Mucous membranes pink and moist. NG tube in place. NECK: Trachea midline. No JVD. CARDIOVASCULAR: Regular rate and rhythm. No murmur appreciated. RESPIRATORY: Significant wheezing. GASTROINTESTINAL: Abdomen soft, non-tender, nondistended. Hepatic and splenic margins not palpable. MUSCULOSKELETAL: No obvious deformities. No clubbing. No cyanosis. No edema. NEUROLOGICAL: Lethargic and slightly disoriented. No obvious cranial nerve deficits. Motor grossly within normal limits. Normal speech. PSYCHIATRIC: Slightly flattened affect. A/P Assessment and Plan Gastroparesis Acute on chronic problem. GI consult appreciated. - continue NGT. - IVFs. - GI following. - keep NPO for now. - continue antiemetics as needed. Acute COPD exacerbation On 3L NC at home. - IV Solumedrol. - standing nebs. - oxygen, IS. Hypokalemia S/t above. - replete and monitor. Diabetes Glucose improved. - insulin sliding scale. CAD No complaints of chest pain at this time. - continue cardiac regimen. Leukocytosis May be a stress reaction. - follow CBC. HTN Exacerbated by clinical condition. - continue home regimen. - Vasotec as needed. PPx: Emilio Arnett DO December 10, 2017 11:39
[2017-12-10] MEDS: methylPREDNISolone SOD SUCC 40 MG/1 ML VIAL IV PUSH SCH ×2 (12:05→23:01)
[2017-12-10] MEDS: ONDANSETRON HCL 4 MG/2 ML VIAL IVP SCH ×3 (12:05→23:08)
[2017-12-10] MEDS: PANTOPRAZOLE SODIUM 40 MG VIAL IV PUSH SCH (12:05)
--- NOTE | 2017-12-10 12:08 | RADRPT ---
EXAM DATE/TIME: 12/10/2017 11:34 [facility] COMPARISON: CHEST PA & LAT, December 01, 2017, 21:56. CHEST SINGLE AP, November 20, 2017, 17:01. INDICATIONS : Dyspnea MEDICAL HISTORY : Emphysema. Chronic obstructive pulmonary disease. Myocardial infarction. Coronary artery disease. SURGICAL HISTORY : Hysterectomy. Cholecystectomy. Coronary artery stent ENCOUNTER: Subsequent ACUITY: 3 weeks PAIN SCORE: Non-responsive. LOCATION: Bilateral chest FINDINGS: Portable AP view of the chest demonstrates a normal-sized cardiac silhouette. Nasogastric tube course s beyond the GE junction with sentinel hole at the GE junction. EKG lines overlie the patient. Lungs are mildly underinflated with atelectasis at the lung bases. No effusion or pneumothorax is identifie d. Bones demonstrate no acute finding. CONCLUSION: No acute finding is identified. Underinflated examination with mild atelectasis at the bases. Ten Tomlinson MD on December 10, 2017 at 12:05 Board Certified Radiologist. This report was verified electronically.
[2017-12-10] MEDS: RESP: ALBUTEROL 2.5 MG/IPRATROPIUM 0.5 MG NEB (SCH) NEB ×2 (13:04→20:00)
--- NOTE | 2017-12-10 13:56 | EKG ---
Date Performed: 12/09/2017 Time Performed: 15:39:50 PTAGE: 62 years EKG: Sinus rhythm POSSIBLE LEFT ATRIAL ENLARGEMENT NONSPECIFIC T-WAVE ABNORMALITY BORDERLINE ECG PREVIOUS TRACING : 11/20/2017 22.27 Since the previous tracing, no significant change noted DOCTOR: Kelvin Dyson Interpretating Date/Time 12/10/2017 13:56:43
--- NOTE | 2017-12-10 13:57 | EKG ---
Date Performed: 12/10/2017 Time Performed: 02:31:57 PTAGE: 62 years EKG: Sinus rhythm NORMAL ECG PREVIOUS TRACING : 12/09/2017 15.39 Since previous tracing, previously seen nonspecific anterio r T-wave changes have improved. DOCTOR: Kelvin Dyson Interpretating Date/Time 12/10/2017 13:57:05
[2017-12-10 14:13] LABS: TROPONIN I LESS THAN 0.02 NG/ML (0.02-0.05)
[2017-12-10] MEDS: SERTRALINE HCL 50 MG TAB PO SCH (20:00)
[2017-12-11] VITALS (9 sets, daily range): BP systolic 107–157; BP diastolic 51–90; PULSE 76–104; RESP 16–20; TEMP 98.1–99.5; O2SAT 90–96
[2017-12-11] MEDS: HYDROmorphone HCL PF 2 MG/ML VIAL IV PUSH PRN ×2 (02:37→21:06)
[2017-12-11] MEDS: PROCHLORPERAZINE INJ 10 MG/2 ML VIAL IV PUSH PRN (02:42)
[2017-12-11] MEDS: methylPREDNISolone SOD SUCC 40 MG/1 ML VIAL IV PUSH SCH ×2 (05:07→13:20)
[2017-12-11] MEDS: LEVOTHYROXINE SODIUM 112 MCG TAB PO SCH (05:08)
[2017-12-11] MEDS: ONDANSETRON HCL 4 MG/2 ML VIAL IVP SCH ×4 (05:08→23:14)
[2017-12-11] MEDS: RESP: ALBUTEROL 2.5 MG/IPRATROPIUM 0.5 MG NEB (SCH) NEB ×3 (07:52→20:13)
[2017-12-11] MEDS: INSULIN ASPART SUPPLEMENTAL SCALE SQ SCH ×4 (07:56→21:05)
[2017-12-11] MEDS: SODIUM CHLORIDE 0.9% FLUSH 10 ML FLUSH IV FLUSH SCH ×2 (07:57→20:58)
[2017-12-11] MEDS: DOCUSATE SODIUM 50 MG/SENNA 8.6 MG TAB PO SCH ×2 (09:00→20:58)
[2017-12-11 09:02] LABS: HEMATOCRIT 37.1 % (35.0-46.0); HEMOGLOBIN 12.5 GM/DL (11.6-15.3); MEAN CELL VOLUME 90.5 FL (80.0-100.0); MEAN CORPUSCULAR HEMOGLOBIN 30.5 PG (27.0-34.0); MEAN CORPUSCULAR HGB CONC 33.7 % (32.0-36.0); PLATELET COUNT 353 TH/MM3 (150-450); RED BLOOD COUNT 4.09 MIL/MM3 (4.00-5.30); RED CELL DISTRIBUTION WIDTH 14.2 % (11.6-17.2); WHITE BLOOD COUNT 25.6 TH/MM3 (4.0-11.0)
[2017-12-11] MEDS: SODIUM CHLOR 0.9% 1000 ML INJ 1,000 ML IV SCH ×2 (09:35→17:03)
[2017-12-11] MEDS: ASPIRIN 81 MG CHEW TAB CHEW SCH (09:35)
[2017-12-11] MEDS: DICYCLOMINE HCL 10 MG CAP PO SCH ×4 (09:35→20:58)
[2017-12-11] MEDS: ROFLUMILAST 500 MCG TAB PO SCH (09:35)
[2017-12-11] MEDS: NEBIVOLOL 10 MG TAB PO SCH (09:35)
[2017-12-11] MEDS: CLOPIDOGREL 75 MG TAB PO SCH (09:35)
[2017-12-11 09:56] LABS: BICARBONATE 27.3 MEQ/L (21.0-32.0); MAGNESIUM 2.2 MG/DL (1.5-2.5)
[2017-12-11 09:59] LABS: CREATININE 0.41 MG/DL (0.50-1.00)
[2017-12-11] MEDS ORDERED: PNEUMOCOCCAL POLYVALENT INJ 25 MCG/0.5 ML SYR IM ONE (10:00)
--- NOTE | 2017-12-11 10:41 | EKG ---
Date Performed: 12/10/2017 Time Performed: 16:05:54 PTAGE: 62 years EKG: Sinus rhythm MARKED LEFT AXIS DEVIATION MODERATE T-WAVE ABNORMALITY, CONSIDER ANTERIOR ISCHEMIA ABNORMAL ECG Sinc e the PREVIOUS TRACING , no significant change noted PREVIOUS TRACIN12/10/2017 02.31 DOCTOR: Jeff Pelaez Interpretating Date/Time 12/11/2017 10:40:23
[2017-12-11] MEDS: PANTOPRAZOLE SODIUM 40 MG VIAL IV PUSH SCH (11:09)
--- NOTE | 2017-12-11 15:04 | HHI.PR ---
Subjective Remarks The patient was resting comfortably. She was willing to try to eat something. Discussed with nursing at the bedside. Objective Vitals Vital Signs Date Time Temp Pulse Resp B/P (MAP) Pulse Ox O2 Delivery O2 Flow Rate FiO2 12/11/17 12:12 99.5 102 18 154/88 (110) 96 12/11/17 08:00 98.9 104 16 157/74 (101) 93 12/11/17 07:55 92 Nasal Cannula 3.00 12/11/17 04:47 98.3 100 20 107/51 (69) 90 12/10/17 23:00 102 12/10/17 22:41 99.0 108 20 180/95 (123) 95 12/10/17 20:00 95 Nasal Cannula 3.00 12/10/17 16:00 100.0 105 16 102/60 (74) 94 I/O 12/10/17 12/10/17 12/10/17 12/11/17 12/11/17 12/11/17 07:00 15:00 23:00 07:00 15:00 23:00 Intake Total 1138 ml Output Total 300 ml 2200 ml Balance 838 ml -2200 ml Intake Oral 0 ml IV Total 1138 ml Output Urine Total 1200 ml Gastric Drainage Total 300 ml 1000 ml Bladder Scan Volume Amount 458 ml # Voids 2 2 Result Diagram: 12/11/17 0750 12/11/17 0750 Imaging Last Impressions Chest X-Ray 12/10/17 0000 Signed Impressions: Service Date/Time: Sunday, December 10, 2017 11:34 - CONCLUSION: No acute finding is identified. Underinflated examination with mild atelectasis at the bases. Ten Tomlinson MD Abdomen X-Ray 12/09/17 0000 Signed Impressions: Service Date/Time: Saturday, December 09, 2017 15:41 - CONCLUSION: Nonspecific bowel gas pattern. Stevie Hayward MD Objective Remarks GENERAL: Resting. SKIN: Focused skin assessment warm/dry. HEAD: Atraumatic. Normocephalic. EYES: Pupils equal and round. No scleral icterus. No injection or drainage. ENT: No nasal bleeding or discharge. Mucous membranes pink and moist. NG tube in place. NECK: Trachea midline. No JVD. CARDIOVASCULAR: Regular rate and rhythm. No murmur appreciated. RESPIRATORY: Clear to auscultation bilaterally. GASTROINTESTINAL: Abdomen soft, non-tender, nondistended. Hepatic and splenic margins not palpable. MUSCULOSKELETAL: No obvious deformities. No clubbing. No cyanosis. No edema. NEUROLOGICAL: Lethargic and slightly disoriented. No obvious cranial nerve deficits. Motor grossly within normal limits. Normal speech. PSYCHIATRIC: Calm. A/P Assessment and Plan Gastroparesis Acute on chronic problem. GI consult appreciated. - continue NGT. - IVFs. - GI following. - clear liquid diet. CT abdomen if unable to tolerate. - continue antiemetics as needed. Acute COPD exacerbation On 3L NC at home. - s/p IV Solumedrol. - standing nebs. - oxygen, IS. Hypokalemia S/t above. - replete and monitor. Diabetes Glucose improved. - insulin sliding scale. CAD No complaints of chest pain at this time. - continue cardiac regimen. Leukocytosis Exacerbated by steroids. Had low grade fever. - blood cultures. - follow CBC. HTN Exacerbated by clinical condition. - continue home regimen. - Vasotec as needed. PPx: Emilio Arnett DO December 11, 2017 15:04
[2017-12-11 16:43] LABS: ALBUMIN 2.8 GM/DL (3.4-5.0)
[2017-12-11 16:46] LABS: DIRECT BILIRUBIN ADULT 0.1 MG/DL (0.0-0.2)
[2017-12-11 16:52] LABS: INDIRECT BILIRUBIN 0.4 MG/DL (0.0-0.8); TOTAL BILIRUBIN ADULT 0.5 MG/DL (0.2-1.0); TOTAL PROTEIN 6.4 GM/DL (6.4-8.2)
[2017-12-11] MEDS: SERTRALINE HCL 50 MG TAB PO SCH (20:58)
[2017-12-12] VITALS: BP 111/53; PULSE 74; RESP 20; TEMP 98.7; O2SAT 96
[2017-12-12 04:00] VITALS: BP 132/60; PULSE 67; RESP 20; TEMP 97.2; O2SAT 97
[2017-12-12] MEDS: SODIUM CHLOR 0.9% 1000 ML INJ 1,000 ML IV SCH (04:14)
[2017-12-12] MEDS: LEVOTHYROXINE SODIUM 112 MCG TAB PO SCH (05:35)
[2017-12-12] MEDS: ONDANSETRON HCL 4 MG/2 ML VIAL IVP SCH ×2 (05:35→11:44)
[2017-12-12] MEDS: RESP: ALBUTEROL 2.5 MG/IPRATROPIUM 0.5 MG NEB (SCH) NEB ×2 (07:42→14:00)
[2017-12-12 07:43] VITALS: O2SAT 98
[2017-12-12 08:00] VITALS: BP 124/58; PULSE 62; RESP 18; TEMP 97.7; O2SAT 98
[2017-12-12 08:00] LABS: HEMATOCRIT 32.1 % (35.0-46.0); MEAN CELL VOLUME 91.4 FL (80.0-100.0); MEAN CORPUSCULAR HEMOGLOBIN 31.2 PG (27.0-34.0); MEAN CORPUSCULAR HGB CONC 34.2 % (32.0-36.0); MEAN PLATELET VOLUME 7.6 FL (7.0-11.0); PLATELET COUNT 296 TH/MM3 (150-450); RED BLOOD COUNT 3.51 MIL/MM3 (4.00-5.30); RED CELL DISTRIBUTION WIDTH 13.9 % (11.6-17.2)
[2017-12-12] MEDS: INSULIN ASPART SUPPLEMENTAL SCALE SQ SCH ×2 (08:00→12:00)
[2017-12-12 08:13] LABS: CALCIUM 8.5 MG/DL (8.5-10.1)
[2017-12-12 08:14] LABS: BICARBONATE 31.4 MEQ/L (21.0-32.0)
[2017-12-12 08:17] LABS: CREATININE 0.37 MG/DL (0.50-1.00)
[2017-12-12] MEDS: DOCUSATE SODIUM 50 MG/SENNA 8.6 MG TAB PO SCH (08:25)
[2017-12-12] MEDS: DICYCLOMINE HCL 10 MG CAP PO SCH ×2 (08:25→11:48)
[2017-12-12] MEDS: ROFLUMILAST 500 MCG TAB PO SCH (08:25)
[2017-12-12] MEDS: CLOPIDOGREL 75 MG TAB PO SCH (08:26)
[2017-12-12] MEDS: NEBIVOLOL 10 MG TAB PO SCH (08:26)
[2017-12-12] MEDS: ASPIRIN 81 MG CHEW TAB CHEW SCH (08:26)
[2017-12-12] MEDS: SODIUM CHLORIDE 0.9% FLUSH 10 ML FLUSH IV FLUSH SCH (08:27)
[2017-12-12] MEDS: PANTOPRAZOLE SODIUM 40 MG VIAL IV PUSH SCH (11:45)
[2017-12-12 12:00] VITALS: BP 106/57; PULSE 66; RESP 16; TEMP 96.1; O2SAT 95
--- NOTE | 2017-12-12 12:59 | HHI.DCPOC ---
Discharge Care Plan Diagnosis: (1) Intractable abdominal pain (2) Intractable vomiting (3) COPD with acute exacerbation (4) Nausea & vomiting Goals to Promote Your Health * To prevent worsening of your condition and complications * To maintain your health at the optimal level Directions to Meet Your Goals Take your medications as prescribed Follow your dietary instruction Follow activity as directed Keep your appointments as scheduled Take your immunizations and boosters as scheduled If your symptoms worsen call your PCP, if no PCP go to Urgent Care Center or Emergency Room Smoking is Dangerous to Your Health. Avoid second hand smoke Call the 24-hour hour crisis hotline for domestic abuse at Emilio Watts DO December 12, 2017 12:58
--- NOTE | 2017-12-12 13:05 | HHI.DS ---
Discharge Summary Admission Date December 09, 2017 at 16:27 Discharge Date: December 12, 2017 Admitting Diagnosis Intractable vomiting, intractable abdominal pain, gastroparesis (1) COPD with acute exacerbation ICD Code: J44.1 - Chronic obstructive pulmonary disease with (acute) exacerbation Status: Acute (2) Nausea & vomiting ICD Code: R11.2 - Nausea with vomiting, unspecified (3) Intractable abdominal pain ICD Code: R10.9 - Unspecified abdominal pain Status: Acute (4) Intractable vomiting ICD Code: R11.10 - Vomiting, unspecified Status: Acute Procedures None Brief History - From Admission The patient is a 62-year-old female with a past medical history of gastroparesis who is presenting to the hospital with severe abdominal pain and nausea and vomiting. She says this started in May. Since then she has been vomiting all of the time. She says sometimes up to 8 or 10 times a day. She does not have much of an appetite secondary to that. She says she has lost 40 pounds since May. She has been on Zofran and Reglan, and states the Reglan was discontinued. She states she was diagnosed with gastroparesis. She says she has right-sided abdominal pain that she rates at a 9 or 10 out of 10 in severity. She says that she does not take much for pain medication at home and ends up curling into a ball. 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 She says she is on 3 L of oxygen at home. Discussed with nursing. CBC/BMP: 12/12/17 0700 12/12/17 0700 Significant Findings Laboratory Tests Test 12/09/17 15:15 12/09/17 17:00 12/10/17 02:20 12/10/17 07:45 White Blood Count 12.4 TH/MM3 (4.0-11.0) 15.8 TH/MM3 (4.0-11.0) Neutrophils (%) (Auto) 71.9 % (16.0-70.0) 81.6 % (16.0-70.0) Neutrophils # (Auto) 8.9 TH/MM3 (1.8-7.7) 12.9 TH/MM3 (1.8-7.7) Random Glucose 178 MG/DL (74-106) 156 MG/DL (74-106) Alkaline Phosphatase 134 U/L (45-117) Potassium Level 3.4 MEQ/L (3.5-5.1) Total Creatine Kinase 22 U/L (26-192) Troponin I LESS THAN 0.02 NG/ML LESS THAN 0.02 NG/ML Monocytes # (Auto) 1.0 TH/MM3 (0-0.9) Creatinine 0.44 MG/DL (0.50-1.00) Total Protein 6.3 GM/DL (6.4-8.2) Albumin 3.0 GM/DL (3.4-5.0) Calcium Level 8.4 MG/DL (8.5-10.1) Aspartate Amino Transf (AST/SGOT) 13 U/L (15-37) Anion Gap 3 MEQ/L (5-15) Test 12/10/17 12:50 12/11/17 07:50 12/11/17 15:50 12/12/17 07:00 Troponin I LESS THAN 0.02 NG/ML Thyroid Stimulating Hormone 3rd Gen 5.130 uIU/ML (0.358-3.740) White Blood Count 25.6 TH/MM3 (4.0-11.0) 13.0 TH/MM3 (4.0-11.0) Creatinine 0.41 MG/DL (0.50-1.00) 0.37 MG/DL (0.50-1.00) Random Glucose 175 MG/DL (74-106) 108 MG/DL (74-106) Albumin 2.8 GM/DL (3.4-5.0) Red Blood Count 3.51 MIL/MM3 (4.00-5.30) Hemoglobin 11.0 GM/DL (11.6-15.3) Hematocrit 32.1 % (35.0-46.0) Anion Gap 4 MEQ/L (5-15) Imaging Last Impressions Chest X-Ray 12/10/17 0000 Signed Impressions: Service Date/Time: Sunday, December 10, 2017 11:34 - CONCLUSION: No acute finding is identified. Underinflated examination with mild atelectasis at the bases. Ten Tomlinson MD Abdomen X-Ray 12/09/17 0000 Signed Impressions: Service Date/Time: Saturday, December 09, 2017 15:41 - CONCLUSION: Nonspecific bowel gas pattern. Stevie Hayward MD PE at Discharge GENERAL: Resting. SKIN: Focused skin assessment warm/dry. HEAD: Atraumatic. Normocephalic. EYES: Pupils equal and round. No scleral icterus. No injection or drainage. ENT: No nasal bleeding or discharge. Mucous membranes pink and moist. NG tube in place. NECK: Trachea midline. No JVD. CARDIOVASCULAR: Regular rate and rhythm. No murmur appreciated. RESPIRATORY: Clear to auscultation bilaterally. GASTROINTESTINAL: Abdomen soft, non-tender, nondistended. Hepatic and splenic margins not palpable. MUSCULOSKELETAL: No obvious deformities. No clubbing. No cyanosis. No edema. NEUROLOGICAL: Awake and alert. No obvious cranial nerve deficits. Motor grossly within normal limits. Normal speech. PSYCHIATRIC: Calm. Pt update on day of discharge The patient tolerated her diet. She was looking forward to going home. She was wondering if she could have some assistance with her home oxygen. Discussed with case management. Hospital Course Gastroparesis Acute on chronic. GI was consulted. We continued an NGT to suction. She received IVFs. She received pain medications and antiemetics as needed, along with a PPI. Her diet was advanced. She will resume her home regimen and will follow up with GI as an outpt. Acute COPD exacerbation On 3L NC at home. S/p IV Solumedrol and standing nebs. She received incentive spirometry. Her respiratory status returned to baseline. She will resume her home regimen upon discharge. Case management was consulted to assist with her home oxygen. Hypokalemia We monitored the patient's BMP and repleted her potassium as needed. Diabetes The patient was placed on an insulin sliding scale. She will resume her home regimen upon discharge. Leukocytosis Exacerbated by steroids, which were discontinued. White blood cell count is normalizing. Pt Condition on Discharge: Stable Discharge Disposition: Discharge Home Discharge Time: > 30 minutes Discharge Instructions DIET: Follow Instructions for: Diabetic Diet Activities you can perform: Weight Bearing as Junaid Follow up Referrals: Gastroenterology - 2 Weeks PCP Follow-up - 1 Week Continued Medications: Albuterol 8.5 GM Inh (Proair Hfa 8.5 GM Inh) 90 Mcg/Act Aer 2 PUFF INH Q4-6H PRN for SHORTNESS OF BREATH, #3 INHALER 11 Refills 108 mcg/actuation Aspirin (Aspirin) 81 Mg Chew 81 MG CHEW DAILY, TAB 0 Refills Benzonatate (Benzonatate) 200 Mg Cap 200 MG PO TID PRN for COUGH, #60 CAP 0 Refills Cholecalciferol (Vitamin D3) 1,000 Unit Chew 1000 UNITS CHEW HS for Nutritional Supplement, #1 BOTTLE 0 Refills Clopidogrel (Plavix) 75 Mg Tab 75 MG PO DAILY for Blood Clot Prevention, #30 TAB 0 Refills Dicyclomine (Bentyl) 10 Mg Cap 10 MG PO QID for Bowel Management, #10 CAP 1 Refill Erythromycin Ethylsuccinate Liq (Erythromycin Ethylsuccinate Liq) 200 Mg/Ml Susp 200 MG PO ACHS PRN for VOMITING for 30 Days, #120 ML 0 Refills Fluticasone-Vilanterol Inh (Breo Ellipta Inh) 100-25 Mcg/Act Inh 1 PUFF INH DAILY, #3 INHALER 4 Refills Use daily at the same time. Furosemide (Lasix) 20 Mg Tab 20 MG PO DIRECTED PRN for SWELLING, #60 TAB 0 Refills Insulin Aspart Inj (Novolog Flexpen Inj) 300 Unit/3 Ml Pen 12 UNITS SQ TIDAC for Blood Sugar Management, #12 PEN 11 Refills Insulin Detemir Inj (Levemir Flextouch Pen Inj) 300 unit/3 ML Pen 18 UNITS SQ Q12HR for Blood Sugar Management, #15 PEN 4 Refills Levothyroxine (Synthroid) 112 Mcg Tab 112 MCG PO DAILY for Thyroid, #90 TAB 2 Refills Montelukast (Montelukast) 10 Mg Tab 10 MG PO HS, #90 TAB 4 Refills Nebivolol (Bystolic) 10 Mg Tab 10 MG PO DAILY for Blood Pressure Management, #30 TAB 0 Refills Oxygen (O2) (Oxygen (O2)) Device 2 LITER JON.CANULA CONTINUOUS for Prevent Hypoxemia, #2 CYLINDER Oxygen Concentrator Portable Gaseous 2 L/min via Nasal Canula Continuous For 99 months Oxygen (O2) (Oxygen (O2)) Inha 2 LITER JON.CANULA CONTINUOUS for Prevent Hypoxemia, #1 CYLINDER Oxygen Concentrator Portable Gaseous 2 L/min via Nasal Canula Continuous For 99 months Oxygen tank (Oxygen tank) 1 Ea Tank 2 LITER JON.CANULA CONTINUOUS for HYPOXEMIA PREVENTION, #2 CYLINDER Oxygen Concentrator Portable Gaseous 2 L/min via Nasal Cannula Continuous For 99 months Promethazine Supp (Phenergan Supp) 12.5 Mg Supp 12.5 MG RECTAL Q6H PRN for NAUSEA OR VOMITING for 10 Days, #40 SUPP 0 Refills Roflumilast (Daliresp) 500 Mcg Tab 500 MCG PO DAILY for COPD, #90 TAB 1 Refill Rosuvastatin (Rosuvastatin) 20 Mg Tab 20 MG PO DAILY for Cholesterol Management, #90 TAB 4 Refills Sertraline (Sertraline) 50 Mg Tab 50 MG PO HS for Anxiety, #30 TAB 0 Refills Umeclidinium [place] Inh (Incruse Ellipta Inh) 0.0625 Mg/Act Inh 62.5 MCG INH DAILY for Treat COPD, #3 INHALER 11 Refills Walker/Adult/Folding (Walker/Adult/Folding) 1 Mis Mis EA .ROUTE DIRECTED, #1 0 Refills Walker with seat Emilio Watts DO December 12, 2017 13:05
--- NOTE | 2017-12-12 13:44 | HHI.FF ---
Face to Face Verification Diagnosis: (1) COPD with acute exacerbation (2) Nausea & vomiting (3) Intractable vomiting (4) Intractable abdominal pain Home Health Nursing Order: Medical education Signs/symptoms of disease process Diabetic education Oxygen administration education Medication education-adverse effect Nursing assessment with vital signs I have seen patient Sarita Fernando on 12/12/17. My clinical findings support the need for the requested home health care services because: Ltd mobility - disease progression Patient has SOB Deconditioned w/ increased weakness Limited ability to care for self I certify that my clinical findings support that this patient is homebound because: Hx COPD- exertion dyspnea/weakness Unsteady gait/balance Emilio Watts DO December 12, 2017 13:44
[2017-12-12] MEDS ORDERED: OXYGENDME NAS.CANULA (13:45)
== END 2017-12-12 17:56 | disposition home or self-care (01) | DRG 74 ==
LOC: PHED 14:01 → PHEDA 16:27 → PH3A 18:54
PROVIDERS: ADMIT Hospitalist; ATTEND Hospitalist
DX: E11.43 Type 2 diabetes mellitus with diabetic autonomic (poly)neuropathy (principal); J44.1 Chronic obstructive pulmonary disease with (acute) exacerbation; Z99.81 Dependence on supplemental oxygen; I10 Essential (primary) hypertension; K31.84 Gastroparesis; E87.6 Hypokalemia; T38.0X5A Adverse effect of glucocorticoids and synthetic analogues, initial encounter; D72.829 Elevated white blood cell count, unspecified; Z87.891 Personal history of nicotine dependence; I25.2 Old myocardial infarction; R11.2 Nausea with vomiting, unspecified; K21.9 Gastro-esophageal reflux disease without esophagitis; I25.10 Atherosclerotic heart disease of native coronary artery without angina pectoris; Z95.5 Presence of coronary angioplasty implant and graft; E78.5 Hyperlipidemia, unspecified; E07.9 Disorder of thyroid, unspecified; F32.9 Major depressive disorder, single episode, unspecified; Z79.4 Long term (current) use of insulin; F41.9 Anxiety disorder, unspecified; Z79.02 Long term (current) use of antithrombotics/antiplatelets; Z79.82 Long term (current) use of aspirin; Z88.1 Allergy status to other antibiotic agents; Z88.0 Allergy status to penicillin; Z88.2 Allergy status to sulfonamides; Z88.5 Allergy status to narcotic agent
CPT/HCPCS: 43752; 71045; 74019; 80048; 80053; 80076; 81001; 82140; 82550; 82948; 83690; 83735; 84443; 84484; 85025; 85027; 87040; 93005; 94618; 94640; 94664; 96361; 96374; C9113; J0131; J0780; J1170; J1815; J2060; J2405; J2920; J3480; J7030

== ENCOUNTER 2017-12-17 18:14 | Observation (INO) | payer MEDICARE ==
[2017-12-17] VITALS (8 sets, daily range): BP systolic 149–205; BP diastolic 76–98; PULSE 76–99; RESP 16–22; TEMP 97–99.1; O2SAT 99–100
[~2017-12-17 18:14] MED LIST changes: -AZIT500T2 PO; -HUMIBIDDM PO; -MEDR4PAK PO; -PROM1SUP7 RECTAL; -REGL10TA5 PO
[2017-12-17] MEDS ORDERED: METOCLOPRAMIDE HCL 10 MG/2 ML VIAL IV PUSH ONE (19:30)
[2017-12-17] MEDS ORDERED: SODIUM CHLOR 0.9% 1000 ML INJ 1,000 ML IV SCH (19:30)
[2017-12-17] MEDS ORDERED: SODIUM CHLORIDE 0.9% FLUSH 10 ML FLUSH IV FLUSH PRN ×2 (19:30→22:15)
--- NOTE | 2017-12-17 19:37 | PD ---
HPI Chief Complaint: Abdominal Pain Time Seen by Provider: 19:35 Travel History International Travel<30 days: No Contact w/Intl Traveler<30days: No Traveled to known affect area: No History of Present Illness HPI 62-year-old female patient with history of multiple medical issues, gastroparesis, MIs, COPD, presents to the ER today because she has had several days of nausea, vomiting, abdominal pains, diarrhea, states that this feels like her gastroparesis. She denies any fevers or other symptoms. She does not know of any sick contacts. She has multiple vomiting episodes in the ER. Modifying Factors: None Associated Signs & Symptoms: Nausea, vomiting, diarrhea, abdominal pains for several days Risk Factors: History of gastroparesis PFSH Past Medical History Hx Anticoagulant Therapy: Yes Arthritis: Yes (OA) Asthma: No Autoimmune Disease: No Blood Disorders: No Anxiety: Yes Depression: Yes Heart Rhythm Problems: No Cancer: No Cardiac Catheterization: Yes (MULTIPLE: LAST ONE DECEMBER 2015) Cardiovascular Problems: Yes ([place] X2) High Cholesterol: Yes Chemotherapy: No Chest Pain: Yes Congestive Heart Failure: No COPD: Yes Cerebrovascular Accident: No Coronary Artery Disease: Yes Diabetes: Yes (INSULIN ) Diminished Hearing: No Endocrine: Yes GERD: Yes Glaucoma: Yes Genitourinary: No Headaches: Yes Hiatal Hernia: No Immune Disorder: No Implanted Vascular Access Dvce: Yes Insomnia: Yes Kidney Stones: No Musculoskeletal: Yes Neurologic: No Psychiatric: Yes Reproductive: Yes (HYSTERECTOMY) Respiratory: Yes (COPD) Migraines: No Myocardial Infarction: Yes (10/2015) Pneumonia: Yes Radiation Therapy: No Renal Failure: No Seizures: No Sleep Apnea: No Thyroid Disease: Yes Ulcer: No Menopausal: Yes : 4 Para: 3 Miscarriage: 1 Tubal Ligation: Yes Past Surgical History Abdominal Surgery: Yes (GALLBLADDER) AICD: No Arteriovenous Shunt: No Body Medical Devices: STENT Cardiac Surgery: Yes (STENT) Cholecystectomy: Yes Coronary Stent: Yes (X1, STATES IS PARTIALLY "BLOCKED") Ear Surgery: No Endocrine Surgery: No Eye Surgery: Yes (LASER FOR GLAUCOMA) Genitourinary Surgery: No Gynecologic Surgery: Yes (HYSTERECTOMY) Hysterectomy: Yes Insulin Pump: No Joint Replacement: No Oral Surgery: Yes (DENTURES) Pacemaker: No Thoracic Surgery: No Other Surgery: Yes ("LUMPS REMOVED FROM MY NECK AND RIBCAGE, A LIPOMA") Social History Alcohol Use: Yes ("VERY VERY RARELY") Tobacco Use: Yes (some days; yesterday) Substance Use: No Allergies-Medications (Allergen,Severity, Reaction): Coded Allergies: morphine (Verified Allergy, Intermediate, Nausea/Vomiting, 12/17/17) doxycycline (Verified Allergy, Unknown, hives, 12/17/17) minocycline (Verified Allergy, Unknown, hives, 12/17/17) penicillin G (Verified Allergy, Unknown, sob, 12/17/17) tigecycline (Verified Allergy, Unknown, hives, 12/17/17) Sulfa (Sulfonamide Antibiotics) (Verified Adverse Reaction, Severe, vomiting, 12/17/17) Reported Meds & Prescriptions Reported Meds & Active Scripts Active Oxygen (O2) Device Liter JON.CANULA CONTINUOUS Oxygen Concentrator Portable Gaseous 2 L/min via Nasal Canula Continuous For 99 months Phenergan Supp (Promethazine HCl) 12.5 Mg Supp 12.5 Mg RECTAL Q6H PRN 10 Days Walker/Adult/Folding (Device) 1 Mis Mis Ea .ROUTE DIRECTED Walker with seat Levemir Flextouch Pen Inj (Insulin Detemir) 300 unit/3 ML Pen 18 Units SQ Q12HR Breo Ellipta Inh (Fluticasone/Vilanterol) 100-25 Mcg/Act Inh 1 Puff INH DAILY Use daily at the same time. Montelukast (Montelukast Sodium) 10 Mg Tab 10 Mg PO HS Rosuvastatin (Rosuvastatin Calcium) 20 Mg Tab 20 Mg PO DAILY Novolog Flexpen Inj (Insulin Aspart) 300 Unit/3 Ml Pen 12 Units SQ TIDAC Proair Hfa 8.5 GM Inh (Albuterol Sulfate) 90 Mcg/Act Aer 2 Puff INH Q4-6H PRN 108 mcg/actuation Incruse Ellipta Inh (Umeclidinium [place] Inh) 0.0625 Mg/Act Inh 62.5 Mcg INH DAILY Synthroid (Levothyroxine Sodium) 112 Mcg Tab 112 Mcg PO DAILY Oxygen (O2) (Miscellaneous Medication) Inha 2 Liter JON.CANULA CONTINUOUS Oxygen Concentrator Portable Gaseous 2 L/min via Nasal Canula Continuous For 99 months Oxygen (O2) Device 2 Liter JON.CANULA CONTINUOUS Oxygen Concentrator Portable Gaseous 2 L/min via Nasal Canula Continuous For 99 months Oxygen tank (Oxygen) 1 Ea Tank 2 Liter JON.CANULA CONTINUOUS Oxygen Concentrator Portable Gaseous 2 L/min via Nasal Cannula Continuous For 99 months Reported Metoprolol Succinate ER 24 HR (Metoprolol Succinate) 25 Mg Tab 12.5 Mg PO DAILY Sertraline (Sertraline HCl) 50 Mg Tab 50 Mg PO HS Lasix (Furosemide) 20 Mg Tab 20 Mg PO DIRECTED PRN Plavix (Clopidogrel Bisulfate) 75 Mg Tab 75 Mg PO DAILY Aspirin 81 Mg Chew 81 Mg CHEW DAILY Review of Systems Except as stated in HPI: all other systems reviewed are Neg Physical Exam Narrative GENERAL: Well-developed elderly white female patient currently and moderate distress. Awake and oriented 3. Actively vomiting in the ER. SKIN: Focused skin assessment warm/dry. HEAD: Atraumatic. Normocephalic. EYES: Pupils equal and round. No scleral icterus. No injection or drainage. ENT: No nasal bleeding or discharge. Mucous membranes pink and moist. NECK: Trachea midline. No JVD. CARDIOVASCULAR: Regular rate and rhythm. No murmur appreciated. RESPIRATORY: No accessory muscle use. Clear to auscultation. Breath sounds equal bilaterally. GASTROINTESTINAL: Abdomen soft, epigastric tenderness without guarding or rebound, nondistended. Hepatic and splenic margins not palpable. MUSCULOSKELETAL: No obvious deformities. No clubbing. No cyanosis. No edema. NEUROLOGICAL: Awake and alert. No obvious cranial nerve deficits. Motor grossly within normal limits. Normal speech. PSYCHIATRIC: Appropriate mood and affect; insight and judgment normal. Data Data Last Documented VS Vital Signs Date Time Temp Pulse Resp B/P (MAP) Pulse Ox O2 Delivery O2 Flow Rate FiO2 12/17/17 21:24 78 16 188/98 (128) 100 Nasal Cannula 3.00 12/17/17 21:11 98.5 Orders Orders Electrocardiogram (12/17/17 18:19) Complete Blood Count With Diff (12/17/17 19:30) Comprehensive Metabolic Panel (12/17/17 19:30) Lipase (12/17/17:30) Urinalysis - C+S If Indicated (12/17/17 19:30) Iv Access Insert/Monitor (12/17/17 19:30) Ecg Monitoring (12/17/17 19:30) Oximetry (12/17/17 19:30) Sodium Chlor 0.9% 1000 Ml Inj (Ns 1000 M (12/17/17 19:30) Sodium Chloride 0.9% Flush (Ns Flush) (12/17/17 19:30) Metoclopramide Inj (Reglan Inj) (12/17/17 19:30) Abdomen, Flat & Upright (12/17/17 19:58) Metoprolol Tartrate Inj (Lopressor Inj) (12/17/17 21:00) Ct Abd/Pel W Iv Contrast(Rout) (12/17/17 21:54) Admit Order (Ed Use Only) (12/17/17 21:55) Labs Laboratory Tests Test 12/17/17 19:36 12/17/17 20:34 White Blood Count 22.0 TH/MM3 Red Blood Count 4.88 MIL/MM3 Hemoglobin 14.8 GM/DL Hematocrit 43.8 % Mean Corpuscular Volume 89.8 FL Mean Corpuscular Hemoglobin 30.3 PG Mean Corpuscular Hemoglobin Concent 33.8 % Red Cell Distribution Width 13.7 % Platelet Count 539 TH/MM3 Mean Platelet Volume 7.3 FL Neutrophils (%) (Auto) 79.7 % Lymphocytes (%) (Auto) 10.1 % Monocytes (%) (Auto) 5.7 % Eosinophils (%) (Auto) 0.3 % Basophils (%) (Auto) 4.2 % Neutrophils # (Auto) 17.5 TH/MM3 Lymphocytes # (Auto) 2.2 TH/MM3 Monocytes # (Auto) 1.3 TH/MM3 Eosinophils # (Auto) 0.1 TH/MM3 Basophils # (Auto) 0.9 TH/MM3 CBC Comment DIFF FINAL Differential Comment Blood Urea Nitrogen 12 MG/DL Creatinine 0.66 MG/DL Random Glucose 172 MG/DL Total Protein 8.0 GM/DL Albumin 3.7 GM/DL Calcium Level 9.9 MG/DL Alkaline Phosphatase 124 U/L Aspartate Amino Transf (AST/SGOT) 12 U/L Alanine Aminotransferase (ALT/SGPT) 29 U/L Total Bilirubin 0.5 MG/DL Sodium Level 134 MEQ/L Potassium Level 4.3 MEQ/L Chloride Level 99 MEQ/L Carbon Dioxide Level 24.6 MEQ/L Anion Gap 10 MEQ/L Estimat Glomerular Filtration Rate 91 ML/MIN Lipase 128 U/L Urine Color YELLOW Urine Turbidity CLEAR Urine pH 6.0 Urine Specific [place] GREATER/EQUAL 1.030 Urine Protein NEG mg/dL Urine Glucose (UA) NEG mg/dL Urine Ketones 80 OR GREATER mg/dL Urine Occult Blood NEG Urine Nitrite NEG Urine Bilirubin NEG Urine Urobilinogen 0.2 MG/DL Urine Leukocyte Esterase NEG Urine RBC 0-2 /hpf Urine WBC 0-2 /hpf Urine Squamous Epithelial Cells 0-5 /hpf Urine Bacteria NONE /hpf Microscopic Urinalysis Comment CULT NOT INDICATED MDM Medical Decision Making Medical Screen Exam Complete: Yes Emergency Medical Condition: Yes Medical Record Reviewed: Yes Interpretation(s) Laboratory Tests Test 12/17/17 19:36 12/17/17 20:34 White Blood Count 22.0 TH/MM3 (4.0-11.0) Platelet Count 539 TH/MM3 (150-450) Neutrophils (%) (Auto) 79.7 % (16.0-70.0) Basophils (%) (Auto) 4.2 % (0.0-2.0) Neutrophils # (Auto) 17.5 TH/MM3 (1.8-7.7) Monocytes # (Auto) 1.3 TH/MM3 (0-0.9) Basophils # (Auto) 0.9 TH/MM3 (0-0.2) Random Glucose 172 MG/DL (74-106) Alkaline Phosphatase 124 U/L (45-117) Aspartate Amino Transf (AST/SGOT) 12 U/L (15-37) Sodium Level 134 MEQ/L (136-145) Urine Ketones 80 OR GREATER mg/dL (NEG) Last 24 hours Impressions Abdomen X-Ray 12/17/171957 Signed Impressions: Service Date/Time: Sunday, December 17, 2017 20:15 - CONCLUSION: No acute disease. Tulio Jones MD Differential Diagnosis Gastritis versus gastroenteritis versus gastroparesis versus obstruction Narrative Course X-ray did not show any signs of obstruction. Patient has significant leukocytosis which she has had in the past as well during these episodes. Her abdomen had some mild tenderness in the epigastrium but was otherwise fairly unremarkable. She was given IV fluids, Reglan, and on reevaluation at 9:30 PM, her vomiting episodes have settled down. She does appear to still be in some distress. Her blood pressure was also fairly elevated, she could not take her blood pressure medications. She was given IV metoprolol with some improvement in blood pressure. At this point, my plan would be to admit her for further treatment. Case was discussed with Dr. Chan for admission. In addition, CT abdomen and pelvis was also ordered for further characterization of abdominal discomfort. Diagnosis Primary Impression: Nausea & vomiting Additional Impression: Hypertension Admitting Information Admitting Physician Requests: Admit Meredith Lua MD December 17, 2017 19:37
[2017-12-17 19:49] LABS: AUTOMATED NEUTROPHIL # 17.5 TH/MM3 (1.8-7.7); BASOPHIL # 0.9 TH/MM3 (0-0.2); BASOPHIL % 4.2 % (0.0-2.0); EOSINOPHIL # 0.1 TH/MM3 (0-0.4); EOSINOPHIL % 0.3 % (0.0-4.0); HEMATOCRIT 43.8 % (35.0-46.0); HEMOGLOBIN 14.8 GM/DL (11.6-15.3); LYMPH % 10.1 % (9.0-44.0); LYMPHOCYTE # 2.2 TH/MM3 (1.0-4.8); MEAN CELL VOLUME 89.8 FL (80.0-100.0); MEAN CORPUSCULAR HEMOGLOBIN 30.3 PG (27.0-34.0); MEAN CORPUSCULAR HGB CONC 33.8 % (32.0-36.0); MEAN PLATELET VOLUME 7.3 FL (7.0-11.0); MONO % 5.7 % (0.0-8.0); MONOCYTE # 1.3 TH/MM3 (0-0.9); NEUT % 79.7 % (16.0-70.0); PLATELET COUNT 539 TH/MM3 (150-450); RED BLOOD COUNT 4.88 MIL/MM3 (4.00-5.30); RED CELL DISTRIBUTION WIDTH 13.7 % (11.6-17.2)
[2017-12-17 19:56] LABS: CHLORIDE 99 MEQ/L (98-107); SODIUM (NA) 134 MEQ/L (136-145)
[2017-12-17 19:59] LABS: CALCIUM 9.9 MG/DL (8.5-10.1)
[2017-12-17 20:00] LABS: ALBUMIN 3.7 GM/DL (3.4-5.0); BICARBONATE 24.6 MEQ/L (21.0-32.0); BLOOD UREA NITROGEN 12 MG/DL (7-18); GLUCOSE,RANDOM 172 MG/DL (74-106)
[2017-12-17 20:03] LABS: ALT (GPT) 29 U/L (10-53); AST (GOT) 12 U/L (15-37); CREATININE 0.66 MG/DL (0.50-1.00); GLOMERULAR FILTRATION RATE 91 ML/MIN (>89)
[2017-12-17 20:05] LABS: TOTAL BILIRUBIN ADULT 0.5 MG/DL (0.2-1.0)
[2017-12-17 20:06] LABS: ALKALINE PHOSPHATASE 124 U/L (45-117)
[2017-12-17] MEDS ORDERED: METO1TAB42 PO (20:14)
--- NOTE | 2017-12-17 20:58 | RADRPT ---
EXAM DATE/TIME: 12/17/2017 20:15 [facility] COMPARISON: CT ABDOMEN & PELVIS W CONTRAST, August 10, 2017, 16:53. ABDOMEN FLAT & UPRIGHT, December 09, 2017, 15:41 . INDICATIONS : Vomiting. MEDICAL HISTORY : None. SURGICAL HISTORY : Hysterectomy. Cholecystectomy. ENCOUNTER: Initial ACUITY: 4 - 6 days PAIN SCORE: 5/10 LOCATION: Bilateral upper quadrant abdomen. FINDINGS: Supine and upright views of the abdomen were performed. The abdominal bowel gas pattern is normal. No air fluid levels are seen. No abnormal masses, calcifications, or organomegaly is seen. The visu alized lower lungs are clear. No evidence of free intraperitoneal gas. The osseous structures are u nremarkable. Cholecystectomy clips. Small calcified lymph node overlies the right sacrum. CONCLUSION: No acute disease. Tulio Jones MD on December 17, 2017 at 20:55 Board Certified Radiologist. This report was verified electronically.
[2017-12-17] MEDS ORDERED: METOPROLOL TARTRATE 5 MG/5 ML VIAL IV PUSH ONE (21:00)
[2017-12-17 21:01] LABS: BLOOD, URINE NEG (NEG); GLUCOSE,URINE NEG (NEG); KETONE, URINE 80 OR GREATER mg/dL (NEG); NITRITE,URINE NEG (NEG); URINE COLOR YELLOW (YELLW/STRAW); URINE LEUKOCYTE ESTERASE NEG (NEG)
[2017-12-17 21:05] LABS: BILIRUBIN, URINE NEG (NEG)
[2017-12-17 21:06] LABS: RBC, URINE 0-2 /hpf (0-3); SQUAMOUS EPITHELIAL CELL URINE 0-5 /hpf (0-5); WBC, URINE 0-2 /hpf (0-5)
[2017-12-17] MEDS ORDERED: METOCLOPRAMIDE HCL 10 MG/2 ML VIAL IV PUSH PRN (22:15)
[2017-12-17] MEDS ORDERED: IOHEXOL 350 MG/ML 10 ML VIAL (for RAD DIAG) IVCONTRAST ONE (22:59)
--- NOTE | 2017-12-17 23:16 | RADRPT ---
EXAM DATE/TIME: 12/17/2017 22:41 [facility] COMPARISON: No previous studies available for comparison. INDICATIONS : Abdominal pain and vomiting. IV CONTRAST: 100 cc Omnipaque 350 (iohexol) IV ORAL CONTRAST: No oral contrast ingested. RADIATION DOSE: 4.65 CTDIvol (mGy) MEDICAL HISTORY : Gastroesophageal reflux disease. Chronic obstructive pulmonary disease. Cardiovascular disease SURGICAL HISTORY : Cholecystectomy. Hysterectomy. ENCOUNTER: Initial ACUITY: 4 - 6 days PAIN SCALE: 8/10 LOCATION: Bilateral lower quadrant upper quadrant TECHNIQUE: Volumetric scanning of the abdomen and pelvis was performed. Using automated exposure control and ad justment of the mA and/or kV according to patient size, radiation dose was kept as low as reasonably achievable to obtain optimal diagnostic quality images. DICOM format image data is available electro nically for review and comparison. FINDINGS: LOWER LUNGS: The visualized lower lungs are clear. LIVER: Homogeneous density without lesion. There is no dilation of the biliary tree. No calcified gallston es. Previous cholecystectomy. SPLEEN: Normal size without lesion. PANCREAS: Within normal limits. KIDNEYS: Normal in size and shape. There is no mass, stone or hydronephrosis. ADRENAL GLANDS: Within normal limits. VASCULAR: There is no aortic aneurysm. BOWEL/MESENTERY: The stomach, small bowel, and colon demonstrate no acute abnormality. There is no free intraperitone al air or fluid. ABDOMINAL WALL: Within normal limits. RETROPERITONEUM: There is no lymphadenopathy. BLADDER: No wall thickening or mass. REPRODUCTIVE: Within normal limits. INGUINAL: There is no lymphadenopathy or hernia. MUSCULOSKELETAL: Within normal limits for patient age. CONCLUSION: 1. No acute findings. No obstruction, free fluid or free air. Previous cholecystectomy with bile duct mildly prominent at 9 mm. Tyler Glez MD on December 17, 2017 at 23:01 Board Certified Radiologist. This report was verified electronically.
[2017-12-17] MEDS: SODIUM CHLOR 0.9% 1000 ML INJ 1,000 ML IV SCH (23:28)
[2017-12-18 00:18] VITALS: BP 167/84; PULSE 74; RESP 18; TEMP 98.2; O2SAT 100
[2017-12-18 05:33] LABS: BASOPHIL # 0.1 TH/MM3 (0-0.2); BASOPHIL % 0.5 % (0.0-2.0); EOSINOPHIL # 0.1 TH/MM3 (0-0.4); EOSINOPHIL % 0.5 % (0.0-4.0); HEMATOCRIT 38.4 % (35.0-46.0); HEMOGLOBIN 12.6 GM/DL (11.6-15.3); LYMPH % 12.6 % (9.0-44.0); LYMPHOCYTE # 1.9 TH/MM3 (1.0-4.8); MEAN CELL VOLUME 89.5 FL (80.0-100.0); MEAN CORPUSCULAR HEMOGLOBIN 29.4 PG (27.0-34.0); MEAN CORPUSCULAR HGB CONC 32.8 % (32.0-36.0); MONOCYTE # 0.7 TH/MM3 (0-0.9); NEUT % 81.4 % (16.0-70.0); PLATELET COUNT 475 TH/MM3 (150-450); RED BLOOD COUNT 4.29 MIL/MM3 (4.00-5.30); RED CELL DISTRIBUTION WIDTH 13.4 % (11.6-17.2); WHITE BLOOD COUNT 14.8 TH/MM3 (4.0-11.0)
[2017-12-18 05:55] LABS: BICARBONATE 25.9 MEQ/L (21.0-32.0); CALCIUM 8.5 MG/DL (8.5-10.1); CREATININE 0.37 MG/DL (0.50-1.00)
[2017-12-18] MEDS: SODIUM CHLORIDE 0.9% FLUSH 10 ML FLUSH IV FLUSH SCH ×2 (08:23→21:45)
[2017-12-18 08:48] VITALS: BP 120/60; PULSE 84; RESP 16; TEMP 98; O2SAT 98
[2017-12-18] MEDS: SODIUM CHLOR 0.9% 1000 ML INJ 1,000 ML IV SCH (09:11)
[2017-12-18] MEDS ORDERED: DEXTROSE 50% IN WATER 50 ML VIAL(D50) IV PUSH PRN (09:30)
[2017-12-18] MEDS ORDERED: GLUCAGON 1 MG/ML VIAL OTHER PRN (09:30)
[2017-12-18] MEDS ORDERED: PILL SPLITTER OTHER PRN (09:45)
[2017-12-18] MEDS: LACTATED RINGER'S 1000 ML INJ 1,000 ML IV SCH ×2 (10:04→21:48)
[2017-12-18] MEDS: PANTOPRAZOLE SOD 40 MG DELAYED RELEASE TAB PO SCH (10:39)
--- NOTE | 2017-12-18 11:20 | HHI.HP ---
[facility] Service [facility] Primary Care Physician Emilio Davila MD Admission Diagnosis Intractable vomiting/gastroparesis/leukocytosis Diagnoses: Chief Complaint: Abdominal pain with nausea and vomiting Travel History International Travel<30 Days: No Contact w/Intl Traveler <30 Da: No Traveled to Known Affected Are: No History of Present Illness This patient is a 62-year-old female with a history of diabetes and history of gastroparesis was coming with with abdominal pain associated with nausea and vomiting for the last several days. She was recently discharged from this hospital earlier this month for similar symptoms. She says she has not been able to eat and is only eating liquids at home. She also vomiting occurs now with liquids. She has not had any fevers or chills and notes that her weight has gone down about 40 pounds since the last several months. 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 She appears dehydrated on evaluation. Patient's been recommended for observation for follow-up and for further evaluation Review of Systems Constitutional: DENIES: Diaphoretic episodes, Fatigue, Fever, Weight gain, Weight loss, Chills, Dizziness, Change in appetite, Night Sweats Endocrine: DENIES: Abnorml menstrual pattern, Heat/cold intolerance, Polydipsia , Polyuria, Polyphagia Eyes: DENIES: Blurred vision, Diplopia, Eye inflammation, Eye pain, Vision loss , Photosensitivity, Double Vision Ears, nose, mouth, throat: DENIES: Tinnitus, Hearing loss, Vertigo, Nasal discharge, Oral lesions, Throat pain, Hoarseness, Ear Pain, Running Nose, Epistaxis, Sinus Pain, Toothache, Odynophagia Respiratory: DENIES: Apneas, Cough, Snoring, Wheezing, Hemoptysis, Sputum production, Shortness of breath Cardiovascular: DENIES: Chest pain, Palpitations, Syncope, Dyspnea on Exertion , PND, Lower Extremity Edema, Orthopnea, Claudication Gastrointestinal: COMPLAINS OF: Abdominal pain, Nausea, Vomiting, DENIES: Black stools, Bloody stools, Constipation, Diarrhea, Difficulty Swallowing, Anorexia Genitourinary: DENIES: Abnormal vaginal bleeding, Dysmenorrhea, Dyspareunia, Sexual dysfunction, Urinary frequency, Urinary incontinence, Urgency, Hematuria , Dysuria, Nocturia, Vaginal discharge Musculoskeletal: DENIES: Joint pain, Muscle aches, Stiffness, Joint Swelling, Back pain, Neck pain Integumentary: DENIES: Abnormal pigmentation, Pruritus, Rash, Nail changes, Breast masses, Breast skin changes, Nipple discharge Hematologic/lymphatic: DENIES: Bruising, Lymphadenopathy Immunologic/allergic: DENIES: Eczema, Urticaria Neurologic: DENIES: Abnormal gait, Headache, Localized weakness, Paresthesias, Seizures, Speech Problems, Tremor, Poor Balance Psychiatric: COMPLAINS OF: Depression (Without suicidal or homicidal intent), DENIES: Anxiety, Confusion, Mood changes, Hallucinations, Agitation, Suicidal Ideation, Homicidal Ideation, Delusions Except as stated in HPI: all other systems reviewed are Neg Past Family Social History Past Medical History Diabetes mellitus type 2 Depression Occluded cardiac stent COPD Past Surgical History Hysterectomy Cholecystectomy Cardiac stenting, Eye surgery Lipoma Reported Medications Reviewed in the EMR, nothing Allergies: Coded Allergies: morphine (Verified Allergy, Intermediate, Nausea/Vomiting, 12/17/17) doxycycline (Verified Allergy, Unknown, hives, 12/17/17) minocycline (Verified Allergy, Unknown, hives, 12/17/17) penicillin G (Verified Allergy, Unknown, sob, 12/17/17) tigecycline (Verified Allergy, Unknown, hives, 12/17/17) Sulfa (Sulfonamide Antibiotics) (Verified Adverse Reaction, Severe, vomiting, 12/17/17) Active Ordered Medications Reviewed in the EMR Family History Father from motor vehicle accident, mother from diabetes mellitus type 2 Social History Lives alone, smokes a half pack a week, alcohol occasionally Physical Exam Vital Signs Vital Signs Date Time Temp Pulse Resp B/P (MAP) Pulse Ox O2 Delivery O2 Flow Rate FiO2 12/18/17 08:48 98.0 84 16 120/60 (80) 98 12/18/17 00:18 98.2 74 18 167/84 (111) 100 12/17/17 23:45 84 16 99 Nasal Cannula 2.00 12/17/17 23:42 16 12/17/17 23:34 99.1 84 16 156/76 (102) 99 Nasal Cannula 2.00 12/17/17 22:03 78 16 183/90 (121) 100 Nasal Cannula 3.00 12/17/17 21:24 78 16 188/98 (128) 100 Nasal Cannula 3.00 12/17/17 21:14 78 16 179/91 (120) 100 Nasal Cannula 3.00 12/17/17 21:11 98.5 76 16 192/92 (125) 100 Nasal Cannula 3.00 12/17/17 20:49 86 18 205/93 (130) 100 Nasal Cannula 3.00 12/17/17 19:30 18 12/17/17 19:30 88 18 182/88 (119) 100 Nasal Cannula 3.00 12/17/17 18:15 97.0 99 22 149/88 (108) 99 Physical Exam GENERAL: This is a thin female, well-developed patient, in no apparent distress. SKIN: No rashes, ecchymoses or lesions. Cool and dry. HEAD: Atraumatic. Normocephalic. No temporal or scalp tenderness. EYES: Pupils equal round and reactive. Extraocular motions intact. No scleral icterus. No injection or drainage. ENT: Nose without bleeding, purulent drainage or septal hematoma. Throat without erythema, tonsillar hypertrophy or exudate. Uvula midline. Airway patent. NECK: Trachea midline. No JVD or lymphadenopathy. Supple, nontender, no meningeal signs. CARDIOVASCULAR: Regular rate and rhythm without murmurs, gallops, or rubs. RESPIRATORY: Clear to auscultation. Breath sounds equal bilaterally. No wheezes , rales, or rhonchi. GASTROINTESTINAL: Abdomen soft, non-tender, nondistended. No hepato-splenomegaly , or palpable masses. No guarding. MUSCULOSKELETAL: Extremities without clubbing, cyanosis, or edema. No joint tenderness, effusion, or edema noted. No calf tenderness. Negative Homans sign bilaterally. NEUROLOGICAL: Awake and alert. Cranial nerves II through XII intact. Motor and sensory grossly within normal limits. Five out of 5 muscle strength in all muscle groups. Normal speech. Laboratory Laboratory Tests Test 12/17/17 19:36 12/17/17 20:34 12/18/17 05:10 White Blood Count 22.0 14.8 Red Blood Count 4.88 4.29 Hemoglobin 14.8 12.6 Hematocrit 43.8 38.4 Mean Corpuscular Volume 89.8 89.5 Mean Corpuscular Hemoglobin 30.3 29.4 Mean Corpuscular Hemoglobin Concent 33.8 32.8 Red Cell Distribution Width 13.7 13.4 Platelet Count 539 475 Mean Platelet Volume 7.3 7.0 Neutrophils (%) (Auto) 79.7 81.4 Lymphocytes (%) (Auto) 10.1 12.6 Monocytes (%) (Auto) 5.7 5.0 Eosinophils (%) (Auto) 0.3 0.5 Basophils (%) (Auto) 4.2 0.5 Neutrophils # (Auto) 17.5 12.0 Lymphocytes # (Auto) 2.2 1.9 Monocytes # (Auto) 1.3 0.7 Eosinophils # (Auto) 0.1 0.1 Basophils # (Auto) 0.9 0.1 CBC Comment DIFF FINAL DIFF FINAL Differential Comment Blood Urea Nitrogen 12 6 Creatinine 0.66 0.37 Random Glucose 172 115 Total Protein 8.0 Albumin 3.7 Calcium Level 9.9 8.5 Alkaline Phosphatase 124 Aspartate Amino Transf (AST/SGOT) 12 Alanine Aminotransferase (ALT/SGPT) 29 Total Bilirubin 0.5 Sodium Level 134 138 Potassium Level 4.3 3.7 Chloride Level 99 104 Carbon Dioxide Level 24.6 25.9 Anion Gap 10 8 Estimat Glomerular Filtration Rate 91 177 Lipase 128 Urine Color YELLOW Urine Turbidity CLEAR Urine pH 6.0 Urine Specific [place] GREATER/EQUAL 1.030 Urine Protein NEG Urine Glucose (UA) NEG Urine Ketones 80 OR GREATER Urine Occult Blood NEG Urine Nitrite NEG Urine Bilirubin NEG Urine Urobilinogen 0.2 Urine Leukocyte Esterase NEG Urine RBC 0-2 Urine WBC 0-2 Urine Squamous Epithelial Cells 0-5 Urine Bacteria NONE Microscopic Urinalysis Comment CULT NOT INDICATED Result Diagram: 12/18/1710 12/18/17509 Imaging Last Impressions Abdomen/Pelvis CT 12/17/172153 Signed Impressions: Service Date/Time: Sunday, December 17, 2017 22:41 - CONCLUSION: 1. No acute findings. No obstruction, free fluid or free air. Previous cholecystectomy with bile duct mildly prominent at 9 mm. Tyler Gelz MD Abdomen X-Ray 12/17/171957 Signed Impressions: Service Date/Time: Sunday, December 17, 2017 20:15 - CONCLUSION: No acute disease. MD Catalina Bonneri VTE Risk Assessment Rashaadrini VTE Risk Assessment: No/Low Risk (score <= 1) Caprini Risk Assessment Model Point Value = 1 Point Value = 2 Point Value = 3 Point Value = 5 Age 41-60 Minor surgery BMI > 25 kg/m2 Swollen legs Varicose veins or History of unexplained or recurrent spontaneous Oral contraceptives or hormone replacement Sepsis (< 1 month) Serious lung disease, including pneumonia (< 1 month) Abnormal pulmonary function Acute myocardial infarction Congestive heart failure (< 1 month) History of inflammatory bowel disease Medical patient at bed rest Age 61-74 Arthroscopic surgery Major open surgery (> 45 min) Laparoscopic surgery (> 45 min) Malignancy Confined to bed (> 72 hours) Immobilizing plaster cast Central venous access Age >= 75 History of VTE Family history of VTE Factor V Leiden Prothrombin [id number] Lupus anticoagulant Anticardiolipin antibodies Elevated serum homocysteine Heparin-induced thrombocytopenia Other congenital or acquired thrombophilia Stroke (< 1 month) Elective arthroplasty Hip, pelvis, or leg fracture Acute spinal cord injury (< 1 month) Prophylaxis Regimen Total Risk Factor Score Risk Level Prophylaxis Regimen 0-1 Low Early ambulation 2 Moderate Order ONE of the following: *Sequential Compression Device (SCD) *Heparin 5000 units SQ BID 3-4 Higher Order ONE of the following medications: *Heparin 5000 units SQ TID *Enoxaparin/Lovenox 40 mg SQ daily (WT < 150 kg, CrCl > 30 mL/min) *Enoxaparin/Lovenox 30 mg SQ daily (WT < 150 kg, CrCl > 10-29 mL/min) *Enoxaparin/Lovenox 30 mg SQ BID (WT < 150 kg, CrCl > 30 mL/min) AND/OR *Sequential Compression Device (SCD) 5 or more Highest Order ONE of the following medications: *Heparin 5000 units SQ TID (Preferred with Epidurals) *Enoxaparin/Lovenox 40 mg SQ daily (WT < 150 kg, CrCl > 30 mL/min) *Enoxaparin/Lovenox 30 mg SQ daily (WT < 150 kg, CrCl > 10-29 mL/min) *Enoxaparin/Lovenox 30 mg SQ BID (WT < 150 kg, CrCl > 30 mL/min) AND *Sequential Compression Device (SCD) Assessment and Plan Problem List: (1) Dehydration ICD Code: E86.0 - Dehydration Plan: Continue with IV hydration Electrolytes improved Continue with antiemetics (2) DM2 (diabetes mellitus, type 2) ICD Code: E11.9 - Type 2 diabetes mellitus without complications Plan: Continue with home medications monitor closely with modified diet (3) Nausea & vomiting ICD Code: R11.2 - Nausea with vomiting, unspecified Plan: Continue with antiemetics, proton pump inhibitor Barium swallow pending Patient recently saw gastroenterology, this time there is no indication for endoscopy Continue supportive care with hydration as well Cherie Swain MD December 18, 2017 11:20
[2017-12-18] MEDS: INSULIN ASPART SUPPLEMENTAL SCALE SQ SCH ×3 (11:43→21:00)
[2017-12-18] MEDS: METOPROLOL SUCCINATE 25 MG EXTENDED RELEASE TAB PO SCH (12:00)
[2017-12-18] MEDS: INSULIN ASPART 1,000 UNITS/10 ML VIAL SQ SCH ×2 (12:00→16:33)
[2017-12-18] MEDS: METOCLOPRAMIDE HCL 10 MG TAB PO SCH ×2 (13:00→17:19)
[2017-12-18 13:05] VITALS: BP 98/61; PULSE 77; RESP 16; TEMP 97.7; O2SAT 96
[2017-12-18] MEDS: LEVOTHYROXINE SODIUM 112 MCG TAB PO SCH (13:24)
[2017-12-18] MEDS ORDERED: METOCLOPRAMIDE HCL 10 MG/2 ML VIAL IV ONE (15:19)
--- NOTE | 2017-12-18 16:05 | RADRPT ---
EXAM DATE/TIME: 12/18/2017 13:36 [facility] COMPARISON: GASTRIC EMPTYING, August 12, 2017, 11:59. INDICATIONS : Abdominal pain with nausea and vomiting. DOSE: 1.1 mCi Tc99m Sulfur Colloid Labeled Whole egg PO MEDICATONS: 1.) 5 mg Reglan IV at 90 minutes IMAGIN hrs MEDICAL HISTORY : Chronic obstructive pulmonary disease. Diabetes mellitus type 2. Gastroesophageal reflux disease. Cor onary artery disease and myocardial infarction. SURGICAL HISTORY : Hysterectomy. Coronary artery stent. Cholecystectomy. ENCOUNTER: Initial ACUITY: 1 day PAIN SCALE: 4/10 LOCATION: Abdomen. TECHNIQUE: Following the oral ingestion of radiotracer-labeled meal, dynamic sequential images in the WELSH projec tion were acquired with simultaneous computer acquisition. The data set was decay-corrected. FINDINGS: LAG PHASE: There is 20 minutes before onset of gastric emptying. EMPTYING: Gastric emptying kinetics are linear. The decay-corrected, back-extrapolated half-time of emptying i s 82 minutes. (Normal for this lab is 45- 90 minutes.) INTERVENTION: None CONCLUSION: Normal gastric emptying study. Aly Ryan MD FACR on December 18, 2017 at 16:02 Board Certified Radiologist. This report was verified electronically.
[2017-12-18 16:14] VITALS: BP 103/51; PULSE 73; RESP 18; TEMP 98.8; O2SAT 99
--- NOTE | 2017-12-18 18:36 | EKG ---
Date Performed: 12/17/2017 Time Performed: 18:25:32 PTAGE: 62 years EKG: Sinus rhythm POSSIBLE RIGHT ATRIAL ENLARGEMENT POSSIBLE LEFT ATRIAL ENLARGEMENT BORDERLINE ECG INTERPRETATION BAS ED ON A DEFAULT AGE OF 40 YEARS Since the PREVIOUS TRACING , no significant change noted PREVIOUS TRACIN12/10/2017 16.05 DOCTOR: Vel Goyal Interpretating Date/Time 12/18/2017 18:35:38
[2017-12-18 20:02] VITALS: BP 138/65; PULSE 75; RESP 20; TEMP 98; O2SAT 97
[2017-12-18] MEDS ORDERED: MONTELUKAST SODIUM 10 MG TAB PO SCH (21:00)
[2017-12-18] MEDS ORDERED: SERTRALINE HCL 50 MG TAB PO SCH (21:00)
[2017-12-18] MEDS ORDERED: ATORVASTATIN 40 MG TAB PO SCH (21:00)
[2017-12-18] MEDS ORDERED: HYDROmorphone HCL PF 0.5 MG/0.5 ML SYRINGE IV PUSH ONE (22:45)
[2017-12-19 00:42] VITALS: BP 94/51; PULSE 76; RESP 20; TEMP 97.4; O2SAT 96
[2017-12-19] MEDS: LEVOTHYROXINE SODIUM 112 MCG TAB PO SCH (05:57)
[2017-12-19] MEDS: LACTATED RINGER'S 1000 ML INJ 1,000 ML IV SCH (05:59)
[2017-12-19] MEDS: INSULIN ASPART 1,000 UNITS/10 ML VIAL SQ SCH (07:52)
[2017-12-19] MEDS: INSULIN ASPART SUPPLEMENTAL SCALE SQ SCH (07:52)
[2017-12-19] MEDS: SODIUM CHLORIDE 0.9% FLUSH 10 ML FLUSH IV FLUSH SCH (09:00)
[2017-12-19] MEDS ORDERED: CLOPIDOGREL 75 MG TAB PO SCH (09:00)
[2017-12-19] MEDS ORDERED: ASPIRIN 81 MG CHEW TAB CHEW SCH (09:00)
[2017-12-19 09:07] LABS: BICARBONATE 28.6 MEQ/L (21.0-32.0); CALCIUM 9.1 MG/DL (8.5-10.1)
[2017-12-19 09:11] LABS: CREATININE 0.37 MG/DL (0.50-1.00)
[2017-12-19] MEDS ORDERED: ACETAMINOPHEN/CODEINE 300 MG/30 MG TAB PO ONE (09:15)
[2017-12-19] MEDS: METOCLOPRAMIDE HCL 10 MG TAB PO SCH (09:28)
[2017-12-19] MEDS: PANTOPRAZOLE SOD 40 MG DELAYED RELEASE TAB PO SCH (09:28)
[2017-12-19] MEDS: METOPROLOL SUCCINATE 25 MG EXTENDED RELEASE TAB PO SCH (09:28)
[2017-12-19 09:40] VITALS: BP 123/59; PULSE 82; RESP 17; TEMP 97.4; O2SAT 99
[2017-12-19] MEDS ORDERED: METO10TA PO (10:08)
[2017-12-19] MEDS ORDERED: TYLETAB34 PO (10:08)
--- NOTE | 2017-12-19 10:09 | HHI.DCPOC ---
Discharge Care Plan Diagnosis: (1) DM2 (diabetes mellitus, type 2) (2) Nausea & vomiting Goals to Promote Your Health * To prevent worsening of your condition and complications * To maintain your health at the optimal level Directions to Meet Your Goals Take your medications as prescribed Follow your dietary instruction Follow activity as directed Keep your appointments as scheduled Take your immunizations and boosters as scheduled If your symptoms worsen call your PCP, if no PCP go to Urgent Care Center or Emergency Room Smoking is Dangerous to Your Health. Avoid second hand smoke Call the 24-hour hour crisis hotline for domestic abuse at Cherie Swain MD December 19, 2017 10:09
[2017-12-19 10:28] VITALS: RESP 17
--- NOTE | 2017-12-19 11:36 | HHI.DS ---
Discharge Summary Admission Date December 17, 2017 at 21:56 Discharge Date: December 19, 2017 Admitting Diagnosis Intractable vomiting/gastroparesis/leukocytosis (1) Dehydration ICD Code: E86.0 - Dehydration (2) DM2 (diabetes mellitus, type 2) ICD Code: E11.9 - Type 2 diabetes mellitus without complications (3) Nausea & vomiting ICD Code: R11.2 - Nausea with vomiting, unspecified Procedures none Brief History - From Admission This patient is a 62-year-old female with a history of diabetes and history of gastroparesis was coming with with abdominal pain associated with nausea and vomiting for the last several days. She was recently discharged from this hospital earlier this month for similar symptoms. She says she has not been able to eat and is only eating liquids at home. She also vomiting occurs now with liquids. She has not had any fevers or chills and notes that her weight has gone down about 40 pounds since the last several months. 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 She appears dehydrated on evaluation. Patient's been recommended for observation for follow-up and for further evaluation CBC/BMP: 12/18/17 0510 12/19/17 0810 Significant Findings Laboratory Tests Test 12/17/17 19:36 12/17/17 20:34 12/18/17 05:10 12/19/17 08:10 White Blood Count 22.0 TH/MM3 (4.0-11.0) 14.8 TH/MM3 (4.0-11.0) Platelet Count 539 TH/MM3 (150-450) 475 TH/MM3 (150-450) Neutrophils (%) (Auto) 79.7 % (16.0-70.0) 81.4 % (16.0-70.0) Basophils (%) (Auto) 4.2 % (0.0-2.0) Neutrophils # (Auto) 17.5 TH/MM3 (1.8-7.7) 12.0 TH/MM3 (1.8-7.7) Monocytes # (Auto) 1.3 TH/MM3 (0-0.9) Basophils # (Auto) 0.9 TH/MM3 (0-0.2) Random Glucose 172 MG/DL (74-106) 115 MG/DL (74-106) 128 MG/DL (74-106) Alkaline Phosphatase 124 U/L (45-117) Aspartate Amino Transf (AST/SGOT) 12 U/L (15-37) Sodium Level 134 MEQ/L (136-145) Urine Ketones 80 OR GREATER mg/dL (NEG) Blood Urea Nitrogen 6 MG/DL (7-18) 2 MG/DL (7-18) Creatinine 0.37 MG/DL (0.50-1.00) 0.37 MG/DL (0.50-1.00) Imaging Last Impressions Gastric Emptying Nuclear Medicine 12/18/17 0000 Signed Impressions: Service Date/Time: Monday, December 18, 2017 13:36 - CONCLUSION: Normal gastric emptying study. Aly Ryan MD FACR Abdomen/Pelvis CT 12/17/172153 Signed Impressions: Service Date/Time: Sunday, December 17, 2017 22:41 - CONCLUSION: 1. No acute findings. No obstruction, free fluid or free air. Previous cholecystectomy with bile duct mildly prominent at 9 mm. Tyler Glez MD Abdomen X-Ray 12/17/171957 Signed Impressions: Service Date/Time: Sunday, December 17, 2017 20:15 - CONCLUSION: No acute disease. Tulio Jones MD PE at Discharge GENERAL: This is a well-nourished, well-developed patient, in no apparent distress. CARDIOVASCULAR: Regular rate and rhythm without murmurs, gallops, or rubs. RESPIRATORY: Clear to auscultation. Breath sounds equal bilaterally. No wheezes , rales, or rhonchi. GASTROINTESTINAL: Abdomen soft, non-tender, nondistended. Normal active bowel sounds MUSCULOSKELETAL: Extremities without clubbing, cyanosis, or edema. NEURO: Alert & Oriented x4 to person, place, time, situation. Moves all ext x4 Pt update on day of discharge Patient doing well. Tolerating current diet Discharge plans discussed with patient and she is agreeable. Gastric emptying study results discussed with patient Hospital Course This patient is seen and treated for abdominal pain and loss. She does admit to a diagnosis of gastroparesis related to her long-standing diabetes. Gastric imaging study here was normal. Imaging was normal otherwise. Patient's abdominal pain improved with supportive care and she was discharged home Pt Condition on Discharge: Good Discharge Disposition: Discharge Home Discharge Time: <= 30 minutes Discharge Instructions DIET: Follow Instructions for: As Tolerated, No Restrictions Activities you can perform: Regular-No Restrictions Follow up Referrals: Gastroenterology @ [facility] New Medications: Acetaminophen-Codeine (Tylenol-Codeine #3) 300-30 mg Tab 1 TAB PO Q4H PRN for PAIN, #10 TAB 0 Refills Metoclopramide (Metoclopramide) 10 Mg Tab 5 MG PO TID for Nausea/Vomiting, #90 TAB Continued Medications: Albuterol 8.5 GM Inh (Proair Hfa 8.5 GM Inh) 90 Mcg/Act Aer 2 PUFF INH Q4-6H PRN for SHORTNESS OF BREATH, #3 INHALER 11 Refills 108 mcg/actuation Aspirin (Aspirin) 81 Mg Chew 81 MG CHEW DAILY, TAB 0 Refills Clopidogrel (Plavix) 75 Mg Tab 75 MG PO DAILY for Blood Clot Prevention, #30 TAB 0 Refills Fluticasone-Vilanterol Inh (Breo Ellipta Inh) 100-25 Mcg/Act Inh 1 PUFF INH DAILY, #3 INHALER 4 Refills Use daily at the same time. Furosemide (Lasix) 20 Mg Tab 20 MG PO DIRECTED PRN for SWELLING, #60 TAB 0 Refills Insulin Aspart Inj (Novolog Flexpen Inj) 300 Unit/3 Ml Pen 12 UNITS SQ TIDAC for Blood Sugar Management, #12 PEN 11 Refills Insulin Detemir Inj (Levemir Flextouch Pen Inj) 300 unit/3 ML Pen 18 UNITS SQ Q12HR for Blood Sugar Management, #15 PEN 4 Refills Levothyroxine (Synthroid) 112 Mcg Tab 112 MCG PO DAILY for Thyroid, #90 TAB 2 Refills Metoprolol Succinate ER 24 HR (Metoprolol Succinate ER 24 HR) 25 Mg Tab 12.5 MG PO DAILY, #30 TAB 0 Refills Montelukast (Montelukast) 10 Mg Tab 10 MG PO HS, #90 TAB 4 Refills Promethazine Supp (Phenergan Supp) 12.5 Mg Supp 12.5 MG RECTAL Q6H PRN for NAUSEA OR VOMITING for 10 Days, #40 SUPP 0 Refills Rosuvastatin (Rosuvastatin) 20 Mg Tab 20 MG PO DAILY for Cholesterol Management, #90 TAB 4 Refills Sertraline (Sertraline) 50 Mg Tab 50 MG PO HS for Anxiety, #30 TAB 0 Refills Umeclidinium [place] Inh (Incruse Ellipta Inh) 0.0625 Mg/Act Inh 62.5 MCG INH DAILY for Treat COPD, #3 INHALER 11 Refills Cherie Swain MD December 19, 2017 11:36
== END 2017-12-19 11:41 | disposition home or self-care (01) ==
LOC: PHED 18:14 → PHEDA 21:56 → PH3A 23:50
PROVIDERS: ADMIT Hospitalist; ATTEND Hospitalist
DX: E86.0 Dehydration (principal); E11.43 Type 2 diabetes mellitus with diabetic autonomic (poly)neuropathy; K31.84 Gastroparesis; R11.2 Nausea with vomiting, unspecified; D72.829 Elevated white blood cell count, unspecified; I25.10 Atherosclerotic heart disease of native coronary artery without angina pectoris; I10 Essential (primary) hypertension; I25.2 Old myocardial infarction; E78.00 Pure hypercholesterolemia, unspecified; K21.9 Gastro-esophageal reflux disease without esophagitis; H40.9 Unspecified glaucoma; J44.9 Chronic obstructive pulmonary disease, unspecified; F32.9 Major depressive disorder, single episode, unspecified; F41.9 Anxiety disorder, unspecified; M19.90 Unspecified osteoarthritis, unspecified site; F17.200 Nicotine dependence, unspecified, uncomplicated; Z95.5 Presence of coronary angioplasty implant and graft; Z79.899 Other long term (current) drug therapy; Z79.82 Long term (current) use of aspirin; Z79.02 Long term (current) use of antithrombotics/antiplatelets
CPT/HCPCS: 74019; 74177; 78264; 80048; 80053; 81001; 82948; 83690; 85025; 93005; 96361; 96374; 96375; 99285; A9541; G0378; J1170; J2765; J7030; J7120; Q9967

== ENCOUNTER 2017-12-23 03:46 | Emergency (ER) | payer MEDICARE ==
[~2017-12-23] VITALS: Ht 147.3 cm; Wt 42.3 kg
[~2017-12-23 03:46] MED LIST changes: -BENZ1CAP51 PO; -BYST10TA2 PO; -CHOL100025 CHEW; -DICY10 PO; -ERYT1SUS5 PO; +METO10TA PO; +METO1TAB42 PO; -ROFL1TAB2 PO; +TYLETAB34 PO
[2017-12-23 03:56] VITALS: BP 136/87; PULSE 121; RESP 16; TEMP 98; O2SAT 96
[2017-12-23] MEDS ORDERED: SODIUM CHLORIDE 0.9% FLUSH 10 ML FLUSH IV FLUSH PRN (04:45)
[2017-12-23 04:59] LABS: BASOPHIL # 0.1 TH/MM3 (0-0.2); BASOPHIL % 0.3 % (0.0-2.0); EOSINOPHIL % 0.2 % (0.0-4.0); HEMATOCRIT 43.5 % (35.0-46.0); HEMOGLOBIN 14.6 GM/DL (11.6-15.3); LYMPH % 6.2 % (9.0-44.0); LYMPHOCYTE # 1.2 TH/MM3 (1.0-4.8); MEAN CELL VOLUME 90.1 FL (80.0-100.0); MEAN CORPUSCULAR HEMOGLOBIN 30.3 PG (27.0-34.0); MEAN CORPUSCULAR HGB CONC 33.6 % (32.0-36.0); MEAN PLATELET VOLUME 7.4 FL (7.0-11.0); MONO % 5.7 % (0.0-8.0); MONOCYTE # 1.1 TH/MM3 (0-0.9); NEUT % 87.6 % (16.0-70.0); PLATELET COUNT 591 TH/MM3 (150-450); RED BLOOD COUNT 4.82 MIL/MM3 (4.00-5.30); RED CELL DISTRIBUTION WIDTH 14.5 % (11.6-17.2); WHITE BLOOD COUNT 19.4 TH/MM3 (4.0-11.0)
[2017-12-23 05:10] LABS: ALT (GPT) 29 U/L (10-53)
[2017-12-23 05:13] LABS: ALKALINE PHOSPHATASE 159 U/L (45-117); TOTAL BILIRUBIN ADULT 0.4 MG/DL (0.2-1.0); TOTAL PROTEIN 7.8 GM/DL (6.4-8.2)
[2017-12-23 05:14] LABS: ALBUMIN 3.7 GM/DL (3.4-5.0); AST (GOT) 23 U/L (15-37); BICARBONATE 23.1 MEQ/L (21.0-32.0); BLOOD UREA NITROGEN 14 MG/DL (7-18); CALCIUM 9.4 MG/DL (8.5-10.1); CHLORIDE 98 MEQ/L (98-107); CREATININE 0.66 MG/DL (0.50-1.00); GLOMERULAR FILTRATION RATE 91 ML/MIN (>89); GLUCOSE,RANDOM 161 MG/DL (74-106); SODIUM (NA) 135 MEQ/L (136-145)
[2017-12-23] MEDS ORDERED: SODIUM CHLOR 0.9% 1000 ML INJ 1,000 ML IV SCH (05:30)
[2017-12-23] MEDS ORDERED: METOCLOPRAMIDE HCL 10 MG/2 ML VIAL IV PUSH ONE (05:30)
--- NOTE | 2017-12-23 06:56 | PD ---
HPI Chief Complaint: GI Complaint Time Seen by Provider: 04:30 Travel History International Travel<30 days: No Contact w/Intl Traveler<30days: No Traveled to known affect area: No History of Present Illness HPI This is a 62-year-old female who has a history of gastroparesis who presents to the emergency department reporting severe constant vomiting, unable to keep anything down weeks, resulting in 40 pound weight loss. She denies any fevers or chills. She was just discharged from the hospital on December 19. During that stay she had a normal gastric emptying study and a normal abdominal CT. Patient reports that she is supposed to follow-up with GI but she has not heard yet when her appointment will be. She says she has been using Reglan, Zofran and Phenergan suppositories but she cannot keep anything down PFSH Past Medical History Hx Anticoagulant Therapy: Yes Arthritis: Yes (OA) Asthma: No Autoimmune Disease: No Blood Disorders: No Anxiety: Yes Depression: Yes Heart Rhythm Problems: No Cancer: No Cardiac Catheterization: Yes (MULTIPLE: LAST ONE DECEMBER 2015) Cardiovascular Problems: Yes ([place] X2) High Cholesterol: Yes Chemotherapy: No Chest Pain: Yes Congestive Heart Failure: No COPD: Yes Cerebrovascular Accident: No Coronary Artery Disease: Yes Diabetes: Yes Patient Takes Glucophage: No Diminished Hearing: No Endocrine: Yes Gastrointestinal Disorders: Yes (barrets esophagus, gastroparisis) GERD: Yes Glaucoma: Yes Genitourinary: No Headaches: Yes Hiatal Hernia: No Immune Disorder: No Implanted Vascular Access Dvce: Yes Insomnia: Yes Kidney Stones: No Musculoskeletal: Yes Neurologic: No Psychiatric: Yes Reproductive: Yes (HYSTERECTOMY) Respiratory: Yes (COPD) Migraines: No Myocardial Infarction: Yes (10/2015) Pneumonia: Yes Radiation Therapy: No Renal Failure: No Seizures: No Sleep Apnea: No Thyroid Disease: Yes Ulcer: No Menopausal: Yes : 4 Para: 3 Miscarriage: 1 Tubal Ligation: Yes Past Surgical History Abdominal Surgery: Yes (GALLBLADDER) AICD: No Arteriovenous Shunt: No Body Medical Devices: STENT Cardiac Surgery: Yes (STENT) Cholecystectomy: Yes Coronary Stent: Yes (X1, STATES IS PARTIALLY "BLOCKED") Ear Surgery: No Endocrine Surgery: No Eye Surgery: Yes (LASER FOR GLAUCOMA) Genitourinary Surgery: No Gynecologic Surgery: Yes (HYSTERECTOMY) Hysterectomy: Yes Insulin Pump: No Joint Replacement: No Oral Surgery: Yes (DENTURES) Pacemaker: No Thoracic Surgery: No Other Surgery: Yes ("LUMPS REMOVED FROM MY NECK AND RIBCAGE, A LIPOMA") Social History Alcohol Use: No Tobacco Use: No Substance Use: No Allergies-Medications (Allergen,Severity, Reaction): Coded Allergies: doxycycline (Verified Allergy, Unknown, hives, 12/23/17) minocycline (Verified Allergy, Unknown, hives, 12/23/17) penicillin G (Verified Allergy, Unknown, sob, 12/23/17) tigecycline (Verified Allergy, Unknown, hives, 12/23/17) Sulfa (Sulfonamide Antibiotics) (Verified Adverse Reaction, Severe, vomiting, 12/23/17) morphine (Verified Adverse Reaction, Intermediate, Nausea/Vomiting, ) Reported Meds & Prescriptions Reported Meds & Active Scripts Active Tylenol-Codeine #3 (Acetaminophen-Codeine) 300-30 mg Tab 1 Tab PO Q4H PRN Metoclopramide (Metoclopramide HCl) 10 Mg Tab 5 Mg PO TID Oxygen (O2) Device Liter JON.CANULA CONTINUOUS Oxygen Concentrator Portable Gaseous 2 L/min via Nasal Canula Continuous For 99 months Phenergan Supp (Promethazine HCl) 12.5 Mg Supp 12.5 Mg RECTAL Q6H PRN 10 Days Walker/Adult/Folding (Device) 1 Mis Mis Ea .ROUTE DIRECTED Walker with seat Levemir Flextouch Pen Inj (Insulin Detemir) 300 unit/3 ML Pen 18 Units SQ Q12HR Breo Ellipta Inh (Fluticasone/Vilanterol) 100-25 Mcg/Act Inh 1 Puff INH DAILY Use daily at the same time. Montelukast (Montelukast Sodium) 10 Mg Tab 10 Mg PO HS Rosuvastatin (Rosuvastatin Calcium) 20 Mg Tab 20 Mg PO DAILY Novolog Flexpen Inj (Insulin Aspart) 300 Unit/3 Ml Pen 12 Units SQ TIDAC Proair Hfa 8.5 GM Inh (Albuterol Sulfate) 90 Mcg/Act Aer 2 Puff INH Q4-6H PRN 108 mcg/actuation Incruse Ellipta Inh (Umeclidinium Eleanor Inh) 0.0625 Mg/Act Inh 62.5 Mcg INH DAILY Synthroid (Levothyroxine Sodium) 112 Mcg Tab 112 Mcg PO DAILY Oxygen (O2) (Miscellaneous Medication) Inha 2 Liter JON.CANULA CONTINUOUS Oxygen Concentrator Portable Gaseous 2 L/min via Nasal Canula Continuous For 99 months Oxygen (O2) Device 2 Liter JON.CANULA CONTINUOUS Oxygen Concentrator Portable Gaseous 2 L/min via Nasal Canula Continuous For 99 months Oxygen tank (Oxygen) 1 Ea Tank 2 Liter JON.CANULA CONTINUOUS Oxygen Concentrator Portable Gaseous 2 L/min via Nasal Cannula Continuous For 99 months Reported Metoprolol Succinate ER 24 HR (Metoprolol Succinate) 25 Mg Tab 12.5 Mg PO DAILY Sertraline (Sertraline HCl) 50 Mg Tab 50 Mg PO HS Lasix (Furosemide) 20 Mg Tab 20 Mg PO DIRECTED PRN Plavix (Clopidogrel Bisulfate) 75 Mg Tab 75 Mg PO DAILY Aspirin 81 Mg Chew 81 Mg CHEW DAILY Review of Systems Except as stated in HPI: all other systems reviewed are Neg Physical Exam Narrative GENERAL: Chronically unwell appearing, thin SKIN: Focused skin assessment warm and dry. HEAD: Atraumatic. Normocephalic. EYES: Pupils equal and round. No injection or drainage. ENT: Moist mucous membranes NECK: Trachea midline. CARDIOVASCULAR: Regular rate and rhythm. No murmur appreciated. RESPIRATORY: Clear to auscultation. Breath sounds equal bilaterally. GASTROINTESTINAL: Abdomen soft diffusely tender to palpation with no rebound or guarding. MUSCULOSKELETAL: No obvious deformities. NEUROLOGICAL: Awake and alert. No obvious cranial nerve deficits. Moving all extremities. PSYCHIATRIC: Appropriate mood and affect; insight and judgment normal. Data Data Last Documented VS Vital Signs Date Time Temp Pulse Resp B/P (MAP) Pulse Ox O2 Delivery O2 Flow Rate FiO2 12/23/17 03:56 98.0 121 16 136/87 (103) 96 Orders Orders Complete Blood Count With Diff (12/23/17 04:31) Comprehensive Metabolic Panel (12/23/17 04:31) Lipase (12/23/17 04:31) Iv Access Insert/Monitor (12/23/17 04:31) Ecg Monitoring (12/23/17 04:31) Oximetry (12/23/17 04:31) Sodium Chloride 0.9% Flush (Ns Flush) (12/23/17 04:45) Sodium Chlor 0.9% 1000 Ml Inj (Ns 1000 M (12/23/17 05:30) Metoclopramide Inj (Reglan Inj) (12/23/17 05:30) Ns (Bolus) Inj (12/23/17 07:30) Promethazine Inj (Phenergan Inj) (12/23/17 07:30) Labs Laboratory Tests Test 12/23/17 04:44 White Blood Count 19.4 TH/MM3 Red Blood Count 4.82 MIL/MM3 Hemoglobin 14.6 GM/DL Hematocrit 43.5 % Mean Corpuscular Volume 90.1 FL Mean Corpuscular Hemoglobin 30.3 PG Mean Corpuscular Hemoglobin Concent 33.6 % Red Cell Distribution Width 14.5 % Platelet Count 591 TH/MM3 Mean Platelet Volume 7.4 FL Neutrophils (%) (Auto) 87.6 % Lymphocytes (%) (Auto) 6.2 % Monocytes (%) (Auto) 5.7 % Eosinophils (%) (Auto) 0.2 % Basophils (%) (Auto) 0.3 % Neutrophils # (Auto) 17.0 TH/MM3 Lymphocytes # (Auto) 1.2 TH/MM3 Monocytes # (Auto) 1.1 TH/MM3 Eosinophils # (Auto) 0.0 TH/MM3 Basophils # (Auto) 0.1 TH/MM3 CBC Comment DIFF FINAL Differential Comment Blood Urea Nitrogen 14 MG/DL Creatinine 0.66 MG/DL Random Glucose 161 MG/DL Total Protein 7.8 GM/DL Albumin 3.7 GM/DL Calcium Level 9.4 MG/DL Alkaline Phosphatase 159 U/L Aspartate Amino Transf (AST/SGOT) 23 U/L Alanine Aminotransferase (ALT/SGPT) 29 U/L Total Bilirubin 0.4 MG/DL Sodium Level 135 MEQ/L Potassium Level 4.3 MEQ/L Chloride Level 98 MEQ/L Carbon Dioxide Level 23.1 MEQ/L Anion Gap 14 MEQ/L Estimat Glomerular Filtration Rate 91 ML/MIN Lipase 71 U/L MDM Medical Decision Making Medical Screen Exam Complete: Yes Emergency Medical Condition: Yes Interpretation(s) Afebrile, mild tachycardia, normotensive Leukocytosis Thrombocytosis 87% neutrophils Mild hyponatremia Differential Diagnosis gastroenteritis, electrolyte abnormality, dehydration Narrative Course This is a 62-year-old female who has a history of gastroparesis who presents to the emergency department with persistent difficulty keeping anything down. Labs are all reassuring. She does have a leukocytosis but this is unchanged from recent visits. She has had CT imaging and had a recent gastric emptying study which was normal. Here she was placed on a monitor and an IV was established. She was given IV hydration, Phenergan and Reglan. She has no signs of dehydration on labs. Her symptoms are unchanged from the symptoms that have brought her to the hospital for the past 2 visits. I do not think she would benefit any further from hospitalization. I spoke to the resident team who cares for her and asked that they follow her closely in clinic and asked them to consider potential home health care for the patient. I think the patient can be discharged home. Diagnosis Primary Impression: Chronic abdominal pain Patient Instructions: General Instructions Additional Instructions: If you develop severe or worsening abdominal pain, fever>100.4, persistent vomiting or inability to eat or drink return to the emergency department immediately. Follow up with your primary care physician in 1-2 days for a check-up. Scripts Erythromycin Base (Erythromycin Base) 250 Mg Tab 250 MG PO TIDAC for Infection for 14 Days, TAB 0 Refills Prov: Kala Jack MD 12/23/17 Disposition: 01 DISCHARGE HOME Condition: Stable Kala Jack MD December 23, 2017 06:56
[2017-12-23] MEDS ORDERED: ERYT250T13 PO (07:25)
[2017-12-23] MEDS ORDERED: PROMETHAZINE INJ 25 MG/ML VIAL IM ONE (07:30)
[2017-12-23] MEDS ORDERED: SODIUM CHLOR 0.9% 1000 ML INJ 1,000 ML IV ONE (07:30)
[2017-12-23 07:41] VITALS: O2SAT 97
[2017-12-23 07:42] VITALS: BP 173/82; PULSE 110; RESP 24; O2SAT 97
== END 2017-12-23 11:30 | disposition home or self-care (01) ==
LOC: NEPC 03:46
DX: G89.29 Other chronic pain (principal); R10.9 Unspecified abdominal pain; K31.84 Gastroparesis; Z79.01 Long term (current) use of anticoagulants; J44.9 Chronic obstructive pulmonary disease, unspecified; E11.43 Type 2 diabetes mellitus with diabetic autonomic (poly)neuropathy
CPT/HCPCS: 80053; 83690; 85025; 96361; 96372; 96374; 99284; J2550; J2765; J7030